=== PATIENT | female | born 1930 | race Caucasian/White ===

== ENCOUNTER 2017-05-20 15:34 | Inpatient (IN) | payer MEDICARE, MEDICAID ==
[~2017-05-20] VITALS: Ht 162.6 cm; Wt 105.4 kg
[~2017-05-20 15:34] MED LIST: ARICEPT 5MG TAB5 MG PO; ASPIRIN EC325 M1 PO; ATROVENT H0.017 MG/A IH; BOT OP; CEFDINIR 300MG300 MG PO; CETIRIZINE HYDRO5 MG PO; CRANBERRY200 MG PO; DEEP SEA NS; DILANTIN 100MG100 MG PO; DILANTIN 50MG.50 MG PO; FUROSEMIDE 20MG20 MG PO; HYDROCODONE1 TABLET PO; INVANZ 1 GM1 GM IV; IPRATROPIUM BROM3 M2 IH; KEPPRA 500 MG500 MG PO; KLOR-CON 1010 MEQ PO; KLOR-CON M2020 ME1 PO; LASIX 20MG. TAB20 MG PO; LEVAQUIN 750 M750 MG PO; LEVAQUIN500 MG PO; LISINOPRIL 5MG T5 MG PO; LORADAMED10 MG PO; LOVENOX40 MG/0.4 SC; MEGACE PO; MEGACE40 MG/ML PO; MUCINEX DM 30 M1 TE1 PO; NATURE'S BLEND500 M3 PO; NYSTATIN SUSPEN60 ML PO; OMEPRAZOLE20 MG PO; OS-CAL 500500 M1 PO; Omeprazole20 MG PO; POTASSIUM CHLO10 ME3 PO; PRILOSEC40 MG PO; REMERON15 MG PO; ROBITUSSIN10 ML/UDC PO; TAMSULOSIN HYD0.4 MG PO; TYLENOL 8 HOUR650 MG PO; TYLENOL325 MG PO; VITAMIN D1000 IU PO; XARELTO20 MG PO; ZITHROMAX Z-PA250 M1 PO; [UNRECOGNIZED DRUG - OTHER] OP; [UNRECOGNIZED DRUG - OTHER] PO
[2017-05-20 15:35] VITALS: BP 153/84
--- NOTE | 2017-05-20 16:27 | Emergency Room Report ---
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 N Clinical Suspician of Infection? N Mental Status: 1 - Regular (Normal Baseline) Sepsis Risk:Low Sepsis Risk Have you (or family members/close friends) recently traveled outside the [place]? N If Yes, where/when: Have you had exposure to infectious disease within the past month? TB? Other? Specify: Comment The patient is brought in by ambulance from a alf. She had onset of abdominal pain and vomiting today. She locates the pain is epigastric. No diarrhea or fever. Daughter also states that she has a chronic cough, but it is worse over the past several days. Daughter is concerned about pneumonia. The patient has dementia and is not a reliable historian according to daughter. According to her daughter, the patient did eat lunch today. The patient's other daughter works at the alf and said she was fine until this started. ALLERGIES Coded Allergies: Penicillins (05/20/17) aspirin (05/20/17) Home Medications Active Scripts Ertapenem Sodium (Invanz) 1 GM IV DAILY #12 INJ Prov: 01/21/17 Reported Medications POTASSIUM CHL (Potassium Chloride) 30 MEQ PO DAILY CHOLECALCIFEROL (VITAMIN D3) (Vitamin D3) 2,000 IUNITS PO DAILY GUAIFENESIN/DEXTROMETHORPHAN (Mucinex Dm ER 600-30 MG Tablet) 1 TAB PO DAILY CALCIUM CARBONATE (Oyster Shell Calcium) 1,000 MG PO BID Omeprazole (Omeprazole 20MG) 20 MG PO BID Cetirizine Hcl (Cetirizine Hydrochloride) 5 MG PO QHS Cranberry Extract (Cranberry) 200 MG PO BID Guaifenesin (Robitussin Plain Syr 200MG/10ML Udc) 10 ML PO Q6HP PRN COUGH Acetaminophen (Tylenol) 650 MG PO Q6HP PRN PAIN IPRATROPIUM/ALBUTEROL SULFATE (Iprat-Albut 0.5-3(2.5) MG/3 Ml) 3 ML IH Q6HP PRN SHORTNESS OF BREATH Ipratropium [place] (Atrovent Hfa) 2 PUFF IH Q4HP PRN SHORTNESS OF BREATH Furosemide (Lasix 20MG) 20 MG PO DAILY Levetiracetam (Keppra 500 Mg Tablet) 500 MG PO BID TAMSULOSIN HCL (Tamsulosin 0.4MG) 0.4 MG PO BID DONEPEZIL HCL (Aricept 5MG) 5 MG PO QHS History Medical History General CAD? No Angina: No NC: No Hypertension? Yes Hyperlipidemia? No CHF? No DVT? No PE? No COPD? Yes Asthma? No Anemia? Yes GERD? No Gastric ulcers? No GI Bleed? No Hernia? Yes Thyroid Problems? No Hypothyroidism? No CVA? No Seizures? Yes Diabetes? No Renal Insuffiency? Yes End Stage Renal Disease? No UTI? Yes Stones? No BPH? No GB Disease: No Nephritic Syndrome? No Asplenia? No Hepatitis? No Sickle Cell Disease? No Arthritis? No Migraines? No Cataracts? Yes Glaucoma? No MRSA? No HIV? No TB? No Anxiety? No Depression? No Cancer? Yes Site: R BREAST More? Yes Additional hx: HYPERNATREMIA, ANEMIA, DEMENTIA ENTEROCOCCUS FAECALIS Immunization Hx Ped.Immunizations UTD Yes DT/Tetanus UNKNOWN Flu [id number] Flu Season Pneumonia Received In Past Surgical Hx Previous Surgery?Y Appendix Tubal Ligation R BREAST BX Family History Family Hx Diabetes Yes CAD No Hypertension Yes Hyperlipidemia No Cancer Yes TB Yes Social History Smoking Hx Smoker: Never Smoker Tobacco: No Type N/A Packs/day N/A Are you/the child exposed to second-hand smoke: No Alcohol Alcohol: No Review of Systems All Other Systems Reviewed and Negative Constitutional denies fever Respiratory shortness of breath Gastrointestinal abdominal pain, denies diarrhea, vomiting Physical Exam Vital Signs Vital Signs Date Time Temp Pulse Resp B/P Pulse O2 O2 Flow FiO2 Ox Delivery Rate 05/20 1841 75 20 142/84 95 05/20 1708 20 05/20 1628 73 18 147/88 94 05/20 1535 98.3 75 18 153/84 94 General Appearance no apparent distress Eye Exam - bilateral eye normal exam, bilateral eye PERRL, bilateral eye EOMI Ear, Nose, Throat hearing grossly normal, normal ENT inspection Neck normal inspection, non-tender, supple, full range of motion Respiratory Status Yes: trachea midline, chest symmetrical, tender on palpation. No: respiratory distress. Lung Sounds bilateral: normal breath sounds, lungs clear. Cardiovascular normal exam, regular rate/rhythm, no peripheral edema, no gallop, no JVD, no murmur, no rub, normal peripheral pulses Peripheral Pulses Pulses normal Yes Gastrointestinal soft, no organomegaly, no guarding, no rebound, tenderness ( epigastric), hyperactive bowel sounds Extremities non-tender, normal range of motion, normal inspection Neurologic alert, no motor/sensory deficits Mental status normal mood/affect Skin intact, normal color, warm/dry Medical Decision Making LABS/Meds/Orders Pt receiving controlled substance in ED? Yes Gary was queried for this patient? No Reason not queried - emergent pt cond=no time Results/Orders Laboratory Tests 05/20/17 1710: Influenza Type A Ag NOT DETECTED, Influenza Type B Ag NOT DETECTED 05/20/17 1655: Lactic Acid 2.2 H 05/20/17 1550: Sodium 136, Potassium 4.1, Chloride 100, Carbon Dioxide 31, BUN 19 H, Creatinine 1.1 H, Estimated Creat Clear 67, Estimated GFR (MDRD) 47 L, Glucose 195 H, Calcium 8.9, Total Bilirubin 0.8, AST 99 H, ALT 90 H, Alkaline Phosphatase 158 H, Creatine Kinase 36, CK-MB (CK-2) Rel Index 0.0, CK and CKMB Interp 0.0, Troponin I < 0.02, Total Protein 8.1, Albumin 3.4, Globulin 4.7 H, Albumin/Globulin Ratio 0.7 L, Amylase 2043 *H, Lipase 21864 H, WBC 11.5 H, RBC 5.20, Hgb 13.9, Hct 43.3, MCV 84.3, RDW 14.6, Plt Count 280, MPV 6.5 L, Gran % 80.9 H, Gran # 9.3 H, Lymphocytes % 12.2, Monocytes % 3.8, Eosinophils % 2.7, Basophils % 0.4, Lymphocytes # 1.4, Monocytes # 0.4, Eosinophils # 0.3, Basophils # 0.1, PUBS MCHC 31.8, MCH 26.8 L Current Medication Orders Sig/Bennie Start time Last Medication Dose Route Stop Time Status Admin Morphine Sulfate 0 .STK-MED ONE 05/20 1704 DC .ROUTE Sodium Chloride 1,000 ML .STK-MED ONE 05/20 1703 DC IV Morphine Sulfate 2 MG ONCE ONE 05/20 1630 DC 05/20 IV 05/20 1631 1708 Sodium Chloride 10 ML PRN PRN 05/20 1630 AC IV 05/21 1623 Sodium Chloride 1,000 ML .Q6H40M 05/20 1630 DC 05/20 IV 05/20 2029 1707 Ondansetron HCl 4 MG ONCE ONE 05/20 1600 DC 05/20 IV 05/20 1601 1602 Ondansetron HCl 0 .STK-MED ONE 05/20 1558 DC .ROUTE Orders Procedure Date/time Status DIET-NOTHING BY MOUTH 05/20 D Complete LACTIC ACID FOLLOW UP 05/[address] ABD/PELVIS REQ 05/20 1627 Complete ELECTROCARDIOGRAM REQUEST 05/20 1624 Active CHEST-AP VIEW ONLY 05/20 1624 Active IV SALINE LOCK 05/20 1624 Active CULTURE, BLOOD 05/20 1624 Active URINALYSIS/COMPLETE 05/20 1624 Complete LIPASE 05/20 1624 Complete LACTIC ACID 05/20 1624 Complete INFLUENZA A&B ANTIGENS 05/20 1624 Complete CBC WITH AUTO DIFF 05/20 1624 Complete CARDIAC ENZYMES 05/20 1624 Complete CHEM 12 PROFILE 05/20 1624 Complete AMYLASE 05/20 1624 Complete 12 LEAD EKG-LARRY (INITIAL) 05/[address] ABD & PELVIS W/O CONTRAST 05/20 UNK Active CM/EKG CM/EKG Comments EKG interpreted by Tello Chavez MD: Rhythm: sinus Rate: 78 [place]: LEFT Ectopy: none Conduction: LEFT anterior fascicular block ST Segment Changes: none T Wave Changes: none Q Waves: none No evidence of acute ischemia or injury Poor R-wave progression Left ventricular hypertrophy XRAY/CT/US XRAY/CT/US XRAY chest Comment Chest X-ray interpreted by Tello Chavez M.D.: poor inspiration. Increased perihilar markings possibly related to poor inspiration. CT abdomen, pelvis Comment CT scan interpreted by [facility] radiologist. Faxed report received and reviewed: Distended gallbladder. No calcified stones seen. Mildly dilated common bile duct , may be normal for age. 1907: Final report of CT scan also states that there are bi-basilar pulmonary opacities probably atelectasis, can't exclude mild pneumonia. Progress - 1840: Case discussed with Dr. Vaca, surgeon correspondence school instructor. He feels that given the clinical scenario, patient should be able to be admitted here. 185: I have discussed the case with Dr. Whatley who agrees to admit the patient to the hospital. We discussed the patient's clinical information, including history, exam, laboratory and radiology results and ED course. Per hospital procedure, I will write temporary bridge inpatient orders on the patient. Specific orders requested by the admitting physician: Nothing by mouth. Gallbladder ultrasound. IV fluids. Pain control. Repeat labs in the morning. Departure Departure Disposition Still a Patient Clinical Impression Primary Impression: Acute pancreatitis Qualifiers: Pancreatitis type: unspecified pancreatitis type Acute pancreatitis complication: no infection or necrosis Qualified Code: K85.90 - Acute pancreatitis without necrosis or infection, unspecified Condition STABLE ED Critical Care Critical Care No at 2035
[2017-05-20 16:39] LABS: LYMPH # 1.4 K/mm3 (0.7-4.5); LYMPH % 12.2 % (10-50.0)
[2017-05-20 16:44] LABS: HEMOGLOBIN 13.9 g/dL (12.2-16.2)
[2017-05-20 17:00] LABS: BUN 19 mg/dL (7-18)
[2017-05-20 17:01] LABS: GFR (ESTIMATED) 47 ML/MIN (59-)
[2017-05-20 19:33] LABS: URINE BILIRUBIN - DIPSTICK NEGATIVE (NEG); URINE BLOOD 2+ (NEG)
[2017-05-20 20:39] VITALS: BP 156/69
[2017-05-21] VITALS (7 sets, daily range): BP systolic 118–156; BP diastolic 68–90
[2017-05-21] MEDS ORDERED: KEPPRA 500 MG500 MG PO (03:31)
--- NOTE | 2017-05-21 06:46 | RADIOLOGY REPORT PS360 ---
CHEST-AP VIEW ONLY HISTORY: cough ORDERING PHYSICIAN: Juan Whatley MD PATIENT AGE: 87 years COMPARISON: 01/19/2017 FINDINGS: There are low lung volumes The cardiomediastinal silhouette and pulmonary vascularity are within normal limits. The lungs are clear without infiltrates, suspicious nodules, or pleural effusions. No acute bony abnormalities. Degenerative changes are present in the shoulders IMPRESSION: No change with no acute finding
[2017-05-21 07:06] LABS: HEMOGLOBIN 12.7 g/dL (12.2-16.2); LYMPH # 0.2 K/mm3 (0.7-4.5); LYMPH % 1.4 % (10-50.0)
--- NOTE | 2017-05-21 07:44 | RADIOLOGY REPORT PS360 ---
CT ABD PELVIS W/O CONTRAST CLINICAL INDICATION: VOMITING ORDERING PHYSICIAN: Juan Whatley MD PATIENT AGE: 87 years COMPARISON: 12/31/2014 TECHNIQUE: Axial images obtained with sagittal and coronal reformats. PROCEDURE: Oral Contrast: None IV Contrast: None . FINDINGS: There is mild bibasilar atelectasis versus patchy infiltrate. Beam hardening artifact is present overlying the posterior aspect of the liver and spleen secondary to patient's arms down by her side. There is distention of the gallbladder. No radio opaque stones. The liver and spleen are grossly unremarkable. Common bile duct is slightly prominent at 10 mm. Unremarkable pancreas. There is mild nodularity left adrenal gland unchanged probably due to adenomatous involvement. Nonobstructing right renal calculi. Left renal cortical cysts. There is fluid-filled duodenum and proximal jejunum with minimal distention without obvious transition point. No evidence of appendicitis. There is extensive diverticulosis of the descending and sigmoid colon but no evidence of diverticulitis. No pelvic mass. Senescent calcifications are present in the uterus No acute bony anomalies. IMPRESSION: 1. Distended gallbladder with mild prominence of the common bile duct. 2. Nonobstructing right renal calculi. 3. Minimal distention of the proximal small bowel is fluid filled without obvious transition point and may be related to enteritis. No air-fluid levels. Cannot completely exclude possibility of partial small bowel obstruction. 4. Extensive colonic diverticulosis without evidence of diverticulitis
--- NOTE | 2017-05-21 07:53 | HISTORY AND PHYSICAL REPORT ---
History and Physical ([facility]) Date of admission: 05/20/17 Chief complaint: Abdominal pain and vomiting History: History of Present Illness: Ms. Gonzalez is an 87-year-old white female who is a resident of [facility] in [place]. She has a history of Alzheimer's dementia, hypertension, seizure disorder, and chronic renal insufficiency. She was sent to the emergency room with the onset of epigastric pain, nausea and vomiting. Her daughter reported that she had dry cough for the past 2-3 days as well. She was worked up in the emergency room with significant findings of elevated amylase and lipase consistent with pancreatitis. Her CT scan however was fairly unremarkable other than borderline enlargement of the gallbladder. No gallstones appreciated. The lower lung bo were visible on abdominal CT and showed some atelectasis versus early pneumonia. Initial cardiac enzymes were negative. Patient was then admitted to the service of Dr. Whatley in the absence of her having a local physician. The patient was admitted to the medical floor and start on IV fluid hydration, antiemetics and p.r.n. pain medication. UA was also consistent with urinary tract infection she has been started on IV Levaquin for urinary tract infection and possible pneumonia. She required a small dose of Ativan through the night because of some agitation. After that she rested fairly comfortably. This morning she was noted to be tachycardic with heart rate around 140. EKG confirmed sinus tachycardia and repeat cardiac enzymes showed a bump in her Troponin to 0.18. She has no complaints of chest pain but is an unreliable historian. She had no vomiting through the night. Past Medical History: Medical History: CAD? No Angina: No CA: No Hypertension? Yes Hyperlipidemia? No CHF? No DVT? No PE? No COPD? Yes Asthma? No Anemia? Yes GERD? No Gastric ulcers? No GI Bleed? No Hernia? Yes Thyroid Problems? No Hypothyroidism? No CVA? No Seizures? Yes Diabetes? No Renal Insuffiency? Yes UTI? Yes Stones? No BPH? No GB Disease: No Nephritic Syndrome? No Asplenia? No Hepatitis? No Sickle Cell Disease? No Arthritis? No Migraines? No Cataracts? Yes Glaucoma? No MRSA? No HIV? No TB? No Anxiety? No Depression? No Cancer? Yes Site: R BREAST More? Yes Additional hx: Alzheimers dementia Surgical history: Previous Surgery?Y Appendix Tubal Ligation R BREAST BX Medications: Reported Medications Omeprazole (Omeprazole 20MG) 20 MG PO DAILY POTASSIUM CHL (Potassium Chloride) 30 MEQ PO DAILY CHOLECALCIFEROL (VITAMIN D3) (Vitamin D3) 2,000 IUNITS PO DAILY GUAIFENESIN/DEXTROMETHORPHAN (Mucinex Dm ER 600-30 MG Tablet) 1 TAB PO DAILY CALCIUM CARBONATE (Oyster Shell Calcium) 1,000 MG PO BID Cetirizine Hcl (Cetirizine Hydrochloride) 5 MG PO QHS Cranberry Extract (Cranberry) 200 MG PO BID Acetaminophen (Tylenol) 650 MG PO Q6HP PRN PAIN Levetiracetam (Keppra 500 Mg Tablet) 500 MG PO BID Furosemide (Lasix 20MG) 20 MG PO DAILY Levetiracetam (Keppra 500 Mg Tablet) 500 MG PO BID TAMSULOSIN HCL (Tamsulosin 0.4MG) 0.4 MG PO BID DONEPEZIL HCL (Aricept 5MG) 5 MG PO QHS Allergies: Coded Allergies: Penicillins (05/20/17) aspirin (05/20/17) Family History: Family history: Postive for: unknown. Social History: Smoking Hx Tobacco: No Smoker: Never Smoker Type: N/A Packs/day: N/A Are you exposed to second hand No Alcohol: Alcohol: No Hx of Drug Use: Drug Use? No Patien't marital status is: Review of Systems: Patient unresponsive? Yes (demented) Physical Exam: Vital signs: 1ST Vital Signs Result Date Time Pulse Ox 94 05/20 1535 B/P 153/84 05/20 1535 Temp 98.3 05/20 1535 Pulse 75 05/20 1535 Resp 18 05/20 1535 O2 Delivery ROOM AIR 05/20 2039 O2 Flow Rate 1 05/20 2300 Exam: General appearance: awake and responsive but incoherent. NAD Eyes: anicteric, conjunctiva clear ENT: dry mucous membranes, nares patent Neck: supple, no masses or thyromegaly Cardiovascular: distant, regular and tachycardic Respiratory: diminished in bases o/w clear ABD: non-distended, soft, BS present but decreased. Tender across upper abdomen to palpation Extremities: no peripheral edema Musculoskeletal: moves all extremities. Gait not tested Skin: dry, normal color, warm Neuro: awake, incoherent. No focal motor deficits Lab data: Labs: Laboratory Tests 05/21/17 1202: POC Glucose 118 H 05/21/17 0615: Creatine Kinase 46, CK-MB (CK-2) Rel Index 1.1, CK and CKMB Interp < 0.5, Troponin I 0.18 H 05/21/17 0615: Sodium 140, Potassium 3.3 L, Chloride 107, Carbon Dioxide 26, BUN 19 H, Creatinine 1.1 H, Estimated Creat Clear 56, Estimated GFR (MDRD) 47 L, Glucose 120 H, Calcium 8.2 L, Total Bilirubin 2.3 H, AST 67 H, ALT 117 H, Alkaline Phosphatase 156 H, Total Protein 6.7, Albumin 2.8 L, Globulin 3.9 H, Albumin/ Globulin Ratio 0.7 L, Amylase 887 *H, Lipase 6038 H, WBC 15.0 H, RBC 4.73, Hgb 12.7, Hct 39.6, MCV 83.6, RDW 14.7, Plt Count 210, MPV 7.3 L, Gran % 94.6 H, Gran # 14.2 H, Total Counted 100, Lymphocytes % 1.4 L, Monocytes % 3.1, Eosinophils % 0.7, Basophils % 0.2, Neutrophils 86 H, Band Neutrophils 6, Lymphocytes (Manual) 6 L, Lymphocytes # 0.2 L, Monocytes (Manual) 1 L, Monocytes # 0.5, Eosinophils # 0.1, Basophils # 0.0, RBC/WBC/PLT Morphology NORMAL, Atypical Lymphocytes 1, Platelet Estimate NORMAL, PUBS MCHC 32.1, MCH 26.9 L 05/21/17 0614: POC Glucose 122 H 05/20/178: POC Glucose 152 H 05/20/172054: Lactic Acid 2.1 H 05/20/17 1925: Urine Color YELLOW, Urine Appearance CLOUDY, Urine pH 6.5, Ur Specific [place] 1.020, Urine Protein 1+ H, Urine Ketones NEGATIVE, Urine Blood 2+ H, Urine Nitrate NEGATIVE, Urine Bilirubin NEGATIVE, Urine Urobilinogen 2.0, Ur Leukocyte Esterase 3+ H, Urine RBC 3-5, Urine WBC TNTC, Ur Squamous Epith Cells NONE, Urine Bacteria 2+, Urine Glucose NEGATIVE 05/20/17 1710: Influenza Type A Ag NOT DETECTED, Influenza Type B Ag NOT DETECTED 05/20/17 1655: Lactic Acid 2.2 H 05/20/17 1550: Sodium 136, Potassium 4.1, Chloride 100, Carbon Dioxide 31, BUN 19 H, Creatinine 1.1 H, Estimated Creat Clear 67, Estimated GFR (MDRD) 47 L, Glucose 195 H, Calcium 8.9, Total Bilirubin 0.8, AST 99 H, ALT 90 H, Alkaline Phosphatase 158 H, Creatine Kinase 36, CK-MB (CK-2) Rel Index 0.0, CK and CKMB Interp 0.0, Troponin I < 0.02, Total Protein 8.1, Albumin 3.4, Globulin 4.7 H, Albumin/Globulin Ratio 0.7 L, Amylase 2043 *H, Lipase 38896 H, WBC 11.5 H, RBC 5.20, Hgb 13.9, Hct 43.3, MCV 84.3, RDW 14.6, Plt Count 280, MPV 6.5 L, Gran % 80.9 H, Gran # 9.3 H, Lymphocytes % 12.2, Monocytes % 3.8, Eosinophils % 2.7, Basophils % 0.4, Lymphocytes # 1.4, Monocytes # 0.4, Eosinophils # 0.3, Basophils # 0.1, PUBS MCHC 31.8, MCH 26.8 L Microbiology 05/20 1925 URINE CC: Urine Culture - RECD 05/20 1925 URINE CATH: Urine Culture - RECD 05/20 1550 BLOOD: Anaerobic Blood Culture - RECD 05/20 1550 BLOOD: Aerobic Blood Culture - RECD 05/20 1550 BLOOD: Anaerobic Blood Culture - RECD 05/20 1550 BLOOD: Aerobic Blood Culture - RECD Diagnosis(es): 1. Acute pancreatitis 2. NSTEMI (non-ST elevated myocardial infarction) 3. UTI (urinary tract infection) 4. Dementia Status: Chronic 5. Seizure disorder Status: Chronic 6. Renal insufficiency Status: Chronic 7. Pulmonary atelectasis Assessment/Plan Possible pneumonia Plan: Her condition is guarded in light of the acute pancreatitis and other comorbidities. Her amylase and lipase have improved however her total bilirubin is increased. Abdominal ultrasound this morning again did not show any gallstones nor obvious common bile duct obstruction. Dr. Tracey has been consulted for surgical opinion however in light of her apparent non-STEMI, she is not a good candidate for surgery or intervention at this time. There is currently no family present at the bedside for further discussion. They have signed a DNR indicating no life prolonging measures except for mechanical ventilation. I plan to discuss this further with them at the earliest convenience. For the present time, we will continue IV fluid hydration, n.p.o. for bowel rest, and IV Levaquin for coverage of urinary tract infection and possible pneumonia pending cultures. Dr. Ramos has been consultedregarding her non-STEMI. at 3842
[2017-05-21 08:51] LABS: NEUTROPHILS 86 % (42-76)
--- NOTE | 2017-05-21 08:54 | RADIOLOGY REPORT PS360 ---
US GALLBLADDER (ABD LTD) HISTORY: pancreatitis ORDERING PHYSICIAN: Juan Whatley MD PATIENT AGE: 87 years COMPARISON: None FINDINGS: The exam is somewhat limited as the patient is unable to follow breathing commands. Pancreas is not well delineated. There is heterogeneous echogenicity of the liver. Right kidney has an unremarkable appearance. Common bile duct is upper normal at 8 mm. No gallstones are evident. No gallbladder wall thickening or pericholecystic fluid. Gallbladder is mildly distended. IMPRESSION: Technically limited exam. Mild distention of the gallbladder. No gallstones apparent. No biliary dilatation
--- NOTE | 2017-05-21 09:27 | PHARMACY CLINIC NOTE ---
Patient Demographics Patient Demographics Admission date: 05/20/17 Date: 05/21/17 Time: 09 Allergies Coded Allergies: Penicillins (05/20/17) aspirin (05/20/17) HEIGHT- FT: 5 IN: 4.00 K.[id number] VTE General Information Labs: Laboratory Tests 05/21 05/20 0615 1550 Hematology Hgb (12.2 - 16.2 g/dL) 12.7 13.9 Hct (37.0 - 47.0 %) 39.6 43.3 Plt Count (142 - 424 K/mm3) 210 280 Disclaimer The following section includes nursing documentation that has been pulled in for pharmacy review. Patient's VTE score: 2 Patient's VTE Risk: VERY LOW RISK Clinical trial participant? No VTE prophylaxis NQF [id number] VTE prophylaxis ordered? Yes Type of prophylaxis/treatment: TITO at 0926
--- NOTE | 2017-05-21 09:56 | CONSULT NOTE ---
Standard Demographics Patient Demo Date of Consultation: 05/21/17 Referring Provider: Miko Whatley MD Reason for Consultation: pancreatitis PRIMARY DIAGNOSIS: pancreatitis Allergies: Coded Allergies: Penicillins (05/20/17) aspirin (05/20/17) History of Present Illness Chief Complaint: Abdominal pain and nausea/vomiting History of Present Illness: This is an 87-year-old female seen in consultation from Dr. Whatley for evaluation regarding pancreatitis. She was brought to the emergency department yesterday by way of ambulance from her care home after developing abdominal pain and nausea/vomiting. She seemingly had significant pain in the epigastric region. She subsequently developed an episode of significant emesis. She does have dementia and is a poor historian. No reported fevers. No reported jaundice. No reported hematemesis. No reported melena. Evaluation in the emergency department revealed biochemical evidence of pancreatitis. Past Medical History Reports: COPD, hypertension, dementia. Surgical History Previous Surgery?Y Appendix Tubal Ligation R BREAST BX Allergies Coded Allergies: Penicillins (05/20/17) aspirin (05/20/17) Medications: Reported Medications POTASSIUM CHL (Potassium Chloride) 30 MEQ PO DAILY CHOLECALCIFEROL (VITAMIN D3) (Vitamin D3) 2,000 IUNITS PO DAILY GUAIFENESIN/DEXTROMETHORPHAN (Mucinex Dm ER 600-30 MG Tablet) 1 TAB PO DAILY CALCIUM CARBONATE (Oyster Shell Calcium) 1,000 MG PO BID Omeprazole (Omeprazole 20MG) 20 MG PO BID Cetirizine Hcl (Cetirizine Hydrochloride) 5 MG PO QHS Cranberry Extract (Cranberry) 200 MG PO BID Acetaminophen (Tylenol) 650 MG PO Q6HP PRN PAIN Levetiracetam (Keppra 500 Mg Tablet) 500 MG PO BID Furosemide (Lasix 20MG) 20 MG PO DAILY Levetiracetam (Keppra 500 Mg Tablet) 500 MG PO BID TAMSULOSIN HCL (Tamsulosin 0.4MG) 0.4 MG PO BID DONEPEZIL HCL (Aricept 5MG) 5 MG PO QHS Family history Postive for: unknown. Smoking Hx Tobacco: No Smoker: Never Smoker Type: N/A Packs/day: N/A Are you/the child exposed to second-hand smoke: No Alcohol Alcohol: No Hx of Drug Use Drug Use? No Review of Systems Constitutional No: recent weight loss. Skin No: bruising. Immune/allergy No: anaphalaxis. Eyes No: swelling. ENT No: nose bleed. Respiratory No: hemoptysis. GI Positive for: nausea, vomitting. No: hematemeis, hematochezia, melena. (female) No: hematuria. Heme No: petechia. Neurological No: change in LOC. Psychiatric No: anxious. Physical Exam VS/I&O Vital Signs Date Time Temp Pulse Resp B/P Pulse O2 O2 Flow FiO2 Ox Delivery Rate 05/21 0906 91 05/21 0851 98.1 140 20 118/68 91 05/21 0800 98.1 140 20 118/68 89 OXYGEN 05/21 0558 1 05/21 0530 98.4 108 05/21 0425 138 05/21 0400 1 05/21 0400 100.4 142 24 140/73 91 OXYGEN 1 05/21 0300 1 05/21 0245 85 05/21 0245 98.2 85 24 156/69 05/21 0245 92 ROOM AIR 05/21 0200 1 05/21 0150 24 05/20 2300 1 05/20 2039 98.2 85 24 156/69 92 ROOM AIR 05/20 1947 72 18 138/75 99 05/20 1841 75 20 142/84 95 05/20 1708 20 05/20 1628 73 18 147/88 94 05/20 1535 98.3 75 18 153/84 94 I&O 05/21 0700 Intake Total 1000 Output Total 1350 Balance -350 Intake, IV 1000 Output, Urine 1350 Patient 102.541 kg Weight Exam General appearance no acute distress Respiratory no distress Cardiovascular regular rate and rhythm Abdomen flat (some TTP in upper abd), soft Findings/Data US - no obvious stones or biliary dilitation (CBD normal for age), somewhat distended GB with no wall thickening White blood cell count 15 (up from 11.5) AST 67 ALT 117 Alkaline phosphatase 156 Bilirubin 2.3 (up from 0.8) Amylase 887 (down from 2,043) Lipase 6,038 (down from 38,710) Troponin I - 0.18 Plan Plan: Impression: Pancreatitis - improving biochemically (possible "passed stone") Hyperbilirubinemia - possible "passed stone" or retained stone that is not obvious on US Leukocytosis Elevated troponin NOTE: Although the patient may have passed a gallstone, she has no definitive sign of additional stones within the gallbladder or definitive stone within the biliary tree Plan: 1) continue nothing by mouth status with IV fluid hydration 2) continue antibiotics with consideration of additional (biliary) coverage 3) repeat labs in a.m. 4) possible ERCP if hyperbilirubinemia does not resolve 5) considering the low likelihood of persistent stones within the gallbladder itself and considering the patient's comorbid conditions...the risks associated with operative intervention (specifically cholecystectomy) likely outweigh the benefits (even if ERCP is completed and stones are extracted) at [id number]
[2017-05-22] VITALS (8 sets, daily range): BP systolic 110–133; BP diastolic 60–80
[2017-05-22 07:45] LABS: HEMOGLOBIN 12.6 g/dL (12.2-16.2); LYMPH # 0.9 K/mm3 (0.7-4.5); LYMPH % 6.3 % (10-50.0)
--- NOTE | 2017-05-22 08:38 | ACUTE CARE PROGRESS NOTE (QUA) ---
Progress Notes Subjective Date 05/22/17 Time 0832 Note Has increased confusion and agitation at night. This AM she is calm and cooperative. Denies c/o pain Objective Findings Laboratory Tests 05/22/17 0619: POC Glucose 79 05/22/17 0605: Sodium 143, Potassium 3.7, Chloride 110 H, Carbon Dioxide 27, BUN 22 H, Creatinine 1.0, Estimated Creat Clear 62, Estimated GFR (MDRD) 52 L, Glucose 76 , Calcium 8.0 L, Total Bilirubin 2.5 H, AST 42 H, ALT 109 H, Alkaline Phosphatase 128 H, Total Protein 6.4, Albumin 2.4 L, Globulin 4.0 H, Albumin/ Globulin Ratio 0.6 L, Amylase 167 H, Lipase 370, WBC 13.7 H, RBC 4.60, Hgb 12.6, Hct 38.9, MCV 84.5, RDW 14.7, Plt Count 185, MPV 7.3 L, Gran % 88.6 H, Gran # 12.1 H, Lymphocytes % 6.3 L, Monocytes % 4.2, Eosinophils % 0.7, Basophils % 0.2, Lymphocytes # 0.9, Monocytes # 0.6, Eosinophils # 0.1, Basophils # 0.0, PUBS MCHC 32.5, MCH 27.5 05/21/17 1645: POC Glucose 94 05/21/17 1202: POC Glucose 118 H Last VS-Temp:98.5 B/P: 110/80 Pulse:100 Resp:20 SaO2:92 ROOM AIR Last weight lbs: 226 oz: 1 K.541 Method: Bed Scales Exam General appearance: alert but confused Eyes: anicteric ENT: dry mucous membranes Cardiovascular: regular rate & rhythm Respiratory: congested cough, coares BS, few rhonchi ABD: soft, BS present. Mild upper abdominal tenderness Extremities: no peripheral edema Assessment/Plan Problem List 1. Acute pancreatitis 2. NSTEMI (non-ST elevated myocardial infarction) 3. UTI (urinary tract infection) 4. Dementia Status: Chronic 5. Seizure disorder Status: Chronic 6. Renal insufficiency Status: Chronic 7. Pulmonary atelectasis Plan: Amylase and lipase much improved. Bili is slightly higher but other LFTs improved. Will offer clear liquids. Check CXR. Awaiting cultures. This inpt stay is expected to cross 2 MNs from start of care Yes at 0838
--- NOTE | 2017-05-22 09:34 | SURGEON PROGRESS NOTE ---
Subjective data Subjective data: No new issues overnight. Objective data Vitals,I&O,and Labs: Vital signs, intake and output,and available lab data for the last 24 hours is as noted below. Vital Signs Date Time Temp Pulse Resp B/P Pulse O2 O2 Flow FiO2 Ox Delivery Rate 05/22 823 98.5 100 20 110/80 92 05/22 0752 98.5 100 20 110/80 92 ROOM AIR 05/22 0417 100.5 100 20 129/60 90 ROOM AIR 05/22 0314 18 05/21 2247 22 05/21 2000 100.0 123 22 139/90 90 05/21 1948 100.0 123 22 139/90 90 ROOM AIR 05/21 1600 98.4 79 20 136/88 91 OXYGEN 05/21 1211 88 05/21 1500 05/21 2300 05/22 0700 Intake Total 0 3944 1670 Output Total 300 500 Balance 0 3644 1170 Intake, IV 3944 1670 Intake, Oral 0 0 Output, Urine 300 500 Laboratory Tests Test Result Date Time Chemistry Sodium (mmoL/L) 143 05/22 605 Potassium (mmoL/L) 3.7 05/22 605 Chloride (mmoL/L) 110 05/22 06 Carbon Dioxide (mmoL/L) 27 05/22 605 BUN (mg/dL) 22 05/22 605 Creatinine (mg/dL) 1.0 05/22 605 Estimated Creat Clear (ML/MIN) 62 05/22 605 Estimated GFR (MDRD) (ML/MIN) 52 05/22 06 Glucose (mg/dL) 76 05/22 605 POC Glucose (mg/dl) 79 05/22 619 Lactic Acid (MMOL/L) 2.1 05/20 2055 Calcium (mg/dL) 8.0 05/22 605 Total Bilirubin (mg/dL) 2.5 05/22 605 AST (U/L) 42 05/22 605 ALT (U/L) 109 05/22 605 Alkaline Phosphatase (U/L) 128 05/22 605 Creatine Kinase (U/L) 46 05/21 615 CK-MB (CK-2) Rel Index (U/L) 1.1 05/21 615 CK and CKMB Interp (ng/mL) < 0.5 05/21 615 Troponin I (ng/mL) 0.18 05/21 615 Total Protein (gm/dL) 6.4 05/22 605 Albumin (gm/dL) 2.4 05/22 605 Globulin (gm/dL) 4.0 05/22 605 Albumin/Globulin Ratio 0.6 05/22 605 Amylase (U/L) 167 05/22 605 Lipase (U/L) 370 05/22 605 Hematology WBC (K/MM3) 13.7 05/22 605 RBC (M/mm3) 4.60 05/22 605 Hgb (g/dL) 12.6 05/22 605 Hct (%) 38.9 05/22 605 MCV (fl) 84.5 05/22 605 RDW (%) 14.7 05/22 605 Plt Count (K/mm3) 185 05/22 605 MPV (fl) 7.3 05/22 605 Gran % (%) 88.6 05/22 605 Gran # (K/mm3) 12.1 05/22 605 Total Counted (#CELLS) 100 05/21 615 Lymphocytes % (%) 6.3 05/22 605 Monocytes % (%) 4.2 05/22 605 Eosinophils % (%) 0.7 05/22 605 Basophils % (%) 0.2 05/22 605 Neutrophils (%) 86 05/21 615 Band Neutrophils (%) 6 05/21 615 Lymphocytes (Manual) (%) 6 05/21 615 Lymphocytes # (K/mm3) 0.9 05/22 605 Monocytes (Manual) (%) 1 05/21 615 Monocytes # (K/mm3) 0.6 05/22 605 Eosinophils # (K/mm3) 0.1 05/22 605 Basophils # (K/MM3) 0.0 05/22 605 RBC/WBC/PLT Morphology NORMAL 05/21 615 Atypical Lymphocytes (%) 1 05/21 615 Platelet Estimate NORMAL 05/21 615 PUBS MCHC (g/dl) 32.5 05/22 605 Immunology MCH (pg) 27.5 05/22 605 Serology Influenza Type A Ag NOT DETECTED 05/20 1710 Influenza Type B Ag NOT DETECTED 05/20 1710 Urines Urine Color YELLOW 05/20 1925 Urine Appearance CLOUDY 05/20 1925 Urine pH 6.5 05/20 1925 Ur Specific [place] 1.020 05/20 1925 Urine Protein (mg/dL) 1+ 05/20 1925 Urine Ketones (mg/dL) NEGATIVE 05/20 1925 Urine Blood 2+ 05/20 1925 Urine Nitrate NEGATIVE 05/20 1925 Urine Bilirubin NEGATIVE 05/20 1925 Urine Urobilinogen (E.U./dL) 2.0 05/20 1925 Ur Leukocyte Esterase 3+ 05/20 1925 Urine RBC (rbc/hpf) 3-5 05/20 1925 Urine WBC (wbc/hpf) TNTC 05/20 1925 Ur Squamous Epith Cells (#/hpf) NONE 05/20 1925 Urine Bacteria 2+ 05/20 1925 Urine Glucose NEGATIVE 05/20 1925 Assessment findings Assessment Exam General appearance: no acute distress Cardiovascular: regular rate & rhythm Respiratory: no respiratory distress ABD: soft (seemingly less TTP) Patient plan Diagnoses: Pancreatitis-biochemically resolving Hyperbilirubinemia-slightly higher this morning Non-STEMI Plan: as per primary service Additional data: Gastroenterology and cardiology consultations are pending. Possible ERCP warranted (particularly if hyperbilirubinemia worsens); however, the risks of any intervention requiring sedation may outweigh the benefit. at 0934
--- NOTE | 2017-05-22 10:57 | RADIOLOGY REPORT PS360 ---
CHEST-PORTABLE HISTORY: Pneumonia follow-up f/u atelectasis vs pneumonia ORDERING PHYSICIAN: Juan Whatley MD PATIENT AGE: 87 years COMPARISON: 05/20/2017 FINDINGS: Mild cardiomegaly without failure. Patchy density has developed in the right midlung which may be due to atelectasis or infiltrate. There is some density also noted in the left lung base in the CP angle suggesting small effusion with underlying atelectasisX. There are low lung volumes. IMPRESSION: Atelectasis or infiltrate in the right midlung and left lower lobe with small left
[2017-05-23] VITALS (9 sets, daily range): BP systolic 119–155; BP diastolic 51–73
--- NOTE | 2017-05-23 06:24 | SURGEON PROGRESS NOTE ---
Subjective data Subjective data: Resting this AM. Objective data Vitals,I&O,and Labs: Vital signs, intake and output,and available lab data for the last 24 hours is as noted below. Vital Signs Date Time Temp Pulse Resp B/P Pulse O2 O2 Flow FiO2 Ox Delivery Rate 05/23 0348 99.0 73 20 149/73 92 OXYGEN 1 05/23 0342 98.8 99 16 128/69 93 ROOM AIR 05/23 0254 20 05/22 2313 20 05/22 2057 99.4 80 24 123/70 94 ROOM AIR 05/22 2050 99.4 80 24 123/70 94 05/22 1558 98.6 86 18 129/64 90 ROOM AIR 05/22 1200 99.2 90 18 133/71 88 ROOM AIR 05/22 0823 98.5 100 20 110/80 92 05/22 0752 98.5 100 20 110/80 92 ROOM AIR 05/22 1500 05/22 2300 05/23 0700 Intake Total 420 2225 Output Total 350 Balance 420 1875 Intake, IV 1865 Intake, Oral 420 360 Output, Urine 350 Patient 102.541 kg Weight Laboratory Tests Test Result Date Time Chemistry Sodium (mmoL/L) 143 05/22 06 Potassium (mmoL/L) 3.7 05/22 605 Chloride (mmoL/L) 110 05/22 06 Carbon Dioxide (mmoL/L) 27 05/22 605 BUN (mg/dL) 22 05/22 605 Creatinine (mg/dL) 1.0 05/22 605 Estimated Creat Clear (ML/MIN) 62 05/22 605 Estimated GFR (MDRD) (ML/MIN) 52 05/22 605 Glucose (mg/dL) 76 05/22 06 POC Glucose (mg/dl) 100 05/22 2055 Lactic Acid (MMOL/L) 2.1 05/20 2055 Calcium (mg/dL) 8.0 05/22 605 Total Bilirubin (mg/dL) 2.5 05/22 605 AST (U/L) 42 05/22 605 ALT (U/L) 109 05/22 06 Alkaline Phosphatase (U/L) 128 05/22 605 Creatine Kinase (U/L) 46 05/21 615 CK-MB (CK-2) Rel Index (U/L) 1.1 09/23 0615 CK and CKMB Interp (ng/mL) < 0.5 05/21 615 Troponin I (ng/mL) 0.18 05/21 615 Total Protein (gm/dL) 6.4 05/22 605 Albumin (gm/dL) 2.4 05/22 605 Globulin (gm/dL) 4.0 05/22 605 Albumin/Globulin Ratio 0.6 05/22 605 Amylase (U/L) 167 05/22 605 Lipase (U/L) 370 05/22 605 Hematology WBC (K/MM3) 13.7 05/22 605 RBC (M/mm3) 4.60 05/22 605 Hgb (g/dL) 12.6 05/22 605 Hct (%) 38.9 05/22 605 MCV (fl) 84.5 05/22 605 RDW (%) 14.7 05/22 605 Plt Count (K/mm3) 185 05/22 605 MPV (fl) 7.3 05/22 605 Gran % (%) 88.6 05/22 605 Gran # (K/mm3) 12.1 05/22 605 Total Counted (#CELLS) 100 05/21 615 Lymphocytes % (%) 6.3 05/22 605 Monocytes % (%) 4.2 05/22 605 Eosinophils % (%) 0.7 05/22 605 Basophils % (%) 0.2 05/22 605 Neutrophils (%) 86 05/21 615 Band Neutrophils (%) 6 05/21 615 Lymphocytes (Manual) (%) 6 05/21 615 Lymphocytes # (K/mm3) 0.9 05/22 605 Monocytes (Manual) (%) 1 05/21 615 Monocytes # (K/mm3) 0.6 05/22 605 Eosinophils # (K/mm3) 0.1 05/22 605 Basophils # (K/MM3) 0.0 05/22 605 RBC/WBC/PLT Morphology NORMAL 05/21 615 Atypical Lymphocytes (%) 1 05/21 615 Platelet Estimate NORMAL 05/21 615 PUBS MCHC (g/dl) 32.5 05/22 605 Immunology MCH (pg) 27.5 05/22 605 Serology Influenza Type A Ag NOT DETECTED 05/20 1710 Influenza Type B Ag NOT DETECTED 05/20 1710 Urines Urine Color YELLOW 05/20 1925 Urine Appearance CLOUDY 05/20 1925 Urine pH 6.5 05/20 1925 Ur Specific [place] 1.020 05/20 1925 Urine Protein (mg/dL) 1+ 05/20 1925 Urine Ketones (mg/dL) NEGATIVE 05/20 1925 Urine Blood 2+ 05/20 1925 Urine Nitrate NEGATIVE 05/20 1925 Urine Bilirubin NEGATIVE 05/20 1925 Urine Urobilinogen (E.U./dL) 2.0 05/20 1925 Ur Leukocyte Esterase 3+ 05/20 1925 Urine RBC (rbc/hpf) 3-5 05/20 1925 Urine WBC (wbc/hpf) TNTC 05/20 1925 Ur Squamous Epith Cells (#/hpf) NONE 05/20 1925 Urine Bacteria 2+ 05/20 1925 Urine Glucose NEGATIVE 05/20 1925 Assessment findings Assessment Exam General appearance: no acute distress Cardiovascular: regular rate & rhythm Respiratory: no respiratory distress ABD: soft Patient plan Diagnoses: pancreatitis hyperbilirubinemia leukocytosis non-STEMI Plan: f/u AM labs, f/u cardiology consult, ? GI consult at 0624
[2017-05-23 06:46] LABS: HEMOGLOBIN 11.9 g/dL (12.2-16.2); LYMPH # 0.8 K/mm3 (0.7-4.5); LYMPH % 5.3 % (10-50.0)
--- NOTE | 2017-05-23 07:35 | CONSULT NOTE ---
See Addendum Standard Demographics Patient Demo Date of Consultation: 05/23/17 Referring Provider: Miko Whatley MD Reason for Consultation: NSTEMI, Pancreatitis PRIMARY DIAGNOSIS: pancreatitis Problem list Problem list: 1. Alzheimer's Disease/Dementia 2. HTN 3. Seizure Disorder 4. COPD History of present illness: History of present illness: 87 yo [place]F resident of [place] with history of Alzheimer's Dementia, HTN, Seizure Disorder and DNR was admitted with abdominal pain, nausea and vomiting. She was found to have labs and imaging consistent with pancreatitis which has been managed medically at this point. Due to elevated heart rate during admission, a second troponin was drawn and found to be elevated (initial troponin on admission was normal). Cardiology consulted for pre-op evaluation. Pt unable to provide significant or reliable history. Past Medical History: General: Hypertension Yes CVA No Seizures Yes TB No COPD Yes Asthma No Diabetes No Angina No [place] No Hyperlipidemia No Urinary Yes Cancer Yes Rheumatic H.D. No Ulcers No MRSA No GB Disease No Other DEMNETIA Additional hx Alzheimers dementia Past Surgical HX: Previous Surgery?Y Appendix Tubal Ligation R BREAST BX Allergies Coded Allergies: Penicillins (05/20/17) aspirin (05/20/17) Home medications: Reported Medications Omeprazole (Omeprazole 20MG) 20 MG PO DAILY POTASSIUM CHL (Potassium Chloride) 30 MEQ PO DAILY CHOLECALCIFEROL (VITAMIN D3) (Vitamin D3) 2,000 IUNITS PO DAILY GUAIFENESIN/DEXTROMETHORPHAN (Mucinex Dm ER 600-30 MG Tablet) 1 TAB PO DAILY CALCIUM CARBONATE (Oyster Shell Calcium) 1,000 MG PO BID Cetirizine Hcl (Cetirizine Hydrochloride) 5 MG PO QHS Cranberry Extract (Cranberry) 200 MG PO BID Acetaminophen (Tylenol) 650 MG PO Q6HP PRN PAIN Levetiracetam (Keppra 500 Mg Tablet) 500 MG PO BID Furosemide (Lasix 20MG) 20 MG PO DAILY Levetiracetam (Keppra 500 Mg Tablet) 500 MG PO BID TAMSULOSIN HCL (Tamsulosin 0.4MG) 0.4 MG PO BID DONEPEZIL HCL (Aricept 5MG) 5 MG PO QHS Current Medications: Current Medications Morphine Sulfate 0 .STK-MED ONE .ROUTE (DC) Morphine Sulfate 0 .STK-MED ONE .ROUTE (DC) Donepezil HCl 5 MG QHS PO Acetaminophen 0 .STK-MED ONE PO (DC) Levetiracetam 500 MG BID PO Metoprolol Tartrate 12.5 MG TID PO Levofloxacin/Dextrose 150 ML Q24H IV Diazepam 5 MG PRN PRN IV Acetaminophen 650 MG Q4HP PRN PO Guaifenesin/Dextromethorphan 10 ML Q4HP PRN PO Diagnostic Test (Pha) 1 EACH W/MEALS&HS FS Insulin Human [rDNA origin] SEE ADMIN CRITERIA FOR LOW INTENSITY SS W/MEALS&HS SC Influenza Virus Vaccine Quadrival 0.5 ML PRN PRN IM Morphine Sulfate 2 MG Q2HP PRN IV Nicotine 21 MG DAILYP PRN TD Ondansetron HCl 4 MG Q6HP PRN IV Sodium Chloride 1,000 ML .Q10H IV Sodium Chloride 10 ML PRN PRN IV Immunization HX Ped.Immunizations UTD Yes DT/Tetanus UNKNOWN Flu 2013-FSN Pneumonia RECEIVED IN PAST TB Test in last year No Family history Family HX Family Hx Insignificant No Diabetes Yes CAD No Hypertension Yes Hyperlipidemia No Cancer Yes TB Yes Social Hx: Smoking HX Tobacco No Type N/A Packs/day N/A Are you/the child exposed to second-hand smoke: No Alcohol Alcohol: No Hx of Drug Use Drug Use? No Comment: [facility] Review of systems: Constitutional see HPI. Respiratory see HPI. Cardiovascular see HPI Gastrointestinal/Abdominal see HPI Genitourinary see HPI. Musculoskeletal see HPI. Neurological Yes: no symptoms reported. Exam: Admission Vital Signs: 1ST Vital Signs Result Date Time Pulse Ox 94 05/20 1535 B/P 153/84 05/20 1535 Temp 98.3 05/20 1535 Pulse 75 05/20 1535 Resp 18 05/20 1535 O2 Delivery ROOM AIR 05/20 2039 O2 Flow Rate 1 05/20 2300 Last Vital Signs: Vital Signs Result Date Time Pulse Ox 92 05/23 0348 B/P 149/73 05/23 0348 O2 Delivery OXYGEN 05/23 034 O2 Flow Rate 1 05/23 348 Temp 99.0 05/23 034 Pulse 73 05/23 0348 Resp 20 05/23 0348 Exam General appearance: Initially sleeping. Congested cough upon waking. Attempts to answer questions but drifts off to sleep. Cardiovascular: regular rate & rhythm Respiratory: Poor effort with upper airway congestion. ABD: Decreased bowel sounds Extremities: Puffy without pitting edema Neuro: Sleepy but awakens briefly. Laboratory data: Laboratory Tests 05/23/17 0605: Sodium 142, Potassium 3.7, Chloride 110 H, Carbon Dioxide 27, BUN 20 H, Creatinine 0.9, Estimated Creat Clear 69, Estimated GFR (MDRD) 59, Glucose 85, Calcium 8.2 L, Total Bilirubin 1.4 H, AST 38 H, ALT 88 H, Alkaline Phosphatase 132 H, Total Protein 6.5, Albumin 2.3 L, Globulin 4.2 H, Albumin/ Globulin Ratio 0.5 L, Amylase 41, Lipase 96, WBC 15.7 H, RBC 4.47, Hgb 11.9 L , Hct 38.3, MCV 85.8, RDW 15.1, Plt Count 220, MPV 7.3 L, Gran % 90.6 H, Gran # 14.2 H, Lymphocytes % 5.3 L, Monocytes % 3.5, Eosinophils % 0.5, Basophils % 0.2, Lymphocytes # 0.8, Monocytes # 0.5, Eosinophils # 0.1, Basophils # 0.0, PUBS MCHC 31.0 L, MCH 26.6 L 05/22/17 2055: POC Glucose 100 05/22/17 1658: POC Glucose 92 05/22/17 1125: POC Glucose 87 05/22/17 0619: POC Glucose 79 05/22/17 0605: Sodium 143, Potassium 3.7, Chloride 110 H, Carbon Dioxide 27, BUN 22 H, Creatinine 1.0, Estimated Creat Clear 62, Estimated GFR (MDRD) 52 L, Glucose 76 , Calcium 8.0 L, Total Bilirubin 2.5 H, AST 42 H, ALT 109 H, Alkaline Phosphatase 128 H, Total Protein 6.4, Albumin 2.4 L, Globulin 4.0 H, Albumin/ Globulin Ratio 0.6 L, Amylase 167 H, Lipase 370, WBC 13.7 H, RBC 4.60, Hgb 12.6, Hct 38.9, MCV 84.5, RDW 14.7, Plt Count 185, MPV 7.3 L, Gran % 88.6 H, Gran # 12.1 H, Lymphocytes % 6.3 L, Monocytes % 4.2, Eosinophils % 0.7, Basophils % 0.2, Lymphocytes # 0.9, Monocytes # 0.6, Eosinophils # 0.1, Basophils # 0.0, PUBS MCHC 32.5, MCH 27.5 05/21/17 1645: POC Glucose 94 05/21/17 1202: POC Glucose 118 H 05/21/17 0615: Creatine Kinase 46, CK-MB (CK-2) Rel Index 1.1, CK and CKMB Interp < 0.5, Troponin I 0.18 H 05/21/17 0615: Sodium 140, Potassium 3.3 L, Chloride 107, Carbon Dioxide 26, BUN 19 H, Creatinine 1.1 H, Estimated Creat Clear 56, Estimated GFR (MDRD) 47 L, Glucose 120 H, Calcium 8.2 L, Total Bilirubin 2.3 H, AST 67 H, ALT 117 H, Alkaline Phosphatase 156 H, Total Protein 6.7, Albumin 2.8 L, Globulin 3.9 H, Albumin/ Globulin Ratio 0.7 L, Amylase 887 *H, Lipase 6038 H, WBC 15.0 H, RBC 4.73, Hgb 12.7, Hct 39.6, MCV 83.6, RDW 14.7, Plt Count 210, MPV 7.3 L, Gran % 94.6 H, Gran # 14.2 H, Total Counted 100, Lymphocytes % 1.4 L, Monocytes % 3.1, Eosinophils % 0.7, Basophils % 0.2, Neutrophils 86 H, Band Neutrophils 6, Lymphocytes (Manual) 6 L, Lymphocytes # 0.2 L, Monocytes (Manual) 1 L, Monocytes # 0.5, Eosinophils # 0.1, Basophils # 0.0, RBC/WBC/PLT Morphology NORMAL, Atypical Lymphocytes 1, Platelet Estimate NORMAL, PUBS MCHC 32.1, MCH 26.9 L 05/21/17 0614: POC Glucose 122 H 05/20/17 2148: POC Glucose 152 H 05/20/17 2055: Lactic Acid 2.1 H 05/20/17 1925: Urine Color YELLOW, Urine Appearance CLOUDY, Urine pH 6.5, Ur Specific [place] 1.020, Urine Protein 1+ H, Urine Ketones NEGATIVE, Urine Blood 2+ H, Urine Nitrate NEGATIVE, Urine Bilirubin NEGATIVE, Urine Urobilinogen 2.0, Ur Leukocyte Esterase 3+ H, Urine RBC 3-5, Urine WBC TNTC, Ur Squamous Epith Cells NONE, Urine Bacteria 2+, Urine Glucose NEGATIVE 05/20/17 1710: Influenza Type A Ag NOT DETECTED, Influenza Type B Ag NOT DETECTED 05/20/17 1655: Lactic Acid 2.2 H 05/20/17 1550: Sodium 136, Potassium 4.1, Chloride 100, Carbon Dioxide 31, BUN 19 H, Creatinine 1.1 H, Estimated Creat Clear 67, Estimated GFR (MDRD) 47 L, Glucose 195 H, Calcium 8.9, Total Bilirubin 0.8, AST 99 H, ALT 90 H, Alkaline Phosphatase 158 H, Creatine Kinase 36, CK-MB (CK-2) Rel Index 0.0, CK and CKMB Interp 0.0, Troponin I < 0.02, Total Protein 8.1, Albumin 3.4, Globulin 4.7 H, Albumin/Globulin Ratio 0.7 L, Amylase 2043 *H, Lipase 68907 H, WBC 11.5 H, RBC 5.20, Hgb 13.9, Hct 43.3, MCV 84.3, RDW 14.6, Plt Count 280, MPV 6.5 L, Gran % 80.9 H, Gran # 9.3 H, Lymphocytes % 12.2, Monocytes % 3.8, Eosinophils % 2.7, Basophils % 0.4, Lymphocytes # 1.4, Monocytes # 0.4, Eosinophils # 0.3, Basophils # 0.1, PUBS MCHC 31.8, MCH 26.8 L Microbiology Date/Time Procedure - Status Source Growth 05/20 1925 Urine Culture - CAN URINE CC Cancelled: @DUPLICATE ORDER. [email or web address] 05/20 1925 Urine Culture - RES URINE CATH 05/20 1550 Anaerobic Blood Culture - RECD BLOOD 05/20 1550 Aerobic Blood Culture - RECD BLOOD 05/20 1550 Anaerobic Blood Culture - RECD BLOOD 05/20 1550 Aerobic Blood Culture - RECD BLOOD Plan: Assessment: 1. Elevated troponin consistent with NSTEMI in setting of pancreatitis and sinus tachycardia (EKG with rate of 139 bpm, LAD and LAFB, no acute ST segment changes compared with previous tracings). Will obtain echo to evaluate LVEF but would not recommend further cardiac testing. Would recommend continuing medical therapy including metoprolol. Recorded Allergy to ASA. Operative risk is elevated given overall status. If surgery needed then recommend sandra-operative nitrates. 2. Pancreatitis, per Surgery and GI 3. HTN, controlled 4. Alzheimer's Dementia 5. History of Seizure Disorder 6. DNR Recommendations: Discussed with Dr. Ramos. See above. at 1402
[2017-05-23 08:21] LABS: NEUTROPHILS 87 % (42-76)
--- NOTE | 2017-05-23 09:15 | ACUTE CARE PROGRESS NOTE (QUA) ---
Progress Notes Subjective Date 05/23/17 Time 0907 Note per nursing-took full liquids without problems this AM; bowels have not moved; patient denies CP; some SOB; has not been OOB; Potter in place with dark urine Amylase/ lipase are normal; LFT have improved; WBC's at increased Objective Findings Laboratory Tests 05/23/17 0605: Sodium 142, Potassium 3.7, Chloride 110 H, Carbon Dioxide 27, BUN 20 H, Creatinine 0.9, Estimated Creat Clear 69, Estimated GFR (MDRD) 59, Glucose 85, Calcium 8.2 L, Total Bilirubin 1.4 H, AST 38 H, ALT 88 H, Alkaline Phosphatase 132 H, Total Protein 6.5, Albumin 2.3 L, Globulin 4.2 H, Albumin/ Globulin Ratio 0.5 L, Amylase 41, Lipase 96, WBC 15.7 H, RBC 4.47, Hgb 11.9 L , Hct 38.3, MCV 85.8, RDW 15.1, Plt Count 220, MPV 7.3 L, Gran % 90.6 H, Gran # 14.2 H, Total Counted 100, Lymphocytes % 5.3 L, Monocytes % 3.5, Eosinophils % 0.5, Basophils % 0.2, Neutrophils 87 H, Band Neutrophils 2, Lymphocytes ( Manual) 6 L, Lymphocytes # 0.8, Monocytes (Manual) 5, Monocytes # 0.5, Eosinophils # 0.1, Basophils # 0.0, Platelet Estimate NORMAL, Hypochromasia 1+, PUBS MCHC 31.0 L, MCH 26.6 L 05/22/175: POC Glucose 100 05/22/17 1658: POC Glucose 92 05/22/17 1125: POC Glucose 87 Vital Signs Date Time Temp Pulse Resp B/P Pulse O2 O2 Flow FiO2 Ox Delivery Rate 05/23 0859 97.2 96 20 155/54 90 05/23 0751 97.2 96 20 155/54 90 OXYGEN 1 05/23 034 99.0 73 20 149/73 92 OXYGEN 1 05/23 034 98.8 99 16 128/69 93 ROOM AIR 05/23 0254 20 05/22 2313 20 05/22 2057 99.4 80 24 123/70 94 ROOM AIR 05/22 2050 99.4 80 24 123/70 94 05/22 1558 98.6 86 18 129/64 90 ROOM AIR 05/22 1200 99.2 90 18 133/71 88 ROOM AIR Current Medications Albuterol/Ipratropium 3 ML Q6H6 INH Ertapenem 1 GM Q24H IV Sodium Chloride 50 ML Furosemide 40 MG ONCE ONE IV (DC) Sodium Chloride 1,000 ML .STK-MED ONE IV (DC) Morphine Sulfate 0 .STK-MED ONE .ROUTE (DC) Morphine Sulfate 0 .STK-MED ONE .ROUTE (DC) Donepezil HCl 5 MG QHS PO Acetaminophen 0 .STK-MED ONE PO (DC) Levetiracetam 500 MG BID PO Metoprolol Tartrate 12.5 MG TID PO Levofloxacin/Dextrose 150 ML Q24H IV (DC) Diazepam 5 MG PRN PRN IV Acetaminophen 650 MG Q4HP PRN PO Guaifenesin/Dextromethorphan 10 ML Q4HP PRN PO Diagnostic Test (Pha) 1 EACH W/MEALS&HS FS Insulin Human [rDNA origin] SEE ADMIN CRITERIA FOR LOW INTENSITY SS W/MEALS&HS SC Influenza Virus Vaccine Quadrival 0.5 ML PRN PRN IM Morphine Sulfate 2 MG Q2HP PRN IV Nicotine 21 MG DAILYP PRN TD Ondansetron HCl 4 MG Q6HP PRN IV Sodium Chloride 1,000 ML .Q20H IV Sodium Chloride 10 ML PRN PRN IV 05/22 1500 05/22 2300 05/23 0700 Intake Total 420 2225 Output Total 350 600 Balance 420 1875 -600 Intake, IV 1865 Intake, Oral 420 360 Output, Urine 350 600 Patient 226 lb Weight Last VS-Temp:97.2 B/P:155/54 Pulse:96 Resp:20 SaO2:90 OXYGEN Last weight lbs:226 oz:1 K.541 Method:Bed Scales Exam General appearance: alert, no acute distress Cardiovascular: regular rate & rhythm Respiratory: bilateral rhonchi and congested cough ABD: soft, obese, patient does not indicate tenderness with palpation Genitourinary: catheter in place Extremities: no peripheral edema Neuro: alert, disoriented Assessment/Plan Problem List 1. Acute pancreatitis 2. NSTEMI (non-ST elevated myocardial infarction) 3. UTI (urinary tract infection) 4. Dementia Status: Chronic 5. Seizure disorder Status: Chronic 6. Renal insufficiency Status: Chronic 7. Pulmonary atelectasis Patient condition Improving Plan: ABX changed; IV lasix; Duonebs, diet advanced; ECHO This inpt stay is expected to cross 2 MNs from start of care Yes (Leticia Willingham APRN) Subjective Date 05/23/17 Assessment/Plan Problem List 1. Acute pancreatitis 2. NSTEMI (non-ST elevated myocardial infarction) 3. UTI (urinary tract infection) 4. Dementia Status: Chronic 5. Seizure disorder Status: Chronic 6. Renal insufficiency Status: Chronic 7. Pulmonary atelectasis Plan: Pt seen and examined this AM. Bilirubin has decreased and amylase/lipase are normal therefore ERCP not indicated. WBC however has increased which could be related to her UTI vs pneuonia vs cholecystitis. After reviewing business process consultant recommendations, she is a high surgical risk, so will change antibiotics to Invanz and monitor for response. Advance diet. Decrease IVF and give Lasix. (Juan Whatley MD) at 0918 at 173
--- NOTE | 2017-05-23 21:23 | RADIOLOGY REPORT PS360 ---
PROCEDURE: 2-D M-mode and color Doppler study INDICATIONS FOR THE TEST: Chest pain COPD Heart Murmur Tobacco Smoking Palpitations Fatigue Syncope Edema HypertensionXDiabetes Mellitus Rheumatic Fever SOB BARTH Obesity Hyperlipidemia Family History HD Additional History NSTEMI PATIENT INFORMATION HEIGHT: 62 WEIGHT:226 GENDER: Female B/P:153/84 2-D/M-MODE INTERPRETATION: 2-D MEASUREMENTS OBSERVED VALUES IN CMS Right Ventricular Dimension (RVDd) 4.0 Interventricular Septum (Thickness)(IVsd) 1.2 Left Ventricular Internal Dimensions(LVIDd) 5.4 Left Ventricular Posterior Wall (Thickness)(LVPWd) 1.2 Aortic Root 2.0 Aortic Cusp Separation Left Atrial Dimensions (LAD) 3.2 2D 1. Technically difficult study because of the patient's factor and poor acoustic windows. 2. The left atrium is mildly enlarged, left ventricle is normal size, there is mild concentric left ventricular hypertrophy, visually estimated ejection fraction 55% with no obvious regional wall motion abnormality, there is abnormal septal motion. 3. The right atrium and right ventricle are moderately enlarged, contractility of the right ventricle is reduced. 4. The aortic valve is minimally thickened and fibrosed, leaflet continue to display mobility. 5. The mitral and tricuspid valve leaflets are minimally thickened. 6. Pulmonic valve is poorly visualized. 7. No significant pericardial effusion noted. DOPPLER INTERROGATION: Doppler interrogation of the aortic, mitral and tricuspid valvular presence of mild mitral and tricuspid regurgitation, tricuspid regurgitant jet velocity is insufficient for calculation of the right ventricular systolic pressure, diastolic parameters are inconclusive, inferior vena cava is dilated without significant inspiratory collapse. CONCLUSION: 1. Biatrial enlargement, normal left ventricular size, mild concentric left ventricular hypertrophy, visually estimated ejection fraction 55% with no obvious regional wall motion abnormality, there is abnormal septal motion. Diastolic parameters are inconclusive. 2. Moderately enlarged right atrium and right ventricle, contractility of the right ventricle is reduced. 3. Mild mitral and tricuspid regurgitation, tricuspid regurgitant jet velocity insufficient for calculation of the right ventricular systolic pressure. 4. No significant pericardial effusion noted.
[2017-05-24 04:39] VITALS: BP 134/71
[2017-05-24 07:59] LABS: HEMOGLOBIN 11.4 g/dL (12.2-16.2)
[2017-05-24 08:00] LABS: LYMPH # 1.2 K/mm3 (0.7-4.5); LYMPH % 8.2 % (10-50.0)
--- NOTE | 2017-05-24 08:19 | ACUTE CARE PROGRESS NOTE (QUA) ---
Progress Notes Subjective Date 05/24/17 Time 0811 Note 87 yo WF in bed with minimal response to verbal/physical stimuli and alternating slow breathing with rapid, deep breathing. Telemetry shows paroxysmal SVT/A.fib with rates up to 160 bpm. Objective Findings Last VS-Temp:100.2 B/P:134/71 Pulse:92 Resp:22 SaO2:87 OXYGEN Last weight lbs:226 oz:1 K.541 Method:Bed Scales Exam General appearance: lethargic Cardiovascular: regular rate & rhythm, extra beats Respiratory: alternating slow and fast breathing Reviewed: medications, vital signs, lab results Assessment/Plan Problem List 1. Acute pancreatitis Qualifiers: Pancreatitis type: unspecified pancreatitis type Acute pancreatitis complication: no infection or necrosis Qualified Code: K85.90 - Acute pancreatitis without necrosis or infection, unspecified 2. NSTEMI (non-ST elevated myocardial infarction) 3. UTI (urinary tract infection) 4. Dementia Status: Chronic 5. Seizure disorder Status: Chronic 6. Renal insufficiency Status: Chronic 7. Pulmonary atelectasis 8. Paroxysmal SVT (supraventricular tachycardia) Patient condition Guarded Plan: Recommend reducing metoprolol to BID and start diltiazem 120 mg BID for control of SVT. Poor prognosis This inpt stay is expected to cross 2 MNs from start of care Yes at 0818
--- NOTE | 2017-05-24 08:19 | SURGEON PROGRESS NOTE ---
See Addendum Subjective data Subjective data: She states that she is doing "OK". No new complaints. Objective data Vitals,I&O,and Labs: Vital signs, intake and output,and available lab data for the last 24 hours is as noted below. Vital Signs Date Time Temp Pulse Resp B/P Pulse O2 O2 Flow FiO2 Ox Delivery Rate 05/24 0653 2 05/24 0546 2 05/24 0546 87 ROOM AIR 05/24 0500 2 05/24 0439 100.2 92 22 134/71 96 OXYGEN 05/24 0300 2 05/24 0045 2 05/23 2350 98.3 77 20 119/65 94 OXYGEN 05/23 2333 88 ROOM AIR 05/23 2300 2 05/23 2045 2 05/23 2012 98.6 58 22 152/62 94 05/23 1918 98.6 58 22 152/62 94 OXYGEN 05/23 1857 2 05/23 1857 92 OXYGEN 2 05/23 1523 98.4 52 24 119/51 90 OXYGEN 2 05/23 1239 2 05/23 1239 51 OXYGEN 2 05/23 1128 98.7 82 22 129/67 94 OXYGEN 1 05/23 0859 97.2 96 20 155/54 90 05/23 1500 05/23 2300 05/24 0700 Intake Total 360 2568 Output Total 1800 500 525 Balance -1440 2068 -525 Intake, IV 2208 Intake, Oral 360 360 Output, Urine 1800 500 525 Laboratory Tests Test Result Date Time Chemistry Sodium (mmoL/L) 144 05/24 630 Potassium (mmoL/L) 3.5 05/24 630 Chloride (mmoL/L) 109 05/24 06 Carbon Dioxide (mmoL/L) 28 05/24 06 BUN (mg/dL) 21 05/24 630 Creatinine (mg/dL) 0.9 05/24 630 Estimated Creat Clear (ML/MIN) 69 05/24 630 Estimated GFR (MDRD) (ML/MIN) 59 05/24 630 Glucose (mg/dL) 111 05/24 06 POC Glucose (mg/dl) 115 05/24 629 Lactic Acid (MMOL/L) 2.1 05/20 2055 Calcium (mg/dL) 8.5 05/24 630 Total Bilirubin (mg/dL) 1.0 05/24 630 AST (U/L) 38 05/24 630 ALT (U/L) 70 05/24 630 Alkaline Phosphatase (U/L) 143 05/24 630 Creatine Kinase (U/L) 46 05/21 615 CK-MB (CK-2) Rel Index (U/L) 1.1 05/21 615 CK and CKMB Interp (ng/mL) < 0.5 05/21 615 Troponin I (ng/mL) 0.18 05/21 615 Total Protein (gm/dL) 6.3 05/24 630 Albumin (gm/dL) 2.1 05/24 630 Globulin (gm/dL) 4.2 05/24 630 Albumin/Globulin Ratio 0.5 05/24 630 Amylase (U/L) 41 05/23 605 Lipase (U/L) 96 05/23 605 Hematology WBC (K/mm3) 14.7 05/24 630 RBC (M/mm3) 4.26 05/24 630 Hgb (g/dL) 11.4 05/24 630 Hct (%) 35.4 05/24 630 MCV (fL) 83.1 05/24 630 RDW (%) 17.1 05/24 630 Plt Count (K/mm3) 205 05/24 630 MPV (fl) 7.3 05/23 605 Gran % (%) 88.9 05/24 630 Gran # (K/mm3) 13.1 05/24 630 Total Counted (#CELLS) 100 05/23 605 Lymphocytes % (%) 8.2 05/24 630 Monocytes % (%) 2.9 05/24 630 Eosinophils % (%) 0.5 05/23 605 Basophils % (%) 0.2 05/23 605 Neutrophils (%) 87 05/23 605 Band Neutrophils (%) 2 05/23 605 Lymphocytes (Manual) (%) 6 05/23 605 Lymphocytes # (K/mm3) 1.2 05/24 630 Monocytes (Manual) (%) 5 05/23 605 Monocytes # (K/mm3) 0.4 05/24 630 Eosinophils # (K/mm3) 0.1 05/23 605 Basophils # (K/MM3) 0.0 05/23 605 RBC/WBC/PLT Morphology NORMAL 05/21 615 Atypical Lymphocytes (%) 1 05/21 615 Platelet Estimate NORMAL 05/23 605 Hypochromasia 1+ 05/23 605 PUBS MCHC (g/dl) 32.2 05/24 630 Immunology MCH (pg) 26.8 05/24 630 Serology Influenza Type A Ag NOT DETECTED 05/20 1710 Influenza Type B Ag NOT DETECTED 05/20 1710 Urines Urine Color YELLOW 05/20 1925 Urine Appearance CLOUDY 05/20 1925 Urine pH 6.5 05/20 1925 Ur Specific [place] 1.020 05/20 1925 Urine Protein (mg/dL) 1+ 05/20 1925 Urine Ketones (mg/dL) NEGATIVE 05/20 1925 Urine Blood 2+ 05/20 1925 Urine Nitrate NEGATIVE 05/20 1925 Urine Bilirubin NEGATIVE 05/20 1925 Urine Urobilinogen (E.U./dL) 2.0 05/20 1925 Ur Leukocyte Esterase 3+ 05/20 1925 Urine RBC (rbc/hpf) 3-5 05/20 1925 Urine WBC (wbc/hpf) TNTC 05/20 1925 Ur Squamous Epith Cells (#/hpf) NONE 05/20 1925 Urine Bacteria 2+ 05/20 1925 Urine Glucose NEGATIVE 05/20 1925 Assessment findings Assessment Exam General appearance: no acute distress Cardiovascular: regular rate & rhythm Respiratory: no respiratory distress ABD: soft Patient plan Diagnoses: Pancreatitis-essentially resolved biochemically Leukocytosis-slightly improved this morning Hyperbilirubinemia-resolved on morning labs Non-STEMI Plan: continue current medical management at 0819
[2017-05-24 08:25] VITALS: BP 144/94
--- NOTE | 2017-05-24 09:05 | ACUTE CARE PROGRESS NOTE (QUA) ---
Progress Notes Subjective Date 05/24/17 Time 0740 Note Patient denies CP and SOB; she has been taking liquids poorly; Potter remains in place; had a low grade fever last PM Objective Findings Laboratory Tests 05/24/17 0630: Sodium 144, Potassium 3.5, Chloride 109 H, Carbon Dioxide 28, BUN 21 H, Creatinine 0.9, Estimated Creat Clear 69, Estimated GFR (MDRD) 59, Glucose 111 H, Calcium 8.5, Total Bilirubin 1.0, AST 38 H, ALT 70, Alkaline Phosphatase 143 H, Total Protein 6.3 L, Albumin 2.1 L, Globulin 4.2 H, Albumin/Globulin Ratio 0.5 L, WBC 14.7 H, RBC 4.26, Hgb 11.4 L, Hct 35.4 L, MCV 83.1, RDW 17.1, Plt Count 205, Gran % 88.9 H, Gran # 13.1 H, Lymphocytes % 8.2 L, Monocytes % 2.9, Lymphocytes # 1.2, Monocytes # 0.4, PUBS MCHC 32.2, MCH 26.8 L 05/24/17 0629: POC Glucose 115 H 05/23/17 2019: POC Glucose 134 H 05/23/17 1728: POC Glucose 101 05/23/17 1137: POC Glucose 77 Vital Signs Date Time Temp Pulse Resp B/P Pulse O2 O2 Flow FiO2 Ox Delivery Rate 05/24 0825 99.4 97 22 144/94 91 OXYGEN 05/24 0653 2 05/24 0546 2 05/24 0546 87 ROOM AIR 05/24 0500 2 05/24 0439 100.2 92 22 134/71 96 OXYGEN 05/24 0300 2 05/24 0045 2 05/23 2350 98.3 77 20 119/65 94 OXYGEN 05/23 2333 88 ROOM AIR 05/23 2300 2 05/23 2045 2 05/23 2012 98.6 58 22 152/62 94 05/23 1918 98.6 58 22 152/62 94 OXYGEN 05/23 1857 2 05/23 1857 92 OXYGEN 2 05/23 1523 98.4 52 24 119/51 90 OXYGEN 2 05/23 1239 2 05/23 1239 51 OXYGEN 2 05/23 1128 98.7 82 22 129/67 94 OXYGEN 1 05/23 0859 97.2 96 20 155/54 90 Current Medications Diltiazem HCl 120 MG BID PO Furosemide 20 MG DAILY PO Metoprolol Tartrate 12.5 MG BID PO Albuterol/Ipratropium 3 ML Q6H6 INH Furosemide 0 .STK-MED ONE .ROUTE (DC) Ertapenem 1 GM Q24H IV Sodium Chloride 50 ML Donepezil HCl 5 MG QHS PO Levetiracetam 500 MG BID PO Metoprolol Tartrate 12.5 MG TID PO (DC) Diazepam 5 MG PRN PRN IV Acetaminophen 650 MG Q4HP PRN PO Guaifenesin/Dextromethorphan 10 ML Q4HP PRN PO Diagnostic Test (Pha) 1 EACH W/MEALS&HS FS Insulin Human [rDNA origin] SEE ADMIN CRITERIA FOR LOW INTENSITY SS W/MEALS&HS SC Influenza Virus Vaccine Quadrival 0.5 ML PRN PRN IM Morphine Sulfate 2 MG Q2HP PRN IV Nicotine 21 MG DAILYP PRN TD Ondansetron HCl 4 MG Q6HP PRN IV Sodium Chloride 1,000 ML .Q20H IV Sodium Chloride 10 ML PRN PRN IV 05/23 1500 05/23 2300 05/24 0700 Intake Total 360 2568 Output Total 1800 500 525 Balance -1440 2068 -525 Intake, IV 2208 Intake, Oral 360 360 Output, Urine 1800 500 525 Last VS-Temp:99.4 B/P:144/94 Pulse:97 Resp:22 SaO2:91 OXYGEN Last weight lbs:226 oz:1 K.541 Method:Bed Scales 05/22/17 CXR IMPRESSION: Atelectasis or infiltrate in the right midlung and left lower lobe with small left 05/23/17 ECHO CONCLUSION: 1. Biatrial enlargement, normal left ventricular size, mild concentric left ventricular hypertrophy, visually estimated ejection fraction 55% with no obvious regional wall motion abnormality, there is abnormal septal motion. Diastolic parameters are inconclusive. 2. Moderately enlarged right atrium and right ventricle, contractility of the right ventricle is reduced. 3. Mild mitral and tricuspid regurgitation, tricuspid regurgitant jet velocity insufficient for calculation of the right ventricular systolic pressure. 4. No significant pericardial effusion noted. > URINE CULTURE Preliminary 05/24/17-641 COLONY COUNT >100,000 CFU/ml Organism 1 PSEUDOMONAS AERUGINOSA 1. PSEUDOMONAS AERUGINOSA RX AB M.I.C ROUTE COST I ------ -- --------- ----- ------ CEFTAZIDIME (FORTAZ) S 4 CEFEPIME S 2 GENTAMICIN S <=1 IMIPENEM S 2 LEVOFLOXACIN S 0.5 PIPERACILLIN/TAZOBACTAM S 8 TOBRAMYCIN S <=1 Exam General appearance: alert, no acute distress, obese Cardiovascular: regular rate & rhythm Respiratory: bilateral posterior rhonchi ABD: soft, no tenderness, bowel sounds present Extremities: no peripheral edema Neuro: alert, answers questions appropriately Assessment/Plan Problem List 1. Acute pancreatitis 2. NSTEMI (non-ST elevated myocardial infarction) 3. UTI (urinary tract infection) Status: Acute Assessment/Plan pseudomonas aeruginosa 4. Dementia Status: Chronic 5. Seizure disorder Status: Chronic 6. Renal insufficiency Status: Chronic 7. Pulmonary atelectasis 8. Paroxysmal SVT (supraventricular tachycardia) 9. HCAP (healthcare-associated pneumonia) Status: Acute Patient condition Improving Plan: will get OOB; continue Invantz; advance diet to bland; LFT have returned to normal; white blood cell ct remains elevated This inpt stay is expected to cross 2 MNs from start of care Yes (Leticia Willingham APRN) Subjective Date 05/24/17 Assessment/Plan Problem List 1. Acute pancreatitis 2. NSTEMI (non-ST elevated myocardial infarction) 3. UTI (urinary tract infection) Status: Acute 4. Dementia Status: Chronic 5. Seizure disorder Status: Chronic 6. Renal insufficiency Status: Chronic 7. Pulmonary atelectasis 8. Paroxysmal SVT (supraventricular tachycardia) 9. HCAP (healthcare-associated pneumonia) Status: Acute Plan: Pt seen and examined this AM. Still has congested cough. No apparent pain. Chest with coarse rhonchi, no wheezes. Abdomen is soft and does not appear as tender. LFTs are normalizing. Will advance diet. Continue antibiotics. (Juan Whatley MD) at 0905 at 1732
[2017-05-24 09:43] LABS: NEUTROPHILS 81 % (42-76)
[2017-05-24 12:00] VITALS: BP 118/96
[2017-05-24 15:52] VITALS: BP 151/67
[2017-05-24 16:48] LABS: ALLEN'S TEST Y; ARTERIAL ABE -0.8 MMOL/L (-2.4-+2.3); ARTERIAL PO2 79.4 MMHG (80-100); ARTERIAL TCO2 27.4 MMOL/L (23-27); OXYGEN 2
--- NOTE | 2017-05-24 17:07 | RADIOLOGY REPORT PS360 ---
CHEST-PORTABLE HISTORY: Severe shortness of breath with cough STAT ORDERING PHYSICIAN: Juan Whatley MD PATIENT AGE: 87 years COMPARISON: 05/22/2017 FINDINGS: There are low lung volumes. Borderline cardiomegaly without failure. Previously noted infiltrate/atelectatic change in the right midlung and left lower lobe has improved. IMPRESSION: No acute finding
[2017-05-24 19:25] VITALS: BP 136/71
[2017-05-25] VITALS (9 sets, daily range): BP systolic 107–149; BP diastolic 44–89
[2017-05-25 07:02] LABS: HEMOGLOBIN 11.5 g/dL (12.2-16.2)
[2017-05-25 07:03] LABS: LYMPH % 6.7 % (10-50.0)
--- NOTE | 2017-05-25 07:54 | SURGEON PROGRESS NOTE ---
Subjective data Subjective data: Somewhat less responsive this morning. Objective data Vitals,I&O,and Labs: Vital signs, intake and output,and available lab data for the last 24 hours is as noted below. Vital Signs Date Time Temp Pulse Resp B/P Pulse O2 O2 Flow FiO2 Ox Delivery Rate 05/25 0639 2 05/25 0551 2 05/25 0551 91 OXYGEN 2 05/25 0521 2 05/25 0447 99.7 79 22 114/75 92 OXYGEN 05/25 0348 2 05/25 0122 2 05/25 0011 98.2 82 22 127/89 93 OXYGEN 05/24 2337 2 05/24 2334 2 05/24 2113 97.9 85 22 136/71 97 2 05/24 2111 2 05/24 1925 97.9 85 22 136/71 97 OXYGEN 05/24 1857 2 05/24 1700 2 05/24 1552 99.4 84 22 151/67 94 OXYGEN 05/24 1500 2 05/24 1305 2 05/24 1200 99.4 86 22 118/96 98 OXYGEN 05/24 1100 2 05/24 0900 2 05/24 0825 99.4 97 22 144/94 91 OXYGEN 05/24 1500 05/24 2300 05/25 0700 Intake Total 1287 1063 494 Output Total 600 700 Balance 1287 463 -206 Intake, IV 687 703 494 Intake, Oral 600 360 Output, Urine 600 700 Patient 105.404 kg Weight Laboratory Tests Test Result Date Time Blood Gas ABG pH (MMOL/L) 7.29 05/24 1646 ABG pCO2 (Temp Corrct (MMHG) 54.2 05/24 1646 ABG pO2 (Temp Correct (MMHG) 79.4 05/24 1646 ABG HCO3 (MMOL/L) 25.7 05/24 1646 ABG Total CO2 (MMOL/L) 27.4 05/24 1646 ABG O2 Sat (Calculated) (%) 95.1 05/24 1646 ABG Base Excess (MMOL/L) -0.8 05/24 1646 Trevor Test Y 05/24 1646 Blood Gas Comments L/R 05/24 1646 Chemistry Sodium (mmoL/L) 144 05/24 630 Potassium (mmoL/L) 3.5 05/24 630 Chloride (mmoL/L) 109 05/24 630 Carbon Dioxide (mmoL/L) 28 05/24 630 BUN (mg/dL) 21 05/24 630 Creatinine (mg/dL) 0.9 05/24 630 Estimated Creat Clear (ML/MIN) 69 05/24 630 Estimated GFR (MDRD) (ML/MIN) 59 05/24 630 Glucose (mg/dL) 111 05/24 630 POC Glucose (mg/dl) 105 05/25 620 Lactic Acid (MMOL/L) 2.1 05/20 2055 Calcium (mg/dL) 8.5 05/24 630 Total Bilirubin (mg/dL) 1.0 05/24 630 AST (U/L) 38 05/24 630 ALT (U/L) 70 05/24 630 Alkaline Phosphatase (U/L) 143 05/24 630 Creatine Kinase (U/L) 46 05/21 615 CK-MB (CK-2) Rel Index (U/L) 1.1 05/21 615 CK and CKMB Interp (ng/mL) < 0.5 05/21 615 Troponin I (ng/mL) 0.18 05/21 615 Total Protein (gm/dL) 6.3 05/24 630 Albumin (gm/dL) 2.1 05/24 630 Globulin (gm/dL) 4.2 05/24 630 Albumin/Globulin Ratio 0.5 05/24 630 Amylase (U/L) 41 05/23 605 Lipase (U/L) 96 05/23 605 Hematology WBC (K/mm3) 15.5 05/25 605 RBC (M/mm3) 4.36 05/25 605 Hgb (g/dL) 11.5 05/25 605 Hct (%) 36.6 05/25 605 MCV (fL) 83.9 05/25 605 RDW (%) 17.4 05/25 605 Plt Count (K/mm3) 218 05/25 605 MPV (fl) 7.3 05/23 605 Gran % (%) 90.6 05/25 605 Gran # (K/mm3) 14.0 05/25 605 Total Counted (#CELLS) 100 05/24 630 Lymphocytes % (%) 6.7 05/25 605 Monocytes % (%) 2.7 05/25 605 Eosinophils % (%) 0.5 05/23 06 Basophils % (%) 0.2 05/23 605 Neutrophils (%) 81 05/24 06 Band Neutrophils (%) 2 05/23 605 Lymphocytes (Manual) (%) 10 05/24 06 Lymphocytes # (K/mm3) 1.0 05/25 605 Monocytes (Manual) (%) 9 05/24 06 Monocytes # (K/mm3) 0.4 05/25 605 Eosinophils # (K/mm3) 0.1 05/23 605 Basophils # (K/MM3) 0.0 05/23 605 RBC/WBC/PLT Morphology NORMAL 05/21 615 Atypical Lymphocytes (%) 1 05/21 615 Platelet Estimate NORMAL 05/24 630 Hypochromasia 1+ 05/23 605 PUBS MCHC (g/dl) 31.4 05/25 605 Immunology MCH (pg) 26.4 05/25 605 Serology Influenza Type A Ag NOT DETECTED 05/20 1710 Influenza Type B Ag NOT DETECTED 05/20 1710 Urines Urine Color YELLOW 05/20 1925 Urine Appearance CLOUDY 05/20 1925 Urine pH 6.5 05/20 1925 Ur Specific [place] 1.020 05/20 1925 Urine Protein (mg/dL) 1+ 05/20 1925 Urine Ketones (mg/dL) NEGATIVE 05/20 1925 Urine Blood 2+ 05/20 1925 Urine Nitrate NEGATIVE 05/20 1925 Urine Bilirubin NEGATIVE 05/20 1925 Urine Urobilinogen (E.U./dL) 2.0 05/20 1925 Ur Leukocyte Esterase 3+ 05/20 1925 Urine RBC (rbc/hpf) 3-5 05/20 1925 Urine WBC (wbc/hpf) TNTC 05/20 1925 Ur Squamous Epith Cells (#/hpf) NONE 05/20 1925 Urine Bacteria 2+ 05/20 1925 Urine Glucose NEGATIVE 05/20 1925 Assessment findings Assessment Exam General appearance: no acute distress ABD: soft Patient plan Diagnoses: Leukocytosis Recent acute pancreatitis-biochemically resolved Non-STEMI Dementia Plan: Antibiotics, care as per PCP Additional data: The patient's overall condition remains tenuous. I agree with continued medical management, but the risk associated with any intervention requiring sedation greatly outweigh the benefit. at 0754
--- NOTE | 2017-05-25 08:13 | ACUTE CARE PROGRESS NOTE (QUA) ---
Progress Notes Subjective Date 05/25/17 Time 0730 Note Patient awakened easily and answered questions; states she is not hurting and is not SOB; continues with hira Objective Findings Laboratory Tests 05/25/17 0620: POC Glucose 105 05/25/17 0605: WBC 15.5 H, RBC 4.36, Hgb 11.5 L, Hct 36.6 L, MCV 83.9, RDW 17.4, Plt Count 218, Gran % 90.6 H, Gran # 14.0 H, Lymphocytes % 6.7 L, Monocytes % 2.7, Lymphocytes # 1.0, Monocytes # 0.4, PUBS MCHC 31.4 L, MCH 26.4 L 05/24/17 2106: POC Glucose 88 05/24/17 1702: POC Glucose 125 H 05/24/17 1646: ABG pH 7.29 L, ABG pCO2 (Temp Corrct 54.2 H, ABG pO2 (Temp Correct 79.4 L, ABG HCO3 25.7, ABG Total CO2 27.4 H, ABG O2 Sat (Calculated) 95.1, ABG Base Excess -0.8, Trevor Test Y, Blood Gas Comments L/R 05/24/17 1135: POC Glucose 99 Vital Signs Date Time Temp Pulse Resp B/P Pulse O2 O2 Flow FiO2 Ox Delivery Rate 05/25 0639 2 05/25 0551 2 05/25 0551 91 OXYGEN 2 05/25 0521 2 05/25 0447 99.7 79 22 114/75 92 OXYGEN 05/25 0348 2 05/25 0122 2 05/25 0011 98.2 82 22 127/89 93 OXYGEN 05/24 2337 2 05/24 2334 2 05/24 2113 97.9 85 22 136/71 97 2 05/24 2111 2 05/24 1925 97.9 85 22 136/71 97 OXYGEN 05/24 1857 2 05/24 1700 2 05/24 1552 99.4 84 22 151/67 94 OXYGEN 05/24 1500 2 05/24 1305 2 05/24 1200 99.4 86 22 118/96 98 OXYGEN 05/24 1100 2 05/24 0900 2 05/24 0825 99.4 97 22 144/94 91 OXYGEN Current Medications Guaifenesin/Dextromethorphan 0 .STK-MED ONE .ROUTE (DC) Levofloxacin/Dextrose 150 ML 1100 IV Diltiazem HCl 120 MG BID PO Furosemide 20 MG DAILY PO Metoprolol Tartrate 12.5 MG BID PO Albuterol/Ipratropium 3 ML Q6H6 INH Ertapenem 1 GM Q24H IV Sodium Chloride 50 ML Donepezil HCl 5 MG QHS PO Levetiracetam 500 MG BID PO Metoprolol Tartrate 12.5 MG TID PO (DC) Diazepam 5 MG PRN PRN IV Acetaminophen 650 MG Q4HP PRN PO Guaifenesin/Dextromethorphan 10 ML Q4HP PRN PO Diagnostic Test (Pha) 1 EACH W/MEALS&HS FS Insulin Human [rDNA origin] SEE ADMIN CRITERIA FOR LOW INTENSITY SS W/MEALS&HS SC Influenza Virus Vaccine Quadrival 0.5 ML PRN PRN IM Morphine Sulfate 2 MG Q2HP PRN IV Nicotine 21 MG DAILYP PRN TD Ondansetron HCl 4 MG Q6HP PRN IV Sodium Chloride 1,000 ML .Q20H IV Sodium Chloride 10 ML PRN PRN IV 05/24 1500 05/24 2300 05/25 0700 Intake Total 1287 1063 494 Output Total 600 700 Balance 1287 463 -206 Intake, IV 687 703 494 Intake, Oral 600 360 Output, Urine 600 700 Patient 232 lb Weight Last VS-Temp:99.7 B/P:114/75 Pulse:79 Resp:22 SaO2:91 OXYGEN Last weight lbs:232 oz:6 K.404 Method:Bed Scales CXR 05/24/17 IMPRESSION: No acute finding Exam General appearance: alert, lethargic, awakened easily and answers questions Cardiovascular: regular rate & rhythm Respiratory: RR 48; poor inspiratory effort; bilateral wheezing; cough sounds more congested ABD: non-distended, soft, no tenderness, no guarding, bowel sounds present Extremities: no peripheral edema Neuro: alert, lethargic Assessment/Plan Problem List 1. Acute pancreatitis 2. NSTEMI (non-ST elevated myocardial infarction) 3. UTI (urinary tract infection) Status: Acute 4. Dementia Status: Chronic 5. Seizure disorder Status: Chronic 6. Renal insufficiency Status: Chronic 7. Pulmonary atelectasis 8. Paroxysmal SVT (supraventricular tachycardia) 9. HCAP (healthcare-associated pneumonia) Status: Acute Patient condition Guarded Plan: continue current care, maintain comfort; gentle pulmonary toilet, Levaquin was added to ABX Tx This inpt stay is expected to cross 2 MNs from start of care Yes (Leticia Willingham APRN) Subjective Date 05/25/17 Time 0859 Assessment/Plan Problem List 1. Acute pancreatitis 2. NSTEMI (non-ST elevated myocardial infarction) 3. UTI (urinary tract infection) Status: Acute 4. Dementia Status: Chronic 5. Seizure disorder Status: Chronic 6. Renal insufficiency Status: Chronic 7. Pulmonary atelectasis 8. Paroxysmal SVT (supraventricular tachycardia) 9. HCAP (healthcare-associated pneumonia) Status: Acute Plan: Pt sleeping when I made rounds and not easily aroused. SHe moans with palpation of upper abdomen. SHe has more wheezing on auscultation but CXR yesterday showed improvement and was essentially normal. WBC has increased slightly. Pseudomonas UTI is adequately covered. Will add steroids for her bronchospasm. Spoke at length with daughter yesterday regarding her multiple medical issues, current condition, prognosis and plan. (Juan Whatley MD) at 0812 at 0907
--- NOTE | 2017-05-25 09:23 | ACUTE CARE PROGRESS NOTE (QUA) ---
Progress Notes Subjective Date 05/25/17 Time 0914 Note 87 yo WF in bed. Pt is sleeping and awakens to verbal but is minimally responsive. Objective Findings Last VS-Temp:99.4 B/P:115/47 Pulse:75 Resp:26 SaO2:93 OXYGEN Last weight lbs:232 oz:6 K.404 Method:Bed Scales Exam General appearance: lethargic Cardiovascular: regular rate & rhythm Respiratory: poor effort Extremities: edema Reviewed: medications, vital signs, lab results Assessment/Plan Problem List 1. Acute pancreatitis Qualifiers: Pancreatitis type: unspecified pancreatitis type Acute pancreatitis complication: no infection or necrosis Qualified Code: K85.90 - Acute pancreatitis without necrosis or infection, unspecified 2. NSTEMI (non-ST elevated myocardial infarction) Assessment/Plan: medical therapy only. 3. UTI (urinary tract infection) Status: Acute 4. Dementia Status: Chronic 5. Seizure disorder Status: Chronic 6. Renal insufficiency Status: Chronic 7. Pulmonary atelectasis 8. Paroxysmal SVT (supraventricular tachycardia) Assessment/Plan: controlled on combo of metoprolol and diltiazem. 9. HCAP (healthcare-associated pneumonia) Status: Acute Patient condition Guarded Plan: Pt appears edematous and with I>>O, would recommend a dose of IV lasix today and reducing IVF rate. This inpt stay is expected to cross 2 MNs from start of care Yes at 0923
[2017-05-26] VITALS (7 sets, daily range): BP systolic 107–139; BP diastolic 51–62
--- NOTE | 2017-05-26 07:16 | SURGEON PROGRESS NOTE ---
Subjective data Subjective data: More arousable this a.m. She states that she is "okay". When asked if she is in pain, she replies "no". Objective data Vitals,I&O,and Labs: Vital signs, intake and output,and available lab data for the last 24 hours is as noted below. Vital Signs Date Time Temp Pulse Resp B/P Pulse O2 O2 Flow FiO2 Ox Delivery Rate 05/26 0637 2.5 05/26 0609 2.5 05/26 0542 2.5 05/26 0542 93 OXYGEN 2.5 05/26 0457 2 05/26 0356 2 05/26 0356 97.8 61 24 139/52 94 OXYGEN 2 05/26 0320 96 OXYGEN 2 05/26 0302 2 05/26 0213 2 05/26 0100 2 05/26 0005 85 ROOM AIR 05/25 2359 2 05/25 235 98.4 73 24 147/59 96 OXYGEN 2 05/25 2300 2 05/25 2203 2 05/25 2104 22 05/25 2100 2 05/25 2035 98.1 67 22 149/73 94 2 05/25 1942 2 05/25 194 98.1 67 22 149/73 94 OXYGEN 2 05/25 1900 2 05/25 1818 2 05/25 1700 2 05/25 1600 2 05/25 1600 96.7 61 24 107/44 97 OXYGEN 2 05/25 1500 2 05/25 1400 2 05/25 1300 2 05/25 1200 2 05/25 1200 98.4 71 16 132/68 94 OXYGEN 2 05/25 1100 2 05/25 1020 2 05/25 0941 99.4 75 26 115/47 93 2 05/25 0900 2 05/25 0800 2 05/25 0800 99.4 75 26 115/47 93 OXYGEN 2 05/25 1500 05/25 2300 05/26 0700 Intake Total 120 480 Output Total 1100 1400 175 Balance -980 -920 -175 Intake, Oral 120 480 Output, Urine 1100 1400 175 Laboratory Tests Test Result Date Time Blood Gas ABG pH (MMOL/L) 7.29 05/24 164 ABG pCO2 (Temp Corrct (MMHG) 54.2 05/24 164 ABG pO2 (Temp Correct (MMHG) 79.4 05/24 164 ABG HCO3 (MMOL/L) 25.7 05/24 1646 ABG Total CO2 (MMOL/L) 27.4 05/24 1646 ABG O2 Sat (Calculated) (%) 95.1 05/24 1646 ABG Base Excess (MMOL/L) -0.8 05/24 1646 Trevor Test Y 05/24 1646 Blood Gas Comments L/R 05/24 1646 Chemistry Sodium (mmoL/L) 145 05/26 600 Potassium (mmoL/L) 3.5 05/26 600 Chloride (mmoL/L) 110 05/26 0600 Carbon Dioxide (mmoL/L) 34 05/26 600 BUN (mg/dL) 27 05/26 600 Creatinine (mg/dL) 1.0 05/26 600 Estimated Creat Clear (ML/MIN) 63 05/26 600 Estimated GFR (MDRD) (ML/MIN) 52 05/26 600 Glucose (mg/dL) 164 05/26 600 POC Glucose (mg/dl) 146 05/26 0559 Lactic Acid (MMOL/L) 2.1 05/20 2055 Calcium (mg/dL) 8.7 05/26 600 Total Bilirubin (mg/dL) 0.5 05/26 600 AST (U/L) 22 05/26 600 ALT (U/L) 46 05/26 600 Alkaline Phosphatase (U/L) 128 05/26 600 Creatine Kinase (U/L) 46 05/21 615 CK-MB (CK-2) Rel Index (U/L) 1.1 05/21 615 CK and CKMB Interp (ng/mL) < 0.5 05/21 615 Troponin I (ng/mL) 0.18 05/21 615 Total Protein (gm/dL) 6.4 05/26 600 Albumin (gm/dL) 2.0 05/26 600 Globulin (gm/dL) 4.4 05/26 600 Albumin/Globulin Ratio 0.5 05/26 600 Amylase (U/L) 41 05/23 605 Lipase (U/L) 96 05/23 605 Hematology WBC (K/mm3) 15.5 05/25 605 RBC (M/mm3) 4.36 05/25 605 Hgb (g/dL) 11.5 05/25 605 Hct (%) 36.6 05/25 605 MCV (fL) 83.9 05/25 605 RDW (%) 17.4 05/25 605 Plt Count (K/mm3) 218 05/25 605 MPV (fl) 7.3 05/23 605 Gran % (%) 90.6 05/25 605 Gran # (K/mm3) 14.0 05/25 605 Total Counted (#CELLS) 100 05/24 630 Lymphocytes % (%) 6.7 05/25 605 Monocytes % (%) 2.7 05/25 605 Eosinophils % (%) 0.5 05/23 605 Basophils % (%) 0.2 05/23 605 Neutrophils (%) 81 05/24 630 Band Neutrophils (%) 2 05/23 605 Lymphocytes (Manual) (%) 10 05/24 630 Lymphocytes # (K/mm3) 1.0 05/25 605 Monocytes (Manual) (%) 9 05/24 630 Monocytes # (K/mm3) 0.4 05/25 605 Eosinophils # (K/mm3) 0.1 05/23 605 Basophils # (K/MM3) 0.0 05/23 605 RBC/WBC/PLT Morphology NORMAL 05/21 615 Atypical Lymphocytes (%) 1 05/21 615 Platelet Estimate NORMAL 05/24 630 Hypochromasia 1+ 05/23 605 PUBS MCHC (g/dl) 31.4 05/25 605 Immunology MCH (pg) 26.4 05/25 605 Serology Influenza Type A Ag NOT DETECTED 05/20 1710 Influenza Type B Ag NOT DETECTED 05/20 1710 Urines Urine Color YELLOW 05/20 1925 Urine Appearance CLOUDY 05/20 1925 Urine pH 6.5 05/20 1925 Ur Specific [place] 1.020 05/20 1925 Urine Protein (mg/dL) 1+ 05/20 1925 Urine Ketones (mg/dL) NEGATIVE 05/20 1925 Urine Blood 2+ 05/20 1925 Urine Nitrate NEGATIVE 05/20 1925 Urine Bilirubin NEGATIVE 05/20 1925 Urine Urobilinogen (E.U./dL) 2.0 05/20 1925 Ur Leukocyte Esterase 3+ 05/20 1925 Urine RBC (rbc/hpf) 3-5 05/20 1925 Urine WBC (wbc/hpf) TNTC 05/20 1925 Ur Squamous Epith Cells (#/hpf) NONE 05/20 1925 Urine Bacteria 2+ 05/20 1925 Urine Glucose NEGATIVE 05/20 1925 Assessment findings Assessment Exam General appearance: no acute distress Respiratory: no respiratory distress ABD: soft Patient plan Diagnoses: Leukocytosis-a.m. labs pending Pancreatitis-essentially resolved biochemically Non-STEMI Overall, the patient's condition remains tenuous and guarded. Plan: as per PCP Additional data: Continued medical management is certainly reasonable; however, I recommend no interventions which would require sedation. at 0715
[2017-05-26 07:33] LABS: HEMOGLOBIN 11.6 g/dL (12.2-16.2)
[2017-05-26 07:34] LABS: LYMPH # 0.8 K/mm3 (0.7-4.5); LYMPH % 7.2 % (10-50.0)
--- NOTE | 2017-05-26 07:52 | ACUTE CARE PROGRESS NOTE (QUA) ---
Progress Notes Subjective Date 05/26/17 Time 0752 Assessment/Plan Problem List 1. Acute pancreatitis 2. NSTEMI (non-ST elevated myocardial infarction) 3. UTI (urinary tract infection) Status: Acute 4. Dementia Status: Chronic 5. Seizure disorder Status: Chronic 6. Renal insufficiency Status: Chronic 7. Pulmonary atelectasis 8. Paroxysmal SVT (supraventricular tachycardia) 9. HCAP (healthcare-associated pneumonia) Status: Acute This inpt stay is expected to cross 2 MNs from start of care Yes Antibiotic Stewardship (2) Current Culture Results Microbiology 05/20 1925 URINE CC: Urine Culture - CAN Cancelled: @DUPLICATE ORDER. LAB.KIKE 05/20 1925 URINE CATH: Urine Culture - RES PSEUDOMONAS AERUGINOSA 05/20 1550 BLOOD: Anaerobic Blood Culture - RES 05/20 1550 BLOOD: Aerobic Blood Culture - RES Infxn that will respond? Yes Right drug,dose,and route? Yes More targeted antbx? No at 0752
--- NOTE | 2017-05-26 08:00 | ACUTE CARE PROGRESS NOTE (QUA) ---
Progress Notes Subjective Date 05/26/17 Time 0756 Note 87 yo WF in bed in NAD. Drinking without difficulty. No abdominal pain. Objective Findings Last VS-Temp:97.8 B/P:139/52 Pulse:61 Resp:24 SaO2:93 OXYGEN Last weight lbs:232 oz:6 K.404 Method:Bed Scales Exam General appearance: alert, awake, no acute distress Cardiovascular: regular rate & rhythm, murmur Respiratory: Poor effort. Rhonchi noted. Extremities: less edema noted. Neuro: alert Reviewed: medications, vital signs, lab results Assessment/Plan Problem List 1. Acute pancreatitis Qualifiers: Pancreatitis type: unspecified pancreatitis type Acute pancreatitis complication: no infection or necrosis Qualified Code: K85.90 - Acute pancreatitis without necrosis or infection, unspecified 2. NSTEMI (non-ST elevated myocardial infarction) Assessment/Plan: clinically stable on medical therapy. 3. UTI (urinary tract infection) Status: Acute 4. Dementia Status: Chronic 5. Seizure disorder Status: Chronic 6. Renal insufficiency Status: Chronic 7. Pulmonary atelectasis 8. Paroxysmal SVT (supraventricular tachycardia) 9. HCAP (healthcare-associated pneumonia) Status: Acute Patient condition Guarded Plan: continue current care This inpt stay is expected to cross 2 MNs from start of care Yes at 2206
--- NOTE | 2017-05-26 08:05 | ACUTE CARE PROGRESS NOTE (QUA) ---
Progress Notes Subjective Date 05/26/17 Time 0730 Note Pt arouses easily to voice, remains lethargic, follows simple commands. She denies pain or SOB. Objective Findings Laboratory Tests 05/26/17 0600: Sodium 145, Potassium 3.5, Chloride 110 H, Carbon Dioxide 34 H, BUN 27 H, Creatinine 1.0, Estimated Creat Clear 63, Estimated GFR (MDRD) 52 L, Glucose 164 H, Calcium 8.7, Total Bilirubin 0.5, AST 22, ALT 46, Alkaline Phosphatase 128 H, Total Protein 6.4, Albumin 2.0 L, Globulin 4.4 H, Albumin/Globulin Ratio 0.5 L, WBC 10.7, RBC 4.38, Hgb 11.6 L, Hct 36.7 L, MCV 83.7, RDW 18.3 H, Plt Count 231, Gran % 91.4 H, Gran # 9.8 H, Lymphocytes % 7.2 L, Monocytes % 1.4 L, Lymphocytes # 0.8, Monocytes # 0.1, PUBS MCHC 31.6 L, MCH 26.5 L 05/26/17 0559: POC Glucose 146 H 05/25/17 2001: POC Glucose 120 H 05/25/17 1650: POC Glucose 120 H 05/25/17 1142: POC Glucose 113 H Vital Signs Date Time Temp Pulse Resp B/P Pulse O2 O2 Flow FiO2 Ox Delivery Rate 05/26 0637 2.5 05/26 0609 2.5 05/26 0542 2.5 05/26 0542 93 OXYGEN 2.5 05/26 0457 2 05/26 0356 2 05/26 0356 97.8 61 24 139/52 94 OXYGEN 2 05/26 0320 96 OXYGEN 2 05/26 0302 2 05/26 0213 2 05/26 0100 2 05/26 0005 85 ROOM AIR 05/25 2359 2 05/25 2359 98.4 73 24 147/59 96 OXYGEN 2 05/25 2300 2 05/25 2203 2 05/25 2104 22 05/25 2100 2 05/25 2035 98.1 67 22 149/73 94 2 05/25 1942 2 05/25 1942 98.1 67 22 149/73 94 OXYGEN 2 05/25 1900 2 05/25 1818 2 05/25 1700 2 05/25 1600 2 05/25 1600 96.7 61 24 107/44 97 OXYGEN 05/25 1500 2 05/25 1400 2 05/25 1300 2 05/25 1200 2 05/25 1200 98.4 71 16 132/68 94 OXYGEN 05/25 1100 2 05/25 1020 2 05/25 0941 99.4 75 26 115/47 93 2 05/25 0900 2 05/25 0800 2 05/25 0800 99.4 75 26 115/47 93 OXYGEN 2 Last VS-Temp:97.8 B/P: 139/52 Pulse:61 Resp:24 SaO2:93 OXYGEN Last weight lbs: 232 oz: 6 K.404 Method: Bed Scales Exam General appearance: alert, no acute distress, lethargic Cardiovascular: regular rate & rhythm Respiratory: poor inspiratory effort; few wheezes throughout ABD: soft, no tenderness, no guarding, no organomegaly, no palpable mass, bowel sounds present, obese Extremities: bilateral upper and lower extremity edema; TITO hose in place Neuro: alert, speech slurred, right side flaccid Reviewed: vital signs, lab results, radiology report, consult note, nursing notes Assessment/Plan Problem List 1. Acute pancreatitis 2. NSTEMI (non-ST elevated myocardial infarction) 3. UTI (urinary tract infection) Status: Acute 4. Dementia Status: Chronic 5. Seizure disorder Status: Chronic 6. Renal insufficiency Status: Chronic 7. Pulmonary atelectasis 8. Paroxysmal SVT (supraventricular tachycardia) 9. HCAP (healthcare-associated pneumonia) Status: Acute Patient condition Guarded Plan: WBC improved. Surgery note seen and appreciated. Will continue current care. Further per Dr. Whatley. This inpt stay is expected to cross 2 MNs from start of care Yes (LESTER GREEN APRN) Subjective Date 05/26/17 Time 0816 Assessment/Plan Problem List 1. Acute pancreatitis 2. NSTEMI (non-ST elevated myocardial infarction) 3. UTI (urinary tract infection) Status: Acute 4. Pseudomonas aeruginosa infection 5. HCAP (healthcare-associated pneumonia) Status: Acute 6. Dementia Status: Chronic 7. Seizure disorder Status: Chronic 8. Renal insufficiency Status: Chronic 9. Paroxysmal SVT (supraventricular tachycardia) Plan: She is much more alert today. Still confused but probably at baseline. Congested cought. Drinking well. Eating some. WBC has decreased. Per surgery note, she is not a surgical candidate so will go ahead and add Plavix for NSTEMI treatment. Probably return to DC tomorrow. (Phylicia ALLEN,Juan Crouch) at 0804 at 0821
[2017-05-26 12:15] LABS: NEUTROPHILS 88 % (42-76)
[2017-05-27 00:01] VITALS: BP 163/54
[2017-05-27 04:22] VITALS: BP 143/67
--- NOTE | 2017-05-27 07:07 | SURGEON PROGRESS NOTE ---
Subjective data Subjective data: Resting. She does respond to questions, but is somewhat less alert than yesterday morning. Objective data Vitals,I&O,and Labs: Vital signs, intake and output,and available lab data for the last 24 hours is as noted below. Vital Signs Date Time Temp Pulse Resp B/P Pulse O2 O2 Flow FiO2 Ox Delivery Rate 05/27 0656 2.5 05/27 0611 2.5 05/27 0555 2.5 05/27 0555 90 OXYGEN 2.5 05/27 0507 2.5 05/27 0422 2.5 05/27 0422 97.7 61 28 143/67 93 OXYGEN 2.5 05/27 0248 2.5 05/27 0210 2.5 05/27 0056 2.5 05/27 0006 22 05/27 0001 2.5 05/27 0001 98.6 61 22 163/54 93 OXYGEN 2.5 05/26 2311 2.5 05/26 2213 2.5 05/26 2100 2.5 05/26 2049 24 05/26 2020 98.3 70 24 131/52 92 2.5 05/26 2005 2.5 05/26 2005 98.3 70 24 131/52 92 OXYGEN 2.5 05/26 1852 2.5 05/26 1852 87 ROOM AIR 05/26 1846 2.5 05/26 1657 2.5 05/26 1630 98.2 64 22 121/55 95 OXYGEN 05/26 1451 2.5 05/26 1309 2.5 05/26 1130 97.6 64 22 107/51 93 OXYGEN 05/26 1101 93 OXYGEN 2.5 05/26 1056 2.5 05/26 0900 2.5 05/26 0830 97.7 62 24 119/62 93 OXYGEN 05/26 0751 97.8 61 24 139/52 93 2.5 05/26 1500 05/26 2300 05/27 0700 Intake Total 730 780 Output Total 700 675 Balance 730 80 -675 Intake, IV 10 300 Intake, Oral 720 480 Output, Urine 700 675 Laboratory Tests Test Result Date Time Blood Gas ABG pH (MMOL/L) 7.29 05/24 164 ABG pCO2 (Temp Corrct (MMHG) 54.2 05/24 164 ABG pO2 (Temp Correct (MMHG) 79.4 05/24 1646 ABG HCO3 (MMOL/L) 25.7 05/24 1646 ABG Total CO2 (MMOL/L) 27.4 05/24 1646 ABG O2 Sat (Calculated) (%) 95.1 05/24 1646 ABG Base Excess (MMOL/L) -0.8 05/24 1646 Trevor Test Y 05/24 1646 Blood Gas Comments L/R 05/24 1646 Chemistry Sodium (mmoL/L) 145 05/26 600 Potassium (mmoL/L) 3.5 05/26 600 Chloride (mmoL/L) 110 05/26 600 Carbon Dioxide (mmoL/L) 34 05/26 600 BUN (mg/dL) 27 05/26 600 Creatinine (mg/dL) 1.0 05/26 600 Estimated Creat Clear (ML/MIN) 63 05/26 600 Estimated GFR (MDRD) (ML/MIN) 52 05/26 06 Glucose (mg/dL) 164 05/26 600 POC Glucose (mg/dl) 128 05/27 623 Lactic Acid (MMOL/L) 2.1 05/20 2055 Calcium (mg/dL) 8.7 05/26 600 Total Bilirubin (mg/dL) 0.5 05/26 600 AST (U/L) 22 05/26 600 ALT (U/L) 46 05/26 600 Alkaline Phosphatase (U/L) 128 05/26 600 Creatine Kinase (U/L) 46 05/21 615 CK-MB (CK-2) Rel Index (U/L) 1.1 05/21 615 CK and CKMB Interp (ng/mL) < 0.5 05/21 615 Troponin I (ng/mL) 0.18 05/21 615 Total Protein (gm/dL) 6.4 05/26 600 Albumin (gm/dL) 2.0 05/26 600 Globulin (gm/dL) 4.4 05/26 600 Albumin/Globulin Ratio 0.5 05/26 600 Amylase (U/L) 41 05/23 605 Lipase (U/L) 96 05/23 605 Hematology WBC (K/mm3) 10.7 05/26 600 RBC (M/mm3) 4.38 05/26 600 Hgb (g/dL) 11.6 05/26 600 Hct (%) 36.7 05/26 600 MCV (fL) 83.7 05/26 600 RDW (%) 18.3 05/26 600 Plt Count (K/mm3) 231 05/26 600 MPV (fl) 7.3 05/23 605 Gran % (%) 91.4 05/26 600 Gran # (K/mm3) 9.8 05/26 600 Total Counted (#CELLS) 100 05/26 600 Lymphocytes % (%) 7.2 05/26 600 Monocytes % (%) 1.4 05/26 600 Eosinophils % (%) 0.5 05/23 605 Basophils % (%) 0.2 05/23 605 Neutrophils (%) 88 05/26 600 Band Neutrophils (%) 2 05/23 605 Lymphocytes (Manual) (%) 4 05/26 600 Lymphocytes # (K/mm3) 0.8 05/26 600 Monocytes (Manual) (%) 8 05/26 600 Monocytes # (K/mm3) 0.1 05/26 600 Eosinophils # (K/mm3) 0.1 05/23 605 Basophils # (K/MM3) 0.0 05/23 605 RBC/WBC/PLT Morphology NORMAL 05/21 615 Atypical Lymphocytes (%) 1 05/21 615 Platelet Estimate NORMAL 05/26 600 Hypochromasia 1+ 05/23 605 PUBS MCHC (g/dl) 31.6 05/26 600 Immunology MCH (pg) 26.5 05/26 600 Serology Influenza Type A Ag NOT DETECTED 05/20 1710 Influenza Type B Ag NOT DETECTED 05/20 1710 Urines Urine Color YELLOW 05/20 1925 Urine Appearance CLOUDY 05/20 1925 Urine pH 6.5 05/20 1925 Ur Specific [place] 1.020 05/20 1925 Urine Protein (mg/dL) 1+ 05/20 1925 Urine Ketones (mg/dL) NEGATIVE 05/20 1925 Urine Blood 2+ 05/20 1925 Urine Nitrate NEGATIVE 05/20 1925 Urine Bilirubin NEGATIVE 05/20 1925 Urine Urobilinogen (E.U./dL) 2.0 05/20 1925 Ur Leukocyte Esterase 3+ 05/20 1925 Urine RBC (rbc/hpf) 3-5 05/20 1925 Urine WBC (wbc/hpf) TNTC 05/20 1925 Ur Squamous Epith Cells (#/hpf) NONE 05/20 1925 Urine Bacteria 2+ 05/20 1925 Urine Glucose NEGATIVE 05/20 1925 Assessment findings Assessment Exam General appearance: no acute distress ABD: soft Patient plan Diagnoses: Pancreatitis-essentially resolved Leukocytosis-improved as of yesterday Non-STEMI Plan: as per PCP at 0706
[2017-05-27 08:00] VITALS: BP 142/71
--- NOTE | 2017-05-27 08:08 | ACUTE CARE PROGRESS NOTE (QUA) ---
Progress Notes Subjective Date 05/27/17 Time 0740 Note Pt eating breakfast with assistance, remains lethargic, follows simple commands. She denies pain or SOB. Objective Findings Laboratory Tests 05/27/17 0623: POC Glucose 128 H 05/26/17 1952: POC Glucose 155 H 05/26/17 1649: POC Glucose 122 H 05/26/17 1137: POC Glucose 147 H Vital Signs Date Time Temp Pulse Resp B/P Pulse O2 O2 Flow FiO2 Ox Delivery Rate 05/27 0656 2.5 05/27 0611 2.5 05/27 0555 2.5 05/27 0555 90 OXYGEN 2.5 05/27 0507 2.5 05/27 0422 2.5 05/27 0422 97.7 61 28 143/67 93 OXYGEN 2.5 05/27 0248 2.5 05/27 0210 2.5 05/27 0056 2.5 05/27 0006 22 05/27 0001 2.5 05/27 0001 98.6 61 22 163/54 93 OXYGEN 2.5 05/26 2311 2.5 05/26 2213 2.5 05/26 2100 2.5 05/26 2049 24 05/26 2020 98.3 70 24 131/52 92 2.5 05/26 2005 2.5 05/26 2005 98.3 70 24 131/52 92 OXYGEN 2.5 05/26 1852 2.5 05/26 1852 87 ROOM AIR 05/26 1846 2.5 05/26 1657 2.5 05/26 1630 98.2 64 22 121/55 95 OXYGEN 05/26 1451 2.5 05/26 1309 2.5 05/26 1130 97.6 64 22 107/51 93 OXYGEN 05/26 1101 93 OXYGEN 2.5 05/26 1056 2.5 05/26 0900 2.5 05/26 0830 97.7 62 24 119/62 93 OXYGEN Last VS-Temp:97.7 B/P: 143/67 Pulse:61 Resp:28 SaO2:90 OXYGEN Last weight lbs: 232 oz: 6 K.404 Method: Bed Scales Exam General appearance: awake, no acute distress Cardiovascular: regular rate & rhythm, normal peripheral pulses Respiratory: poor inspiratory effort; few wheezes throughout ABD: no rebound, soft, no tenderness, no guarding, no organomegaly, no palpable mass, bowel sounds present, obese Extremities: warm, BUE and BLE edema present Neuro: alert, speech slurred Reviewed: medications, vital signs, lab results, consult note, nursing notes Assessment/Plan Problem List 1. Acute pancreatitis 2. NSTEMI (non-ST elevated myocardial infarction) 3. UTI (urinary tract infection) Status: Acute 4. Pseudomonas aeruginosa infection 5. HCAP (healthcare-associated pneumonia) Status: Acute 6. Dementia Status: Chronic 7. Seizure disorder Status: Chronic 8. Renal insufficiency Status: Chronic 9. Paroxysmal SVT (supraventricular tachycardia) Patient condition Stable Plan: Continue current care, may consider d/c back to [place] today, further per Dr. Whatley. This inpt stay is expected to cross 2 MNs from start of care Yes (LESTER GREEN APRN) Assessment/Plan Problem List 1. Acute pancreatitis 2. NSTEMI (non-ST elevated myocardial infarction) 3. UTI (urinary tract infection) Status: Acute Assessment/Plan Pseudamonas and VRE 4. VRE infection (vancomycin resistant Enterococcus) 5. Pseudomonas aeruginosa infection 6. HCAP (healthcare-associated pneumonia) Status: Acute 7. Dementia Status: Chronic 8. Seizure disorder Status: Chronic 9. Renal insufficiency Status: Chronic 10. Paroxysmal SVT (supraventricular tachycardia) Patient condition Improving Plan: Urine culture returned with Pseudomonas and VRE. Clinically she is improved. SHe is afebrile. Last WBC is normal. She is eating better aond overall more alert and likely at baseline. She is stable to discharge back to [place] and will continue on Levaquin and Zyvox will be added to her regimen. SHe will be followed up by her attending at the [place]. Would recommend repeat urine culture after completion of antibiotics. Fortunately her pancreatitis resolved with conservative treatment as she was considered a high surgical risk per Dr. Tracey. SHe has resumed her diet and is tolerating this well with no vomiting or apparent abdominal pain. In terms of her NSTEMI, she is being treated medically per recommendations of caradiology with Metoprolol and Plavix (in light of her hx of ASA allergy). (Juan Whatley MD) at [phone] at [phone]
[2017-05-27] MEDS ORDERED: LOPRESSOR 25MG.25 MG PO (08:59)
[2017-05-27] MEDS ORDERED: CLOPIDOGREL75 M1 PO (09:00)
[2017-05-27] MEDS ORDERED: LEVAQUIN 750 M750 MG PO (09:00)
[2017-05-27] MEDS ORDERED: ZYVOX600 MG PO (09:03)
[2017-05-27 09:10] VITALS: BP 142/71
--- NOTE | 2017-05-27 09:59 | DISCHARGE SUMMARY STANDARD ---
Discharge Summary (FCA2) Date of admission: 05/20/17 Date of discharge: 05/27/17 Problem List: 1. Acute pancreatitis 2. NSTEMI (non-ST elevated myocardial infarction) 3. UTI (urinary tract infection) 4. VRE infection (vancomycin resistant Enterococcus) 5. Pseudomonas aeruginosa infection 6. HCAP (healthcare-associated pneumonia) 7. Dementia 8. Seizure disorder 9. Renal insufficiency 10. Paroxysmal SVT (supraventricular tachycardia) History of present illness: Ms. Gonzalez was an 87-year-old white female who was a resident of [facility] in [place]. She had a history of Alzheimer's dementia, hypertension, seizure disorder, and chronic renal insufficiency. She was sent to the emergency room with the onset of epigastric pain, nausea and vomiting. Her daughter reported that she had had dry cough for 2-3 days prior as well. She was worked up in the emergency room with significant findings of elevated amylase and lipase consistent with pancreatitis. Her CT scan, however, was fairly unremarkable other than borderline enlargement of the gallbladder. No gallstones were appreciated. The lower lung bo were visible on abdominal CT and showed some atelectasis versus early pneumonia. Initial cardiac enzymes were negative. Patient was then admitted to the service of Dr. Whatley in the absence of her having a local physician. Exam on admission: General appearance: awake and responsive but incoherent. NAD Eyes: anicteric, conjunctiva clear ENT: dry mucous membranes, nares patent Neck: supple, no masses or thyromegaly Cardiovascular: distant, regular and tachycardic Respiratory: diminished in bases o/w clear ABD: non-distended, soft, BS present but decreased. Tender across upper abdomen to palpation Extremities: no peripheral edema Musculoskeletal: moves all extremities. Gait not tested Skin: dry, normal color, warm Neuro: awake, incoherent. No focal motor deficits Hospital Course: The patient was admitted to the medical floor and start on IV fluid hydration, antiemetics, and p.r.n. pain medication. UA was also consistent with urinary tract infection and she was started on IV Levaquin for urinary tract infection and possible pneumonia. She required a small dose of Ativan through the night because of some agitation and rested fairly comfortably after. The following morning, she was noted to be tachycardic with heart rate around 140. EKG confirmed sinus tachycardia and repeat cardiac enzymes showed a bump in her Troponin to 0.18. She had no complaints of chest pain but was an unreliable historian. She had no vomiting through the night. Cardiology was consulted. She was seen by GI and it was recommended to continue NPO status and IV hydration along with antibiotics and monitor labs as the risks associated with an intervention requiring sedation would likely outweigh the benefits due to her comorbid conditions. An ultrasound showed mild distention of the gallbladder with no evidence of gallstones. By the morning of 05/22/17, she was more alert. Her amylase and lipase had improved, however, her bilirubin was slightly higher. Her diet was advanced to clear liquids. CXR showed atelectasis or infiltrate in the right midlung and left lower lobe with small left effusion. On 05/23/17 she was evaluated by cardiology. Echo was performed to evaluate LVEF, however, no further cardiac testing was recommended and her operative risk was felt to be elevated due to overall status. She was tolerating full liquid diet without difficulty and her labs had improved, other than WBC remaining elevated. Her antibiotics were changed and her diet was advanced. On 05/24/17 CXR was improved, although the following day, she had more wheezing on auscultation and WBC was slightly increased. Levaquin and steroids were added to medication regimen. Dr. Whatley spoke at length with daughter regarding her multiple medical issues, current condition, prognosis, and plan. By 05/26/17, she was much more alert and her WBC had decreased. On 05/27/17, she had improved clinically and was felt to likely be at baseline. Her pancreatitis had resolved with conservative treatment. Her NSTEMI was being treated with Metoprolol and Plavix per cardiology recommendations. Urine culture returned with Pseudomonas and VRE. She was felt to be stable for discharge back to [place] on Levaquin with the addition of Zyvox and followed up by her attending physician. Laboratory data this visit: Laboratory Tests 05/20/171709: Influenza Type A Ag NOT DETECTED, Influenza Type B Ag NOT DETECTED 05/20/171924: Urine Color YELLOW, Urine Appearance CLOUDY, Urine pH 6.5, Ur Specific [place] 1.020, Urine Protein 1+, Urine Ketones NEGATIVE, Urine Blood 2+, Urine Nitrate NEGATIVE, Urine Bilirubin NEGATIVE, Urine Urobilinogen 2.0, Ur Leukocyte Esterase 3+, Urine RBC 3-5, Urine WBC TNTC, Ur Squamous Epith Cells NONE, Urine Bacteria 2+, Urine Glucose NEGATIVE 05/20/172054: Lactic Acid 2.1 05/21/17 0615: RBC/WBC/PLT Morphology NORMAL, Atypical Lymphocytes 1 05/21/17 0615: Creatine Kinase 46, CK-MB (CK-2) Rel Index 1.1, CK and CKMB Interp < 0.5, Troponin I 0.18 05/23/17 0605: Amylase 41, Lipase 96, MPV 7.3, Eosinophils % 0.5, Basophils % 0.2, Band Neutrophils 2, Eosinophils # 0.1, Basophils # 0.0, Hypochromasia 1+ 05/24/17 1646: ABG pH 7.29, ABG pCO2 (Temp Corrct 54.2, ABG pO2 (Temp Correct 79.4, ABG HCO3 25.7, ABG Total CO2 27.4, ABG O2 Sat (Calculated) 95.1, ABG Base Excess -0.8, Trevor Test Y, Blood Gas Comments L/R 05/26/17 0600: Sodium 145, Potassium 3.5, Chloride 110, Carbon Dioxide 34, BUN 27, Creatinine 1.0, Estimated Creat Clear 63, Estimated GFR (MDRD) 52, Glucose 164, Calcium 8.7 , Total Bilirubin 0.5, AST 22, ALT 46, Alkaline Phosphatase 128, Total Protein 6.4, Albumin 2.0, Globulin 4.4, Albumin/Globulin Ratio 0.5, WBC 10.7, RBC 4.38, Hgb 11.6, Hct 36.7, MCV 83.7, RDW 18.3, Plt Count 231, Gran % 91.4, Gran # 9.8, Total Counted 100, Lymphocytes % 7.2, Monocytes % 1.4, Neutrophils 88, Lymphocytes (Manual) 4, Lymphocytes # 0.8, Monocytes (Manual) 8, Monocytes # 0.1 , Platelet Estimate NORMAL, PUBS MCHC 31.6, MCH 26.5 05/27/17 0623: POC Glucose 128 Discharge medications: Continue taking these medications: CHOLECALCIFEROL (VITAMIN D3) (Vitamin D3) 1,000 UNIT TABLET 2,000 INT. UNITS ORAL DAILY Furosemide (Lasix 20MG) 20 MG TABLET 20 MILLIGRAM ORAL DAILY GUAIFENESIN/DEXTROMETHORPHAN (Mucinex Dm ER 600-30 MG Tablet) 1 EACH TAB.ER.12H 1 TABLET ORAL DAILY POTASSIUM CHL (Potassium Chloride) 10 MEQ TABLET.ER 30 Milliequivalent ORAL DAILY CALCIUM CARBONATE (Oyster Shell Calcium) 500 MG TABLET 1,000 MILLIGRAM ORAL TWICE A DAY Levetiracetam (Keppra 500 Mg Tablet) 500 MG TABLET 500 MILLIGRAM ORAL TWICE A DAY TAMSULOSIN HCL (Tamsulosin 0.4MG) 0.4 MG CAP.ER.24H 0.4 MILLIGRAM ORAL TWICE A DAY Omeprazole (Omeprazole 20MG) 20 MG CAPSULE.DR 20 MILLIGRAM ORAL DAILY Cetirizine Hcl (Cetirizine Hydrochloride) 5 MG TABLET 5 MILLIGRAM ORAL AT BEDTIME NIGHTLY DONEPEZIL HCL (Aricept 5MG) 5 MG TABLET 5 MILLIGRAM ORAL AT BEDTIME NIGHTLY Cranberry Extract (Cranberry) 200 MG CAPSULE 200 MILLIGRAM ORAL TWICE A DAY Acetaminophen (Tylenol) 325 MG TABLET 650 MILLIGRAM ORAL EVERY 6 HOURS NEEDED as needed for PAIN Levetiracetam (Keppra 500 Mg Tablet) 500 MG TABLET 500 MILLIGRAM ORAL TWICE A DAY Start taking the following new medications: Levofloxacin (Levaquin 750mg) 750 MG TABLET 750 MILLIGRAM ORAL 1100 Qty = 5 No Refills CLOPIDOGREL BISULFATE (Clopidogrel) 75 MG TABLET 75 MILLIGRAM ORAL DAILY Qty = 30 No Refills Metoprolol Tartrate (Lopressor) 25 MG TABLET 12.5 MILLIGRAM ORAL TWICE A DAY Qty = 60 No Refills Linezolid (Zyvox TABLET) 600 MG TABLET 600 MILLIGRAM ORAL TWICE A DAY Qty = 28 No Refills Disposition: Follow up: 5-7 days Activity: Cont Current activity Diet: Continue same diet Discharge to: INTERMEDIATE Specify Nsg Home: JOANNE at 1002
== END 2017-05-27 11:17 | DRG 438 ==
LOC: ER 15:34 → 2ND 18:51 → ER 18:51 → 2ND 18:51
PROVIDERS: Emergency Medicine; Family Medicine; Surgery
DX: K85.90 Acute pancreatitis without necrosis or infection, unspecified (principal); I21.4 Non-ST elevation (NSTEMI) myocardial infarction; J18.9 Pneumonia, unspecified organism; N39.0 Urinary tract infection, site not specified; F02.81 Dementia in other diseases classified elsewhere, unspecified severity, with behavioral disturbance; F05 Delirium due to known physiological condition; Y95 Nosocomial condition; I10 Essential (primary) hypertension; B96.5 Pseudomonas (aeruginosa) (mallei) (pseudomallei) as the cause of diseases classified elsewhere; Z16.21 Resistance to vancomycin; G40.909 Epilepsy, unspecified, not intractable, without status epilepticus; G30.9 Alzheimer's disease, unspecified
CPT/HCPCS: J1335; J2405

== ENCOUNTER → 2017-05-28 | Outpatient (CLI) | payer MEDICARE, MEDICAID ==
[~2017-05-28] MED LIST changes: +CLOPIDOGREL75 M1 PO; +LOPRESSOR 25MG.25 MG PO; +ZYVOX600 MG PO
[2017-05-28 09:40] LABS: BUN 31 mg/dL (7-18)
[2017-05-28 09:41] LABS: GFR (ESTIMATED) 59 ML/MIN (59-)
== END ==
LOC: LAB 07:07 → EDSTATUS 09:03
PROVIDERS: Family Medicine
DX: R60.9 Edema, unspecified (principal)

== ENCOUNTER 2017-06-07 12:56 | Emergency (ER) | payer MEDICARE, MEDICAID ==
[~2017-06-07] VITALS: Ht 162.6 cm; Wt 117.9 kg
[2017-06-07 13:34] LABS: LYMPH # 1.8 K/mm3 (0.7-4.5); LYMPH % 20.3 % (10-50.0)
[2017-06-07 13:56] LABS: BUN 18 mg/dL (7-18)
[2017-06-07 13:57] LABS: GFR (ESTIMATED) 52 ML/MIN (59-)
--- NOTE | 2017-06-07 14:10 | Emergency Room Report ---
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 N Clinical Suspician of Infection? N Mental Status: 2 - Mildly Altered Sepsis Risk:Low Sepsis Risk Have you (or family members/close friends) recently traveled outside the [place]? N If Yes, where/when: Have you had exposure to infectious disease within the past month? TB? Other? Specify: Cough, not eating for the last few days. Sent by [place] for further evaluation. Recently d/c from [facility] for pneumonia, sent back on Levaquin and Zyvox, but still coughing, and has diminished appetite. No chest pain but had KS during hospitalization. Has hx of pancreatitis as well, with no epigastric pain today. No urinary sx. No fever or vomiting. Daughter states she and patient's other daughter have POA and would not want patient on ventilator. Source RN notes reviewed, family, fdc records, old records Exam Limitations no limitations (dementia) ALLERGIES Coded Allergies: Penicillins (05/20/17) aspirin (05/20/17) Home Medications Active Scripts Metoprolol Tartrate (Lopressor) 12.5 MG PO BID #60 TAB Prov: 05/27/17 Levofloxacin (Levaquin 750mg) 750 MG PO 1100 #5 TAB Prov: 05/27/17 CLOPIDOGREL BISULFATE (Clopidogrel) 75 MG PO DAILY #30 TAB Prov: 05/27/17 Linezolid (Zyvox TABLET) 600 MG PO BID #28 TAB Prov: 05/27/17 Reported Medications Omeprazole (Omeprazole 20MG) 20 MG PO DAILY POTASSIUM CHL (Potassium Chloride) 30 MEQ PO DAILY CHOLECALCIFEROL (VITAMIN D3) (Vitamin D3) 2,000 IUNITS PO DAILY GUAIFENESIN/DEXTROMETHORPHAN (Mucinex Dm ER 600-30 MG Tablet) 1 TAB PO DAILY CALCIUM CARBONATE (Oyster Shell Calcium) 1,000 MG PO BID Cetirizine Hcl (Cetirizine Hydrochloride) 5 MG PO QHS Cranberry Extract (Cranberry) 200 MG PO BID Acetaminophen (Tylenol) 650 MG PO Q6HP PRN PAIN Levetiracetam (Keppra 500 Mg Tablet) 500 MG PO BID Furosemide (Lasix 20MG) 20 MG PO DAILY Levetiracetam (Keppra 500 Mg Tablet) 500 MG PO BID TAMSULOSIN HCL (Tamsulosin 0.4MG) 0.4 MG PO BID DONEPEZIL HCL (Aricept 5MG) 5 MG PO QHS History Medical History General CAD? No Angina: No KS: No Hypertension? Yes Hyperlipidemia? No CHF? No DVT? No PE? No COPD? Yes Asthma? No Anemia? Yes GERD? No Gastric ulcers? No GI Bleed? No Hernia? Yes Thyroid Problems? No Hypothyroidism? No CVA? No Seizures? Yes Diabetes? No Renal Insuffiency? Yes End Stage Renal Disease? No UTI? Yes Stones? No BPH? No GB Disease: No Nephritic Syndrome? No Asplenia? No Hepatitis? No Sickle Cell Disease? No Arthritis? No Migraines? No Cataracts? Yes Glaucoma? No MRSA? No HIV? No TB? No Anxiety? No Depression? No Cancer? Yes Site: R BREAST More? Yes Additional hx: Alzheimers dementia Immunization Hx DT/Tetanus UNKNOWN Flu [id number] Flu Season Pneumonia Received In Past Surgical Hx Previous Surgery?Y Appendix Tubal Ligation R BREAST BX Family History Family Hx Diabetes Yes CAD No Hypertension Yes Hyperlipidemia No Cancer Yes TB Yes Social History Smoking Hx Smoker: Former Smoker Tobacco: No Packs/day N/A Alcohol Alcohol: No Review of Systems All Other Systems Reviewed and Negative Respiratory see HPI Cardiovascular see HPI Gastrointestinal see HPI Psychiatric/Neurological see HPI Physical Exam Vital Signs Vital Signs Date Time Temp Pulse Resp B/P Pulse O2 O2 Flow FiO2 Ox Delivery Rate 06/07 1707 78 20 136/78 98 2 06/07 1533 74 20 197/77 98 06/07 1453 72 20 172/78 98 06/07 1404 66 20 145/65 98 06/07 1327 79 20 165/75 97 06/07 1257 98.9 82 20 135/54 96 2 General Appearance normal appearance, WD/WN, no apparent distress (verbal) Eye Exam - bilateral eye normal exam, bilateral eye PERRL, bilateral eye EOMI Ear, Nose, Throat hearing grossly normal (op dry) Neck normal inspection, non-tender, supple, full range of motion Respiratory Status Yes: trachea midline, chest symmetrical, non tender chest, productive cough. No : respiratory distress, tender on palpation, use of accessory muscles, pain on inspiration, pain on expiration, non productive cough. Lung Sounds bilateral: normal breath sounds, lungs clear. left: decreased breath sounds, rhonchi. Cardiovascular normal exam, regular rate/rhythm, no peripheral edema, no gallop, no JVD, no murmur, no rub, normal peripheral pulses Gastrointestinal normal bowel sounds, normal exam, non tender, soft, no organomegaly, no pulsatile mass, no guarding, no rebound Extremities non-tender, normal range of motion, normal inspection, no calf tenderness, no pedal edema Strength 4 Upper Ext (L), 4 Upper Ext (R), 4 Lower Ext (L), 4 Lower Ext (R) Neurologic normal exam, no motor/sensory deficits, oriented x 3, answers questions appropriately despite hx dementia; overall nonfocal exam; speech clear ; appears fatigued and globally a little weak; no tremor, no drooling. Glascow Coma Scale Glascow Coma Scale Response Value EYE response: 4 Spontaneously 4 MOTOR response: 6 OBEYS 6 VERBAL response: 5 Oriented & Converses 5 Total 15 Skin intact, pallor Lymphatic no adenopathy Medical Decision Making LABS/Meds/Orders Pt receiving controlled substance in ED? No Results/Orders Laboratory Tests 06/07/17 1330: Lactic Acid 1.0 06/07/17 1310: Lipase 221 06/07/17 1310: Sodium 140, Potassium 3.9, Chloride 101, Carbon Dioxide 35 H, BUN 18, Creatinine 1.0, Estimated Creat Clear 71, Estimated GFR (MDRD) 52 L, Glucose 97 , Calcium 9.0, Total Bilirubin 0.6, AST 25, ALT 16, Alkaline Phosphatase 102, Creatine Kinase 6 L, CK-MB (CK-2) Rel Index 8.3 *H, CK and CKMB Interp < 0.5, Troponin I < 0.02, B-Natriuretic Peptide 96, Total Protein 7.2, Albumin 2.5 L, Globulin 4.7 H, Albumin/Globulin Ratio 0.5 L, WBC 9.0, RBC 5.21, Hgb 14.0, Hct 43.5, MCV 83.6, RDW 14.7, Plt Count 275, MPV 6.6 L, Gran % 71.1, Gran # 6.4, Lymphocytes % 20.3, Monocytes % 6.0, Eosinophils % 1.9, Basophils % 0.7, Lymphocytes # 1.8, Monocytes # 0.5, Eosinophils # 0.2, Basophils # 0.1, PUBS MCHC 32.1, MCH 26.8 L, Urine Color YELLOW, Urine Appearance CLEAR, Urine pH 6.0 , Ur Specific [place] 1.025, Urine Protein TRACE H, Urine Ketones NEGATIVE, Urine Blood NEGATIVE, Urine Nitrate NEGATIVE, Urine Bilirubin NEGATIVE, Urine Urobilinogen 0.2, Ur Leukocyte Esterase NEGATIVE, Urine RBC NONE, Urine WBC NONE , Ur Squamous Epith Cells OCC, Urine Bacteria NONE, Urine Glucose NEGATIVE Current Medication Orders Sig/Bennie Start time Last Medication Dose Route Stop Time Status Admin Azithromycin 500 MG ONCE ONE 06/07 1515 CAN Sodium Chloride 250 ML IV 06/07 1614 Sodium Chloride 10 ML PRN PRN 06/07 1330 DCD IV 06/08 1317 Orders Procedure Date/time Status LIPASE 06/07 1448 Complete URINALYSIS/COMPLETE 06/07 1417 Complete LACTIC ACID 06/07 1341 Complete ELECTROCARDIOGRAM REQUEST 06/07 1318 Active IV SALINE LOCK 06/07 1318 Active CULTURE, BLOOD 06/07 1318 Active CBC WITH AUTO DIFF 06/07 1318 Complete CARDIAC ENZYMES 06/07 1318 Complete CHEM 12 PROFILE 06/07 1318 Complete BRAIN NATRIURETIC PEPTIDE 06/07 1318 Complete 12 LEAD EKG-LARRY (INITIAL) 06/07 UNK Active CM/EKG CM/EKG EKG NSR, rhythm, no ectopy, normal QRS, normal MA, normal EKG (NSR 82 LVH ) XRAY/CT/US XRAY/CT/US XRAY chest XR interpretation by reviewed by me (report reviewed) Xray Results abnormal, LLL infiltrate vs atelectasis per rad Consult MD Physician Consult Time Called 1503 Reason Other (pharmacy consult for ABX) Comments pharmacist recommends Levaquin and Zithromax Progress ED Progress Notes 1 Date 06/07/17 Time 1454 Comment Daughter requesting transfer back to [place] but wants to talk to patient's other daughter first. ED Progress Notes 2 Date 06/07/17 Time 1508 Comment Family requests first dose ABX to be done at [place] where patient will be more comfortable. Departure Departure Time of Disposition 1508 Disposition DC Home or Self Care(routine) Clinical Impression Primary Impression: Left lower lobe pneumonia Qualifiers: Pneumonia type: due to unspecified organism Qualified Code: J18.1 - Lobar pneumonia, unspecified organism Condition STABLE Referrals Juan Whatley MD (Family) Patient Instructions Pneumonia-Adult Additional Instructions spoke with our pharmacist: recommendation for Levaquin 500 mg IV daily for seven days; Azithromycin 500 mg IV for five days. Recommend follow up with PCP in one to two days for further evaluation and management; family requesting first dose of antibiotics to be given at [place] and not in ED and that she be made comfortable. outpatient order for ABX has been completed for [place] but recommend that PCP review orders. Discharge Counseling Counseled pt/family regarding diagnosis, test results, medications/RX, home care, follow up needs ED Critical Care Critical Care No at 1847
--- NOTE | 2017-06-07 14:10 | Emergency Room Report ---
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 N Clinical Suspician of Infection? N Mental Status: 2 - Mildly Altered Sepsis Risk:Low Sepsis Risk Have you (or family members/close friends) recently traveled outside the [place]? N If Yes, where/when: Have you had exposure to infectious disease within the past month? TB? Other? Specify: Cough, not eating for the last few days. Sent by [facility] for further evaluation. Recently d/c from [facility] for pneumonia, sent back on Levaquin and Zyvox, but still coughing, and has diminished appetite. No chest pain but had GA during hospitalization. Has hx of pancreatitis as well, with no epigastric pain today. No urinary sx. No fever or vomiting. Daughter states she and patient's other daughter have POA and would not want patient on ventilator. Source RN notes reviewed, family, [facility], old records Exam Limitations no limitations (dementia) ALLERGIES Coded Allergies: Penicillins (05/20/17) aspirin (05/20/17) Home Medications Active Scripts Metoprolol Tartrate (Lopressor) 12.5 MG PO BID #60 TAB Prov: 05/27/17 Levofloxacin (Levaquin 750mg) 750 MG PO 1100 #5 TAB Prov: 05/27/17 CLOPIDOGREL BISULFATE (Clopidogrel) 75 MG PO DAILY #30 TAB Prov: 05/27/17 Linezolid (Zyvox TABLET) 600 MG PO BID #28 TAB Prov: 05/27/17 Reported Medications Omeprazole (Omeprazole 20MG) 20 MG PO DAILY POTASSIUM CHL (Potassium Chloride) 30 MEQ PO DAILY CHOLECALCIFEROL (VITAMIN D3) (Vitamin D3) 2,000 IUNITS PO DAILY GUAIFENESIN/DEXTROMETHORPHAN (Mucinex Dm ER 600-30 MG Tablet) 1 TAB PO DAILY CALCIUM CARBONATE (Oyster Shell Calcium) 1,000 MG PO BID Cetirizine Hcl (Cetirizine Hydrochloride) 5 MG PO QHS Cranberry Extract (Cranberry) 200 MG PO BID Acetaminophen (Tylenol) 650 MG PO Q6HP PRN PAIN Levetiracetam (Keppra 500 Mg Tablet) 500 MG PO BID Furosemide (Lasix 20MG) 20 MG PO DAILY Levetiracetam (Keppra 500 Mg Tablet) 500 MG PO BID TAMSULOSIN HCL (Tamsulosin 0.4MG) 0.4 MG PO BID DONEPEZIL HCL (Aricept 5MG) 5 MG PO QHS History Medical History General CAD? No Angina: No GA: No Hypertension? Yes Hyperlipidemia? No CHF? No DVT? No PE? No COPD? Yes Asthma? No Anemia? Yes GERD? No Gastric ulcers? No GI Bleed? No Hernia? Yes Thyroid Problems? No Hypothyroidism? No CVA? No Seizures? Yes Diabetes? No Renal Insuffiency? Yes End Stage Renal Disease? No UTI? Yes Stones? No BPH? No GB Disease: No Nephritic Syndrome? No Asplenia? No Hepatitis? No Sickle Cell Disease? No Arthritis? No Migraines? No Cataracts? Yes Glaucoma? No MRSA? No HIV? No TB? No Anxiety? No Depression? No Cancer? Yes Site: R BREAST More? Yes Additional hx: Alzheimers dementia Immunization Hx DT/Tetanus UNKNOWN Flu 3570-1080 Flu Season Pneumonia Received In Past Surgical Hx Previous Surgery?Y Appendix Tubal Ligation R BREAST BX Family History Family Hx Diabetes Yes CAD No Hypertension Yes Hyperlipidemia No Cancer Yes TB Yes Social History Smoking Hx Smoker: Former Smoker Tobacco: No Packs/day N/A Alcohol Alcohol: No Review of Systems All Other Systems Reviewed and Negative Respiratory see HPI Cardiovascular see HPI Gastrointestinal see HPI Psychiatric/Neurological see HPI Physical Exam Vital Signs Vital Signs Date Time Temp Pulse Resp B/P Pulse O2 O2 Flow FiO2 Ox Delivery Rate 06/07 1707 78 20 136/78 98 2 06/07 1533 74 20 197/77 98 06/07 1453 72 20 172/78 98 06/07 1404 66 20 145/65 98 06/07 1327 79 20 165/75 97 06/07 1257 98.9 82 20 135/54 96 2 General Appearance normal appearance, WD/WN, no apparent distress (verbal) Eye Exam - bilateral eye normal exam, bilateral eye PERRL, bilateral eye EOMI Ear, Nose, Throat hearing grossly normal (op dry) Neck normal inspection, non-tender, supple, full range of motion Respiratory Status Yes: trachea midline, chest symmetrical, non tender chest, productive cough. No : respiratory distress, tender on palpation, use of accessory muscles, pain on inspiration, pain on expiration, non productive cough. Lung Sounds bilateral: normal breath sounds, lungs clear. left: decreased breath sounds, rhonchi. Cardiovascular normal exam, regular rate/rhythm, no peripheral edema, no gallop, no JVD, no murmur, no rub, normal peripheral pulses Gastrointestinal normal bowel sounds, normal exam, non tender, soft, no organomegaly, no pulsatile mass, no guarding, no rebound Extremities non-tender, normal range of motion, normal inspection, no calf tenderness, no pedal edema Strength 4 Upper Ext (L), 4 Upper Ext (R), 4 Lower Ext (L), 4 Lower Ext (R) Neurologic normal exam, no motor/sensory deficits, oriented x 3, answers questions appropriately despite hx dementia; overall nonfocal exam; speech clear ; appears fatigued and globally a little weak; no tremor, no drooling. Glascow Coma Scale Glascow Coma Scale Response Value EYE response: 4 Spontaneously 4 MOTOR response: 6 OBEYS 6 VERBAL response: 5 Oriented & Converses 5 Total 15 Skin intact, pallor Lymphatic no adenopathy Medical Decision Making LABS/Meds/Orders Pt receiving controlled substance in ED? No Results/Orders Laboratory Tests 06/07/17 1330: Lactic Acid 1.0 06/07/17 1310: Lipase 221 06/07/17 1310: Sodium 140, Potassium 3.9, Chloride 101, Carbon Dioxide 35 H, BUN 18, Creatinine 1.0, Estimated Creat Clear 71, Estimated GFR (MDRD) 52 L, Glucose 97 , Calcium 9.0, Total Bilirubin 0.6, AST 25, ALT 16, Alkaline Phosphatase 102, Creatine Kinase 6 L, CK-MB (CK-2) Rel Index 8.3 *H, CK and CKMB Interp < 0.5, Troponin I < 0.02, B-Natriuretic Peptide 96, Total Protein 7.2, Albumin 2.5 L, Globulin 4.7 H, Albumin/Globulin Ratio 0.5 L, WBC 9.0, RBC 5.21, Hgb 14.0, Hct 43.5, MCV 83.6, RDW 14.7, Plt Count 275, MPV 6.6 L, Gran % 71.1, Gran # 6.4, Lymphocytes % 20.3, Monocytes % 6.0, Eosinophils % 1.9, Basophils % 0.7, Lymphocytes # 1.8, Monocytes # 0.5, Eosinophils # 0.2, Basophils # 0.1, PUBS MCHC 32.1, MCH 26.8 L, Urine Color YELLOW, Urine Appearance CLEAR, Urine pH 6.0 , Ur Specific [place] 1.025, Urine Protein TRACE H, Urine Ketones NEGATIVE, Urine Blood NEGATIVE, Urine Nitrate NEGATIVE, Urine Bilirubin NEGATIVE, Urine Urobilinogen 0.2, Ur Leukocyte Esterase NEGATIVE, Urine RBC NONE, Urine WBC NONE , Ur Squamous Epith Cells OCC, Urine Bacteria NONE, Urine Glucose NEGATIVE Current Medication Orders Sig/Bennie Start time Last Medication Dose Route Stop Time Status Admin Azithromycin 500 MG ONCE ONE 06/07 1515 CAN Sodium Chloride 250 ML IV 06/07 1614 Sodium Chloride 10 ML PRN PRN 06/07 1330 DCD IV 06/08 1317 Orders Procedure Date/time Status LIPASE 06/07 1448 Complete URINALYSIS/COMPLETE 06/07 1417 Complete LACTIC ACID 06/07 1341 Complete ELECTROCARDIOGRAM REQUEST 06/07 1318 Active IV SALINE LOCK 06/07 1318 Active CULTURE, BLOOD 06/07 1318 Active CBC WITH AUTO DIFF 06/07 1318 Complete CARDIAC ENZYMES 06/07 1318 Complete CHEM 12 PROFILE 06/07 1318 Complete BRAIN NATRIURETIC PEPTIDE 06/07 1318 Complete 12 LEAD EKG-LARRY (INITIAL) 06/07 UNK Active CM/EKG CM/EKG EKG NSR, rhythm, no ectopy, normal QRS, normal PA, normal EKG (NSR 82 LVH ) XRAY/CT/US XRAY/CT/US XRAY chest XR interpretation by reviewed by me (report reviewed) Xray Results abnormal, LLL infiltrate vs atelectasis per rad Consult MD Physician Consult Time Called 1503 Reason Other (pharmacy consult for ABX) Comments pharmacist recommends Levaquin and Zithromax Progress ED Progress Notes 1 Date 06/07/17 Time 1454 Comment Daughter requesting transfer back to [facility] but wants to talk to patient's other daughter first. ED Progress Notes 2 Date 06/07/17 Time 1508 Comment Family requests first dose ABX to be done at [facility] where patient will be more comfortable. Departure Departure Time of Disposition 1508 Disposition DC Home or Self Care(routine) Clinical Impression Primary Impression: Left lower lobe pneumonia Qualifiers: Pneumonia type: due to unspecified organism Qualified Code: J18.1 - Lobar pneumonia, unspecified organism Condition STABLE Referrals Juan Whatley MD (Family) Patient Instructions Pneumonia-Adult Additional Instructions spoke with our pharmacist: recommendation for Levaquin 500 mg IV daily for seven days; Azithromycin 500 mg IV for five days. Recommend follow up with PCP in one to two days for further evaluation and management; family requesting first dose of antibiotics to be given at [facility] and not in ED and that she be made comfortable. outpatient order for ABX has been completed for [facility] but recommend that PCP review orders. Discharge Counseling Counseled pt/family regarding diagnosis, test results, medications/RX, home care, follow up needs ED Critical Care Critical Care No at [id number]
[2017-06-07 14:26] LABS: URINE BILIRUBIN - DIPSTICK NEGATIVE (NEG); URINE BLOOD NEGATIVE (NEG)
--- NOTE | 2017-06-07 14:28 | RADIOLOGY REPORT PS360 ---
CHEST-PORTABLE HISTORY: cough ORDERING PHYSICIAN: Sari Mcadams MD PATIENT AGE: 87 years COMPARISON: [phone] due to FINDINGS: The cardiomediastinal silhouette and pulmonary vascularity are within normal limits. Patchy density is present in the left lung base consistent with an area of atelectasis or infiltrate. There is mild atelectatic change in the right lung base with low lung volumes. Upper lobes are clear. Degenerative changes are present in the shoulders. IMPRESSION: Low lung volumes with left lower lobe atelectasis or infiltrate
[2017-06-07 14:44] LABS: URINE SQUAMOUS CELLS OCC #/hpf (0-5)
[2017-06-07 17:07] VITALS: BP 136/78
--- OUTSIDE RECORDS SUMMARY | 2017-06-11 05:22 | External Medical Summary Rpt | Continuity of Care Document ---
Author Author Organization Address Unknown Phone Unavailable Care Team Providers Care Finishing Area Operator Name Role Phone , Unavailable Unavailable EMS Current Medications Section EMS Allergies and Adverse Reactions EMS Past Medical History Medications Administered Section EMS Procedures Performed EMS Vital Signs EMS Patient Care Report Narrative Dispatched to [facility] in ref. to an 87 y/o F with abd. pain for transport to [facility]. Upon arrival, patient is seated in w/c. Patient has c/o RUQ abd. pain that she states "feels like she's being cut in half". Staff advises "she had two loose bowel movements this AM. She ate her lunch and began vomiting and c/o abd. pain". Patient is transferred to cot x2 angle roll operator and 2 staff with aden lift. Patient is placed in pos. of comfort and secured with straps x3. Patients vitals x2 are within normal limits. Patient has vomiting x1 en route. Care is transferred to nurse at [facility]. KRIS
--- OUTSIDE RECORDS SUMMARY | 2017-06-11 05:22 | External Medical Summary Rpt | Continuity of Care Document ---
Author Author Organization Address Unknown Phone Unavailable Care Team Providers Care Telecommunication Systems Designer Name Role Phone , Unavailable Unavailable EMS Current Medications Section EMS Allergies and Adverse Reactions EMS Past Medical History Medications Administered Section EMS Procedures Performed EMS Vital Signs EMS Patient Care Report Narrative Dispatched to [facility] in ref. to an 87 y/o F with abd. pain for transport to [facility]. Upon arrival, patient is seated in w/c. Patient has c/o RUQ abd. pain that she states "feels like she's being cut in half". Staff advises "she had two loose bowel movements this AM. She ate her lunch and began vomiting and c/o abd. pain". Patient is transferred to cot x2 marking clerk and 2 staff with aden lift. Patient is placed in pos. of comfort and secured with straps x3. Patients vitals x2 are within normal limits. Patient has vomiting x1 en route. Care is transferred to nurse at [facility]. KRIS
--- OUTSIDE RECORDS SUMMARY | 2017-06-11 05:22 | External Medical Summary Rpt | Continuity of Care Document ---
Author Author Organization Address Unknown Phone Unavailable Care Team Providers Care Machinist Mechanic Name Role Phone , Unavailable Unavailable EMS Current Medications Section EMS Allergies and Adverse Reactions EMS Past Medical History Medications Administered Section EMS Procedures Performed EMS Vital Signs EMS Patient Care Report Narrative Dispatched to [facility] in ref. to an 87 y/o F with abd. pain for transport to [facility]. Upon arrival, patient is seated in w/c. Patient has c/o RUQ abd. pain that she states "feels like she's being cut in half". Staff advises "she had two loose bowel movements this AM. She ate her lunch and began vomiting and c/o abd. pain". Patient is transferred to cot x2 alpine guide and 2 staff with aden lift. Patient is placed in pos. of comfort and secured with straps x3. Patients vitals x2 are within normal limits. Patient has vomiting x1 en route. Care is transferred to nurse at [facility]. KRIS
--- OUTSIDE RECORDS SUMMARY | 2017-06-11 05:22 | External Medical Summary Rpt | Continuity of Care Document ---
Author Author Organization Address Unknown Phone Unavailable Care Team Providers Care Phosphoric Acid Supervisor Name Role Phone , Unavailable Unavailable EMS Current Medications Section EMS Allergies and Adverse Reactions EMS Past Medical History Medications Administered Section EMS Procedures Performed EMS Vital Signs EMS Patient Care Report Narrative Dispatched to [facility] in ref. to an 87 y/o F with abd. pain for transport to [facility]. Upon arrival, patient is seated in w/c. Patient has c/o RUQ abd. pain that she states "feels like she's being cut in half". Staff advises "she had two loose bowel movements this AM. She ate her lunch and began vomiting and c/o abd. pain". Patient is transferred to cot x2 desk attendant and 2 staff with aden lift. Patient is placed in pos. of comfort and secured with straps x3. Patients vitals x2 are within normal limits. Patient has vomiting x1 en route. Care is transferred to nurse at [facility]. KRIS
--- OUTSIDE RECORDS SUMMARY | 2017-06-11 05:34 | External Medical Summary Rpt | CCD ---
Author Author , SHERLEY Organization SHERLEY Address Unknown Phone Care Team Providers Care Television Announcer Name Role Phone [facility], [facility] Unavailable Unavailable [facility], [facility] Unavailable Unavailable EPPERSON STACY, EPPERSON Unavailable Unavailable STACY [facility], Unavailable Unavailable INC., [facility] LEZAMA DARÍO, LEZAMA DARÍO Unavailable Unavailable ATTILI ANI, ATTILI Unavailable Unavailable ANI BEINEKE ANGEL, BEINEKE Unavailable Unavailable ANGEL BENSADOUN SABINE, Unavailable Unavailable BENSADOUN SABINE BENSALEM TIM, Unavailable Unavailable BENSALEM TIM BESSON SATISH, BESSON Unavailable Unavailable SATISH [facility] Unavailable Unavailable ON KAREN, [facility] ON KAREN [facility] Unavailable Unavailable ON KAREN, [facility] ON KAREN [facility] Unavailable Unavailable CARE SERV, [facility] LR, LR Unavailable Unavailable LR ALL, LR ALL Unavailable Unavailable BOONSTRA TOD, Unavailable Unavailable BOONSTRA TOD [facility] Unavailable Unavailable [facility]available Unavailable SERVICE, [facility]available Unavailable SERVICE, [facility] GABRIELA ARITA, OCHOA Unavailable Unavailable JUAN J [facility] Unavailable Unavailable [facility], [facility]available Unavailable [facility], [facility] Unavailable Unavailable LAB, [facility] Unavailable Unavailable LAB, [facility] LACEY NATALIIA, LACEY NATALIIA Unavailable Unavailable [facility] Unavailable Unavailable PSC, [facility] ABEL JR BRAD, ABEL Unavailable Unavailable JR BRAD AFUA, AFUA Unavailable Unavailable AFUA ANN MARIE, Unavailable Unavailable AFUA ANN MARIE AFUA, MONICA, Unavailable Unavailable AFUA, MONICA [facility] Unavailable Unavailable [facility], [facility] Unavailable Unavailable [facility], [facility] CELIS, ABHIJEET, CELIS, Unavailable Unavailable ABHIJEET [facility] Unavailable Unavailable SERVBLUEGRAS, [facility]ATED Unavailable Unavailable TRANSPORTATION SER, [facility] PAMELA, PAMELA Unavailable Unavailable TEJADA SATISH, Unavailable Unavailable TEJADA SATISH HAGCHAICHA KRISTAN, Unavailable Unavailable HAGCHAICHA KRISTAN JOHNNA, JOHNNA Unavailable Unavailable JOHNNA ANUM, Unavailable Unavailable JOHNNA ANUM [facility] Unavailable Unavailable INC, [facility] Unavailable Unavailable HOSPITAL P, [facility] AMEE FRA, AMEE FRA Unavailable Unavailable STARKEY MARVA, STARKEY Unavailable Unavailable MARVA STARKEY, NAYELY S, Unavailable Unavailable STARKEY, NAYELY S [facility], Unavailable Unavailable [facility] Unavailable Unavailable INC, [facility] GONZALEZ TYL, GONZALEZ Unavailable Unavailable TYL ELENA YAMILETH, Unavailable Unavailable ELENA YAMILETH RAGINI GARCIA Unavailable Unavailable JAIL, RAGINI [facility] Unavailable Unavailable IMAGING [facility], [facility] FAUSTO MONTANO KING, Unavailable Unavailable FAUSTO [facility] Un[facility] Unavailable [facility], [facility] Unavailable Unavailable [facility], [facility] Unavailable Unavailable [facility], [facility] Unavailable Unavailable [facility], [facility] Unavailable Unavailable [facility], [facility] Unavailable Unavailable [facility], [facility] FED, [facility] Unavailable Unavailable LARRY JR DWI, LARRY Unavailable Unavailable JR DWI [facility] Unavailable Unavailable [facility], [facility] SAL ART, SAL Unavailable Unavailable ART ARMINESTRADA CHAPMAN ARMIN Unavailable Unavailable ARI CHAPMAN ARMIN Unavailable Unavailable GAMAL GILMORE, Unavailable Unavailable AGMAL FUNEZ SHILO MARVA, SHILO Unavailable Unavailable MARVA ARMAAN LORI, ARMAAN Unavailable Unavailable LORI [facility] Unavailable Unavailable SERVICES, [facility] MARYCRUZ JOEL Unavailable Unavailable [facility] Unavailable Unavailable ASSOCIAT, [facility] MCRAISSA QUINN BRAD, Unavailable Unavailable CONNIE QUINN BRAD DUNCAN, DUNCAN Unavailable Unavailable DUNCAN BRAD, DUNCAN Unavailable Unavailable BRAD [facility] Unavailable Unavailable [facility]TRANSITION/$2000 LE, [facility] PRE-TRANSITION/$2000 LE [facility]FP Unavailable Unavailable PRE-TRANSITION/$2000 VIS, [facility]FP PRE-TRANSITION/$2000 VIS [facility] Un[facility] Unavailable [facility], [facility] W[facility] CAMILA BRILL YOL, Unavailable Unavailable CAMILA BRILL YOL MUSIC, MUSIC Unavailable Unavailable [facility], ALAN Unavailable Unavailable MED [facility], Unavailable Unavailable [facility] RAJ LINDSAY, RAJ Unavailable Unavailable [facility] Unavailable Unavailable [facility] Unavailable Unavailable [facility], Unavailable Unavailable [facility] Unavailable Unavailable AMBULANCE , [facility]UL[facility] SE [facility] Unavailable Unavailable AMBULANCE SE, [facility] Unavailable Unavailable HOSPITAL, [facility] NICKELS STACY, NICKELS Unavailable Unavailable STACY [facility], Unavailable [facility]available [facility] JUAREZ LOY, JUAREZ Unavailable Unavailable LOY FISHER ARI, FISHER ARI Unavailable Unavailable NATALIIA LACEY MD Unavailable Unavailable CONSULTING SRV, NATALIIA LACEY MD CONSULTING SRV [facility] Unavailable Unavailable EMS, [facility] Unavailable Unavailable EMS, [facility], Unavailable Unavailable PLLC, [facility]available Unavailable LAB, [facility] Unavailable Unavailable LAB, [facility] DOMINGUEZ MUH, DOMINGUEZ Unavailable Unavailable MUH NAYELY, NAYELY Unavailable Unavailable NAYELY JUAN J, NAYELY Unavailable Unavailable LINCOLN SHAVER, Unavailable Unavailable SARAY LINCOLN LUCY THO, Unavailable Unavailable [facility] SOKAN BAB, SOKAN BAB Unavailable Unavailable [facility] Unavailable Unavailable EQUIPME, [facility] Unavailable Unavailable EQUIPME, [facility] ALEXIS, ALEXIS Unavailable Unavailable [facility], Unavailable Unavailable [facility], Unavailable Unavailable [facility] INGRID ROBERT, INGRID Unavailable Unavailable ROBERT JADEN ZARCOER Unavailable Unavailable HAROLDO PIERRE Unavailable Unavailable [facility], Unavailable Unavailable [facility] ARUN KRISTAN, ARUN Unavailable Unavailable KRISTAN SONG Unavailable Unavailable [facility]SC[facility] IRMA ALBAN, IRMA Unavailable Unavailable ALBAN CASS[facility] COATES, Unavailable Unavailable CASSIDY COATES [facility], Unavailable [facility]available [facility] Purpose Continuity of Care Document - 10-17-2007 through 2016 Problems Code Diagnosis DOS Provider Status B952 ENTEROCOCCU 09-29-2017 RAGINI S CAUSE OF JOSE DZ NURSING CLASSIFIED HOME ELSEWHERE B965 PSEUDOMONAS 05-27-2017 RAGINI CAUSE OF JOSE DZ NURSING CLASSIFIED HOME ELSEWHERE I10 ESSENTIAL 05-27-2017 RAGINI PRIMARY JOSE HYPERTENSIO NURSING N HOME I222 SUBSEQUENT 05-27-2017 RAGINI NON-ST JOSE ELEVATION NURSING MYOCARDIAL HOME INFARCT I471 SUPRAVENTRI 05-27-2017 RAGINI CULAR JOSE TACHYCARDIA JAIL J189 PNEUMONIA 05-27-2017 RAGINI UNSPECIFIED JOSE ORGANISM JAIL K8590 ACUTE 05-27-2017 RAIGNI PANCREATITI JOSE S WO NURSING NECROSIS/IN HOME FECTION UNSPEC N390 URINARY 05-27-2017 RAGINI TRACT JOSE INFECTION NURSING SITE NOT HOME SPECIFIED B9620 UNS E COLI 05-20-2017 RAGINI E. COLI JOSE CAUSE DZ NURSING CLASS HOME ELSEWHERE D649 ANEMIA 05-20-2017 RAGINI UNSPECIFIED JOSE JAIL N289 DISORDER OF 05-20-2017 RAGINI KIDNEY AND JOSE URETER NURSING UNSPECIFIED HOME R1312 DYSPHAGIA 05-20-2017 RAGINI OROPHARYNGE JOSE AL PHASE JAIL R7881 BACTEREMIA 05-20-2017 RAGINI GARCIA JAIL Z1612 EXTENDED 05-20-2017 RAGIIN SPECTRUM JOSE BETA NURSING LACTAMASE HOME ESBL RESISTANCE R7301 IMPAIRED 05-11-2017 [facility] GLUCOSE LAB E870 HYPEROSMOLA 05-06-2017 LAB [facility] LITY AND [place] HYPERNATREM HOLDINGS [place] E875 HYPERKALEMI 05-06-2017 LAB [facility] A [place] HOLDINGS S66026 EPILEPSY 05-06-2017 LAB [facility] UNS NOT [place] INTRACT W/O HOLDINGS STATUS EPILEPTICUS H6060 UNSPECIFIED 04-21-2017 [facility] CHRONIC E OTITIS EXTERNA UNS EAR B351 TINEA 02-22-2017 [facility] UNGUIUM E I739 PERIPHERAL 02-22-2017 [facility] VASCULAR E DISEASE UNSPECIFIED M2040 OTHER 02-22-2017 [facility] HAMMER TOES E ACQUIRED UNSPECIFIED FOOT R410 DISORIENTAT 01-21-2017 [facility] UNSPECIFIED SERVICE Z452 ENCOUNTER 01-19-2017 [facility] VASCULAR ACCESS DEVICE R05 COUGH 01-18-2017 [facility] R062 WHEEZING 01-18-2017 [facility] R0602 SHORTNESS 01-17-2017 [facility] M34869 PERSONAL 01-17-2017 [facility] HISTORY OF PHYSICIANS, NICOTINE PLLC DEPENDENCE I29842 UNSPECIFIED 01-13-2017 SUSAN SONG PSC BLEPHAROCON JUNCTIVITIS BILATERAL H2511 AGE-RELATED 01-13-2017 SUSAN Chance NUCLEAR [facility] P[facility] CATARACT RIGHT EYE L905 SCAR 12-30-2016 DERMATOLOGY CONDITIONS AND CONSULTANTS FIBROSIS OF PSC SKIN R69 ILLNESS 12-30-2016 FEDERATED UNSPECIFIED TRANSPORTAT ION SER Z08 ENCOUNTER 12-30-2016 DERMATOLOGY F/U EXAM AFTER CMPL CONSULTANTS TX KALEB PSC NEOPLASM K38503 PERSONAL 12-30-2016 DERMATOLOGY HISTORY OTHER CONSULTANTS MALIGNANT PSC NEOPLASM SKIN D0461 CARCINOMA 10-28-2016 DERMATOLOGY IN SITU SKIN RT CONSULTANTS UPPER LIMB PSC INCL SHLDR C4911 MALIG 08-25-2016 [facility] NEOPLASM EXTENDED CONN SOFT CARE SERV TISS RT UP LIMB W/SHLDR J57680 PAIN IN 08-17-2016 [facility] RIGHT TOES E P19628 PAIN IN 08-17-2016 [facility] LEFT TOES E D485 NEOPLASM OF 08-16-2016 DERMATOLOGY UNCERTAIN BEHAVIOR OF CONSULTANTS SKIN PSC G4089 OTHER 08-07-2016 [facility] SEIZURES EXTENDED CARE SERV K219 GASTRO-ESOP 08-07-2016 [facility] H REFLUX EXTENDED DISEASE CARE SERV WITHOUT ESOPHAGITIS R601 GENERALIZED 08-07-2016 [facility] EDEMA EXTENDED CARE SERV D229 MELANOCYTIC 08-06-2016 [facility] NEVI EXTENDED UNSPECIFIED CARE SERV L05858 CELLULITIS 08-06-2016 [facility] OF RIGHT EXTENDED UPPER LIMB CARE SERV R109 UNSPECIFIED 06-21-2016 [facility] ABDOMINAL PHYSICIANS PAIN LA R509 FEVER 05-10-2016 [facility] UNSPECIFIED MEM HOS[facility] INC R5383 OTHER 05-10-2016 [facility]UE [facility] INC M34839 UNSPECIFIED 04-16-2016 SUSAN CamAra PTOSIS OF [facility] PSC RIGHT EYELID L05035 ACUTE 03-25-2016 [facility] LYMPHANGITI E S OF LEFT TOE L600 INGROWING 03-25-2016 [facility] NAIL E L31787 PAIN IN 03-25-2016 [facility] UNSPECIFIED E FOOT L31242V CONTUSION 03-25-2016 [facility] RT GREAT E TOE W/DAMAGE NAIL INITIAL ENC K90657M ABRASION 03-25-2016 [facility] RIGHT GREAT E TOE INITIAL ENCOUNTER E039 HYPOTHYROID 03-19-2016 [facility] ISM PHYSICIANS UNSPECIFIED LA E119 TYPE 2 03-19-2016 [facility] DIABETES PHYSICIANS MELLITUS LA WITHOUT COMPLICATIO NS R8299 OTHER 01-02-2016 [facility] ABNORMAL [facility] FINDINGS IN INC URINE G309 ALZHEIMERS 12-07-2015 [facility] DISEASE EXTENDED UNSPECIFIED CARE SERV N24175 EPILEPSY 12-07-2015 [facility] UNS NOT EXTENDED INTRACT CARE SERV W/STATUS EPILEPTICUS E559 VITAMIN D 11-18-2015 LAB [facility] DEFICIENCY [place] UNSPECIFIED HOLDINGS N179 ACUTE 11-07-2015 LAB [facility] KIDNEY [place] FAILURE HOLDINGS UNSPECIFIED J449 CHRONIC 10-31-2015 [facility] OBSTRUCTIVE EXTENDED PULMONARY CARE SERV DISEASE UNS Q68355 ACUTE EMBO 10-04-2015 [facility] THROMB UNS EXTENDED DEEP VEINS CARE SERV LT LOWER EXTREM J8410 PULMONARY 07-30-2015 [facility] FIBROSIS [facility] UNSPECIFIED 87866 OTHER 05-27-2015 [facility] DISEASES OF [facility] LUNG NOT ELSEWHERE CLASSIFIED 4019 UNSPECIFIED 05-07-2015 [facility] ESSENTIAL PHYSICIANS HYPERTENSIO LA N 7862 COUGH 05-05-2015 SY[facility] MOBILEX 2760 HYPEROSMOLA 04-29-2015 RAGINI LITY AND/[place] [address] HYPERPOTASS 04-29-2015 RAGINI EMIA [facility] JAIL 2859 UNSPECIFIED 04-29-2015 RAGINI ANEMIA [facility] JAIL 60941 OTHER LATE 04-29-2015 RAGINI EFFECTS OF JOSE CEREBROVASC NURSING ULAR HOME DISEASE 5849 ACUTE 04-29-2015 RAGINI KIDNEY JOSE FAILURE NURSING UNSPECIFIED HOME 34955 URINARY 04-29-2015 RAGINI OBSTRUCTION JOSE NOT NURSING ELSEWHERE HOME CLASSIFIED 91219 ABNORMAL 04-29-2015 RAGINI POSTURE [facility] JAIL 13051 DYSPHAGIA 04-29-2015 RAGINI OROPHARYNGE JOSE AL PHASE JAIL 1101 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 4439 UNSPECIFIED 04-07-2015 [facility] PERIPHERAL E VASCULAR DISEASE 7030 INGROWING 04-07-2015 [facility] NAIL E 7295 PAIN IN 04-07-2015 [facility] SOFT E TISSUES OF LIMB 9243 CONTUSION 04-07-2015 [facility] OF TOE E 486 PNEUMONIA, 02-04-2015 [facility] ORGANISM PHYSICIANS UNSPECIFIED LA 4589 UNSPECIFIED 01-22-2015 [facility] AM[facility]ULANCE SE 496 CHRONIC 01-22-2015 [facility] AIRWAY [facility] OBSTRUCTION INC NEC 26760 ESOPHAGEAL 01-22-2015 [facility] REFLUX [facility]OS[facility] INC 5856 END STAGE 01-22-2015 ON LICENSE OF [facility] RENAL ON LICENSE OF [facility] DISEASE AMBULANCE SE 7964 OTHER 01-22-2015 ON LICENSE OF [facility] ABNORMAL ON LICENSE OF [facility] CLINICAL AMBULANCE FINDING SE 591 HYDRONEPHRO 01-02-2015 [facility] P 5990 URINARY 01-02-2015 [facility] P SITE NOT SPECIFIED 18634 NEUROGENIC 01-01-2015 [facility] BLADDER, MEM [facility] NOS INC V1089 PERSONAL 01-01-2015 [facility] HISTORY [facility] MALIGNANT INC NEOPLASM OTHER SITE V1251 PERSONAL 01-01-2015 [facility] HISTORY, MEM HOS[facility] VENOUS INC THROMBOSIS AND EMBOLISM 5935 HYDROURETER 12-31-2014 [facility] 30880 OTHER 12-31-2014 [place] SPECIFIED MEDICAL DISORDERS IMAGING ASS OF BLADDER 08477 OTHER 12-31-2014 [facility] [place] [address] FACIAL 12-31-2014 [place] [address] CHEST PAIN 12-31-2014 [facility] UNSPECIFIED MEDICAL IMAGING ASS 43528 ABDOMINAL 12-31-2014 [place] PAIN, MEDICAL UNSPECIFIED IMAGING ASS SITE 24584 MUSCLE 11-27-2014 RAGINI WEAKNESS JOSE (GENERALIZE NURSING D) HOME 53540 DYSPHAGIA 11-27-2014 RAGINI ORAL PHASE [facility] JAIL 30656 UNSPECIFIED 11-27-2014 RAGINI RETENTION JOSE OF URINE JAIL 05332 UNSPEC 11-04-2014 [facility] WITHOUT INTERNAL MENTION MED INTRACT EPILEPSY 76060 SWELLING OF 11-02-2014 [facility] 5180 PULMONARY 11-01-2014 [facility] COLL[facility]SE [facility] 10999 OTHER 11-01-2014 [place] ALTERATION [place] [address] TRANSIENT 10-30-2014 [facility] AMBULANCE AWARENESS SE V103 PERSONAL 10-30-2014 [facility] MALIGNANT INC NEOPLASM OF BREAST 7830 ANOREXIA 10-24-2014 [facility] EXTENDED CARE SERV 82760 DRUSEN OF 10-07-2014 SUSAN Chance RETINA [facility] 97981 NUCLEAR 10-07-2014 SUSAN Chance SCLEROSIS [facility] 15123 UNSPECIFIED 10-07-2014 SUSAN SONG PSC AFTER-CATAR ACT 7822 LOCALIZED 09-27-2014 [facility] SUPERFICIAL EXTENDED SWELLING CARE SERV [place] 24051 HELICOBACTE 09-06-2014 [facility] R PYLORI EXTENDED INFECTION CARE SERV V5869 LONG-TERM 09-02-2014 [facility]ED (CURRENT) PHYSICIANS USE OF LA OTHER MEDICATIONS 2761 HYPOSMOLALI 08-30-2014 [facility] TY AND/OR PHYSICIANS HYPONATREMI LA A 5589 OTH&UNSPEC 08-15-2014 [facility] NONINFECTIO PHYSICIANS US LA GASTROENTER ITIS&COLITI S 42739 WHEEZING 08-15-2014 [facility] 57521 DIARRHEA 08-15-2014 [facility] 75478 LOSS OF 08-14-2014 [facility] WEIGHT EXTENDED CARE SERV 4779 ALLERGIC 07-31-2014 [facility] RHINITIS EXTENDED CAUSE CARE SERV UNSPECIFIED 27609 UNSPECIFIED 07-08-2014 [facility] PURULENT PHYSICIANS ENDOPHTHALM LA ITIS 19123 UNSPECIFIED 07-06-2014 ARMIN CHAPMAN CONJUNCTIVI TIS 83165 OBSTRUCTIVE 07-06-2014 ARMIN CHAPMAN CHRONIC BRONCHITIS WITHOUT EXACERBAT 4011 ESSENTIAL 06-28-2014 ARMIN CHAPMAN HYPERTENSIO N, BENIGN 14617 OBST 06-28-2014 ARMIN CHAPMAN CHRONIC BRONCHITIS W/ACUTE BRONCHITIS 45339 OTHER 06-21-2014 [facility] PERIPHERAL E VASCULAR DISEASE 78419 FEVER 06-10-2014 SY[facility]Y UNSPECIFIED MOBILEX 5368 DYSPEPSIA&O 05-28-2014 ARMIN CHAPMAN THER SPEC DISORDERS FUNCTION STOMACH 53417 OSTEOARTHRO 05-28-2014 ARMIN CHAPMAN S INVLV MX SITES BUT NOT SPEC GEN 7354 OTHER 03-28-2014 [facility] HAMMER TOE E 76485 CONTUSION 02-23-2014 SYMPHONY OF FOREARM MOBILEX 74790 CONTUSION 02-23-2014 SYMPHONY OF KNEE MOBILEX 19620 OTHER 12-31-2013 ARMINESTRADA CHAPMAN CONVULSIONS 7881 DYSURIA 12-29-2013 [facility] [address] URINARY 12-29-2013 [facility], FREQUENCY SUPERVISOR WORD PROCESSING [place] [facility] 3899 UNSPECIFIED 12-10-2013 [facility] HEARING E LOSS 3670 HYPERMETROP 12-03-2013 SUSAN SONG PSC 700 CORNS AND 06-07-2013 [facility] CALLOSITIES E 7050 ANHIDROSIS 06-07-2013 [facility] E 7823 EDEMA 04-11-2013 [facility] SUPERVISOR WORD PROCESSING [place] [facility] V5883 ENCOUNTER 04-11-2013 [facility], FOR SUPERVISOR WORD PROCESSING THERAPEUTIC [place] [facility] MONITORING 7813 LACK OF 03-18-2013 [facility] COORDINATIO N 66197 OTHER 03-18-2013 [facility] SYMBOLIC DYSFUNCTION 42625 CLOSED 03-18-2013 [facility] FRACTURE OF UNSPECIFIED PART OF TIBIA 84687 NAUSEA WITH 11-21-2012 NATALIIA LACEY VOMITING CONSULTING SRV 4293 CARDIOMEGAL 11-15-2012 [facility] 6989 UNSPECIFIED 11-14-2012 [facility], PRURITIC SUPERVISOR WORD PROCESSING DISORDER [place] [facility] 7821 RASH AND 11-14-2012 [facility] OTHER HOSPITAL NONSPECIFIC SKIN ERUPTION 73538 NAUSEA 11-14-2012 [facility] V4364 HIP JOINT 11-14-2012 [facility], REPLACEMENT SUPERVISOR WORD PROCESSING BY OTHER [place] MEANS [facility]OS V4571 ACQUIRED 11-14-2012 [facility], ABSENCE OF SUPERVISOR WORD PROCESSING BREAST AND [place] NIPPLE [facility]OS V8801 ACQUIRED 11-14-2012 [facility], ABSENCE OF SUPERVISOR WORD PROCESSING BOTH CERVIX [place] AND UTERUS [facility]OS 331 OTHER 11-09-2012 [facility] [place] [address] DEHYDRATION 11-07-2012 NATALIIA LACEY MD CONSULTING SRV 7906 OTHER 11-01-2012 [facility], ABNORMAL SUPERVISOR WORD PROCESSING BLOOD [place] CHEMISTRY [facility] 4660 ACUTE 10-24-2012 ARMIN ARI BRONCHITIS 66201 OBSTRUCTIVE 10-24-2012 ARMIN ARI CHRONIC BRONCHITIS WITH EXACERBATIO N 66426 SHORTNESS 10-24-2012 [facility], OF BREATH SUPERVISOR WORD PROCESSING [place] [facility] 490 BRONCHITIS 09-27-2012 [facility] SPECIFIED HOSPITAL ACUTE OR CHRONIC V4589 OTHER 09-27-2012 [facility] OTHER 4389 UNSPEC LATE 09-07-2012 [place] [facility] EFF MEDICAL CEREBRVASC DZ DUE CEREBRVASC DZ 82284 PRESSURE 09-07-2012 [place] ULCER MEDICAL BUTTOCK 33873 PRESSURE 09-07-2012 [place] [address] UNSPECIFIED 09-07-2012 [place] URINARY MEDICAL INCONTINENC E 2409 GOITER, 08-18-2012 [facility] UNSPECIFIED RADIOLOGY ASSOCIAT 85060 DISORDER OF 08-18-[facility] CARTILAGE ASSOCIAT UNSPECIFIED 7804 DIZZINESS 08-18-2012[facility] GIDDINESS ASSOCIAT 7840 HEADACHE 08-18-2012[facility] RAD[facility]OC[facility]AT V4981 ASYMPTOMATI 08-18-2012 [facility] C RADIOLOGY POSTMENOPAU ASSOCIAT SEGUNDO STATUS 99449 INSOMNIA 08-17-2012 ARMIN CHAPMAN UNSPECIFIED 00341 UNSPECIFIED 07-25-2012 ARMIN CHAPMAN CONSTIPATIO N 999 COMPLICATIO 07-19-2012 [facility] NS OF PRE-TRANSIT MEDICAL ION/$2000 CARE NEC VIS 6238 OTHER 05-12-2012 [facility], SPECIFIED SUPERVISOR WORD PROCESSING NONINFLAMMA [place] [facility] TORY [facility] DISORDER VAGINA V5862 LONG-TERM 02-21-2012 [facility], (CURRENT) SUPERVISOR WORD PROCESSING USE OF [place] ANTIBIOTICS [facility] 35195 OTHER 02-08-2012 [facility], ABNORMALITY SUPERVISOR WORD PROCESSING OF [place] URINATION [facility]OS 7919 OTHER 02-08-2012 [facility], NONSPECIFIC SUPERVISOR WORD PROCESSING FINDING [place] EXAMINATION HOS OF URINE 4280 CONGESTIVE 09-21-2011 [facility] FAILURE INTERNAL UNSPECIFIED MED 8208 CLOSED 09-21-2011 [facility] FRACTURE [facility] UNSPECIFIED INTERNAL PART NECK MED FEMUR 10594 CLOS 05-17-2011 [facility] UNSPEC SERVICE INTRACAPSLR SECTION NCK FEM 00149 OTHER 05-12-2011 [facility] INJURY OF RADIOLOGY OTHER SITES ASSOCIAT OF TRUNK 9596 INJURY 05-12-2011 [facility] OTHER AND RADIOLOGY UNSPECIFIED ASSOCIAT HIP AND THIGH E8889 UNSPECIFIED 05-12-2011 [facility] FALL RADIOLOGY ASSOCIAT 5183 PULMONARY 05-05-2011 [facility] EOSINOPHILI RADIOLOGY A ASSOCIAT 37185 UNSPECIFIED 05-05-2011 [facility] AND ABSCESS OF TOE 82038 UNSPECIFIED 04-30-2011 [facility] CEREBRAL HOME ARTERY MEDICAL OCCLUSION EQUIPME W/INFARCT 50515 VOMITING 04-27-2011 [facility] 4379 UNSPECIFIED 04-25-2011 [facility] CEREBROVASC FOUNDAT[facility] ULAR DISEASE 29463 ACUTE 04-25-2011 [facility] RESPIRATORY SERV FAILURE [facility] 2410 NONTOXIC 04-23-2011 [facility] UNINODULAR SERV GOITER FOUNDAT[facility] 4400 ATHEROSCLER 04-23-2011 [facility] OSIS OF SERV AORTA [facility] V550 ATTENTION 04-23-2011 [facility] TO [facility] TRACHEOSTOM [facility] Y 50468 OCCLUSION&S 04-22-2011 [facility] TEN[facility] CAROTID ART [facility] W/O MENTION INFARCT 4359 UNSPECIFIED 04-22-2011 [facility] TRANSIENT [facility] CEREBRAL [facility] ISCHEMIA 4370 CEREBRAL 04-22-2011 [facility] ATHEROSCL[place] SERV OSIS [facility] 50936 OTHER 04-22-2011 [facility] DISEASES OF SERV NASAL [facility] CAVITY AND SINUSES 7931 NONSPEC 04-22-2011 [facility] F[facility] OTH EXAM [facility] BODY STRUCT LUNG FIELD V554 ATTN OTHER 04-22-2011 [facility] ARTIFICIAL [facility] OPENING [facility] DIGESTIVE TRACT 1369 UNSPECIFIED 04-21-2011 [facility] INFECTI[facility] AND [facility] PARASITIC DISEASES 3319 UNSPECIFIED 04-21-2011 [facility] CEREBRAL SERV DEGENERATIO FOUNDATIO N 36981 GEN CONVUL 04-21-2011 [facility] EPILEPS[facility] W/O MENTION [facility] INTRACT EPILEPSY 48425 OTHER 04-21-2011 [facility] SPECIF[facility] DISORDER OF [facility] NERVOUS SYSTEM 3499 UNSPECIFIED 04-21-2011 [facility] DISORDERS [facility] OF NERVOUS [facility] SYSTEM 436 ACUTE BUT 04-21-2011 [facility] EMS CEREBROVASC ULAR DISEASE 4371 OTH 04-21-2011 [facility] GENERALIZED [facility] ISCHEMIC [facility] CEREBROVASC ULAR DISEASE 37646 OTH 04-21-2011 [facility] ETAL SX REFERABLE [place] 84917 PRECORDIAL 04-02-2011 NATALIIA HANSEN MD CONSULTING SRV 462 ACUTE 04-22-2010 [facility] PHARYNGITIS 62037 DYSPHONIA 04-22-2010 [facility] 88885 UNSPECIFIED 04-16-2010 [place] [facility] [place] [place] 5989 UNSPECIFIED 04-16-2010 [facility]RETHRAL [facility] 79814 UNS PROLAPS 04-16-2010 [facility] W/O MENTION PSC UTERN PROLAPS 07184 CYSTOCELE 04-16-2010 [facility] UTERINE PROLAPSE MIDLN 6256 FEMALE 04-16-2010 [facility] [facility] E [id number] URGE 04-09-2010 [facility] E PSC [id number] ROUTINE 04-09-2010 [facility] [place] [facility] EXAMINATION 7020 ACTINIC 03-31-2010 AR[facility] ARI KERATOSIS [id number] OTHER 03-31-2010 PATHOLOGY & SEBORRHEIC CYTOLOGY KERATOSIS LAB 59512 CLOSED 01-07-2010 [facility] UNSPECIFIED PART OF [place] 10820 CLOSED 12-29-2009 [place] [facility] UPPER END FOUNDATIO OF [place] 9597 INJURY 12-29-2009 [place] [facility] OTHER[facility]UNSPE SERV CIFIED KNEE F[facility]ATIO LEG ANKLE&FOOT E9293 LATE 12-29-2009 [place] [facility] ACCIDENTAL [facility]OUND[facility] FALL 78862 OTHER 12-28-2009 [facility] RESPIR[facility] PSC ABNORMALITI ES 9599 INJURY 12-28-2009 [facility] UNSPECIFIED [facility]OCIATES PSC UNSPECIFIED SITE [id number] PLACE OF 12-28-2009 ARMIN JOS OCCURRENCE, HOME E8859 FALL FROM 12-28-2009 ARMINESTRADA CHAPMAN OTHER SLIPPING TRIPPING OR STUMBLING [id number] NEED 05-30-2009 [facility]MIN PROPHYLACTI GAMAL Velazquez C VACCINATION &INOCULATIO N FLU 460 ACUTE 01-08-2009 [facility] NASOPHARYNG GAMAL Velazquez ITIS 4658 ACUTE URIS 01-08-2009 ARMIN OF KERVIN Velazquez MULTIPLE SITES 33704 OBESITY, 10-21-2008 NAKUL FUNEZ V7611 SCREENING 08-30-2008 [facility] HIGH-RISK PATIENT [id number] OTHER 08-30-2008 [facility] 06357 ASTHMA, 08-16-2008 AMINAH FUNEZIFIED GAMAL Velazquez , UNSPECIFIED STATUS 7099 UNSPECIFIED 08-16-2008 AR[facility] DISORDER GAMAL Velazquez OF SKIN&SUBCUT ANEOUS TISSUE 4611 ACUTE 07-03-2008 AR[facility] FRONTAL GAMAL Velazquez SINUSITIS 5950 ACUTE 07-03-2008 AR[facility] CYSTITIS GAMAL Velazquez 7231 CERVICALGIA 05-06-2008 GAMAL FUNEZ 8470 NECK SPRAIN 05-06-2008 ARMIN, AND STRAIN GAMAL Velazquez 07779 OSTEOARTHRO 04-04-2008 SCHULSTAD, SIS UNSPEC LINCOLN WHETHER GEN/LOC LOWER LEG 15154 OTHER 04-03-2008 [facility] GLU[facility]SE 1103 DERMATOPHYT 10-17-2007 ARMIN OSIS OF GAMAL Velazquez GROIN AND PERIANAL AREA D72.829 ELEVATED WHITE BLOOD CELL COUNT, UNSPECIFIED E87.0 HYPEROSMOLA LITY AND HYPERNATREM IA E87.5 HYPERKALEMI A J18.9 PNEUMONIA, UNSPECIFIED ORGANISM K85.90 ACUTE PANCREATITI S WITHOUT NECROSIS OR INFECTION, UNSP N17.9 ACUTE KIDNEY FAILURE, UNSPECIFIED N28.9 DISORDER OF KIDNEY AND URETER, UNSPECIFIED V58.69 V76.12 Allergies, Adverse Reactions, Alerts Clinical Alert Notifications Alert Diabetes: no influenza vaccine in the last 365 days Diabetes: no lipid panel in the last 365 days Diabetes: no urine protein screening in the last 365 days Medications Na ND Rx Da Fi Fi Am Da Di Ph RX Ph St me C No te ll ll ou ys ag ar # ys at rm s nt no ma ic us Or Da si cy ia de te s n re d 00 07 09 0 30 30 NE 17 PA Ac TA 53 -2 -2 0. [place] 44 PP ti AZ 63 4- 8- 00 89 ve N 79 20 20 0 ME 3 D3 00 17 17 DI AUGUST 1 CA HN 2, L E 00 GR 0 OU UN P IT SO FT GE L MU 63 06 09 0 30 30 NE 17 PA Ac CI 82 -2 -1 0. IL 40 PP ti NE 40 6- 9- 00 55 ve X 05 20 20 0 ME 1 DM 63 17 17 DI AUGUST 4 CA HN ER L E GR 60 OU 0- P 30 MG TA BL ET OY 00 06 08 0 12 30 NE [address] 90 -2 -2 00 [place] 27 PP ti ER 41 4- 5- .0 86 ve 88 20 20 00 ME 1 SH 36 17 17 DI AUGUST EL 1 CA HN L L E CA GR LC OU IU P M 50 0 MG TB 00 07 08 0 30 30 NE 17 PA Ac TA 53 -2 -2 0. IL 26 PP ti AZ 63 4- 3- 00 73 ve N 79 20 20 0 ME 2 D3 00 17 17 DI AUGUST 1 CA HN 2, L E 00 GR 0 OU UN P IT SO FT GE L MU 63 06 08 0 30 30 NE 17 PA Ac CI 82 -2 -2 0. IL 25 PP ti NE 40 6- 1- 00 36 ve X 05 20 20 0 ME 3 DM 63 17 17 DI AUGUST 4 CA HN ER L E GR 60 OU 0- P 30 MG TA BL ET OY 00 06 07 0 12 30 NE [address] 90 -2 -2 00 IL 12 PP ti ER 41 4- 6- .0 97 ve 88 20 20 00 ME 4 SH 36 17 17 DI AUGUST EL 1 CA HN L L E CA GR LC OU IU P M 50 0 MG TB 00 07 07 0 30 30 NE 16 PA Ac TA 53 -2 -2 0. IL 82 PP ti AZ 63 4- 4- 00 08 ve N 79 20 20 0 ME 0 D3 00 17 17 DI AUGUST 1 CA HN 2, L E 00 GR 0 OU UN P IT SO FT GE L MU 63 03 04 0 30 30 NE 16 RI Ac CI 82 -2 -2 0. IL 64 CH ti NE 40 3- 2- 00 23 AR ve X 05 20 20 0 ME 3 D DM 63 17 17 DI AUGUST 4 CA HN ER L W GR 60 OU 0- P 30 MG TA BL ET 00 09 04 0 60 30 NE 16 RI Ac TA 90 -1 -1 0. IL 61 CH ti AZ 45 6- 7- 00 40 AR ve N 82 20 20 0 ME 4 D D3 46 16 17 DI AUGUST 1 CA HN 1, L W 00 GR 0 OU UN P IT TA BL ET OY 00 12 04 0 12 30 NE [address] 90 -0 -1 00 IL 59 CH ti ER 41 5- 3- .0 50 AR ve 88 20 20 00 ME 3 D SH 36 16 17 DI AUGUST EL 1 CA HN L L W CA GR LC OU IU P M 50 0 MG TB AZ 11 04 04 0 85 3 NE 16 RI Ac CR 70 -0 -0 0. IL 55 CH ti O- 10 5- 5- 00 40 AR ve 03 20 20 0 ME 6 D AR 81 17 17 DI AUGUST D 6 CA HN 2% L W GR PO OU WD P ER MU 63 03 03 0 30 30 NE 16 RI Ac CI 82 -2 -2 0. IL 48 CH ti NE 40 3- 3- 00 85 AR ve X 05 20 20 0 ME 2 D DM 63 17 17 DI AUGUST 4 CA HN ER L W GR 60 OU 0- P 30 MG TA BL ET 00 09 03 0 60 30 NE 16 RI Ac TA 90 -1 -1 0. IL 44 CH ti AZ 45 6- 5- 00 31 AR ve N 82 20 20 0 ME 0 D D3 46 16 17 DI AUGUST 1 CA HN 1, L W 00 GR 0 OU UN P IT TA BL ET OY 00 12 03 0 12 30 NE [address] 90 -0 -1 00 IL 42 CH ti ER 41 5- 1- .0 12 AR ve 88 20 20 00 ME 6 D SH 36 16 17 DI AUGUST EL 1 CA HN L L W CA GR LC OU IU P M 50 0 MG TB MU 63 08 02 0 30 30 NE 16 RI Ac CI 82 -1 -2 0. IL 35 CH ti NE 40 6- 7- 00 71 AR ve X 05 20 20 0 ME 0 D DM 63 16 17 DI AUGUST 4 CA HN ER L W GR 60 OU 0- P 30 MG TA BL ET 00 09 02 0 60 30 NE 16 RI Ac TA 90 -1 -1 0. IL 26 CH ti AZ 45 6- 1- 00 93 AR ve N 82 20 20 0 ME 8 D D3 46 16 17 DI AUGUST 1 CA HN 1, L W 00 GR 0 OU UN P IT TA BL ET OY 00 12 02 0 12 30 NE [address] 90 -0 -0 00 IL 24 CH ti ER 41 5- 7- .0 86 AR ve 88 20 20 00 ME 8 D SH 36 16 17 DI AUGUST EL 1 CA HN L L W CA GR LC OU IU P M 50 0 MG TB MU 63 08 02 0 30 30 NE 16 RI Ac CI 82 -1 -0 0. IL 22 CH ti NE 40 6- 2- 00 21 AR ve X 05 20 20 0 ME 2 D DM 63 16 17 DI AUGUST 4 CA HN ER L W GR 60 OU 0- P 30 MG TA BL ET MU 63 08 01 0 30 30 NE 16 RI Ac CI 82 -1 -0 0. IL 09 CH ti NE 40 6- 9- 00 07 AR ve X 05 20 20 0 ME 6 D DM 63 16 17 DI AUGUST 4 CA HN ER L W GR 60 OU 0- P 30 MG TA BL ET 00 09 01 0 60 30 NE 16 RI Ac TA 90 -1 -0 0. IL 09 CH ti AZ 45 6- 9- 00 07 AR ve N 82 20 20 0 ME 9 D D3 46 16 17 DI AUGUST 1 CA HN 1, L W 00 GR 0 OU UN P IT TA BL ET OY 00 12 01 0 12 30 NE [address] 90 -0 -0 00 IL 07 CH ti ER 41 5- 6- .0 95 AR ve 88 20 20 00 ME 3 D SH 36 16 17 DI AUGUST EL 1 CA HN L L W CA GR LC OU IU P M 50 0 MG TB MU 63 08 12 0 30 30 NE 15 RI Ac CI 82 -1 -0 0. IL 90 CH ti NE 40 6- 5- 00 82 AR ve X 05 20 20 0 ME 8 D DM 63 16 16 DI AUGUST 4 CA HN ER L W GR 60 OU 0- P 30 MG TA BL ET 00 09 12 0 60 30 NE 15 RI Ac TA 90 -1 -0 0. IL 90 CH ti AZ 45 6- 5- 00 83 AR ve N 82 20 20 0 ME 1 D D3 46 16 16 DI AUGUST 1 CA HN 1, L W 00 GR 0 OU UN P IT TA BL ET OY 00 12 12 0 12 30 NE [address] 90 -0 -0 00 IL 91 CH ti ER 41 5- 5- .0 18 AR ve 88 20 20 00 ME 6 D SH 36 16 16 DI AUGUST EL 1 CA HN L L W CA GR LC OU IU P M 50 0 MG TB MU 63 08 10 0 30 30 NE 15 RI Ac CI 82 -1 -3 0. IL 72 CH ti NE 40 6- 1- 00 96 AR ve X 05 20 20 0 ME 8 D DM 63 16 16 DI AUGUST 4 CA HN ER L W GR 60 OU 0- P 30 MG TA BL ET OY 00 04 10 0 12 30 NE [address] 90 -0 -2 00 IL 68 CH ti ER 41 6- 2- .0 26 AR ve 88 20 20 00 ME 3 D SH 36 16 16 DI AUGUST EL 1 CA HN L L W CA GR LC OU IU P M 50 0 MG TB 00 09 10 0 60 30 NE 15 RI Ac TA 90 -1 -2 0. IL 68 CH ti AZ 45 6- 2- 00 26 AR ve N 82 20 20 0 ME 5 D D3 46 16 16 DI AUGUST 1 CA HN 1, L W 00 GR 0 OU UN P IT TA BL ET SI 54 04 10 0 47 11 NE 15 RI Ac LT 83 -2 -1 30 IL 63 CH ti US 80 3- 2- .0 03 AR ve SI 11 20 20 00 ME 0 D N 78 16 16 DI AUGUST SA 0 CA HN L W 10 GR 0 OU MG P /5 ML SY R MU 63 08 10 0 30 30 NE 15 RI Ac CI 82 -1 -0 0. IL 57 CH ti NE 40 6- 3- 00 82 AR ve X 05 20 20 0 ME 8 D DM 63 16 16 DI AUGUST 4 CA HN ER L W GR 60 OU 0- P 30 MG TA BL ET MU 63 09 09 0 70 7 NE 15 RI Ac CI 82 -2 -2 .0 IL 55 CH ti NE 40 7- 7- 00 37 AR ve X 05 20 20 ME 9 D DM 63 16 16 DI AUGUST 4 CA HN ER L W GR 60 OU 0- P 30 MG TA BL ET 00 09 09 0 60 30 NE 15 RI Ac TA 90 -1 -1 0. IL 49 CH ti AZ 45 6- 6- 00 74 AR ve N 82 20 20 0 ME 6 D D3 46 16 16 DI AUGUST 1 CA HN 1, L W 00 GR 0 OU UN P IT TA BL ET OY 00 04 09 0 12 30 NE [address] 90 -0 -1 00 IL 47 CH ti ER 41 6- 2- .0 10 AR ve 88 20 20 00 ME 8 D SH 36 16 16 DI AUGUST EL 1 CA HN L L W CA GR LC OU IU P M 50 0 MG TB MU 63 08 08 0 30 30 NE 15 RI Ac CI 82 -1 -1 0. IL 33 CH ti NE 40 6- 6- 00 18 AR ve X 05 20 20 0 ME 3 D DM 63 16 16 DI AUGUST 4 CA HN ER L W GR 60 OU 0- P 30 MG TA BL ET 00 07 08 0 60 30 NE 15 RI Ac TA 90 -0 -1 0. IL 32 CH ti AZ 45 8- 5- 00 44 AR ve N 82 20 20 0 ME 0 D D3 46 16 16 DI AUGUST 1 CA HN 1, L W 00 GR 0 OU UN P IT TA BL ET OY 00 04 08 0 12 30 NE [address] 90 -0 -0 00 IL 29 CH ti ER 41 6- 9- .0 71 AR ve 88 20 20 00 ME 0 D SH 36 16 16 DI AUGUST EL 1 CA HN L L W CA GR LC OU IU P M 50 0 MG TB MU 63 07 07 0 30 30 NE 15 RI Ac CI 82 -1 -1 0. IL 17 CH ti NE 40 8- 8- 00 93 AR ve X 05 20 20 0 ME 3 D DM 63 16 16 DI AUGUST 4 CA HN ER L W GR 60 OU 0- P 30 MG TA BL ET 00 07 07 0 60 30 NE 15 RI Ac TA 90 -0 -0 0. IL 13 CH ti AZ 45 8- 8- 00 23 AR ve N 82 20 20 0 ME 9 D D3 46 16 16 DI AUGUST 1 CA HN 1, L W 00 GR 0 OU UN P IT TA BL ET OY 00 04 07 0 12 30 NE [address] 90 -0 -0 00 IL 11 CH ti ER 41 6- 4- .0 04 AR ve 88 20 20 00 ME 1 D SH 36 16 16 DI AUGUST EL 1 CA HN L L W CA GR LC OU IU P M 50 0 MG TB MU 63 06 06 0 30 30 NE 15 RI Ac CI 82 -2 -2 0. IL 04 CH ti NE 40 0- 0- 00 54 AR ve X 05 20 20 0 ME 3 D DM 63 16 16 DI AUGUST 4 CA HN ER L W GR 60 OU 0- P 30 MG TA BL ET 00 03 05 0 60 30 NE 14 RI Ac TA 90 -2 -2 0. IL 92 CH ti AZ 45 4- 8- 00 45 AR ve N 82 20 20 0 ME 3 D D3 46 16 16 DI AUGUST 1 CA HN 1, L W 00 GR 0 OU UN P IT TA BL ET OY 00 04 05 0 12 30 NE [address] 90 -0 -2 00 IL 91 CH ti ER 41 6- 7- .0 98 AR ve 88 20 20 00 ME 1 D SH 36 16 16 DI AUGUST EL 1 CA HN L L W CA GR LC OU IU P M 50 0 MG TB BE 68 03 05 0 30 10 NE 14 RI Ac NZ 38 -1 -2 0. IL 91 CH ti ON 20 7- 6- 00 25 AR ve AT 24 20 20 0 ME 0 D AT 70 16 16 DI UAGUST E 1 CA HN 10 L W 0 GR MG OU P CA PS UL E BE 68 03 05 0 30 10 NE 14 RI Ac NZ 38 -1 -0 0. IL 80 CH ti ON 20 7- 4- 00 42 AR ve AT 24 20 20 0 ME 0 D AT 70 16 16 DI AUGUST E 1 CA HN 10 L W 0 GR MG OU P CA PS UL E 00 03 04 0 60 30 NE 14 RI Ac TA 90 -2 -2 0. IL 76 CH ti AZ 45 4- 7- 00 69 AR ve N 82 20 20 0 ME 6 D D3 46 16 16 DI AUGUST 1 CA HN 1, L W 00 GR 0 OU UN P IT TA BL ET SI 54 04 04 0 47 11 NE 14 OS Ac LT 83 -2 -2 30 IL 74 ROMAINE ti US 80 3- 3- .0 78 RN ve SI 11 20 20 00 ME 5 E N 78 16 16 DI AUGUST SA 0 CA AN L 10 GR 0 OU MG P /5 ML SY R OY 00 04 04 0 12 30 NE [address] 90 -0 -0 00 IL 66 CH ti ER 41 6- 6- .0 17 AR ve 88 20 20 00 ME 4 D SH 36 16 16 DI AUGUST EL 1 CA HN L L W CA GR LC OU IU P M 50 0 MG TB BE 68 03 03 0 30 10 NE 14 RI Ac NZ 38 -1 -3 0. IL 63 CH ti ON 16 AR ve AT 24 20 20 0 ME 5 D AT 70 16 16 DI AUGUST E 1 CA HN 10 L W 0 GR MG OU P CA PS UL E 00 03 03 0 60 30 NE 14 RI Ac TA 90 -2 -2 0. IL 59 CH ti AZ 45 4- 4- 00 98 AR ve N 82 20 20 0 ME 0 D D3 46 16 16 DI AUGUST 1 CA HN 1, L W 00 GR 0 OU UN P IT TA BL ET BE 68 03 03 0 30 10 NE 14 RI Ac NZ 38 -1 -1 0. IL 56 CH ti ON 42 AR ve AT 24 20 20 0 ME 9 D AT 70 16 16 DI AUGUST E 1 CA HN 10 L W 0 GR MG OU P CA PS UL E OY 00 01 03 0 12 30 NE [address] 90 -0 -0 00 IL 50 CH ti ER 41 9- 7- .0 41 AR ve 88 20 20 00 ME 4 D SH 36 16 16 DI AUGUST EL 1 CA HN L L W CA GR LC OU IU P M 50 0 MG TB MU 46 02 02 0 14 7 NE 14 RI Ac CU 12 -2 -2 0. IL 43 CH ti S 20 2- 2- 00 60 AR ve ER 02 20 20 0 ME 8 D 87 16 16 DI AUGUST 60 8 CA HN 0 L W MG GR OU TA P BL ET OY 00 01 02 0 12 30 NE [address] 90 -0 -1 00 IL 38 CH ti ER 41 9- 1- .0 19 AR ve 88 20 20 00 ME 6 D SH 36 16 16 DI AUGUST EL 1 CA HN L L W CA GR LC OU IU P M 50 0 MG TB SI 54 12 02 0 47 11 NE 14 OS Ac LT 83 -0 -1 30 IL 37 ROMAINE ti US 80 3- 0- .0 77 RN ve SI 11 20 20 00 ME 2 E N 78 15 16 DI AUGUST SA 0 CA AN L 10 GR 0 OU MG P /5 ML SY R 00 02 02 0 60 30 NE 14 RI Ac TA 90 -0 -0 0. IL 35 CH ti AZ 45 8- 8- 00 96 AR ve N 82 20 20 0 ME 1 D D3 46 16 16 DI AUGUST 1 CA HN 1, L W 00 GR 0 OU UN P IT TA BL ET LO 68 02 02 0 30 30 NE 14 RI Ac RA 08 -0 -0 0. IL 33 CH ti TA 40 3- 3- 00 97 AR ve DI 24 20 20 0 ME 4 D NE 80 16 16 DI AUGUST 1 CA HN 10 L W GR MG OU P TA BL ET OY 00 01 01 0 12 30 NE [address] 90 -0 -0 00 IL 21 CH ti ER 41 9- 9- .0 03 AR ve 88 20 20 00 ME 5 D SH 36 16 16 DI AUGUST EL 1 CA HN L L W CA GR LC OU IU P M 50 0 MG TB LO 68 10 01 0 30 30 NE 14 RI Ac RA 08 -3 -0 0. IL 17 CH ti TA 40 0- 2- 00 48 AR ve DI 24 20 20 0 ME 1 D NE 80 15 16 DI AUGUST 1 CA HN 10 L W GR MG OU P TA BL ET SI 54 12 12 0 47 11 NE 14 OS Ac LT 83 -0 -0 30 IL 02 ROMAINE ti US 80 3- 3- .0 72 RN ve SI 11 20 20 00 ME 3 E N 78 15 15 DI AUGUST SA 0 CA AN L 10 GR 0 OU MG P /5 ML SY R LO 68 10 12 0 30 30 NE 14 RI Ac RA 08 -3 -0 0. IL 00 CH ti TA 40 0- 1- 00 97 AR ve DI 24 20 20 0 ME 1 D NE 80 15 15 DI AUGUST 1 CA HN 10 L W GR MG OU P TA BL ET DE 00 05 11 0 44 14 NE 14 RI Ac EP 90 -1 -3 0. IL 00 CH ti 43 3- 0- 00 24 AR ve SE 86 20 20 0 ME 0 D A 57 15 15 DI AUGUST 0. 5 CA HN 65 L W % GR NO OU SE P SP RA Y OY 00 05 11 0 12 30 NE [address] 90 -1 -3 00 IL 00 CH ti ER 41 3- 0- .0 28 AR ve 88 20 20 00 ME 8 D SH 36 15 15 DI AUGUST EL 1 CA HN L L W CA GR LC OU IU P M 50 0 MG TB 45 11 11 0 14 7 NE 13 RI Ac AI 80 -2 -2 0. IL 96 CH ti FE 20 3- 3- 00 67 AR ve NE 49 20 20 0 ME 3 D SI 87 15 15 DI AUGUST N 8 CA HN ER L W GR 60 OU 0 P MG TA BL ET LO 68 10 10 0 30 30 NE 13 RI Ac RA 08 -3 -3 0. IL 85 CH ti TA 40 0- 0- 00 40 AR ve DI 24 20 20 0 ME 7 D NE 80 15 15 DI AUGUST 1 CA HN 10 L W GR MG OU P TA BL ET OY 00 05 10 0 12 30 NE [address] 90 -1 -2 00 IL 83 CH ti ER 41 3- 6- .0 14 AR ve 88 20 20 00 ME 9 D SH 36 15 15 DI AUGUST EL 1 CA HN L L W CA GR LC OU IU P M 50 0 MG TB DE 00 05 10 0 44 14 NE 13 RI Ac EP 90 -1 -2 0. IL 81 CH ti 43 3- 1- 00 24 AR ve SE 86 20 20 0 ME 3 D A 57 15 15 DI AUGUST 0. 5 CA HN 65 L W % GR NO OU SE P SP RA Y 45 09 09 0 80 4 NE 13 RI Ac AI 80 -3 -3 .0 IL 69 CH ti FE 20 0- 0- 00 93 AR ve NE 49 20 20 ME 0 D SI 87 15 15 DI AUGUST N 8 CA HN ER L W GR 60 OU 0 P MG TA BL ET LO 68 09 09 0 30 30 NE 13 RI Ac RA 08 -2 -2 0. IL 68 CH ti TA 40 8- 8- 00 27 AR ve DI 24 20 20 0 ME 7 D NE 80 15 15 DI AUGUST 1 CA HN 10 L W GR MG OU P TA BL ET OY 00 05 09 0 12 30 NE [address] 90 -1 -1 00 IL 61 CH ti ER 41 3- 4- .0 58 AR ve 88 20 20 00 ME 8 D SH 36 15 15 DI AUGUST EL 1 CA HN L L W CA GR LC OU IU P M 50 0 MG TB LO 68 05 09 0 30 30 NE 13 RI Ac RA 08 -1 -0 0. IL 56 CH ti TA 40 3- 4- 00 40 AR ve DI 24 20 20 0 ME 5 D NE 80 15 15 DI AUGUST 1 CA HN 10 L W GR MG OU P TA BL ET LO 68 05 08 0 30 30 NE 13 RI Ac RA 08 -1 -0 0. IL 40 CH ti TA 40 3- 3- 00 09 AR ve DI 24 20 20 0 ME 4 D NE 80 15 15 DI AUGUST 1 CA HN 10 L W GR MG OU P TA BL ET OY 00 05 07 0 12 30 NE [address] 90 -1 -1 00 IL 30 CH ti ER 41 3- 5- .0 23 AR ve 88 20 20 00 ME 6 D SH 36 15 15 DI AUGUST EL 1 CA HN L L W CA GR LC OU IU P M 50 0 MG TB LO 68 05 07 0 30 30 NE 13 RI Ac RA 08 -1 -0 0. IL 25 CH ti TA 40 3- 4- 00 17 AR ve DI 24 20 20 0 ME 3 D NE 80 15 15 DI AUGUST 1 CA HN 10 L W GR MG OU P TA BL ET LO 68 02 02 0 30 30 NE 12 RI Ac RA 08 -0 -2 0. IL 59 CH ti TA 40 3- 7- 00 91 AR ve DI 24 20 20 0 ME 2 D NE 80 15 15 DI AUGUST 1 CA HN 10 L W GR MG OU P TA BL ET OM 68 01 02 0 30 30 NE 12 RI Ac EP 08 -1 -0 0. IL 49 CH ti RA 40 3- 6- 00 14 AR ve ZO 46 20 20 0 ME 1 D LE 60 15 15 DI AUGUST [address] L W GR 40 OU P MG CA PS UL E OY 00 02 02 0 12 30 NE [address] 90 -0 -0 00 IL 39 CH ti ER 41 4- 4- .0 18 AR ve 88 20 20 00 ME 5 D SH 36 15 15 DI AUGUST EL 1 CA HN L L W CA GR LC OU IU P M 50 0 MG TB LO 68 02 02 0 30 30 NE 12 RI Ac RA 08 -0 -0 0. IL 48 CH ti TA 40 3- 3- 00 45 AR ve DI 24 20 20 0 ME 4 D NE 80 15 15 DI AUGUST 1 CA HN 10 L W GR MG OU P TA BL ET DE 00 02 02 0 44 28 NE 12 RI Ac EP 90 -0 -0 0. IL 48 CH ti 43 3- 3- 00 45 AR ve SE 86 20 20 0 ME 5 D A 57 15 15 DI AUGUST 0. 5 CA HN 65 L W % GR NO OU SE P SP RA Y OM 68 01 01 0 30 30 NE 12 RI Ac EP 08 -1 -1 0. IL 37 CH ti RA 40 3- 3- 00 30 AR ve ZO 46 20 20 0 ME 9 D LE 60 15 15 DI AUGUST [address] L W GR 40 OU P MG CA PS UL E OY 00 12 12 0 12 30 NE [address] 90 -1 -1 00 IL 23 CH ti ER 41 7- 7- .0 40 AR ve 88 20 20 00 ME 7 D SH 35 14 14 DI AUGUST EL 2 CA HN L L W CA GR LC OU IU P M 50 0 MG TB LO 00 10 11 0 30 30 NE 12 LO Ac RA 78 -0 -2 0. IL 08 RE ti TA 15 3- 0- 00 15 NZ ve DI 07 20 20 0 ME 8 O NE 70 14 14 DI AUGUST 1 CA SE 10 L T GR MG OU P TA BL ET OY 00 08 11 0 30 30 NE [address] 90 -2 -1 0. [place] 07 RE ti ER 45 0- 8- 00 02 NZ ve 46 20 20 0 ME 6 O SH 06 14 14 DI AUGUST EL 1 CA SE L L T 50 GR 0- OU P T D3 20 0 TB LO 00 10 10 0 30 30 NE 11 LO Ac RA 78 -0 -2 0. IL 95 RE ti TA 15 3- 7- 00 51 NZ ve DI 07 20 20 0 ME 9 O NE 70 14 14 DI AUGUST 1 CA SE 10 L T GR MG OU P TA BL ET OY 00 08 10 0 30 30 NE [address] 90 -2 -1 0. IL 90 RE ti ER 45 0- 6- 00 35 NZ ve 46 20 20 0 ME 4 O SH 06 14 14 DI AUGUST EL 1 CA SE L L T 50 GR 0- OU P T D3 20 0 TB SI 54 10 10 0 20 5 NE 11 LO Ac LT 83 -1 -1 00 IL 88 RE ti US 80 3- 3- .0 25 NZ ve SI 11 20 20 00 ME 2 O N 78 14 14 DI AUGUST SA 0 CA SE L T 10 GR 0 OU MG P /5 ML SY R LO 00 10 10 0 30 30 NE 11 LO Ac RA 78 -0 -0 0. IL 83 RE ti TA 15 3- 3- 00 44 NZ ve DI 07 20 20 0 ME 3 O NE 70 14 14 DI AUGUST 1 CA SE 10 L T GR MG OU P TA BL ET OY 00 08 09 0 30 30 NE [address] 90 -2 -2 0. IL 77 RE ti ER 45 0- 2- 00 16 NZ ve 46 20 20 0 ME 3 O SH 06 14 14 DI AUGUST EL 1 CA SE L L T 50 GR 0- OU P T D3 20 0 TB LO 00 08 09 0 30 30 NE 11 LO Ac RA 78 -0 -0 0. IL 67 RE ti TA 15 6- 2- 00 20 NZ ve DI 07 20 20 0 ME 5 O NE 70 14 14 DI AUGUST 1 CA SE 10 L T GR MG OU P TA BL ET OY 00 08 08 0 30 30 NE [address] 90 -2 -2 0. IL 60 RE ti ER 45 0- 0- 00 75 NZ ve 46 20 20 0 ME 0 O SH 06 14 14 DI AUGUST EL 1 CA SE L L T 50 GR 0- OU P T D3 20 0 TB LO 00 08 08 0 30 30 NE 11 LO Ac RA 78 -0 -0 0. IL 53 RE ti TA 15 6- 6- 00 56 NZ ve DI 07 20 20 0 ME 5 O NE 70 14 14 DI AUGUST 1 CA SE 10 L T GR MG OU P TA BL ET BA 00 03 03 0 28 3 NE 10 LO Ac CI 71 -2 -2 4. IL 85 RE ti TR 30 7- 7- 00 33 NZ ve AC 28 20 20 0 ME 0 O IN 03 14 14 DI AUGUST 1 CA SE 50 L T 0 GR UN OU IT P /G M OI NT MN T PO 51 06 06 0 30 30 NE 93 LO Ac LY 07 -0 -0 0. IL 46 RE ti ET 90 3- 3- 00 72 NZ ve HY 30 20 20 0 ME 2 O LE 63 13 13 D AUGUST NE 0 GR SE P T GL YC OL 33 50 PO WD PO 51 03 03 0 30 30 NE 91 LO Ac LY 07 -2 -2 0. IL 30 RE ti ET 90 6- 6- 00 53 NZ ve HY 30 20 20 0 ME 0 O LE 63 13 13 D AUGUST NE 0 GR SE P T GL YC OL 33 50 PO WD BA 00 11 11 0 30 10 NE 87 BE Ac NO 90 -1 -1 0. IL 32 SS ti PH 45 1- 1- 00 88 ON ve EN 55 20 20 0 ME 3 [address] 25 9 GR EP P HE MG N A TA BL ET 63 08 10 0 30 30 NE 86 BE Ac 73 -2 -2 0. IL 84 SS ti 90 4- 3- 00 03 ON ve 02 20 20 0 ME 7 [address] 1 GR EP P HE N A LO 68 08 10 0 30 30 NE 86 BE Ac RA 08 -2 -2 0. IL 84 SS ti TA 40 4- 3- 00 03 ON ve DI 24 20 20 0 ME 8 NE [address] 1 GR EP 10 P HE N MG A TA BL ET LO 68 08 09 0 30 30 NE 86 BE Ac RA 08 -2 -2 0. IL 04 SS ti TA 40 4- 3- 00 23 ON ve DI 24 20 20 0 ME 9 NE [address] 1 GR EP 10 P HE N MG A TA BL ET 63 08 09 0 30 30 NE 85 BE Ac 73 -2 -1 0. IL 87 SS ti 90 4 7- 13 ON ve 02 20 20 0 ME 5 [address] 1 GR EP P HE N A 63 08 08 0 30 30 NE 85 BE Ac 73 -2 -2 0. IL 22 SS ti 90 4- 4- 00 65 ON ve 02 20 20 0 ME 8 [address] 1 GR EP P HE N A LO 68 08 08 0 30 30 NE 85 BE Ac RA 08 -2 -2 0. IL 22 SS ti TA 40 4- 4- 00 65 ON ve DI 24 20 20 0 ME 7 NE [address] 1 GR EP 10 P HE N MG A TA BL ET 51 07 07 0 30 30 NE 84 BE Ac 07 -2 -2 0. IL 27 SS ti 90 2- 2- 00 43 ON ve 53 20 20 0 ME 3 [address] 0 GR EP P HE N A 63 07 07 0 30 30 NE 84 BE Ac 73 -1 -1 0. IL 18 SS ti 90 9 9 93 ON ve 02 20 20 0 ME 6 [address] 1 GR EP P HE N A LO 68 03 06 0 30 30 NE 83 BE Ac RA 08 -2 -2 0. IL 43 SS ti TA 40 9- 1- 00 65 ON ve DI 24 20 20 0 ME 9 NE [address] 1 GR EP 10 P HE N MG A TA BL ET 63 01 06 0 30 30 NE 83 BE Ac 73 -1 -1 0. IL 29 SS ti 90 9- 6- 00 66 ON ve 02 20 20 0 ME 6 [address] 1 GR EP P HE N A LO 68 03 05 0 30 30 NE 82 BE Ac RA 08 -2 -2 0. IL 57 SS ti TA 40 9- 2- 00 73 ON ve DI 24 20 20 0 ME 0 NE [address] 1 GR EP 10 P HE N MG A TA BL ET 63 01 05 0 30 30 NE 82 BE Ac 73 -1 -2 0. IL 53 SS ti 90 9- - 00 99 ON ve 02 20 20 0 ME 7 [address] 1 GR EP P HE N A 63 01 04 0 30 30 NE 81 BE Ac 73 -1 -2 0. IL 74 SS ti 90 9- 3- 00 13 ON ve 02 20 20 0 ME 6 [address] 1 GR EP P HE N A LO 68 03 04 0 30 30 NE 81 BE Ac RA 08 -2 -2 0. IL 74 SS ti TA 40 9- 3- 00 13 ON ve DI 24 20 20 0 ME 7 NE [address] 1 GR EP 10 P HE N MG A TA BL ET LO 68 03 03 0 30 30 NE 81 BE Ac RA 08 -2 -2 0. IL 04 SS ti TA 40 9 9- 00 52 ON ve DI 24 20 20 0 ME 1 NE [address] 1 GR EP 10 P HE N MG A TA BL ET 63 01 03 0 30 30 NE 80 BE Ac 73 -1 -2 0. IL 81 SS ti 90 9- 2- 00 82 ON ve 02 20 20 0 ME 4 [address] 1 GR EP P HE N A 63 01 02 0 10 1 NE 79 BE Ac 73 -1 -1 .0 IL 91 SS ti 90 9 9 48 ON ve 02 20 20 ME 6 [address] 1 GR EP P HE N A LO 68 02 02 0 30 30 NE 79 BE Ac RA 08 -1 -1 0. [place] 84 SS ti TA 40 6- 6- 00 48 ON ve DI 24 20 20 0 ME 7 NE [address] 1 GR EP 10 P HE N MG A TA BL ET 63 01 01 0 30 0 NE 79 BE Ac 73 -1 -1 0. [place] 06 SS ti 90 9- 9- 00 31 ON ve 02 20 20 0 ME 0 [address] 1 GR EP P HE N A LO 68 11 01 0 30 0 NE 78 BE Ac RA 08 -1 -1 0. [place] 89 SS ti TA 40 8- 3- 00 00 ON ve DI 24 20 20 0 ME 4 NE [address] 1 GR EP 10 P HE N MG A TA BL ET Q- 00 12 12 0 47 11 NE 78 BE Ac TU 60 -2 -2 3. IL 41 SS ti SS 30 7- 7- 00 18 ON ve IN 85 20 20 0 ME 2 [address] 10 8 GR EP 0 P HE MG N /5 A ML SO BRYAN TI ON 63 11 12 0 30 30 NE 78 BE Ac 73 -1 -1 .0 IL 18 SS ti 90 4- 8- 00 41 ON ve 02 20 20 ME 5 [address] 1 GR EP P HE N A LO 68 11 12 0 30 30 NE 78 BE Ac RA 08 -1 -1 .0 IL 16 SS ti TA 40 8- 7- 00 53 ON ve DI 24 20 20 ME 2 NE [address] 1 GR EP 10 P HE N MG A TA BL ET 63 11 12 0 1. 1 NE 77 BE Ac 73 -1 -1 00 IL 26 SS ti 90 4- 3- 0 33 ON ve 02 20 20 ME 8 [address] 1 GR EP P HE N A MU 63 12 12 0 14 7 NE 78 BE Ac CI 82 -1 -1 .0 IL 03 SS ti NE 40 3- 3- 00 82 ON ve X 00 20 20 ME 0 ER [address] 0 GR EP 60 P HE 0 N MG A TA BL ET LO 51 04 05 2 30 30 HO 10 LO Ac RA 66 -2 -2 .0 PK 06 RE ti TA 00 0- 4- 00 IN 60 NZ ve DI 52 20 20 S 5 O NE [address] AUGUST 5 UG SE 10 T CO MG MP AN TA Y BL IN ET C LO 51 04 04 2 30 30 HO 10 LO Ac RA 66 -2 -2 .0 PK 06 RE ti TA 00 0- 0- 00 IN 60 NZ ve DI 52 20 20 S 5 O NE [address] AUGUST 5 UG SE 10 T CO MG MP AN TA Y BL IN ET C LO 51 01 03 2 30 30 HO 10 LO Ac RA 66 -1 -2 .0 PK 03 RE ti TA 00 9- 0- 00 IN 72 NZ ve DI 52 20 20 S 2 O NE [address] KOCH 5 UG SE 10 T CO MG MP AN TA Y BL IN ET C LO 51 01 02 01 30 30 HO 10 AUGUST Ac RA 66 -1 -2 .0 PK 03 SE ti TA 00 9- 6- 00 IN 72 ve DI 52 20 20 S 2 T. NE [address] 5 UG LO 10 RE CO NZ MG O IN [facility] BL AUGUST ET SE PO 00 01 01 00 30 30 HO 10 AUGUST Ac TA 78 -1 -2 .0 PK 03 SE ti SS 11 9- 8- 00 IN 71 ve IU 52 20 20 S 7 T. M [address] CL 1 UG LO RE ER CO NZ O 10 IN ME AUGUST Q SE TA BL ET LO 51 01 01 00 30 30 HO 10 AUGUST Ac RA 66 -1 -2 .0 PK 03 SE ti TA 00 9- 8- 00 IN 72 ve DI 52 20 20 S 2 T. NE [address] 5 UG LO 10 RE CO NZ MG O IN [facility] BL AUGUST ET SE 00 12 12 00 30 30 HO 10 AUGUST Ac 06 -2 -3 .0 PK 02 SE ti 76 2- 1- 00 IN 89 ve 07 20 20 S 2 T. [address] 0 UG LO RE CO NZ O IN MD Gupta AUGUST SE PO 00 12 12 00 30 30 HO 10 AUGUST Ac TA 78 -2 -3 .0 PK 02 SE ti SS 11 2- 1- 00 IN 89 ve IU 52 20 20 S 7 T. M [address] 1 UG LO RE ER CO NZ O 10 IN MD Gupta ME AUGUST Q SE TA BL ET 00 09 12 02 30 30 HO 99 AUGUST Ac 06 -2 -0 .0 PK 95 SE ti 76 1- 3- 00 IN 07 ve 07 20 20 S T. [address] 0 UG LO RE CO NZ O IN MD Gupta AUGUST SE PO 00 09 12 00 30 30 HO 99 AUGUST Ac TA 78 -2 -0 .0 PK 95 SE ti SS 11 1- 3- 00 IN 10 ve IU 52 20 20 S T. M [address] 1 UG LO RE ER CO NZ O 10 IN MD Gupta ME AUGUST Q SE TA BL ET 00 09 11 01 30 30 HO 99 AUGUST Ac 06 -2 -0 .0 PK 95 SE ti 76 1- 5- 00 IN 07 ve 07 20 20 S T. [address] 0 UG LO RE CO NZ O IN MD Gupta AUGUST SE 00 09 10 00 30 30 HO 99 AUGUST Ac 06 -2 -0 .0 PK 95 SE ti 76 1- 8- 00 IN 07 ve 07 20 20 S T. [address] 0 UG LO RE CO NZ O IN MD Candy KOCH SE 00 06 08 02 30 30 HO 99 AUGUST Ac 06 -1 -2 .0 PK 65 SE ti 76 7- 7- 00 IN 78 ve 07 20 20 S T. [address] 0 UG LO RE CO NZ O IN MD Candy KOCH SE 00 06 07 01 30 30 HO 99 AUGUST Ac 06 -1 -3 .0 PK 65 SE ti 76 7- 0- 00 IN 78 ve 07 20 20 S T. [address] 0 UG LO RE CO NZ O IN MD Candy KOCH SE 00 06 07 00 30 30 HO 99 AUGUST Ac 06 -1 -0 .0 PK 65 SE ti 76 7- 2- 00 IN 78 ve 07 20 20 S T. [address] 0 UG LO RE CO NZ O IN MD Candy KOCH SE 00 02 05 01 30 30 HO 99 AUGUST Ac 06 -2 -2 .0 PK 30 SE ti 76 3- 1- 00 IN 30 ve 07 20 20 S T. [address] 0 UG LO RE CO [place] O IN MD Candy KOCH SE 00 02 03 00 30 30 HO 99 AUGUST Ac 06 -2 -1 .0 PK 30 SE ti 76 3- 2- 00 IN 30 ve 07 20 20 S T. [address] 0 UG LO RE CO NZ O IN MD Candy KOCH SE 66 02 03 00 12 6 HO 99 AUGUST Ac 99 -2 -1 0. PK 30 SE ti 20 3- 2- 00 IN 29 ve 22 20 20 0 S T. [address] 4 UG LO RE CO NZ O IN MD Candy KOCH SE VT 37 02 02 00 28 28 HO 99 AUGUST Ac [place] 00 -1 -2 .0 PK 29 SE ti OS 00 9- 6- 00 IN 22 ve EC 45 20 20 S T. [address] OT 3 UG LO C RE 20 CO NZ .6 O IN MD MG Candy KOCH TA SE BL ET VT 37 11 01 02 28 28 HO 98 AUGUST Ac IL 00 -0 -3 .0 PK 95 SE ti OS 00 5- 0- 00 IN 99 ve EC 45 20 20 S T. [address] OT 3 UG LO C RE 20 CO NZ .6 O IN MD MG Candy KOCH TA SE BL ET VT 37 11 01 01 28 28 HO 98 AUGUST Ac [place] 00 -0 -0 .0 PK 95 SE ti OS 00 5- 1- 00 IN 99 ve EC 45 20 20 S T. [address] OT 3 UG LO C RE 20 CO NZ .6 O IN MG C AUGUST TA SE BL ET 00 02 01 02 30 30 HO 98 AUGUST Ac 06 -0 -0 .0 PK 67 SE ti 76 5- 1- 00 IN 59 ve 07 20 20 S T. [address] 0 UG LO RE CO NZ O IN MD Candy KOCH SE VT 37 11 11 00 28 28 HO 98 AUGUST Ac IL 00 -0 -2 .0 PK 95 SE ti OS 00 5- 0- 00 IN 99 ve EC 45 20 20 S T. [address] OT 3 UG LO C RE 20 CO NZ .6 O IN MG C AGUUST TA SE BL ET 00 02 11 01 30 30 HO 98 AUGUST Ac 06 -0 -2 .0 PK 67 SE ti 76 5- 0- 00 IN 59 ve 07 20 20 S T. [address] 0 UG LO RE CO NZ O IN MD Candy KOCH SE VT 37 10 10 00 28 28 HO 98 No Ac IL 00 -0 -0 .0 PK 86 t ti OS 00 3- 9- 00 IN 02 Av ve EC 45 20 20 S ai [address] brett OT 3 UG bl C e 20 CO .6 IN MG C TA BL ET VT 37 09 09 00 28 28 HO 98 No Ac IL 00 -0 -1 .0 PK 76 t ti OS 00 3- 1- 00 IN 03 Av ve EC 45 20 20 S ai [address] brett OT 3 UG bl C e 20 CO .6 IN MG C TA BL ET VT 37 05 08 02 28 28 HO 98 No Ac IL 00 -0 -1 .0 PK 50 t ti OS 00 1- 4- 00 IN 68 Av ve EC 45 20 20 S ai [address] brett OT 3 UG bl C e 20 CO .6 IN MG C TA BL ET 00 02 08 00 30 30 HO 98 No Ac 06 -0 -1 .0 PK 67 t ti 76 5- 4- 00 IN 59 Av ve 07 20 20 S ai [address] la 0 UG bl e CO IN C VT 37 05 07 01 28 28 HO 98 No Ac IL 00 -0 -1 .0 PK 50 t ti OS 00 1- 7- 00 IN 68 Av ve EC 45 20 20 S ai [address] la OT 3 UG bl C e 20 CO .6 IN MG C TA BL ET VT 37 02 05 02 28 28 HO 98 No Ac IL 00 -0 -2 .0 PK 22 t ti OS 00 5- 2- 00 IN 31 Av ve EC 45 20 20 S ai [address] brett OT 3 UG bl C e 20 CO .6 IN MG C TA BL ET 00 08 05 02 30 30 HO 97 No Ac 06 -1 -2 .0 PK 57 t ti 76 0- 2- 00 IN 31 Av ve 07 20 20 S ai [address] la 0 UG bl e CO IN C VT 37 02 04 01 28 28 HO 98 No Ac IL 00 -0 -2 .0 PK 22 t ti OS 00 5- 4- 00 IN 31 Av ve EC 45 20 20 S ai [address] west OT 3 UG bl C e 20 CO .6 IN MG C TA BL ET VT 37 02 04 00 28 28 HO 98 No Ac IL 00 -0 -1 .0 PK 22 t ti OS 00 5- 7- 00 IN 31 Av ve EC 45 20 20 S ai [address] west OT 3 UG bl C e 20 CO .6 IN MG C TA BL ET VT 37 12 03 02 28 28 HO 97 No Ac IL 00 -1 -2 .0 PK 92 t ti OS 00 0- 6- 00 IN 90 Av ve EC 45 20 20 S ai [address] west OT 3 UG bl C e 20 CO .6 IN MG C TA BL ET VT 37 12 03 01 28 28 HO 97 No Ac IL 00 -1 -2 .0 PK 92 t ti OS 00 0- 5- 00 IN 90 Av ve EC 45 20 20 S ai [address] west OT 3 UG bl C e 20 CO .6 IN MG C TA BL ET Immunization Name Date Rout CVX Reac Dose Comm Prov Is Faci e tion ent ider Refu lity Give sed n IIV3 10-0 141 SCOT No SCOT 2-20 NZO, NZO, VACC 09 SUAD YEUNG SPLI T T T VIRU S 0.5 ML DOSA GE IM USE Results Labs Lab Lab Date Result Refere Interp Status Commen Order Detail nces retati t Range on Differential panel, method unspecified - (05-26-2017 06:00) LYMPH 4 % 10% - Low complet 017 50% ed 06:00 Platele NORMAL complet ts 017 ed [Presen 06:00 ce] in Blood by Light microsc opy Gas panel in Arterial blood (05-24-2017 16:46) Arteria Y complet l 017 ed patency 16:46 Wrist artery --pre arteria l punctur e SOURCE L/R complet 017 ed 16:46 Differential panel, method unspecified - (05-24-2017 06:30) LYMPH 10 % 10% - Normal complet 017 50% ed 06:30 Platele NORMAL complet ts 017 ed [Presen 06:30 ce] in Blood by Light microsc opy Differential panel, method unspecified - (05-23-2017 06:05) Hypochr 1+ complet omia 017 ed [Presen 06:05 ce] in Blood LYMPH 6 % 10% - Low complet 017 50% ed 06:05 Platele NORMAL complet ts 017 ed [Presen 06:05 ce] in Blood by Light microsc opy Differential panel, method unspecified - (05-21-2017 06:15) LYMPH 6 % 10% - Low complet 017 50% ed 06:15 Platele NORMAL complet ts 017 ed [Presen 06:15 ce] in Blood by Light microsc opy Erythro NORMAL complet cyte 017 ed morphol 06:15 ogy finding [Identi fier] in Blood Urinalysis dipstick W Reflex Microscopic panel in Urine (05-20-2017 19:25) Bacteri 2+ O complet a 017 ed [Presen 19:25 ce] in Urine sedimen t by Light microsc opy Erythro 3-5 0 complet cytes 017 ed [Presen 19:25 ce] in Urine sedimen t by Light microsc opy Epithel NONE 0#/hp complet ial 017 f - ed cells.s 19:25 5#/hp quamous f [Presen ce] in Urine sedimen t by Microsc opy high power field Urinalysis dipstick W Reflex Microscopic panel in Urine (05-20-2017 19:25) Appeara CLOUDY CLEAR complet nce of 017 ed Urine 19:25 Bilirub NEGATIV NEG complet in 017 E ed [Presen 19:25 ce] in Urine by Test strip Erythro 2+ NEG Abnorma complet cytes 017 l ed [Presen 19:25 ce] in Urine Color YELLOW YELLOW complet of 017 ed Urine 19:25 Ketones NEGATIV NEG complet 017 E ed [Presen 19:25 ce] in Urine by Automat ed test strip Mucus 3+ NEG Abnorma complet [Presen 017 l ed ce] in 19:25 Urine sedimen t by Light microsc opy Nitrite NEGATIV NEG complet 017 E ed [Presen 19:25 ce] in Urine by Test strip Urobili 2.0 NEG complet nogen 017 ed [Presen 19:25 ce] in Urine by Test strip Influenza virus A+B Ag [Presence] in Unspecified specimen (05-20-2017 17:10) Influen NOT NOT complet za 017 DETECTE DETECTD ed virus A 17:10 D Ag [Presen ce] in Unspeci fied specime n Influen NOT NOT complet za 017 DETECTE DETECTD ed virus B 17:10 D Ag [Presen ce] in Unspeci fied specime n Hemoglobin A1c in Blood (01-18-2017 08:30) Hemoglo 6.1 % 0.0% Normal complet bin A1c 017 - ed in 08:30 7.0% Blood Urinalysis dipstick W Reflex Microscopic panel in Urine (01-17-2017 00:10) Bacteri 4+ O complet a 017 ed [Presen 00:10 ce] in Urine sedimen t by Light microsc opy Erythro 3-5 0 complet cytes 017 ed [Presen 00:10 ce] in Urine sedimen t by Light microsc opy Leukocy 50-100 O complet joellen 017 wbc/hpf ed [#/volu 00:10 me] in Urine Urinalysis dipstick W Reflex Microscopic panel in Urine (01-17-2017 00:10) Appeara CLOUDY CLEAR complet nce of 017 ed Urine 00:10 Bilirub 1+ NEG Abnorma complet in 017 l ed [Presen 00:10 ce] in Urine by Test strip Erythro TRACE-I NEG complet cytes 017 NTACT ed [Presen 00:10 ce] in Urine Color DK YELLOW complet of 017 YELLOW ed Urine 00:10 Ketones NEGATIV NEG complet 017 E ed [Presen 00:10 ce] in Urine by Automat ed test strip Mucus 3+ NEG Abnorma complet [Presen 017 l ed ce] in 00:10 Urine sedimen t by Light microsc opy Nitrite POSITIV NEG Abnorma complet 017 E l ed [Presen 00:10 ce] in Urine by Test strip Urobili 2.0 NEG complet nogen 017 ed [Presen 00:10 ce] in Urine by Test strip Differential panel, method unspecified - (01-17-2017 00:10) LYMPH 5 % 10% - Low complet 017 50% ed 00:10 Platele NORMAL complet ts 017 ed [Presen 00:10 ce] in Blood by Light microsc opy Rouleau SL. complet x 017 ed [Presen 00:10 ce] in Blood by Light microsc opy Procedures Procedure DOS Code Location Performer Comment COLLECTIO 05094 COMBINED COMBINED N VENOUS 7 PHYSICIAN PHYSICIAN BLOOD S LAB S LAB VENIPUNCT URE HEMOGLOBI 97208 COMBINED COMBINED N 7 PHYSICIAN PHYSICIAN GLYCOSYLA S LAB S LAB TITO A1C TRAVEL [address] MED 7 PHYSICIAN PHYSICIAN NEC LAB S LAB S LAB SPEC; PRORAT ACTL MILE TRAVEL [address] MED 7 PHYSICIAN PHYSICIAN NEC LAB S LAB S LAB SPEC; PRORAT ACTL MILE COMPREHEN 05553 COMBINED COMBINED SIVE 7 PHYSICIAN PHYSICIAN METABOLIC S LAB S LAB PANEL BLOOD 88652 COMBINED COMBINED COUNT 7 PHYSICIAN PHYSICIAN COMPLETE S LAB S LAB AUTO&AUTO DIFRNTL WBC DRUG 65135 LAB ARIEL LAB ARIEL SCREEN 7 [facility] [employer] BLAIR LEVETIRAC ETAM COLLECTIO 06019 COMBINED COMBINED N VENOUS 7 PHYSICIAN PHYSICIAN BLOOD S LAB S LAB VENIPUNCT URE SBSQ 97795 [facility] 7 ARE FACILITY CARE/DAY E/M STABLE 10 MIN DRUG 30832 LAB ARIEL LAB ARIEL SCREEN 7 [facility] [employer] BLAIR LEVETIRAC ETAM DEBRIDEME 41107 [facility] NT NAIL 7 ARE ANY METHOD 6/> AMBULANCE A0428 [facility] SERVICE 7 AMBULANCE AMBULANCE BLS SERVICE SERVICE NONEMERGE [facility] TRANSPORT GROUND A0425 [facility] MILEAGE 7 AMBULANCE AMBULANCE PER SERVICE SERVICE STATUTE MILE RADIOLOGI 88062 [place] [facility] 7 MEDICAL EXAMINATI IMAGING ON CHEST ASS SINGLE VIEW FRONTAL RADIOLOGI 20269 [place] [facility] 7 MEDICAL EXAMINATI IMAGING ON CHEST ASS SINGLE VIEW FRONTAL RADIOLOGI 36744 [place] AFUA C 7 MEDICAL EXAMINATI IMAGING ON CHEST ASS SINGLE VIEW FRONTAL ECG 18154 [facility] ROUTINE 7 PHYSICIAN ECG S, PLLC W/LEAST 12 LDS I&R ONLY OPHTH 14789 [facility] 7 F. XM&EVAL [facility] COMPRHNSV PSC ESTAB PT 1/> NONEMERGE A0130 [facility] 7 TRANS TRANSPORT TRANSPORT SERVBLUEG ATION: ATION SER YOVANY MELODIE Nina VAN DEBRIDEME 86003 [facility] NT NAIL 7 ARE ANY METHOD 6/> COLLECTIO 85200 COMBINED COMBINED N VENOUS 7 PHYSICIAN PHYSICIAN BLOOD S LA S LA VENIPUNCT URE DRUG 57394 LAB ARIEL LAB ARIEL SCREEN 7 [facility] [facility] [employer] BLAIR LEVETIRAC ETAM BLOOD 63181 COMBINED COMBINED COUNT 7 PHYSICIAN PHYSICIAN COMPLETE S LA S LA AUTO&AUTO DIFRNTL WBC COMPREHEN 57278 COMBINED COMBINED SIVE 7 PHYSICIAN PHYSICIAN METABOLIC S LA S LA PANEL TRAVEL [address] MED 7 PHYSICIAN PHYSICIAN NEC LAB S LA S LA SPEC; PRORAT ACTL MILE NONEMERGE A0130 [facility] 7 TRANS TRANSPORT TRANSPORT SERVBLUEG ATION: ATION SER YOVANY MELODIE CONDE DEBRIDEME 82110 [facility] NT NAIL 7 ARE ANY METHOD 6/> SBSQ 78665 [facility] NURSING 6 EXTENDED FACIL CARE CARE/DAY SERV MINOR COMPLJ 15 [place] [address] [facility] SURG 6 PATHOLOGY [facility] GROSS&ALBAN ROSCOPIC EXAM TRIMMING G0127 [facility] OF 6 ARE DYSTROPHI C NAILS ANY NUMBER BX SKIN 94638 DERMATOLO ALEXIS SUBCUTANE 6 GY OUS&/MUCO CONSULTAN US TS PSC MEMBRANE 1 LESION NONEMERGE A0130 FEDERATED FEDERATED NCY 6 TRANS TRANSPORT TRANSPORT SERVBLUEG ATION: ATION SER YOVANY CONDE SBSQ 28627 [facility] 6 EXTENDED FACIL CARE CARE/DAY SERV MINOR COMPLJ 15 MIN SBSQ 36647 [facility] NURSING 6 EXTENDED AJ FACIL CARE CARE/DAY SERV NEW PROBLEM 25 MIN ANTIBODY 02787 COMBINED COMBINED HELICOBAC [address] S LA S LA PYLORI COLLECTIO 95358 COMBINED COMBINED N VENOUS 6 PHYSICIAN PHYSICIAN BLOOD S LA S LA VENIPUNCT URE SUSCEPTIB 33700 BRITTNI ELKINS LTY STDY 6 [facility] ANTIMICRB INC INC IAL MICRO/AGA R DILUTJ URNLS DIP 35017 BRITTNI ELKINS 6 [facility] STICK/TAB INC INC LET REAGENT AUTO MICROSCOP Y BLOOD 05161 COMBINED COMBINED COUNT 6 PHYSICIAN PHYSICIAN COMPLETE S LA S LA AUTO&AUTO DIFRNTL WBC RADIOLOGI 36550 SYMPHONY SYMPHONY C 6 MOBILEX MOBILEX EXAMINATI ON CHEST SINGLE VIEW FRONTAL COMPREHEN 74022 COMBINED COMBINED SIVE 6 PHYSICIAN PHYSICIAN METABOLIC S LA S LA PANEL DRUG 97268 LAB ARIEL LAB ARIEL SCREEN 6 [place] [facility] BLAIR LEVETIRAC ETAM CULTURE 76246 BRITTNI BRITTNI BACTERIAL 6 [facility] INC INC QUANTTATI VE COLONY COUNT URINE CULTURE 98077 BRITTNI ELKINS BCT 6 [facility] ISOL&PRSM INC INC PTV ID ISOLATE EA URINE SET-UP Q0092 SYMPHONY SYMPHONY PORTABLE 6 MOBILEX MOBILEX X-RAY EQUIPMENT TRANS R0070 SYMPHONY SYMPHONY PRTBL 6 MOBILEX MOBILEX X-RAY EQP&PERS MILLICENT/NRS MILLICENT-TRIP 1 PT TRAVEL [address] MED 6 PHYSICIAN PHYSICIAN NEC LAB S LA S LA SPEC; PRORAT ACTL MILE SBSQ 85815 [facility] 6 ARE ANUM FACILITY CARE/DAY E/M STABLE 10 MIN OPHTH 77499 [facility] 6 F[facility] BRAD XM&CAESAR [facility] COMPRHNSV PSC ESTAB PT 1/> DEBRIDEME 72348 [facility] NT NAIL 6 ARE KRISTAN ANY METHOD 6/> AVULSION 83502 [facility] NAIL 6 ARE KRISTAN PLATE PARTIAL/C OMPLETE SIMPLE 1 COLLECTIO 58832 COMBINED COMBINED N VENOUS 6 PHYSICIAN PHYSICIAN BLOOD S LA S LA VENIPUNCT URE HEMOGLOBI 62343 COMBINED COMBINED N 6 PHYSICIAN PHYSICIAN GLYCOSYLA [place] [address] COMBINED COMBINED THYROID 6 PHYSICIAN PHYSICIAN STIMULATI S LA S LA NG HORMONE TSH TRAVEL [address] MED 6 PHYSICIAN PHYSICIAN NEC LAB S LA S LA SPEC; PRORAT ACTL MILE TRANS R0075 SYMPHONY SYMPHONY PRTBL 6 MOBILEX MOBILEX XRAY EQP&PERS MILLICENT/NRS MILLICENT-TRIP> 1 PT SET-UP Q0092 SYMPHONY SYMPHONY PORTABLE 6 MOBILEX MOBILEX X-RAY EQUIPMENT BASIC 60686 COMBINED COMBINED METABOLIC 6 PHYSICIAN PHYSICIAN PANEL S LA S LA CALCIUM TOTAL NATRIURET 93782 COMBINED COMBINED IC 6 PHYSICIAN PHYSICIAN PEPTIDE S LA S LA BLOOD 24736 COMBINED COMBINED COUNT 6 PHYSICIAN PHYSICIAN COMPLETE S LA S LA AUTO&AUTO DIFRNTL WBC RADIOLOGI 76399 SYMPHONY SYMPHONY C EXAM 6 MOBILEX MOBILEX CHEST 2 VIEWS FRONTAL&L ATERAL DEBRIDEME 10438 [facility] NT NAIL 6 ARE KRISTAN ANY METHOD 6/> SBSQ 43481 [facility] 6 ARE KRISTAN FACILITY CARE/DAY E/M STABLE 10 MIN CULTURE 30530 BRITT[facility] ELKINS BCT [facility] ISOL&PRSM INC INC PTV ID ISOLATE EA URINE CULTURE 33681 BRITTNI BRITTNI BACTERIAL 6 [facility] INC INC QUANTTATI VE COLONY COUNT URINE URNLS DIP 00767 BRITTNI BRITTNI 6 [facility] STICK/TAB INC INC LET REAGENT AUTO MICROSCOP Y SUSCEPTIB 39677 BRITTNI ELKINS LTY STDY 6 [facility] ANTIMICRB INC INC IAL MICRO/[place] [address] COMBINED COMBINED THYROID 6 PHYSICIAN PHYSICIAN STIMULATI S LA S LA NG HORMONE TSH COLLECTIO 33636 COMBINED COMBINED N VENOUS 6 PHYSICIAN PHYSICIAN BLOOD S LA S LA VENIPUNCT URE TRAVEL [address] MED 6 PHYSICIAN PHYSICIAN NEC LAB S LA S LA SPEC; PRORAT ACTL MILE SBSQ 47783 [facility]SING [address] [facility] CARE CARE/DAY SERV MINOR COMPLJ 15 MIN DEBRIDEME 19920 [facility] NT NAIL 6 ARE KRISTAN ANY METHOD 6/> 25 26977 LAB ARIEL LAB ARIEL HYDROXY 6 [place] INCLUDES HOLDINGS HOLDINGS FRACTIONS IF PERFORMED COLLECTIO 79602 COMBINED COMBINED N VENOUS 6 PHYSICIAN PHYSICIAN BLOOD S LA S LA VENIPUNCT URE TRAVEL [address] MED 6 PHYSICIAN PHYSICIAN NEC LAB S LA S LA SPEC; PRORAT ACTL MILE BASIC 35984 COMBINED COMBINED METABOLIC 6 PHYSICIAN PHYSICIAN PANEL S LA S LA CALCIUM TOTAL CULTURE 61472 COMBINED COMBINED BACTERIAL 6 PHYSICIAN PHYSICIAN S LA S LA QUANTTATI VE COLONY COUNT URINE CULTURE 07590 COMBINED COMBINED BCT 6 PHYSICIAN PHYSICIAN ISOL&PRSM S LA S LA PTV ID ISOLATE EA URINE SUSCEPTIB 52047 COMBINED COMBINED ILITY 6 PHYSICIAN PHYSICIAN STUDY S LA S LA ANTIMICRO BIAL DISK METHOD VOLUME 37719 COMBINED COMBINED MEASUREME 6 PHYSICIAN PHYSICIAN NT TIMED S LA S LA COLLECTIO N EACH URNLS DIP 86784 COMBINED COMBINED 6 PHYSICIAN PHYSICIAN STICK/TAB S LA S LA LET REAGENT AUTO MICROSCOP Y BLOOD 17485 COMBINED COMBINED COUNT 6 PHYSICIAN PHYSICIAN COMPLETE S LA S LA AUTO&AUTO DIFRNTL WBC COMPREHEN 06397 COMBINED COMBINED SIVE 6 PHYSICIAN PHYSICIAN METABOLIC S LA S LA PANEL DRUG 15347 LAB ARIEL LAB ARIEL SCREEN 6 [place] [employer] BLAIR LEVETIRAC ETAM COLLECTIO 62542 COMBINED COMBINED N VENOUS 6 PHYSICIAN PHYSICIAN BLOOD S LA S LA VENIPUNCT URE TRAVEL [address] MED 6 PHYSICIAN PHYSICIAN NEC LAB S LA S LA SPEC; PRORAT ACTL MILE SBSQ 76959 [facility] NURSING 6 EXTENDED AJ FACIL CARE CARE/DAY SERV MINOR COMPLJ 15 MIN SBSQ 13209 [facility] NURSING 6 EXTENDED LOY FACIL CARE CARE/DAY SERV NEW PROBLEM 25 MIN DEBRIDEME 51434 [facility] NT NAIL 6 ARE KRISTAN ANY METHOD 6/> SBSQ 74632 [facility] NURSING 6 ARE KRISTAN FACILITY CARE/DAY E/M STABLE 10 MIN SET-UP Q0092 SYMPHONY SYMPHONY PORTABLE 5 MOBILEX MOBILEX X-RAY EQUIPMENT RADIOLOGI 10791 SYMPHONY SYMPHONY C 5 MOBILEX MOBILEX EXAMINATI ON CHEST SINGLE VIEW FRONTAL TRANS R0070 SYMPHONY SYMPHONY PRTBL 5 MOBILEX MOBILEX X-RAY EQP&PERS MILLICENT/NRS MILLICENT-TRIP 1 PT SBSQ 50273 [facility] NURSING 5 ARE KRISTAN FACILITY CARE/DAY E/M STABLE 10 MIN DEBRIDEME 32908 [facility] NT NAIL 5 ARE KRISTAN ANY METHOD 6/> OPHTH 10510 SUSAN SONG [facility] 5 F. BRAD OSVALDO&CAESAR SONG COMPRHNSV PSC ESTAB PT 1/> TRANS R0075 SYMPHONY SYMPHONY PRTBL 5 MOBILEX MOBILEX XRAY EQP&PERS MILLICENT/NRS MILLICENT-TRIP> 1 PT RADIOLOGI 30786 SYMPHONY SYMPHONY C 5 MOBILEX MOBILEX EXAMINATI ON CHEST SINGLE VIEW FRONTAL SET-UP Q0092 SYMPHONY SYMPHONY PORTABLE 5 MOBILEX MOBILEX X-RAY EQUIPMENT BASIC 53819 COMBINED COMBINED METABOLIC 5 PHYSICIAN PHYSICIAN PANEL S LA S LA CALCIUM TOTAL TRAVEL [address] MED 5 PHYSICIAN PHYSICIAN NEC LAB S LA S LA SPEC; PRORAT ACTL MILE COLLECTIO 61455 COMBINED COMBINED N VENOUS 5 PHYSICIAN PHYSICIAN BLOOD S LA S LA VENIPUNCT URE RADIOLOGI 82040 SYMPHONY SYMPHONY C 5 MOBILEX MOBILEX EXAMINATI ON CHEST SINGLE VIEW FRONTAL TRANS R0075 SYMPHONY SYMPHONY PRTBL 5 MOBILEX MOBILEX XRAY EQP&PERS MILLICENT/NRS MILLICENT-TRIP> 1 PT SET-UP Q0092 SYMPHONY SYMPHONY PORTABLE 5 MOBILEX MOBILEX X-RAY EQUIPMENT [facility] 66646 [facility] NT NAIL 5 ARE KRISTAN ANY METHOD 6/> COLLECTIO 37516 COMBINED COMBINED N VENOUS 5 PHYSICIAN PHYSICIAN BLOOD S LA S LA VENIPUNCT URE BASIC 42453 COMBINED COMBINED METABOLIC 5 PHYSICIAN PHYSICIAN PANEL S LA S LA CALCIUM TOTAL TRAVEL [address] MED 5 PHYSICIAN PHYSICIAN NEC LAB S LA S LA SPEC; PRORAT ACTL MILE TRAVEL [address] MED 5 PHYSICIAN PHYSICIAN NEC LAB S LA S LA SPEC; PRORAT ACTL MILE BASIC 32181 COMBINED COMBINED METABOLIC 5 PHYSICIAN PHYSICIAN PANEL S LA S LA CALCIUM TOTAL COLLECTIO 66854 COMBINED COMBINED N VENOUS 5 PHYSICIAN PHYSICIAN BLOOD S LA S LA VENIPUNCT URE COLLECTIO 72680 COMBINED COMBINED N VENOUS 5 PHYSICIAN PHYSICIAN BLOOD S LA S LA VENIPUNCT URE BASIC 34223 COMBINED COMBINED METABOLIC 5 PHYSICIAN PHYSICIAN PANEL S LA S LA CALCIUM TOTAL TRAVEL [address] MED 5 PHYSICIAN PHYSICIAN NEC LAB S LA S LA SPEC; PRORAT ACTL MILE TRAVEL [address] MED 5 PHYSICIAN PHYSICIAN NEC LAB S LA S LA SPEC; PRORAT ACTL MILE BASIC 49455 COMBINED COMBINED METABOLIC 5 PHYSICIAN PHYSICIAN PANEL S LA S LA CALCIUM TOTAL COLLECTIO 81977 COMBINED COMBINED N VENOUS 5 PHYSICIAN PHYSICIAN BLOOD S LA S LA VENIPUNCT URE COLLECTIO 81608 COMBINED COMBINED N VENOUS 5 PHYSICIAN PHYSICIAN BLOOD S LA S LA VENIPUNCT URE BASIC 00026 COMBINED COMBINED METABOLIC 5 PHYSICIAN PHYSICIAN PANEL S LA S LA CALCIUM TOTAL TRAVEL [address] MED 5 PHYSICIAN PHYSICIAN NEC LAB S LA S LA SPEC; PRORAT ACTL MILE TRAVEL [address] MED 5 PHYSICIAN PHYSICIAN NEC LAB S LA S LA SPEC; PRORAT ACTL MILE BASIC 51433 COMBINED COMBINED METABOLIC 5 PHYSICIAN PHYSICIAN PANEL S LA S LA CALCIUM TOTAL COLLECTIO 16107 COMBINED COMBINED N VENOUS 5 PHYSICIAN PHYSICIAN BLOOD S LA S LA VENIPUNCT URE COLLECTIO 66520 COMBINED COMBINED N VENOUS 5 PHYSICIAN PHYSICIAN BLOOD S LA S LA VENIPUNCT URE BASIC 96806 COMBINED COMBINED METABOLIC 5 PHYSICIAN PHYSICIAN PANEL S LA S LA CALCIUM TOTAL TRAVEL [address] MED 5 PHYSICIAN PHYSICIAN NEC LAB S LA S LA SPEC; PRORAT ACTL MILE TRAVEL [address] MED 5 PHYSICIAN PHYSICIAN NEC LAB S LA S LA SPEC; PRORAT ACTL MILE BASIC 31444 COMBINED COMBINED METABOLIC 5 PHYSICIAN PHYSICIAN PANEL S LA S LA CALCIUM TOTAL COLLECTIO 69042 COMBINED COMBINED N VENOUS 5 PHYSICIAN PHYSICIAN BLOOD S LA S LA VENIPUNCT URE COLLECTIO 56360 COMBINED COMBINED N VENOUS 5 PHYSICIAN PHYSICIAN BLOOD S LA S LA VENIPUNCT URE BASIC 26140 COMBINED COMBINED METABOLIC 5 PHYSICIAN PHYSICIAN PANEL S LA S LA CALCIUM TOTAL TRAVEL [address] MED 5 PHYSICIAN PHYSICIAN NEC LAB S LA S LA SPEC; PRORAT ACTL MILE TRAVEL [address] MED 5 PHYSICIAN PHYSICIAN NEC LAB S LA S LA SPEC; PRORAT ACTL MILE BASIC 09149 COMBINED COMBINED METABOLIC 5 PHYSICIAN PHYSICIAN PANEL S LA S LA CALCIUM TOTAL COLLECTIO 63986 COMBINED COMBINED N VENOUS 5 PHYSICIAN PHYSICIAN BLOOD S LA S LA VENIPUNCT URE DEBRIDEME 11933 [facility] NT NAIL 5 ARE KRISTAN ANY METHOD 6/> COLLECTIO 94916 COMBINED COMBINED N VENOUS 5 PHYSICIAN PHYSICIAN BLOOD S LA S LA VENIPUNCT URE BASIC 26735 COMBINED COMBINED METABOLIC 5 PHYSICIAN PHYSICIAN PANEL S LA S LA CALCIUM TOTAL TRAVEL [address] MED 5 PHYSICIAN PHYSICIAN NEC LAB S LA S LA SPEC; PRORAT ACTL MILE GROUND A0425 [facility]IRIN CARPIO [facility] [address] [place] [address] PER AMBULANCE AMBULANCE STATUTE SE SE MILE AMB A0426 SHIRIN SHIRIN SERVICE [facility] ALS AMBULANCE AMBULANCE NONEMERGE SE SE NCY TRANSPORT LEVEL 1 CULTURE 67286 BRITTNI ELKINS BCT 5 [facility] ISOL&PRSM INC INC PTV ID ISOLATE EA URINE CULTURE 90492 BR[facility] ELKINS BACTERIAL 5 [facility] INC [place] [address] BRITT[facility] ELKINS INFUSION 5 [facility] THERAPY/P INC INC ROPHYLAXI S /DX 1ST TO 1 HR THERAPEUT 50774 BR[facility]NI ELKINS IC 5 [facility] INJECTION INC INC IV PUSH EACH NEW DRUG COMPREHEN 10440 [facility] ELKINS SIVE 5 [facility] METABOLIC INC INC PANEL BLOOD 99145 BRITTNI ELKINS COUNT 5 [facility] COMPLETE INC INC AUTO&AUTO DIFRNTL WBC CULTURE 44417 BRITTNI ELKINS BACTERIAL 5 [facility] BLOOD INC INC AEROBIC W/ID ISOLATES SUSCEPTIB 00173 BRITTNI ELKINS LTY STDY 5 [facility] ANTIMICRB INC INC IAL MICRO/AGA R DILUTJ URNLS DIP 06203 [facility]ITTNI 5 [facility] STICK/TAB INC INC LET REAGENT AUTO MICROSCOP Y COMPREHEN 42081 COMBINED COMBINED SIVE 5 PHYSICIAN PHYSICIAN METABOLIC S LA S LA PANEL BLOOD 86576 COMBINED COMBINED COUNT 5 PHYSICIAN PHYSICIAN COMPLETE S LA S LA AUTO&AUTO DIFRNTL WBC COLLECTIO 47190 COMBINED COMBINED N VENOUS 5 PHYSICIAN PHYSICIAN BLOOD S LA S LA VENIPUNCT URE TRAVEL [address] MED 5 PHYSICIAN PHYSICIAN NEC LAB S LA S LA SPEC; PRORAT ACTL MILE INITIAL [id number] 30 P MINUTES OTHER 5849 BRITTNI RODRIGUEZON REPAIR OF 5 [facility] HOSP URETHRA INC INC TRAVEL [address] MED 5 PHYSICIAN PHYSICIAN NEC LAB S LA S LA SPEC; PRORAT ACTL MILE GROUND A0425 SHIRIN CARPIO MILEAGE [address] [place] [address] PER AMBULANCE AMBULANCE STATUTE SE SE MILE AMBULANCE A0429 SHIRIN CARPIO SERVICE [address] [place] [address] BLS AMBULANCE AMBULANCE EMERGENCY SE SE TRANSPORT CRITICAL [address] ED P P PATIENT INIT 30-74 MIN BASIC 22698 COMBINED COMBINED METABOLIC 5 PHYSICIAN PHYSICIAN PANEL S LA S LA CALCIUM TOTAL RADIOLOGI 16445 [facility] C 5 MEDICAL ANGEL EXAMINATI IMAGING ON CHEST ASS SINGLE VIEW FRONTAL COLLECTIO 01167 COMBINED COMBINED N VENOUS 5 PHYSICIAN PHYSICIAN BLOOD S LA S LA VENIPUNCT URE ECG 58536 BRITTNI JUAREZ ROUTINE 5 [facility] W/LEAST P 12 LDS I&[place] [address] [place] ALL ABDOMEN & 5 MEDICAL PELVIS IMAGING W/[place] [address] [facility] HEAD/BRAI 5 MEDICAL ANGEL N W/O IMAGING CONTRAST ASS MATERIAL BLOOD 90766 COMBINED COMBINED COUNT 5 PHYSICIAN PHYSICIAN COMPLETE S LA S LA AUTO&AUTO DIFRNTL WBC URNLS DIP 45556 COMBINED COMBINED 5 PHYSICIAN PHYSICIAN STICK/TAB S LA S LA LET REAGENT AUTO MICROSCOP Y VOLUME 94500 COMBINED COMBINED MEASUREME 5 PHYSICIAN PHYSICIAN NT TIMED S LA S LA COLLECTIO N EACH BLOOD 62444 COMBINED COMBINED COUNT 5 PHYSICIAN PHYSICIAN COMPLETE S LA S LA AUTO&AUTO DIFRNTL WBC COLLECTIO 34312 COMBINED COMBINED N VENOUS 5 PHYSICIAN PHYSICIAN BLOOD S LA S LA VENIPUNCT URE BASIC 19499 COMBINED COMBINED METABOLIC 5 PHYSICIAN PHYSICIAN PANEL S LA S LA CALCIUM TOTAL BASIC 17826 COMBINED COMBINED METABOLIC 5 PHYSICIAN PHYSICIAN PANEL S LA S LA CALCIUM TOTAL TRAVEL [address] MED 5 PHYSICIAN PHYSICIAN NEC LAB S LA S LA SPEC; PRORAT ACTL MILE COLLECTIO 41465 COMBINED COMBINED N VENOUS 5 PHYSICIAN PHYSICIAN BLOOD S LA S LA VENIPUNCT URE DEBRIDEME 63676 [facility] NT NAIL 5 ARE KRISTAN ANY METHOD 6/> COLLECTIO 28281 COMBINED COMBINED N VENOUS 5 PHYSICIAN PHYSICIAN BLOOD S LA S LA VENIPUNCT URE TRAVEL [address] MED 5 PHYSICIAN PHYSICIAN NEC LAB S LA S LA SPEC; PRORAT ACTL MILE INITIAL [address] INTERNAL CARE/DAY MED 25 MINUTES DUP-SCAN 74974 [place] AFUA XTR VEINS 5 MEDICAL ANN MARIE IMAGING [place] ASS L/LIMITED STUDY SBSQ [address] CARE/DAY INTERNAL 35 MED MINUTES RADIOLOGI 55140 [place] BEINEKE C 5 MEDICAL ANGEL EXAMINATI IMAGING [place] [address] [place] [facility] HEAD/BRAI 5 MEDICAL ANGEL N W/[place] [address] [place] [facility] HEAD/BRAI 5 MEDICAL ANGEL N W/O IMAGING CONTRAST ASS MATERIAL RADIOLOGI 47951 [place] [facility] C 5 MEDICAL ANGEL EXAMINATI IMAGING ON CHEST ASS SINGLE VIEW FRONTAL SBSQ [address] CARE/DAY INTERNAL 35 MED MINUTES ECG [address] W/LEAST P 12 LDS I&R ONLY AMBULANCE A0429 [facility] SERVICE 5 [facility] AMBULANCE AMBULANCE EMERGENCY SE SE TRANSPORT GROUND A0425 SHIRIN CARPIO MILEAGE [address] [place] [address] PER AMBULANCE AMBULANCE STATUTE SE SE MILE SBSQ 73229 [facility] NURSING 5 EXTENDED LOY FACIL CARE CARE/DAY SERV NEW PROBLEM 25 MIN COLLECTIO 77666 COMBINED COMBINED N VENOUS 5 PHYSICIAN PHYSICIAN BLOOD S LA S LA VENIPUNCT URE TRAVEL [address] MED 5 PHYSICIAN PHYSICIAN NEC LAB S LA S LA SPEC; PRORAT ACTL MILE BASIC 31413 COMBINED COMBINED METABOLIC 5 PHYSICIAN PHYSICIAN PANEL S LA S LA CALCIUM TOTAL OPHTH 28068 [facility] 5 F. BRAD XM&[facility]AR [facility] COMPRHNSV PSC ESTAB PT 1/> SBSQ 30747 [facility] NURSING 5 EXTENDED LOY FACIL CARE CARE/DAY SERV MINOR COMPLJ 15 MIN SBSQ 03021 [facility] NURSING 5 EXTENDED LOY FACIL CARE CARE/DAY SERV NEW PROBLEM 25 MIN COLLECTIO 23296 COMBINED COMBINED N VENOUS 5 PHYSICIAN PHYSICIAN BLOOD S LA S LA VENIPUNCT URE TRAVEL [address] MED 5 PHYSICIAN PHYSICIAN NEC LAB S LA S LA SPEC; PRORAT ACTL MILE TRAVEL [address] MED 5 PHYSICIAN PHYSICIAN NEC LAB S LA S LA SPEC; PRORAT ACTL MILE COLLECTIO 96509 COMBINED COMBINED N VENOUS 5 PHYSICIAN PHYSICIAN BLOOD S LA S LA VENIPUNCT URE ANTIBODY 27480 COMBINED COMBINED HELICOBAC [address] S LA S LA PYLORI SUSCEPTIB 34754 COMBINED COMBINED ILITY 4 PHYSICIAN PHYSICIAN STUDY S LA S LA ANTIMICRO BIAL DISK METHOD COLLECTIO 10281 COMBINED COMBINED N VENOUS 4 PHYSICIAN PHYSICIAN BLOOD S LA S LA VENIPUNCT URE RADEX 90024 SYMPHONY SYMPHONY ABDOMEN 1 4 MOBILEX MOBILEX ANTEROPOS TERIOR VIEW URNLS DIP 24697 COMBINED COMBINED 4 PHYSICIAN PHYSICIAN STICK/TAB S LA S LA [place] [address] COMBINED COMBINED MAGNESIUM 4 PHYSICIAN PHYSICIAN S LA S LA TRAVEL [address] MED 4 PHYSICIAN PHYSICIAN NEC LAB S LA S LA SPEC; PRORAT ACTL MILE TRANS R0070 SYMPHONY SYMPHONY PRTBL 4 MOBILEX MOBILEX X-RAY EQP&PERS MILLICENT/NRS MILLICENT-TRIP 1 PT RADIOLOGI 01924 SYMPHONY SYMPHONY C 4 MOBILEX MOBILEX EXAMINATI ON CHEST SINGLE VIEW FRONTAL CULTURE 49176 COMBINED COMBINED BACTERIAL 4 PHYSICIAN PHYSICIAN S LA S LA QUANTTATI VE COLONY COUNT URINE SET-UP Q0092 SYMPHONY SYMPHONY PORTABLE 4 MOBILEX MOBILEX X-RAY EQUIPMENT SBSQ 28967 [facility] NURSING 4 EXTENDED LOY FACIL CARE CARE/DAY SERV NEW PROBLEM 25 MIN DRUG 81242 LAB ARIEL LAB ARIEL SCREEN 4 [place] [employer] BLAIR LEVETIRAC ETAM COLLECTIO 88683 COMBINED COMBINED N VENOUS 4 PHYSICIAN PHYSICIAN BLOOD S LA S LA VENIPUNCT URE TRAVEL [address] MED 4 PHYSICIAN PHYSICIAN NEC LAB S LA S LA SPEC; PRORAT ACTL MILE TRAVEL [address] MED 4 PHYSICIAN PHYSICIAN NEC LAB S LA S LA SPEC; PRORAT ACTL MILE COLLECTIO 72606 COMBINED COMBINED N VENOUS 4 PHYSICIAN PHYSICIAN BLOOD S LA S LA VENIPUNCT URE BLOOD 85436 COMBINED COMBINED COUNT 4 PHYSICIAN PHYSICIAN COMPLETE S LA S LA AUTO&[place] [address] COMBINED COMBINED THYROID 4 PHYSICIAN PHYSICIAN STIMULATI S LA S LA NG HORMONE TSH COMPREHEN 38459 COMBINED COMBINED SIVE 4 PHYSICIAN PHYSICIAN METABOLIC S LA S LA PANEL SBSQ 28924 [facility] NURSING 4 EXTENDED LOY FACIL CARE CARE/DAY SERV NEW PROBLEM 25 MIN CUL BACT 22209 COMBINED COMBINED XCPT 4 PHYSICIAN PHYSICIAN URINE S LA S LA BLOOD/STO OL AEROBIC ISOL SBSQ 37060 [facility] NURSING 4 ARI AIR FACILITY CARE/DAY E/M STABLE 10 MIN RADIOLOGI 29065 SYMPHONY SYMPHONY C 4 MOBILEX MOBILEX EXAMINATI ON CHEST SINGLE VIEW FRONTAL SET-UP Q0092 SYMPHONY SYMPHONY PORTABLE 4 MOBILEX MOBILEX X-RAY EQUIPMENT TRANS R0070 SYMPHONY SYMPHONY PRTBL 4 MOBILEX MOBILEX X-RAY EQP&PERS MILLICENT/NRS MILLICENT-TRIP 1 PT SBSQ 22217 [facility] NURSING 4 ARI ARI FACIL CARE/DAY MINOR COMPLJ 15 MIN SBSQ 07830 [facility] 4 ARE KRISTAN FACILITY CARE/DAY E/M STABLE 10 MIN SET-UP Q0092 SYMPHONY SYMPHONY PORTABLE 4 MOBILEX MOBILEX X-RAY EQUIPMENT RADIOLOGI 37791 SYMPHONY SYMPHONY C 4 MOBILEX MOBILEX EXAMINATI ON CHEST SINGLE VIEW FRONTAL TRANS R0075 SYMPHONY SYMPHONY PRTBL 4 MOBILEX MOBILEX XRAY EQP&PERS MILLICENT/NRS MILLICENT-TRIP> 1 PT TRAVEL [address] MED 4 PHYSICIAN PHYSICIAN NEC LAB S LA S LA SPEC; PRORAT ACTL MILE BLOOD 27517 COMBINED COMBINED COUNT 4 PHYSICIAN PHYSICIAN COMPLETE S LA S LA AUTO&AUTO DIFRNTL WBC COLLECTIO 22777 COMBINED COMBINED N VENOUS 4 PHYSICIAN PHYSICIAN BLOOD S LA S LA VENIPUNCT URE URNLS DIP 52734 COMBINED COMBINED 4 PHYSICIAN PHYSICIAN STICK/TAB S LA S LA LET REAGENT AUTO MICROSCOP Y SBSQ 99953 [facility] NURSING 4 ARI ARI FACILITY CARE/DAY E/M STABLE 10 MIN CULTURE 30149 COMBINED COMBINED BACTERIAL 4 PHYSICIAN PHYSICIAN S LA S LA QUANTTATI VE COLONY COUNT URINE URNLS DIP 91418 COMBINED COMBINED 4 PHYSICIAN PHYSICIAN STICK/TAB S LA S LA LET REAGENT AUTO MICROSCOP Y SBSQ 92156 [facility] NURSING 4 ARI ARI FACILITY CARE/DAY E/M STABLE 10 MIN TRAVEL [address] MED 4 PHYSICIAN PHYSICIAN NEC LAB S LA S LA SPEC; PRORAT ACTL MILE BASIC 65813 COMBINED COMBINED METABOLIC 4 PHYSICIAN PHYSICIAN PANEL S LA S LA CALCIUM TOTAL COLLECTIO 15925 COMBINED COMBINED N VENOUS 4 PHYSICIAN PHYSICIAN BLOOD S LA S LA VENIPUNCT URE COLLECTIO 35960 COMBINED COMBINED N VENOUS 4 PHYSICIAN PHYSICIAN BLOOD S LA S LA VENIPUNCT URE BASIC 27238 COMBINED COMBINED METABOLIC 4 PHYSICIAN PHYSICIAN PANEL S LA S LA CALCIUM TOTAL TRAVEL [address] MED 4 PHYSICIAN PHYSICIAN NEC LAB S LA S LA SPEC; PRORAT ACTL MILE SBSQ 71485 [facility] ARMIN NURSING 4 ARI ARI FACILITY CARE/DAY E/M STABLE 10 MIN DEBRIDEME 35150 [facility] NT NAIL 4 ARE KRISTAN ANY METHOD 6/> SBSQ 49949 ARMNI ARMIN NURSING 4 ARI ARI FACILITY CARE/DAY E/M STABLE 10 MIN RADIOLOGI 80571 SYMPHONY SYMPHONY C 4 MOBILEX MOBILEX EXAMINATI ON KNEE 1/2 VIEWS SET-UP Q0092 SYMPHONY SYMPHONY PORTABLE 4 MOBILEX MOBILEX X-RAY EQUIPMENT TRANS R0070 SYMPHONY SYMPHONY PRTBL 4 MOBILEX MOBILEX X-RAY EQP&PERS MILLICENT/NRS MILLICENT-TRIP 1 PT RADEX 48837 SYMPHONY SYMPHONY ELBOW 2 4 MOBILEX MOBILEX VIEWS SBSQ 57120 ARMIN FUNEZ NURSING 4 ARI ARI FACILITY CARE/DAY E/M STABLE 10 MIN CULTURE 48031 [facility], [facility], BACTERIAL 4 SUPERVISOR WORD PROCESSING SUPERVISOR WORD PROCESSING SHIRIN CARPIO QUANTTATI CO HOS CO HOS VE COLONY COUNT URINE URNLS DIP 57409 [facility], 4 SUPERVISOR WORD PROCESSING SUPERVISOR WORD PROCESSING STICK/TAB SHIRIN CARPIO LET RGNT CO HOS CO HOS AUTO W/O MICROSCOP Y SBSQ 86060 AR[facility] FUNEZ NURSING 4 ARI ARI FACILITY CARE/DAY E/M STABLE 10 MIN SBSQ 44934 [facility] NURSING 4 ARE ANUM FACILITY CARE/DAY E/M STABLE 10 MIN DETERMINA 68949 SUSAN SHILO TION 4 F. MARVA REFRACTIV [facility] SBSQ 45802 ARMIN ARMIN NURSING 4 ARI ARI FACILITY CARE/DAY E/M STABLE 10 MIN SBSQ 17365 ARMIN ARMIN NURSING 4 ARI ARI FACILITY CARE/DAY E/M STABLE 10 MIN SBSQ 61320 ARMIN ARMIN NURSING 4 ARI ARI FACILITY CARE/DAY E/M STABLE 10 MIN SBSQ 88038 [facility] NURSING 4 ARE ANUM FACILITY CARE/DAY E/M STABLE 10 MIN SBSQ 16073 ARMIN ARMIN NURSING 3 ARI ARI FACILITY CARE/DAY E/M STABLE 10 MIN SBSQ 21548 ARMIN ARMIN NURSING 3 ARI ARI FACILITY CARE/DAY E/M STABLE 10 MIN DETERMINA 21306 SUSAN ROBERTS 3 F. TYL REFRACTIV [facility] SBSQ 95335 ARMIN ARMIN NURSING 3 ARI ARI FACILITY CARE/DAY E/M STABLE 10 MIN SBSQ 27293 [facility] FRA NURSING 3 ARE FACILITY CARE/DAY E/M STABLE 10 MIN DEBRIDEME 13305 [facility] FRA NT NAIL 3 ARE ANY METHOD 6/> PARING/CU 99595 [facility]RA TTING 3 ARE BENIGN HYPERKERA TOTIC LESION 1 SBSQ 66276 ARMIN ARMIN NURSING 3 ARI ARI FACILITY CARE/DAY E/M STABLE 10 MIN SBSQ 28516 AR[facility] ARMIN NURSING 3 ARI ARI FACILITY CARE/DAY E/M STABLE 10 MIN BASIC 92482 [facility], [facility], METABOLIC 3 SUPERVISOR WORD PROCESSING SUPERVISOR WORD PROCESSING PANEL SHIRIN CARPIO CALCIUM CO HOS CO HOS TOTAL INITIAL 14545 [facility] NURSING 3 ARE FACILITY CARE/DAY 25 MINUTES DEBRIDEME 67720 [facility] FRA NT NAIL 3 ARE ANY METHOD 6/> PARING/CU 54817 [facility] HIGHTOWER TTING 3 ARE BENIGN HYPERKERA TOTIC LESION 2-4 SBSQ 21902 [facility] NURSING 3 [facility] CARE/DAY E/M STABLE 10 MIN HOS BED E0260 [facility] AB[facility]ARE SEMI-ELEC 3 W/ANY TYPE SIDE RAIL W/MATTRSS SBSQ 93011 [facility] NURSING 3 [facility] CARE/DAY E/M STABLE 10 MIN HOS BED E0260 [facility]ARE SEMI-ELEC 3 W/ANY TYPE SIDE RAIL W/MATTRSS HOS BED E0260 [facility] SEMI-ELEC 3 W/ANY TYPE SIDE RAIL W/MATTRSS NEBULIZER E0570 RA[facility] CONROY WITH 3 HOME HOME [facility] R EQUIPME EQUIPME ECG 94004 NATALIIA LACEY LACEY NATALIIA ROUTINE 3 MD ECG CONSULTIN W/LEAST G SRV 12 LDS I&R ONLY HOME CARE S5108 [facility] TRAINING 3 AREA AREA HOME AGENCY ON AGENCY ON CARE KAREN KAREN CLIENT PER 15 MIN HOS BED E0260 [facility] SEMI-ELEC 3 W/ANY TYPE SIDE RAIL W/[place] [address] [facility], [facility], CLOSTRIDI 3 SUPERVISOR WORD PROCESSING SUPERVISOR WORD PROCESSING UM SHIRIN CARPIO DIFFICILE CO HOS CO HOS TOXIN RADIOLOGI 15015 [facility], [facility], C 3 SUPERVISOR WORD PROCESSING SUPERVISOR WORD PROCESSING EXAMINATI SHIRIN CARPIO ON CHEST CO HOS CO HOS SINGLE VIEW FRONTAL BASIC 77991 [facility], [facility], METABOLIC 3 SUPERVISOR WORD PROCESSING SUPERVISOR WORD PROCESSING PANEL SHIRIN CARPIO CALCIUM CO HOS CO HOS TOTAL BLOOD 64791 [facility], [facility], COUNT 3 SUPERVISOR WORD PROCESSING SUPERVISOR WORD PROCESSING COMPLETE SHIRIN CARPIO AUTO&AUT[place] [address] [facility], [facility] INFUSION 3 SUPERVISOR WORD PROCESSING SUPERVISOR WORD PROCESSING THERAPY/P SHIRIN CARPIO ROPHYLAXI CO HOS CO HOS S /DX 1ST TO 1 HR RADEX 67015 [facility], [facility], ABDOMEN 1 3 SUPERVISOR WORD PROCESSING SUPERVISOR WORD PROCESSING SHIRIN CARPIO ANTEROPOS CO HOS CO HOS TERIOR VIEW RADEX 68243 MARY STARKEY ABDOMEN 3 MARVA COMPL RADIOLOGY W/DCBTS&/ ASSOCIAT ERC VIEWS URNLS DIP 14086 [facility] [employer], [facility], 3 SUPERVISOR WORD PROCESSING SUPERVISOR WORD PROCESSING STICK/TAB SHIRIN CARPIO LET RGNT CO HOS CO HOS AUTO W/[place] [address] [facility] [employer], [facility], MULT STEP 3 SUPERVISOR WORD PROCESSING SUPERVISOR WORD PROCESSING METHOD SHIRIN CARPIO NOS EACH CO HOS CO HOS ORGANISM INJECTION J2405 [facility] [employer] [facility], 3 SUPERVISOR WORD PROCESSING SUPERVISOR WORD PROCESSING ONDANSETR SHIRIN CARPIO ON HCL CO HOS CO HOS PER 1 MG HOME CARE S5108 [facility] 3 AREA AREA HOME AGENCY ON AGENCY ON CARE KAREN KAREN CLIENT PER 15 MIN HOME CARE S5108 [facility] 3 AREA AREA HOME AGENCY ON AGENCY ON CARE KAREN KAREN CLIENT PER 15 MIN HOME CARE S5108 [facility] 3 AREA AREA HOME AGENCY ON AGENCY ON CARE KAREN KAREN CLIENT PER 15 MIN HOME CARE S5108 [facility] TRAINING 3 AREA AREA HOME AGENCY ON AGENCY ON CARE KAREN KAREN CLIENT PER 15 MIN HOME CARE S5108 [facility] TRA[facility]ING 3 AREA AREA HOME AGENCY ON AGENCY ON CARE KAREN KAREN CLIENT PER 15 MIN HOME CARE S5108 [facility] TRAINING 3 AREA AREA HOME AGENCY ON AGENCY ON CARE KAREN KAREN CLIENT PER 15 MIN HOME CARE S5108 [facility] 3 AREA AREA HOME AGENCY ON AGENCY ON CARE KAREN KAREN CLIENT PER 15 MIN ALBUTEROL J7620 YOUR YOUR TO 2.5 3 PHARMACY PHARMACY [facility] [employer] [facility] IPRATROPI UM BROM TO 0.5 MG PHARM G0333 YOUR YOUR DISPEN 3 PHARMACY PHARMACY [facility] RX; INITIAL 30-DAY SUPPLY ADMN SET A7003 YOUR YOUR SM VOL 3 PHARMACY PHARMACY [facility] LLC PNEUMAT NEBULIZR DISPBL NEBULIZER E0570 RA[facility] CONROY WITH 3 HOME HOME [facility] R EQUIPME EQUIPME ECG 20889 NATALIIA LACEY LACEY NATALIIA ROUTINE 3 MD ECG CONSULTIN W/LEAST G SRV 12 LDS I&R ONLY RADIOLOGI 28518 VERONA GABRIELA C EXAM 3 JUAN J CHEST 2 RADIOLOGY VIEWS ASSOCIAT FRONTAL&L ATERAL HOME CARE S5108 [facility]IN[facility] 3 AREA AREA HOME AGENCY ON AGENCY ON CARE KAREN KAREN CLIENT PER 15 MIN BASIC 74135 [employer], METABOLIC 3 SUPERVISOR WORD PROCESSING SUPERVISOR WORD PROCESSING PANEL SHIRIN SHIRIN CALCIUM CO HOS CO HOS TOTAL HOME CARE S5108 [facility] 3 AREA AREA HOME AGENCY ON AGENCY ON CARE KAREN KAREN CLIENT PER 15 MIN HOME CARE S5108 [facility] TRAINING 3 AREA AREA HOME AGENCY ON AGENCY ON CARE KAREN KAREN CLIENT PER 15 MIN HOME CARE S5108 [facility] TRAINING 3 AREA AREA HOME AGENCY ON AGENCY ON CARE KAREN KAREN CLIENT PER 15 MIN HOME CARE S5108 [facility] TRAINING 3 AREA AREA HOME AGENCY ON AGENCY ON CARE KAREN KAREN CLIENT PER 15 MIN HOME CARE S5108 [facility] TRAINING 3 AREA AREA HOME AGENCY ON AGENCY ON CARE KAREN KAREN CLIENT PER 15 MIN HOME CARE S5108 [facility] TRAINING 3 AREA AREA HOME AGENCY ON AGENCY ON CARE KAREN KAREN CLIENT PER 15 MIN HOME CARE S5108 [facility] TRAINING 3 AREA AREA HOME AGENCY ON AGENCY ON CARE KAREN KAREN CLIENT PER 15 MIN HOME CARE S5108 [facility] TRAINING 3 AREA AREA HOME AGENCY ON AGENCY ON CARE KAREN KAREN CLIENT PER 15 MIN BASIC 14743 [employer], METABOLIC 3 SUPERVISOR WORD PROCESSING SUPERVISOR WORD PROCESSING PANEL SHIRIN SHIRIN CALCIUM CO HOS CO HOS TOTAL BLOOD 79155 [employer], [employer], COUNT 3 SUPERVISOR WORD PROCESSING SUPERVISOR WORD PROCESSING COMPLETE SHIRIN SHIRIN AUTO&AUTO CO HOS CO HOS DIFRNTL WBC RADIOLOGI 72730 VERONA STARKEY C EXAM 3 MARVA CHEST 2 RADIOLOGY VIEWS ASSOCIAT FRONTAL&L ATERAL HOME CARE S5108 [facility] TRA[facility] 3 AREA AREA HOME AGENCY ON AGENCY ON CARE KAREN KAREN CLIENT PER 15 MIN HOME CARE S5108 [facility] TRAINING 3 AREA AREA HOME AGENCY ON AGENCY ON CARE KAREN KAREN CLIENT PER 15 MIN HOME CARE S5108 [facility] TRAINING 3 AREA AREA HOME AGENCY ON AGENCY ON CARE KAREN KAREN CLIENT PER 15 MIN HOS BED E0260 [facility] ABLECARE SEMI-ELEC 3 W/ANY TYPE SIDE RAIL W/MATTRSS HOME CARE S5108 [facility] TRAINING 3 AREA AREA HOME AGENCY ON AGENCY ON CARE KAREN KAREN CLIENT PER 15 MIN HOME CARE S5108 [facility] TRA[facility] 3 AREA AREA HOME AGENCY ON AGENCY ON CARE KAREN KAREN CLIENT PER 15 MIN HOME CARE S5108 [facility] TRAINING 3 AREA AREA HOME AGENCY ON AGENCY ON CARE KAREN KAREN CLIENT PER 15 MIN HOME CARE S5108 [facility] TRAINING 3 AREA AREA HOME AGENCY ON AGENCY ON CARE KAREN KAREN CLIENT PER 15 MIN HOME CARE S5108 [facility] TRAINING 3 AREA AREA HOME AGENCY ON AGENCY ON CARE KAREN KAREN CLIENT PER 15 MIN HOME CARE S5108 [facility] TRAINING 3 AREA AREA HOME AGENCY ON AGENCY ON CARE KAREN KAREN CLIENT PER 15 MIN HOME CARE S5108 [facility] TRAINING 3 AREA AREA HOME AGENCY ON AGENCY ON CARE KAREN KAREN CLIENT PER 15 MIN [facility] T1999 [facility] ITEMS & 3 AREA AREA [facility] AGENCY ON AGENCY ON RETAIL KAREN KAREN PURCHASE NOC HOME CARE S5108 [facility] TRA[facility] 3 AREA AREA HOME AGENCY ON AGENCY ON CARE KAREN KAREN CLIENT PER 15 MIN HOME CARE S5108 [facility] TRAINING 3 AREA AREA HOME AGENCY ON AGENCY ON CARE KAREN KAREN CLIENT PER 15 MIN HOME CARE S5108 [facility] TRAINING 3 AREA AREA HOME AGENCY ON AGENCY ON CARE KAREN KAREN CLIENT PER 15 MIN HOME CARE S5108 [facility] TRAINING 3 AREA AREA HOME AGENCY ON AGENCY ON CARE KAREN KAREN CLIENT PER 15 MIN HOME CARE S5108 [facility] TRAINING 3 AREA AREA HOME AGENCY ON AGENCY ON CARE KAREN KAREN CLIENT PER 15 MIN HOME CARE S5108 [facility] TRAINING 3 AREA AREA HOME AGENCY ON AGENCY ON CARE KAREN KAREN CLIENT PER 15 MIN HOME CARE S5108 [facility] TRAINING 3 AREA AREA HOME AGENCY ON AGENCY ON CARE KAREN KAREN CLIENT PER 15 MIN HOME CARE S5108 [facility] TRAINING 3 AREA AREA HOME AGENCY ON AGENCY ON CARE KAREN KAREN CLIENT PER 15 MIN HOME CARE S5108 [facility] TRAINING 3 AREA AREA HOME AGENCY ON AGENCY ON CARE KAREN KAREN CLIENT PER 15 MIN HOME CARE S5108 [facility] TRAINING 3 AREA AREA HOME AGENCY ON AGENCY ON CARE KAREN KAREN CLIENT PER 15 MIN HOME CARE S5108 [facility] TRAINING 3 AREA AREA HOME AGENCY ON AGENCY ON CARE KAREN KAREN CLIENT PER 15 MIN HOME CARE S5108 [facility] TRAINING 3 AREA AREA HOME AGENCY ON AGENCY ON CARE KAREN KAREN CLIENT PER 15 MIN HOME CARE S5108 [facility] TRAINING 3 AREA AREA HOME AGENCY ON AGENCY ON CARE KAREN KAREN CLIENT PER 15 MIN RADIOLOGI 16809 VERONA GABRIELA 3 [facility] EXAMINAT[facility] RADIOLOGY ON CHEST ASSOCIAT [facility] HOME CARE S5108 [facility] TRAINING 3 AREA AREA HOME AGENCY ON AGENCY ON CARE KAREN KAREN CLIENT PER 15 MIN HOME CARE S5108 [facility] TRAINING 3 AREA AREA HOME AGENCY ON AGENCY ON CARE KAREN KAREN CLIENT PER 15 MIN HOME CARE S5108 [facility] TRAINING 3 AREA AREA HOME AGENCY ON AGENCY ON CARE KAREN KAREN CLIENT PER 15 MIN HOME CARE S5108 [facility] TRAINING 3 AREA AREA HOME AGENCY ON AGENCY ON CARE KAREN KAREN CLIENT PER 15 MIN HOME CARE S5108 [facility] TRAINING 3 AREA AREA HOME AGENCY ON AGENCY ON CARE KAREN KAREN CLIENT PER 15 MIN HOME CARE S5108 [facility] TRAINING 3 AREA AREA HOME AGENCY ON AGENCY ON CARE KAREN KAREN CLIENT PER 15 MIN HOME CARE S5108 [facility] TRAINING 3 AREA AREA HOME AGENCY ON AGENCY ON CARE KAREN KAREN CLIENT PER 15 MIN HOS BED E0260 [facility] ABLECARE SEMI-ELEC 3 W/ANY TYPE SIDE RAIL W/MATTRSS HOME CARE S5108 [facility] TRAINING 3 AREA AREA HOME AGENCY ON AGENCY ON CARE KAREN KAREN CLIENT PER 15 MIN HOME CARE S5108 [facility] TRAINING 3 AREA AREA HOME AGENCY ON AGENCY ON CARE KAREN KAREN CLIENT PER 15 MIN HOME CARE S5108 [facility] TRAINING 3 AREA AREA HOME AGENCY ON AGENCY ON CARE KAREN KAREN CLIENT PER 15 MIN HOME CARE S5108 [facility] TRAINING 3 AREA AREA HOME AGENCY ON AGENCY ON CARE KAREN KAREN CLIENT PER 15 MIN HOME CARE S5108 [facility] TRAINING 3 AREA AREA HOME AGENCY ON AGENCY ON CARE KAREN KAREN CLIENT PER 15 MIN HOME CARE S5108 [facility] TRAINING 3 AREA AREA HOME AGENCY ON AGENCY ON CARE KAREN KAREN CLIENT PER 15 MIN HOME CARE S5108 [facility] TRAINING 3 AREA AREA HOME AGENCY ON AGENCY ON CARE KAREN KAREN CLIENT PER 15 MIN GEL/GEL-L E0185 [place] SAR[facility] PRSS 3 MEDICAL MEDICAL PAD MATTRSS STD DARREL&WDTH MISC TX T1999 [facility] ITEMS & 3 AREA AREA SPL AGENCY ON AGENCY ON RETAIL KAREN KAREN PURCHASE NOC HOME CARE S5108 [facility] TRAINING 3 AREA AREA HOME AGENCY ON AGENCY ON CARE KAREN KAREN CLIENT PER 15 MIN HOME CARE S5108 [facility] TRAINING 3 AREA AREA HOME AGENCY ON AGENCY ON CARE KAREN KAREN CLIENT PER 15 MIN HOME CARE S5108 [facility] TRAINING 3 AREA AREA HOME AGENCY ON AGENCY ON CARE KAREN KAREN CLIENT PER 15 MIN HOME CARE S5108 [facility] TRAINING 3 AREA AREA HOME AGENCY ON AGENCY ON CARE KAREN KAREN CLIENT PER 15 MIN HOME CARE S5108 [facility] 3 AREA AREA HOME AGENCY ON AGENCY ON CARE KAREN KAREN CLIENT PER 15 MIN HOME CARE S5108 [facility] TRA[facility] 2 AREA AREA HOME AGENCY ON AGENCY ON CARE KAREN KAREN CLIENT PER 15 MIN HOME CARE S5108 [facility] TRA[facility] 2 AREA AREA HOME AGENCY ON AGENCY ON CARE KAREN KAREN CLIENT PER 15 MIN HOME CARE S5108 [facility] TRA[facility] 2 AREA AREA HOME AGENCY ON AGENCY ON CARE KAREN KAREN CLIENT PER 15 MIN HOME CARE S5108 [facility] TRA[facility]ING 2 AREA AREA HOME AGENCY ON AGENCY ON CARE KAREN KAREN CLIENT PER 15 MIN HOME CARE S5108 [facility] TRA[facility] 2 AREA AREA HOME AGENCY ON AGENCY ON CARE KAREN KAREN CLIENT PER 15 MIN HOME CARE S5108 [facility] TRA[facility] 2 AREA AREA HOME AGENCY ON AGENCY ON CARE KAREN KAREN CLIENT PER 15 MIN HOME CARE S5108 [facility] TRA[facility] 2 AREA AREA HOME AGENCY ON AGENCY ON CARE KAREN KAREN CLIENT PER 15 MIN HOS BED E0260 [facility] ABLECARE SEMI-ELEC 2 W/ANY TYPE SIDE RAIL W/MATTRSS US SOFT 47483 VERONA GABRIELA TISSUE 2 JUAN J HEAD & RADIOLOGY NECK REAL ASSOCIAT TIME IMGE DOCM CT BONE 25760 VERONA GABRIELA MINERL 2 JUAN J DENSITY RADIOLOGY STUDY 1/> ASSOCIAT SITS AXIAL SKE DUPLEX 18083 VERONA GABRIELA SCAN 2 JUAN J EXTRACRAN RADIOLOGY IAL ART ASSOCIAT COMPL BI STUDY HOME CARE S5108 [facility] TRA[facility] 2 AREA AREA HOME AGENCY ON AGENCY ON CARE KAREN KAREN CLIENT PER 15 MIN HOME CARE S5108 [facility] TRA[facility] 2 AREA AREA HOME AGENCY ON AGENCY ON CARE KAREN KAREN CLIENT PER 15 MIN HOME CARE S5108 [facility] 2 AREA AREA HOME AGENCY ON AGENCY ON CARE KAREN KAREN CLIENT PER 15 MIN ECG 82705 NATALIIA LACEY LACEY NATALIIA ROUTINE 2 MD ECG CONSULTIN W/LEAST G SRV 12 LDS I&R ONLY HOME CARE S5108 [facility] TRA[facility] 2 AREA AREA HOME AGENCY ON AGENCY ON CARE KAREN KAREN CLIENT PER 15 MIN HOME CARE S5108 [facility] TRA[facility] 2 AREA AREA HOME AGENCY ON AGENCY ON CARE KAREN KAREN CLIENT PER 15 MIN RADIOLOGI 68622 MARY Gupta 2 MARVA EXAMINATI RADIOLOGY ON CHEST ASSOCIAT SINGLE VIEW FRONTAL HOME CARE S5108 [facility] 2 AREA AREA HOME AGENCY ON AGENCY ON CARE KAREN KAREN CLIENT PER 15 MIN HOME CARE S5108 [facility] TRA[facility]ING 2 AREA AREA HOME AGENCY ON AGENCY ON CARE KAREN KAREN CLIENT PER 15 MIN HOME CARE S5108 [facility] TRA[facility] 2 AREA AREA HOME AGENCY ON AGENCY ON CARE AKREN KAREN CLIENT PER 15 MIN HOME CARE S5108 [facility] TRA[facility] 2 AREA AREA HOME AGENCY ON AGENCY ON CARE KAREN KAREN CLIENT PER 15 MIN HOME CARE S5108 [facility] TRA[facility]ING 2 AREA AREA HOME AGENCY ON AGENCY ON CARE KAREN KAREN CLIENT PER 15 MIN HOME CARE S5108 [facility] TRAINING 2 AREA AREA HOME AGENCY ON AGENCY ON CARE KAREN KAREN CLIENT PER 15 MIN HOME CARE S5108 [facility] TRA[facility] 2 AREA AREA HOME AGENCY ON AGENCY ON CARE KAREN KAREN CLIENT PER 15 MIN [facility] T1999 [facility] ITEMS & 2 AREA AREA SPL AGENCY ON AGENCY ON RETAIL KAREN KAREN PURCHASE NOC HOME CARE S5108 [facility] 2 AREA AREA HOME AGENCY ON AGENCY ON CARE KAREN KAREN CLIENT PER 15 MIN HOME CARE S5108 [facility] TRA[facility] 2 AREA AREA HOME AGENCY ON AGENCY ON CARE KAREN KAREN CLIENT PER 15 MIN HOME CARE S5108 [facility] TRA[facility] 2 AREA AREA HOME AGENCY ON AGENCY ON CARE KAREN KAREN CLIENT PER 15 MIN HOME CARE S5108 [facility] TRA[facility] 2 AREA AREA HOME AGENCY ON AGENCY ON CARE KAREN KAREN CLIENT PER 15 MIN HOME CARE S5108 [facility] TRA[facility] 2 AREA AREA HOME AGENCY ON AGENCY ON CARE KAREN KAREN CLIENT PER 15 MIN HOME CARE S5108 [facility] TRAIN[facility] 2 AREA AREA HOME AGENCY ON AGENCY ON CARE KAREN KAREN CLIENT PER 15 MIN HOME CARE S5108 [facility] TRA[facility] 2 AREA AREA HOME AGENCY ON AGENCY ON CARE KAREN KAREN CLIENT PER 15 MIN HOME CARE S5108 [facility] TRA[facility] 2 AREA AREA HOME AGENCY ON AGENCY ON CARE KAREN KAREN CLIENT PER 15 MIN HOS BED [id number] [facility] SEMI-ELEC 2 W/ANY TYPE SIDE RAIL W/MATTRSS COMMODE E0163 [facility] CHAIR 2 MOBILE OR STATIONAR Y W/FIXED ARMS THROMBOPL 77241 [facility] [employer], [employer], ASTIN 2 SUPERVISOR WORD PROCESSING SUPERVISOR WORD PROCESSING TIME SHIRIN SHIRIN PARTIAL CO HOS CO HOS PLASMA/WH OLE BLOOD PROTHROMB 57829 [employer], IN TIME 2 SUPERVISOR WORD PROCESSING SUPERVISOR WORD PROCESSING SHIRIN SHIRIN CO HOS CO HOS BLOOD 35478 [facility] [employer], COUNT 2 SUPERVISOR WORD PROCESSING SUPERVISOR WORD PROCESSING COMPLETE SHIRIN SHIRIN AUTO&AUTO CO HOS CO HOS DIFRNTL WBC URNLS DIP 95473 [facility] [employer] [facility] [employer], 2 SUPERVISOR WORD PROCESSING SUPERVISOR WORD PROCESSING STICK/TAB SHIRIN SHIRIN LET CO HOS CO HOS REAGENT AUTO MICROSCOP Y SUSCEPTBI 09334 [employer], LTY STDY 2 SUPERVISOR WORD PROCESSING SUPERVISOR WORD PROCESSING ANTIMICRB SHIRIN SHIRIN IAL AGNT CO HOS CO HOS AGAR DILUTJ CULTURE 30340 [employer] INC, BACTERIAL 2 SUPERVISOR WORD PROCESSING SUPERVISOR WORD PROCESSING SHIRIN SHIRIN QUANTTATI CO HOS CO HOS VE COLONY COUNT URINE CULTURE 06018 [employer], BCT 2 SUPERVISOR WORD PROCESSING SUPERVISOR WORD PROCESSING ISOL&PRSM SHIRIN SHIRIN PTV ID CO HOS CO HOS ISOLATE EA URINE CULTURE 04842 [employer], BCT 2 SUPERVISOR WORD PROCESSING SUPERVISOR WORD PROCESSING ISOL&PRSM SHIRIN SHIRIN PTV ID CO HOS CO HOS ISOLATE EA URINE CULTURE 33745 [facility] [email or web address] INC, BACTERIAL 2 SUPERVISOR WORD PROCESSING SUPERVISOR WORD PROCESSING SHIRIN SHIRIN QUANTTATI CO HOS CO HOS VE COLONY COUNT URINE SUSCEPTBI 00714 [employer], LTY STDY 2 SUPERVISOR WORD PROCESSING SUPERVISOR WORD PROCESSING ANTIMICRB SHIRIN SHIRIN IAL AGNT CO HOS CO HOS AGAR DILUTJ URNLS DIP 65727 [facility] [employer], [employer], 2 SUPERVISOR WORD PROCESSING SUPERVISOR WORD PROCESSING STICK/TAB SHIRIN SHIRIN LET CO HOS CO HOS REAGENT AUTO MICROSCOP Y ALBUMIN 05701 [employer], [employer] INC, SERUM 2 SUPERVISOR WORD PROCESSING SUPERVISOR WORD PROCESSING PLASMA/WH SHIRINJACK KIRBYS OLE BLOOD CO HOS CO HOS DRUG 99431 [facility] [employer] [facility] INC, SCREEN 2 SUPERVISOR WORD PROCESSING SUPERVISOR WORD PROCESSING QUANTITAT SHIRIN TURNEROLAS BLAIR CO HOS CO HOS PHENYTOIN TOTAL BLOOD 79883 [facility] [employer] [facility] INC, COUNT 2 SUPERVISOR WORD PROCESSING SUPERVISOR WORD PROCESSING SMEAR SHIRIN KIRBYS MCRSCP CO HOS CO HOS W/MNL DIFRNTL WBC COUNT BASIC 85064 [facility] [employer] [facility] INC, METABOLIC 2 SUPERVISOR WORD PROCESSING SUPERVISOR WORD PROCESSING PANEL SHIRIN SHIRIN CALCIUM CO HOS CO HOS TOTAL BLOOD 69707 [facility] [email or web address] INC, COUNT 2 SUPERVISOR WORD PROCESSING SUPERVISOR WORD PROCESSING COMPLETE SHIRIN SHIRIN AUTO&AUTO CO HOS CO HOS DIFRNTL WBC URNLS DIP 22621 [facility] [employer] [facility] [employer], 2 SUPERVISOR WORD PROCESSING SUPERVISOR WORD PROCESSING STICK/TAB SHIRIN KIRBYS LET CO HOS CO HOS REAGENT AUTO MICROSCOP Y CULTURE 06931 [facility] [employer] [facility] [employer], BACTERIAL 2 SUPERVISOR WORD PROCESSING SUPERVISOR WORD PROCESSING SHIRIN SHIRIN QUANTTATI CO HOS CO HOS VE COLONY COUNT URINE SBSQ 95956 [facility] 2 [facility] FACIL INTERNAL CARE/DAY MED NEW PROBLEM 25 MIN DEBRIDEME 72612 [facility] FED LAUSE FED NT NAIL 1 ANY METHOD 6/> SBSQ 82112 [facility] FED NURSING 1 FACIL CARE/DAY MINOR COMPLJ 15 MIN AMBULANCE A0428 [facility] SERVICE 1 AMBULANCE AMBULANCE BLS SERVICE SERVICE [facility] TRANSPORT GROUND A0425 [facility] MILEAGE 1 AMBULANCE AMBULANCE PER SERVICE SERVICE STATUTE MILE ANESTHESI 32966 [facility] OPEN 1 ANESTH ROBERT PROCEDURE OF THE S UPPER BLUE 2/3 FEMUR NOS RADIOLOGI 57118 [place] [facility] 1 MEDICAL ANN MARIE EXAMINATI IMAGING ON PELVIS ASS 1/2 VIEWS RADEX HIP 14013 [facility] 1 MEDICAL ANN MARIE UNILATERA IMAGING L ASS COMPLETE MINIMUM 2 VIEWS RADIOLOGI 76405 [facility] C 1 MARVA EXAMINATI RADIOLOGY ON CHEST ASSOCIAT [place] FRONTAL RADEX 56352 [facility] HIPS 1 MARVA BILATERAL RADIOLOGY 2 VIEWS ASSOCIAT ANTEROPOS T PELVIS RADEX TOE 04056 [facility] MINIMUM 1 JUAN J 2 VIEWS RADIOLOGY ASSOCIAT DRUG 19547 SHIRIN CARPIO SCREEN 1 CO CO [facility] BLAIR PHENYTOIN TOTAL NATRIURET 76338 SHIRIN CARPIO IC 1 CO CO [facility] BLOOD 67859 SHIRIN CARPIO COUNT 1 CO CO [facility] AUTO&[place] [address] SHIRIN CARPIO THYROID 1 [facility] COM[facility] 98245 SHIRIN CARPIO SIVE 1 CO CO [facility] PANEL RADIOLOGI 01766 [facility] GABRIEL[facility] C EXAM 1 JUAN J CHEST 2 RADIOLOGY VIEWS ASSOCIAT FRONTAL&L ATERAL COLLECTIO 99258 SHIRIN CARPIO N VENOUS 1 [facility] VENIPUNCT URE WALKER E0143 [facility] 1 HOME HOME WHEELED MEDICAL MEDICAL ADJUSTABL EQUIPME EQUIPME E/FIXED HEIGHT GROUND A0425 [facility] MILEAGE 1 [facility] STATUTE EMS EMS MILE AMB A0427 [facility] SERVICE 1 [facility] EMERGENCY EMS EMS TRANSPORT LEVEL 1 ECG 61211 JESUS PERALES ROUTINE 1 EMERGENCY ECG SERVICES W/LEAST 12 LDS I&R ONLY RADIOLOGI 19682 [place] [facility] Gupta 1 MEDICAL ANN MARIE EXAMINATI IMAGING ON CHEST ASS [place] FRONTAL RADIOLOGI 00393 BR[facility]NI ELKINS C 1 [facility] EXAMINATI INC INC ON CHEST [place] FRONTAL BLOOD 94489 BRITTNI ELKINS COUNT 1 [facility] COMPLETE INC INC AUTO&AUTO DIFRNTL WBC COMPREHEN 08121 BRITTNI ELKINS SIVE 1 [facility] METABOLIC INC INC PANEL CREATINE 74258 BRITTNI ELKINS KINASE MB 1 [facility] [place] [address] BRITTNI ELKINS TROPONIN 1 [facility] QUANTITAT INC INC BLAIR NATRIURET 41982 BRITTNI ELKINS IC 1 [facility] MEM HOS[facility] PEPTIDE INC INC CULTURE 57035 BRITTNI ELKINS BACTERIAL 1 [facility] HOSP BLOOD INC INC AEROBIC W/ID ISOLATES URNLS DIP 47633 BRITTNI ELKINS 1 [facility] HOSP STICK/TAB INC INC LET REAGENT AUTO MICROSCOP Y CREATINE 43152 BRITTNI ELKINS KINASE 1 [facility] TOTAL INC INC ECG 47655 BRITTNI RDZ ROUTINE 1 [facility] W/LEAST P 12 LDS I&R ONLY THERAPEUT 15275 BRITTNI ELKINS IC 1 [facility] HOSP INJECTION [place] [address] BRITTNI ELKINS INFUSION 1 [facility] HOSP THERAPY/P INC INC ROPHYLAXI S /DX 1ST TO 1 HR ECG 97903 BRITTNI ELKINS ROUTINE 1 [facility] HOSP ECG INC INC W/LEAST 12 LDS TRCG ONLY W/O I&R DRUG 73878 BRITTNI ELKINS SCREEN 1 [facility] HOSP QUANTITAT INC INC BLAIR PHENYTOIN [facility] 54603 [facility] DISCHARGE 1 MEDICAL STACY DAY SERV MANAGEMEN FOUNDATIO T 30 MIN/< SBSQ 80854 [facility] 1 MEDICAL STACY CARE/DAY SERV 25 FOUNDATIO MINUTES LOCALIZE 01889 [place] CEREBRAL 1 MEDICAL TIM SEIZURE SERV CABLE/RAD FOUNDATIO IO EEG/VIDEO RADIOLOGI 93865 [place] IRMA C 1 MEDICAL [place] EXAMINATI SERV ON CHE[place] [address] [facility] ANGIOGRAP 1 MEDICAL [place] HY CHEST SERV W/CONTRAS FOUNDATIO T/NONCONT RAST SBSQ 49599 [facility] 1 MEDICAL SABINE CARE/DAY SERV 35 FOUNDATIO MINUTES SBSQ 74479 [facility] 1 MEDICAL SABINE CARE/DAY SERV 35 FOUNDATIO MINUTES MRA NECK 93925 TAM TEJADA W/O 1 MEDICAL SATISH CONTRST SERV MATERIAL FOUNDATIO MRI BRAIN 64222 [place] TERRELL BRAIN 1 MEDICAL SATISH STEM W/O SERV W/CONTRAS FOUNDATIO T MATERIAL RADEX 59411 [place] SAL ABDOMEN 1 1 MEDICAL ART SERV ANTEROPOS FOUNDATIO TERIOR VIEW MRA HEAD 56503 [place] TEJADA W/O 1 MEDICAL SATISH CONTRST SERV MATERIAL FOUNDATIO RADIOLOGI 53358 [place] ATTILI C 1 MEDICAL ANI EXAMINATI SERV ON CHEST FOUNDATIO [place] LOCALIZE 20362 [place] CEREBRAL 1 MEDICAL TIM SEIZURE SERV CABLE/RAD FOUNDATIO IO EEG/VIDEO RADIOLOGI 77590 [place] NICKELS C 1 MEDICAL STACY EXAMINATI SERV ON CHEST FOUNDATIO [place] INITIAL 57477 [place] [facility] 1 MEDICAL LINDSAY CARE/DAY SERV 50 FOUNDATIO MINUTES CRITICAL 69733 [place] ELE[place] CARE 1 MEDICAL YAMILETH ILL/INJUR SERV ED FOUNDATIO PATIENT INIT 30-74 MIN GROUND A0425 [facility] MILEAGE 1 [facility] STATUTE EMS EMS MILE AMB A0427 [facility] SERVICE 1 [facility] EMERGENCY EMS EMS TRANSPORT LEVEL 1 INSERTION 9604 [facility] EAL TUBE CONT 9671 [facility] INVASIVE 1 Y Y [facility] < 96 CONSECUTI VE HOURS SPINAL 0331 [facility] TAP [address] [facility]OSPITAL ECHO 78300 [place] LISE CHANEL TTHRC R-T 1 MEDICAL 2D SERV W/WOM-MOD FOUNDATIO E COMPL SPEC&COLR D CYTP 64302 [place] CAMILA CONCENTRA 1 MEDICAL BRILL YOL TION SERV SMEARS & FOUNDATIO INTERPRET ATION INTUBATIO 68301 [place] ELE[place] N 1 MEDICAL YAMILETH ENDOTRACH SERV [place] [address] [place] TERRELL HEAD/BRAI 1 MEDICAL SATISH N W/O SERV CONTRAST FOUNDATIO MATERIAL ECG 93239 NATALIIA LACEY LACEY NATALIIA ROUTINE 1 MD ECG CONSULTIN W/LEAST G SRV 12 LDS I&R ONLY RADIOLOGI 73916 [facility] C EXAM 1 EIDER KRISTAN CHEST 2 RADIOLOGY VIEWS ASSOCIAT FRONTAL&L ATERAL ELEVATING K0195 [facility] 1 PAIR HEAVY-DUT K0006 [facility] Y 1 WHEELCHAI R HEAVY-DUT K0006 [facility] Y 1 WHEELCHAI R ELEVATING K0195 [facility] LEGREST 1 PAIR ELEVATING K0195 [facility] LEGREST 1 PAIR HEAVY-DUT K0006 [facility] Y 1 WHEELCHAI R HEAVY-DUT K0006 [facility] Y 1 WHEELCHAI R ELEVATING K0195 [facility] LE[facility]ST 1 PAIR URNLS DIP 41949 SHIRIN CARPIO 1 CO CO STICK[facility] HOSPITAL LET REAGENT AUTO MICROSCOP Y ELEVATING K0195 [facility] 1 PAIR HEAVY-DUT K0006 [facility] Y 1 WHEELCHAI R ELEVATING K0195 [facility] LEGREST 0 PAIR HEAVY-DUT K0006 [facility] Y 0 WHEELCHAI R HEAVY-DUT K0006 [facility] Y 0 WHEELCHAI R ELEVATING K0195 [facility] LEGREST 0 PAIR ELEVATING K0195 [facility] LEGREST 0 PAIR HEAVY-DUT K0006 [facility] Y 0 WHEELCHAI R HEAVY-DUT K0006 [facility] Y 0 WHEELCHAI R ELEVATING K0195 [facility] LEGREST 0 PAIR RADIOLOGI 27236 [facility] C EXAM 0 MARVA CHEST 2 RADIOLOGY VIEWS ASSOCIAT FRONTAL&L ATERAL COLLECTIO 68121 SHIRIN CARPIO N VENOUS 0 CO LA BLOOD [facility] VENIPUNCT URE BLOOD 55119 SHIRIN CARPIO COUNT 0 CO CO COMPLETE [facility] AUTO&AUTO DIFRNTL WBC BLOOD 92848 SHIRIN CARPIO COUNT [address] [facility] HOSPITAL MCRSCP W/MNL DIFRNTL WBC COUNT BASIC 00013 SHIRIN CARPIO METABOLIC 0 CO [facility] CALCIUM TOTAL CYSTOURET 51070 [facility] HROSCOPY 0 LTH THO TX FEMALE UROLOGY URETHRAL PSC SYNDROME INITIAL 40466 [facility] OBSERVATI 0 LTH THO ON UROLOGY CARE/DAY PSC 30 MINUTES URNLS DIP 03937 [place] [facility] 0 [facility] STICK/TAB HOSPITAL HOSPITAL LET REAGENT AUTO MICROSCOP Y CYSTO 77664 [place] CALIBRATI 0 [facility] ON DILAT HOSPITAL HOSPITAL URTL STRIX/SATISH NOSIS IADNA 44691 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 NEISSERIA 0 Y [facility] [place] [facility] GONORRHOE H H AE AMPLIFIED PROBE TQ SCR G0145 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 CYTOPATH 0 Y [facility] CERV/VAG [place] SCR H H AUTO&MNL RSCR PHYS IADNA 47235 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 CHLAMYDIA 0 Y [facility] [facility] TRACHOMAT H H IS AMPLIFIED PROBE TQ HEAVY-DUT K0006 [facility] Y 0 WHEELCHAI R ELEVATING K0195 [facility] LEGREST 0 PAIR EXC B9 75701 SHIRIN CARPIO LESION 0 CO [facility] SK TG T/A/L 2.1-[place] [address] PATHOLOGY PATHOLOGY SURG 0 & & PATHOLOGY CYTOLOGY CYTOLOGY LAB LAB GROSS&ALBAN ROSCOPIC EXAM EXC B9 95492 ARMIN ARMIN LESION 0 ARI ARI [facility] TG T/A/L 0.6-1.0 CM ECG 46006 NATALIIA LACEY LACEY NATALIIA ROUTINE 0 MD ECG CONSULTIN W/LEAST G SRV 12 LDS I&R ONLY ELEVATING K0195 [facility]ST 0 PAIR HEAVY-DUT K0006 [facility] Y 0 WHEELCHAI R RADIOLOGI 45352 TAM , C 0 MEDICAL FAUSTO Gaspar EXAMINATI SERV ON TIBIA FOUNDATIO & FIBULA 2 VIEWS RADEX 74811 TAM MONTANO, ANKLE 0 MEDICAL [facility] Gaspar COMPLETE SERV MINIMUM 3 FOUNDATIO VIEWS RADEX 37385 TAM MONTANO, FOOT 0 MEDICAL [facility]UST[facility] Gaspar COMPLETE SERV MINIMUM 3 FOUNDATIO VIEWS RADIOLOGI 58357 TAM KING C 0 MEDICAL FAUSTO Gaspar EXAMINATI SERV ON KNEE [address] [facility] 74370 [facility] DIS[facility] 0 ARI ARI DAY MANAGEMEN T > 30 MIN INITIAL 84267 [facility] 0 ARI ARI CARE/DAY 70 MINUTES RADIOLOGI 19556 Candy MONROE EXAM 0 NAYELY S KNEE RADIOLOGY COMPLETE 4/MORE ASSOCIATE VIEWS S PSC RADIOLOGI 37720 TWIN BRIDGESCandy TERAN 0 NAYELY Ortiz EXAMINATI RADIOLOGY ON CHEST SINGLE ASSOCIATE VIEW S PSC FRONTAL BLOOD 99641 SHIRIN CARPIO COUNT [address] [facility] HOSPITAL AUTO&AUTO DIFRNTL WBC URNLS DIP 83431 SHIRIN CARPIO 0 CO CO STICK/TAB [facility] LET REAGENT AUTO MICROSCOP Y COMPREHEN 47528 SHIRIN CARPIO SIVE [address] [facility]OSPITAL PANEL COLLECTIO 26760 SHIRIN CARPIO N VENOUS [address] [facility] HOSPITAL VENIPUNCT URE RADIOLOGI 92437 SHIRIN Gupta EXAM 0 CO CO CHEST 2 [facility] HOSPITAL VIEWS FRONTAL&L ATERAL LIPID 74957 SHIRIN CARPIO PANEL 0 CO [facility] IIV3 22690 ARMIN FUNEZ, VACCINE 9 GAMAL Velazquez SPLIT VIRUS 0.5 ML DOSAGE IM USE ADMINISTR G0008 ARMIN FUNEZ, ATION OF 9 GAMAL Velazquez INFLUENZA VIRUS VACCINE SCREENING 67603 BR[facility] ELKINS 9 [facility] MAMMOGRAP INC INC HY BILATERAL BLOOD 86031 BRITTNI ELKINS COUNT 9 [facility] HOSP COMPLETE INC INC AUTO&AUTO DIFRNTL WBC RADIOLOGI 91692 BRITTNI ELKINS C EXAM 9 [facility] HOSP CHEST 2 INC INC VIEWS FRONTAL&L ATERAL COLLECTIO 01135 BRITTNI ELKINS N VENOUS 9 [facility] BLOOD INC INC VENIPUNCT URE HEPATIC 78232 BRITTNI ELKINS FUNCTION 9 [facility] PANEL INC INC COMPUTER- 23815 BRITTNI ELKINS AIDED 9 [facility] HOSP DETECTION INC INC SCREENING MAMMOGRAP HY RADIOLOGI 23224 Candy MONROE EXAM 8 NAYELY S CHEST 2 RADIOLOGY VIEWS FRONTAL&L ASSOCIATE ATERAL S PSC Encounters Encounter Start End Date Code Location Performer Type Date [facility] 7 7 [facility] 7 7 [facility] 7 7 [facility]PAT[facility] 7 7 [facility] 7 7 [facility] 7 7 [facility] INPATIENT 7 7 [facility] 7 [facility] EMERGENCY 42769 SURAJ SANTIAGO DEPT 7 7 PHYSICIAN VISIT S, PLLC HIGH SEVERITY& THREAT FUNCJ OFFICE 36132 DERMATOLO MUSIC OUTPATIEN 7 7 GY T VISIT CONSULTAN 10 TS PSC MINUTES OFFICE 98741 DERMAT[facility]O MUSIC OUTPATIEN 7 7 GY T VISIT CONSULTAN 15 TS PSC MINUTES OFFICE 98959 DERMATOLO ALEXIS OUTPATIEN 6 6 GY T NEW 10 CONSULTAN MINUTES TS [facility] HOSPITAL BRITTNI - OTHER 6 6 [facility] BRITTNI - OTHER 6 6 [facility] 5 5 [facility] - OTHER [facility] 5 5 [facility] 5 5 [facility] OTHER [facility] F[facility] 5 5 [facility] - OTHER [facility] IN[facility] 5 5 [facility] EMERGENCY 13170 BRITTNI 5 5 [facility] DEPARTMEN INC T VISIT HIGH/URGE NT SEVERITY HOSPITAL BRITTNI - 5 5 [facility] OUTPATIEN INC T [facility] 5 5 [facility]OSP[facility] BRITTNI - 5 5 [facility] INPATIENT INC [facility] 5 5 [facility] JAIL [facility] 5 5 [facility] JAIL EMERGENCY 56370 BRITTNI ARMAAN [address] [facility] T VISIT P HIGH/URGE NT SEVERITY HOSPITAL BRITTNI - 5 5 [facility] INPATIENT INC [facility]ICAL [facility] INC, ACCESS 4 4 [facility] SHIRIN CO HOS CRITICAL [facility] INC, ACCESS 3 3 [facility] SHIRIN CO HOS EMERGENCY 50828 [facility] INC, 3 3 [facility] T VISIT CO HOS HIGH/URGE NT SEVERITY CRITICAL [facility] INC, ACCESS 3 3 [facility] SHIRIN CO HOS EMERGENCY 60854 SHIRIN DOMINGUEZ 3 3 CO [facility] T VISIT MODERATE SEVERITY CRITICAL [facility] INC, ACCESS 3 3 [facility] SH[facility] CO HOS CRITICAL [facility] INC, ACCESS 3 3 [facility] SHIRIN CO HOS OFFICE 49827 ARMIN ARMIN OUTPATIEN 3 3 ARI ARI T VISIT 15 MINUTES EMERGENCY 36747 SHIRIN MORGAN 3 3 [facility] T VISIT MODERATE SEVERITY OFFICE 10162 MARY FISHER ARI OUTPATIEN 3 3 N T NEW 45 NEUROLOGY MINUTES OFFICE 83811 ARMIN ARMIN OUTPATIEN 2 2 ARI ARI T VISIT 15 MINUTES OFFICE 26389 ARMIN ARMIN OUTPATIEN 2 2 ARI ARI T VISIT 15 MINUTES CRITICAL [facility] INC, ACCESS 2 2 [facility] CRITICAL [facility] INC[facility] ACCESS 2 2 [facility] CRITICAL [facility] ACCESS 2 2 [facility] CRITICAL [facility] ACCESS 2 2 [facility] CRITICAL [facility] INC, ACCESS 2 2 [facility] CRITICAL [facility] ACCESS 2 2 [facility] CRITICAL SHIRIN ACCESS 1 1 [facility] EMERGENCY 96604 [facility] DEPT 1 1 EMERGENCY VISIT SERVICES HIGH SEVERITY& THREAT FUNCJ EMERGENCY 01838 BRITTNI 1 1 [facility] T VISIT HIGH/URGE NT SEVERITY HOSPITAL BRITTNI - 1 1 [facility] OUTPATIEN [facility]OSPITAL UNIVERSIT - 1 1 Y INPATIENT HOSPITAL OFFICE 04796 ARMIN WAREO OUTPATIEN 1 1 ARI ARI T VISIT 15 MINUTES OFFICE 81035 ARMIN ARMIN OUTPATIEN 1 1 ARI ARI T VISIT 10 MINUTES OFFICE 56402 ARMIN ARMIN OUTPATIEN 1 1 ARI ARI T VISIT 15 MINUTES CRITICAL SHIRIN ACCESS 1 1 [facility] HOSPITAL OFFICE 91552 ARMIN ARMIN OUTPATIEN 0 0 ARI ARI T VISIT 15 MINUTES OFFICE 59240 ARMIN ARMIN OUTPATIEN 0 0 ARI ARI T VISIT 10 MINUTES OFFICE 60796 ARMIN ARMIN OUTPATIEN 0 0 ARI ARI T VISIT 15 MINUTES CRITICAL SHIRIN ACCESS 0 0 [facility] BOUR[facility] - 0 0 [facility] T OFFICE 60600 [facility] OUTPATIEN 0 0 LTH THO T NEW 30 UROLOGY MINUTES PSC CRITICAL SHIRIN ACCESS 0 0 [facility] HOSPITAL OFFICE 28544 TAM COATES, OUTPATIEN 0 0 MEDICAL CASSIDY D T VISIT SERV 10 FOUNDAT[facility] MINUTES EMERGENCY 19993 [place] CELIS, 0 0 MEDICAL ABHIJEET DEPARTMEN SERV T VISIT FOUNDATIO MODERATE SEVERITY OFFICE 18547 ARMIN FUNEZ, OUTPATIEN 0 0 MODE MODE T VISIT 15 MINUTES CRITICAL SHIRIN ACCESS 0 0 [facility] HOSPITAL OFFICE 93029 ARMIN FUNEZ, OUTPATIEN 0 0 MODE MODE T VISIT 15 MINUTES OFFICE 91023 ARMIN FUNEZ OUTPATIEN 9 9 MODE MODE T VISIT 15 MINUTES OFFICE 28230 ARMIN FUNEZ OUTPATIEN 9 9 MODE MODE T VISIT 15 MINUTES OFFICE 89384 ARMIN FUNEZ OUTPATIEN 9 9 MODE MODE T VISIT 15 MINUTES OFFICE 19920 ARMIN FUNEZ OUTPATIEN 9 9 MODE MODE T VISIT 15 MINUTES HOSP[facility]ITTNI - 9 9 [facility] 11142 ARMIN FUNEZ OUTPATIEN 8 8 MODE MODE T VISIT 15 MINUTES OFFICE 08402 ARMIN FUNEZ OUTPATIEN 8 8 MODE MODE T VISIT 15 MINUTES OFFICE 99891 ARMIN FUNEZ OUTPATIEN 8 8 MODE MODE T VISIT 15 MINUTES OFFICE 80821 SCHULSTAD SCHULSTAD OUTPATIEN 8 8 , LINCOLN LINCOLN T VISIT 15 MINUTES [facility] SHIRIN ACCESS 8 8 [facility]OSP[facility] OFFICE 62300 ARMIN FUNEZ OUTPATIEN 8 8 MODE MODE T VISIT 10 MINUTES OFFICE 08587 ARMIN FUNEZ OUTPATIEN 8 8 MODE MODE T VISIT 15 MINUTES OFFICE 97463 ARMIN FUNEZ OUTPATIEN 8 8 MODE MODE T VISIT 15 MINUTES [facility]OSP[facility] SHIRIN - 8 8 [facility] T OFF[facility] 76693 SCHULSTAD SCHULSTAD OUTPATIEN 8 8 , LINCOLN LINCOLN T VISIT 15 MINUTES OFFICE 31507 ARMIN FUNEZ OUTPATIEN 8 8 MODE MODE T VISIT 10 MINUTES
--- OUTSIDE RECORDS SUMMARY | 2017-06-11 05:34 | External Medical Summary Rpt | CCD ---
Author Author , SHERLEY Organization [facility] Address Unknown Phone Care Team Providers Care Ophthalmic Surgical Assistant Name Role Phone [facility], [facility] Unavailable Unavailable [facility], [facility] Unavailable Unavailable EPPERSON STACY, EPPERSON Unavailable Unavailable STACY [facility], Unavailable Unavailable INC., [facility] LEZAMA DARÍO, LEZAMA DARÍO Unavailable Unavailable ATTILI ANI, ATTILI Unavailable Unavailable ANI BEINEKE ANGEL, BEINEKE Unavailable Unavailable ANGEL BENSADOUN SABINE, Unavailable Unavailable BENSADOUN SABINE BENSALEM TIM, Unavailable Unavailable BENSALEM TIM BESSON SATISH, BESSON Unavailable Unavailable SATISH [facility] Unavailable Unavailable ON KAREN, [facility] ON KAREN [facility] Unavailable Unavailable ON KAREN, [facility] ON KAREN [facility] Unavailable Unavailable CARE SERV, [facility] LR, LR Unavailable Unavailable LR ALL, LR ALL Unavailable Unavailable BOONSTRA TOD, Unavailable Unavailable BOONSTRA TOD [facility] Unavailable Unavailable [facility] Unavailable Unavailable SERVICE, [facility] Unavailable Unavailable SERVICE, [facility] GABRIELA ARITA, OCHOA Unavailable Unavailable JUAN J [facility] Unavailable Unavailable LA, [facility]available Unavailable [facility], [facility] Unavailable Unavailable LAB, [facility] Unavailable Unavailable LAB, [facility] LACEY NATALIIA, LACEY NATALIIA Unavailable Unavailable [facility] Unavailable Unavailable PSC, [facility] ABEL JR BRAD, ABEL Unavailable [...] Unavailable JOHNNA ANUM, Unavailable Unavailable JOHNNA ANUM [facility] Unavailable Unavailable INC, [facility] Unavailable Unavailable HOSPITAL P, [facility] AMEE FRA, AMEE FRA Unavailable Unavailable STARKEY MARVA, STARKEY Unavailable Unavailable MARVA STARKEY, NAYELY S, Unavailable Unavailable STARKEY, NAYELY S [facility], Unavailable Unavailable [facility] Unavailable Unavailable INC, [facility] GONZALEZ TYL, GONZALEZ Unavailable Unavailable TYL ELENA YAMILETH, Unavailable Unavailable ELENA YAMILETH RAGINI GARCIA Unavailable Unavailable [facility], [facility] Unavailable Unavailable IMAGING ASS, [facility] FAUSTO MONTANO KING, Unavailable Unavailable [...] DWI, LARRY Unavailable Unavailable JR DWI [facility]ICK[facility] HASSELL Unavailable Unavailable INTERNAL MED, [facility] MED SAL ART, SAL Unavailable Unavailable ART ARMINESTRADA CHAPMAN ARMIN Unavailable Unavailable ARI CHAPMAN ARMIN Unavailable Unavailable GAMAL GILMORE, Unavailable Unavailable GAMAL FUNEZ SHILO MARVA, SHILO Unavailable Unavailable MARVA ARMAAN LORI, ARMAAN Unavailable Unavailable LORI [facility] Unavailable Unavailable SERVICES, [facility] MARYCRUZ JOEL Unavailable Unavailable [facility] Unavailable Unavailable ASSOCIAT, [facility] MCRAISSA QUINN BRAD, Unavailable Unavailable CONNIE QUINN BRAD DUNCAN, DUNCAN Unavailable Unavailable DUNCAN BRAD, DUNCAN Unavailable Unavailable BRAD [facility] Unavailable Unavailable [facility]/$2000 LE, [facility]/$2000 LE [facility] Unavailable Unavailable [facility]/$2000 VIS, [facility]FP PRE-TRANSITION/$2000 VIS 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 Unavailable Unavailable CO HOS, 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 CAMILA BRILL YOL, Unavailable Unavailable CAMILA BRILL YOL MUSIC, MUSIC Unavailable Unavailable [facility] Unavailable Unavailable [facility], Unavailable Unavailable [facility] RAJ LINDSAY, RAJ Unavailable Unavailable [facility] Unavailable Unavailable [facility] Unavailable Unavailable [facility], Unavailable Unavailable [facility] Unavailable Unavailable AMBULANCE , [facility] Unavailable Unavailable AMBULANCE SE, [facility] Unavailable Unavailable HOSPITAL, [facility] NICKELS STACY, NICKELS Unavailable Unavailable STACY [facility], Unavailable Unavailable [facility] JUAREZ LOY, JUAREZ Unavailable Unavailable LOY FISHER ARI, FISHER ARI Unavailable Unavailable NATALIIA LACEY MD Unavailable Unavailable CONSULTING SRV, NATALIIA LACEY MD CONSULTING SRV [facility] Unavailable Unavailable EMS, [facility] Unavailable Unavailable EMS, [facility], Unavailable Unavailable PLLC, [facility] [...] ZARCOER Unavailable Unavailable HAROLDO PIERRE Unavailable Unavailable [facility], Unavailable Unavailable [facility] ARUN KRISTAN, ARUN Unavailable Unavailable KRISTAN SONG [...] I471 SUPRAVENTRI 05-27-2017 [facility] CULAR [facility] TACHYCARDIA [facility] J189 PNEUMONIA 05-27-2017 [facility] UNSPECIFIED JOSE ORGANISM [facility] K8590 ACUTE 05-27-2017 [facility] PANCREATITI JOSE S WO NURSING NECROSIS/IN HOME FECTION UNSPEC N390 URINARY 05-27-2017 [facility] TRACT JOSE INFECTION NURSING SITE NOT HOME SPECIFIED B9620 UNS E COLI 05-20-2017 [facility] E. COLI JOSE CAUSE DZ NURSING CLASS HOME ELSEWHERE D649 ANEMIA 05-20-2017 [facility] UNSPECIFIED JOSE [facility] N289 DISORDER OF 05-20-2017 [facility] KIDNEY AND JOSE URETER NURSING UNSPECIFIED HOME R1312 DYSPHAGIA 05-20-2017 [facility] OROPHARYNGE JOSE AL PHASE [facility] R7881 BACTEREMIA 05-20-2017 [facility] GARCIA [facility] Z1612 EXTENDED 05-20-2017 [facility] SPECTRUM JOSE BETA NURSING LACTAMASE HOME ESBL RESISTANCE R7301 IMPAIRED 05-11-2017 [facility] GLUCOSE LAB E870 HYPEROSMOLA 05-06-2017 LAB [facility] LITY AND [place] HYPERNATREM HOLDINGS [place] E875 HYPERKALEMI 05-06-2017 LAB ARIEL A [place] HOLDINGS I67058 EPILEPSY 05-06-2017 LAB ARIEL UNS NOT [place] INTRACT W/O HOLDINGS STATUS EPILEPTICUS H6060 UNSPECIFIED 04-21-2017 [facility] CHRONIC E OTITIS EXTERNA UNS EAR B351 TINEA 02-22-2017 [facility] UNGUIUM E I739 PERIPHERAL 02-22-2017 [facility] VASCULAR E DISEASE UNSPECIFIED M2040 OTHER 02-22-2017 [facility] HAMMER TOES E ACQUIRED UNSPECIFIED FOOT R410 DISORIENTAT 01-21-2017 [facility] UNSPECIFIED SERVICE Z452 ENCOUNTER 01-19-2017 [place] [facility] VASCULAR ACCESS DEVICE R05 COUGH 01-18-2017 [facility] [facility] R062 WHEEZING 01-18-2017 [place] [facility] R0602 SHORTNESS 01-17-2017 [place] [facility] B21856 PERSONAL 01-17-2017 [facility] HISTORY OF PHYSICIANS, NICOTINE PLLC DEPENDENCE O43401 UNSPECIFIED 01-13-2017 SUSAN SONG PSC BLEPHAROCON JUNCTIVITIS BILATERAL H2511 AGE-RELATED 01-13-2017 SUSAN Chance NUCLEAR [facility] P[facility] CATARACT RIGHT EYE L905 SCAR 12-30-2016 DERMATOLOGY CONDITIONS AND CONSULTANTS FIBROSIS OF PSC SKIN R69 ILLNESS 12-30-2016 [facility] UNSPECIFIED TRANSPORTAT ION SER Z08 ENCOUNTER 12-30-2016 DERMATOLOGY F/U EXAM AFTER CMPL CONSULTANTS TX KALEB PSC NEOPLASM F57201 PERSONAL 12-30-2016 DERMATOLOGY HISTORY OTHER CONSULTANTS MALIGNANT PSC NEOPLASM SKIN D0461 CARCINOMA 10-28-2016 DERMATOLOGY IN SITU SKIN RT CONSULTANTS UPPER LIMB PSC INCL SHLDR C4911 MALIG 08-25-2016 [facility] NEOPLASM EXTENDED CONN SOFT CARE SERV TISS RT UP LIMB W/SHLDR H93983 PAIN IN 08-17-2016 [facility] RIGHT TOES E J69254 PAIN IN 08-17-2016 [facility] LEFT TOES E D485 NEOPLASM OF 08-16-2016 DERMATOLOGY UNCERTAIN BEHAVIOR OF CONSULTANTS SKIN PSC G4089 OTHER 08-07-2016 [facility] SEIZURES EXTENDED CARE SERV K219 GASTRO-ESOP 08-07-2016 [facility] H REFLUX EXTENDED DISEASE CARE SERV WITHOUT ESOPHAGITIS R601 GENERALIZED 08-07-2016 [facility] EDEMA EXTENDED CARE SERV D229 MELANOCYTIC 08-06-2016 [facility] NEVI EXTENDED UNSPECIFIED CARE SERV Z75108 CELLULITIS 08-06-2016 [facility] OF RIGHT EXTENDED UPPER LIMB CARE SERV R109 UNSPECIFIED 06-21-2016 [facility] ABDOMINAL PHYSICIANS PAIN LA R509 FEVER 05-10-2016 [facility] UNSPECIFIED MEM HOS[facility] INC R5383 OTHER 05-10-2016 [facility] FATIGUE [facility] INC B88010 UNSPECIFIED 04-16-2016 SUSAN CamAra PTOSIS OF DUNCAN P[facility] RIGHT EYELID A63699 ACUTE 03-25-2016 [facility] LYMPHANGITI E S OF LEFT TOE L600 INGROWING 03-25-2016 [facility] NAIL E M51371 PAIN IN 03-25-2016 [facility] UNSPECIFIED E FOOT P11781R CONTUSION 03-25-2016 [facility] RT GREAT E TOE W/DAMAGE NAIL INITIAL ENC X05842W ABRASION 03-25-2016 [facility] RIGHT GREAT E TOE INITIAL ENCOUNTER E039 HYPOTHYROID 03-19-2016 [facility] ISM PHYSICIANS UNSPECIFIED LA E119 TYPE 2 03-19-2016 [facility] DIABETES PHYSICIANS MELLITUS LA WITHOUT COMPLICATIO NS R8299 OTHER 01-02-2016 [facility] ABNORMAL MEM HOS[facility] FINDINGS IN INC URINE G309 ALZHEIMERS 12-07-2015 [facility] DISEASE EXTENDED UNSPECIFIED CARE SERV Y99151 EPILEPSY 12-07-2015 [facility] UNS NOT EXTENDED INTRACT CARE SERV W/STATUS EPILEPTICUS E559 VITAMIN D 11-18-2015 LAB [facility] DEFICIENCY [place] UNSPECIFIED HOLDINGS N179 ACUTE 11-07-2015 LAB [facility] KIDNEY [place] FAILURE HOLDINGS UNSPECIFIED J449 CHRONIC 10-31-2015 [facility] OBSTRUCTIVE EXTENDED PULMONARY CARE SERV DISEASE UNS T96604 ACUTE EMBO 10-04-2015 [facility] THROMB UNS EXTENDED DEEP VEINS CARE SERV LT LOWER EXTREM J8410 PULMONARY 07-30-2015 [facility] FIBROSIS [facility] UNSPECIFIED 97630 OTHER 05-27-2015 [facility] DISEASES OF MOBILEX LUNG NOT ELSEWHERE CLASSIFIED 4019 UNSPECIFIED 05-07-2015 [facility] ESSENTIAL PHYSICIANS HYPERTENSIO LA N 7862 COUGH 05-05-2015 [facility] MOBILEX 2760 HYPEROSMOLA 04-29-2015 RAGINI LITY AND/OR [place] 2767 HYPERPOTASS 04-29-2015 RAG[facility]I EMIA [facility] 2859 UNSPECIFIED 04-29-2015 [facility]I ANEMIA [facility] 33911 OTHER LATE 04-29-2015 R[facility]I EFFECTS OF JOSE CEREBROVASC NURSING ULAR HOME DISEASE 5849 ACUTE 04-29-2015 R[facility]INI KIDNEY JOSE FAILURE NURSING UNSPECIFIED HOME 42269 URINARY 04-29-2015 R[facility]I OBSTRUCTION JOSE NOT NURSING ELSEWHERE HOME CLASSIFIED 35545 ABNORMAL 04-29-2015 R[facility]I POSTURE [facility] 25755 DYSPHAGIA 04-29-2015 [facility] OROPHARYNGE JOSE AL PHASE [facility] 1101 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 4439 UNSPECIFIED 04-07-2015 [facility] PERIPHERAL E VASCULAR DISEASE 7030 INGROWING 04-07-2015 [facility] NAIL E 7295 PAIN IN 04-07-2015 [facility] SOFT E TISSUES OF LIMB 9243 CONTUSION 04-07-2015 [facility] OF TOE E 486 PNEUMONIA, 02-04-2015 [facility] ORGANISM PHYSICIANS UNSPECIFIED LA 4589 UNSPECIFIED 01-22-2015 [facility] SE 496 CHRONIC 01-22-2015 [facility] AIRWAY [facility] HOS[facility] OBSTRUCTION INC NEC 68157 ESOPHAGEAL 01-22-2015 [facility] REFLUX MEM HOS[facility] INC 5856 END STAGE 01-22-2015 [facility] RENAL [facility] DISEASE AMBULANCE SE 7964 OTHER 01-22-2015 [facility] ABNORMAL [facility] CLINICAL AMBULANCE FINDING SE 591 HYDRONEPHRO 01-02-2015 [facility] P 5990 URINARY 01-02-2015 [facility] SITE NOT SPECIFIED 41412 NEUROGENIC 01-01-2015 [facility] BLADDER, MEM HOS[facility] NOS INC V1089 PERSONAL 01-01-2015 [facility] HISTORY [facility] MALIGNANT INC NEOPLASM OTHER SITE V1251 PERSONAL 01-01-2015 [facility] HISTORY, MEM [facility]OS[facility] VENOUS INC THROMBOSIS AND EMBOLISM 5935 HYDROURETER 12-31-2014 [facility] 95278 OTHER 12-31-2014 [place] SPECIFIED MEDICAL DISORDERS IMAGING ASS OF BLADDER 96379 OTHER 12-31-2014 [facility]ED [place] [address] FACIAL 12-31-2014 [facility] [place] [address] CHEST PAIN 12-31-2014 [place] UNSPECIFIED MEDICAL IMAGING ASS 30482 ABDOMINAL 12-31-2014 [place] PAIN, MEDICAL UNSPECIFIED IMAGING ASS SITE 55184 MUSCLE 11-27-2014 R[facility] WEAKNESS JOSE (GENERALIZE NURSING D) HOME 23618 DYSPHAGIA 11-27-2014 [facility] ORAL PHASE [facility] 46116 UNSPECIFIED 11-27-2014 [facility] RETENTION JOSE OF URINE [facility] 60527 UNSPEC 11-04-2014 [facility] WITHOUT INTERNAL MENTION MED INTRACT EPILEPSY 76668 SWELLING OF 11-02-2014 [place] LIMB [facility] 5180 PULMONARY 11-01-2014 [place] COLLAPSE [facility] 37905 OTHER 11-01-2014 [place] ALTERATION [place]ICAL [place] [address] TRANSIENT 10-30-2014 [facility] AMBULANCE AWARENESS SE V103 PERSONAL 10-30-2014 [facility] [place] [facility]ISTORY OF [facility] MALIGNANT INC NEOPLASM OF BREAST 7830 ANOREXIA 10-24-2014 [facility] EXTENDED CARE SERV 09904 DRUSEN OF 10-07-2014 SUSAN Chance RETINA [facility] 88900 NUCLEAR 10-07-2014 SUSAN Chance SCLEROSIS [facility] 05552 UNSPECIFIED 10-07-2014 SUSAN SONG [facility] AFTER-CATAR ACT 7822 LOCALIZED 09-27-2014 [facility] SUPERFICIAL EXTENDED SWELLING CARE SERV [place] 04552 HELICOBACTE 09-06-2014 [facility] R PYLORI EXTENDED INFECTION CARE SERV V5869 LONG-TERM 09-02-2014 [facility] (CURRENT) PHYSICIANS USE OF LA OTHER MEDICATIONS 2761 HYPOSMOLALI 08-30-2014 [facility] TY AND/OR PHYSICIANS HYPONATREMI LA A 5589 OTH&UNSPEC 08-15-2014 [facility] NONINFECTIO PHYSICIANS US LA GASTROENTER ITIS&COLITI S 98083 WHEEZING 08-15-2014 [facility] MOBILEX 47946 DIARRHEA 08-15-2014 [facility] MOBILEX 59906 LOSS OF 08-14-2014 [facility] WEIGHT EXTENDED CARE SERV 4779 ALLERGIC 07-31-2014 [facility] RHINITIS EXTENDED CAUSE CARE SERV UNSPECIFIED 85612 UNSPECIFIED 07-08-2014 [facility] PURULENT PHYSICIANS ENDOPHTHALM LA ITIS 10182 UNSPECIFIED 07-06-2014 ARMIN CHAPMAN CONJUNCTIVI TIS 87601 OBSTRUCTIVE 07-06-2014 ARMIN CHAPMAN CHRONIC BRONCHITIS WITHOUT EXACERBAT 4011 ESSENTIAL 06-28-2014 ARMIN CHAPMAN HYPERTENSIO N, BENIGN 57526 OBST 06-28-2014 ARMIN CHAPMAN CHRONIC BRONCHITIS W/ACUTE BRONCHITIS 51363 OTHER 06-21-2014 [facility] PERIPHERAL E VASCULAR DISEASE 09939 FEVER 06-10-2014 SY[facility] UNSPECIFIED MOBILEX 5368 DYSPEPSIA&O 05-28-2014 ARMIN CHAPMAN THER SPEC DISORDERS FUNCTION STOMACH 99909 OSTEOARTHRO 05-28-2014 ARMIN CHAPMAN S INVLV MX SITES BUT NOT SPEC GEN 7354 OTHER 03-28-2014 [facility] HAMMER TOE E 15080 CONTUSION 02-23-2014 SYMPHONY OF FOREARM MOBILEX 48013 CONTUSION 02-23-2014 SYMPHONY OF KNEE MOBILEX 73665 OTHER 12-31-2013 ARMINESTRADA CHAPMAN CONVULSIONS 7881 DYSURIA 12-29-2013 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 [place] [facility] 36462 URINARY 12-29-2013 [facility], 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 [place] [facility] 3899 UNSPECIFIED 12-10-2013 [facility] HEARING E LOSS 3670 HYPERMETROP 12-03-2013 SUSAN SONG [facility] 700 CORNS AND 06-07-2013 [facility] CALLOSITIES E 7050 ANHIDROSIS 06-07-2013 [facility] E 7823 EDEMA 04-11-2013 [facility] HUMANITIES 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 PROFESSOR [place] [facility] V5883 ENCOUNTER 04-11-2013 [facility], FOR HUMANITIES 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 PROFESSOR THERAPEUTIC [place] [facility]UG [facility] MONITORING 7813 LACK OF 03-18-2013 [facility] COORDINATIO N 40431 OTHER 03-18-2013 [facility] SYMBOLIC DYSFUNCTION 92204 CLOSED 03-18-2013 [facility] FRACTURE OF UNSPECIFIED PART OF TIBIA 67428 NAUSEA WITH 11-21-2012 NATALIIA LACEY VOMITING CONSULTING SRV 4293 CARDIOMEGAL 11-15-2012 [facility] 6989 UNSPECIFIED 11-14-2012 [facility] INC, PRURITIC HUMANITIES 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 PROFESSOR DISORDER [place] [facility] 7821 RASH AND 11-14-2012 [facility] OTHER HOSPITAL NONSPECIFIC SKIN ERUPTION 99617 NAUSEA 11-14-2012 [facility] V4364 HIP JOINT 11-14-2012 [facility], REPLACEMENT 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 PROFESSOR BY OTHER [place] MEANS HOS V4571 ACQUIRED 11-14-2012 [facility], ABSENCE OF HUMANITIES 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 PROFESSOR BREAST AND [place] [facility] NIPPLE HOS V8801 ACQUIRED 11-14-2012 [facility], ABSENCE OF HUMANITIES 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 PROFESSOR BOTH CERVIX [place] [facility] AND UTERUS [facility]OS 331 OTHER 11-09-2012 [facility] CEREBRAL [place] [address] DEHYDRATION 11-07-2012 NATALIIA LACEY MD CONSULTING SRV 7906 OTHER 11-01-2012 [facility] INC, ABNORMAL HUMANITIES 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 PROFESSOR BLOOD [place] CHEMISTRY [facility] 4660 ACUTE 10-24-2012 ARMIN ARI BRONCHITIS 44636 OBSTRUCTIVE 10-24-2012 ARMIN ARI CHRONIC BRONCHITIS WITH EXACERBATIO N 98059 SHORTNESS 10-24-2012 [facility], OF BREATH HUMANITIES 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 PROFESSOR [place] [facility] 490 BRONCHITIS 09-27-2012 [facility] SPE[facility]IFIED [facility] ACUTE OR CHRONIC V4589 OTHER 09-27-2012 [facility] OTHER 4389 UNSPEC LATE 09-07-2012 [facility] EFF MEDICAL CEREBRVASC DZ DUE CEREBRVASC DZ 06392 PRESSURE 09-07-2012 [place] ULCER MEDICAL BUTTOCK 59010 PRESSURE 09-07-2012 [place] [address] UNSPECIFIED 09-07-2012 [place] URINARY MEDICAL INCONTINENC E 2409 GOITER, 08-18-2012 [facility] UNSPECIFIED RADIOLOGY ASSOCIAT 66380 DISORDER OF 08-18-[facility] CARTILAGE ASSOCIAT UNSPECIFIED 7804 DIZZINESS 08-18-[facility] GIDDINESS [facility]OCIAT 7840 HEADACHE 08-18-[facility] V4981 ASYMPTOMATI 08-18-2012 [facility] POSTMENOPAU ASSOCIAT SEGUNDO STATUS 33623 INSOMNIA 08-17-2012 ARMIN CHAPMAN UNSPECIFIED 30987 UNSPECIFIED 07-25-2012 ARMIN CHAPMAN CONSTIPATIO N 999 COMPLICATIO 07-19-2012 [facility] NS OF PRE-TRANSIT MEDICAL ION/$2000 CARE NEC VIS 6238 OTHER 05-12-2012 [facility], SPECIFIED HUMANITIES 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 PROFESSOR NONINFLAMMA [place] [facility] TORY HOS DISORDER VAGINA V5862 LONG-TERM 02-21-2012 [facility], (CURRENT) HUMANITIES 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 PROFESSOR USE OF [place] [facility] ANTIBIOTICS HOS 96177 OTHER 02-08-2012 [facility] INC, ABNORMALITY HUMANITIES 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 PROFESSOR OF [place] [facility] URINATION HOS 7919 OTHER 02-08-2012 [facility] INC, NONSPECIFIC HUMANITIES 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 PROFESSOR FINDING [place] [facility] EXAMINATION HOS OF URINE 4280 CONGESTIVE 09-21-2011 [facility] FAILURE INTERNAL UNSPECIFIED MED 8208 CLOSED 09-21-2011 [facility] F[facility] UNSPECIFIED INTERNAL PART NECK MED FEMUR 92302 CLOS 05-17-2011 [facility] UNSPEC SERVICE INTRACAPSLR SECTION NCK FEM 15331 OTHER 05-12-2011 [facility] INJURY OF RADIOLOGY OTHER SITES ASSOCIAT OF TRUNK 9596 INJURY 05-12-2011 [facility] OTHER AND RADIOLOGY UNSPECIFIED ASSOCIAT HIP AND THIGH E8889 UNSPECIFIED 05-12-2011 [facility] FALL [facility] ASSOCIAT 5183 PULMONARY 05-05-2011 [facility] EOSINOPHILI RADIOLOGY A ASSOCIAT 12735 UNSPECIFIED 05-05-2011 [facility]LL[facility] AND ABSCESS OF TOE 62325 UNSPECIFIED 04-30-2011 [facility] CEREBRAL HOME ARTERY MEDICAL OCCLUSION EQUIPME W/INFARCT 53713 VOMITING 04-27-2011 [facility] EMERGENCY SERVICES 4379 UNSPECIFIED 04-25-2011 [facility] SERV CEREBROVASC F[facility] ULAR DISEASE 61238 ACUTE 04-25-2011 [facility] RESPIRATORY SERV FAILURE FOUNDAT[facility] 2410 NONTOXIC 04-23-2011 [facility] UNINODULAR SERV GOITER FOUNDAT[facility] 4400 ATHEROSCLER 04-23-2011 [facility] OSIS OF SERV AORTA FOUNDATIO V550 ATTENTION 04-23-2011 [facility] TO SERV TRACHEOSTOM FOUNDATIO Y 07243 OCCLUSION&S 04-22-2011 [facility] TENOS SERV CAROTID ART FOUNDATIO W/O MENTION INFARCT 4359 UNSPECIFIED 04-22-2011 [facility] TRANSIENT SERV CEREBRAL FOUNDATIO ISCHEMIA 4370 CEREBRAL 04-22-2011 [place] [facility] ATHEROSCLER SERV OSIS FOUNDATIO 88136 OTHER 04-22-2011 [place] [facility] DISEASES OF SERV NASAL FOUNDAT[facility] CAVITY AND SINUSES 7931 NONSPEC 04-22-2011 [place] [facility] FIND RAD SERV OTH EXAM [facility] BODY STRUCT LUNG FIELD V554 ATTN OTHER 04-22-2011 [place] [facility] ARTIFICIAL SERV OPENING [facility] DIGESTIVE TRACT 1369 UNSPECIFIED 04-21-2011 [place] [facility] INFECTIOUS SERV AND [facility] PARASITIC DISEASES 3319 UNSPECIFIED 04-21-2011 [place] [facility] CEREBRAL SERV DEGENERATIO FOUNDATIO N 21931 GEN CONVUL 04-21-2011 [place] [facility] EPILEPSY SERV W/O MENTION FOUNDATIO INTRACT EPILEPSY 34693 OTHER 04-21-2011 [place] [facility] SPECIFIED SERV DISORDER OF FOUNDATIO NERVOUS SYSTEM 3499 UNSPECIFIED 04-21-2011 [place] [facility] DISORDERS SERV OF NERVOUS FOUNDATIO SYSTEM 436 ACUTE BUT 04-21-2011 [place] [facility]LL-DEFINED [facility] EMS CEREBROVASC ULAR DISEASE 4371 OTH 04-21-2011 [place] [facility] GENERALIZED SERV ISCHEMIC FOUNDATIO CEREBROVASC ULAR DISEASE 79409 OTH 04-21-2011 [facility] ETAL SX REFERABLE LIMBS OTH 56444 PRECORDIAL 04-02-2011 NATALIIA HANSEN MD CONSULTING SRV 462 ACUTE 04-22-2010 ARMIN ARI PHARYNGITIS 04324 DYSPHONIA 04-22-2010 [facility] 70754 UNSPECIFIED 04-16-2010 [place] [facility] 5989 UNSPECIFIED 04-16-[address] [place] [address] [facility] 91662 UNS PROLAPS 04-16-2010 [facility] UROLOGY W/O MENTION PSC UTERN PROLAPS 62401 CYSTOCELE 04-16-2010 [place] WITHOUT [facility]ITY [facility] UTERINE PROLAPSE MIDLN 6256 FEMALE 04-16-2010 [place] [facility] INCONT[facility]ENC [facility]OSPITAL E 53369 URGE 04-09-2010 [place] INCONTINENC H UROLOGY E PSC V7231 ROUTINE 04-09-2010 LABORATORY GYNECOLOGIC [facility] [place] H EXAMINATION 7020 ACTINIC 03-31-2010 [facility] ARI KERATOSIS 51346 OTHER 03-31-2010 PATHOLOGY & SEBORRHEIC CYTOLOGY KERATOSIS LAB 62796 CLOSED 01-07-2010 [place] [facility] UNSPECIFIED PART OF [place] 04320 CLOSED 12-29-2009 [place] [facility] [place] SERV UPPER END FOUNDATIO OF [place] 9597 INJURY 12-29-2009 [place] [facility] OTHER&UNSPE SERV CIFIED KNEE FOUNDATIO LEG ANKLE&FOOT E9293 LATE 12-29-2009 [place] [facility] EFFECTS OF SERV ACCIDENTAL FOUNDATIO FALL 98982 OTHER 12-28-2009 [facility] RESPIRATORY PSC ABNORMALITI ES 9599 INJURY 12-28-2009 [facility]NSPECIFIED [facility] PSC UNSPECIFIED SITE E8490 PLACE OF 12-28-2009 ARMIN JOS OCCURRENCE, HOME E8859 FALL FROM 12-28-2009 ARMINESTRADA CHAPMAN OTHER SLIPPING TRIPPING OR STUMBLING V0481 NEED 05-30-2009 [facility] PROPHYLACTI GAMAL Velazquez C VACCINATION &INOCULATIO N FLU 460 ACUTE 01-08-2009 [facility] NASOPHARYNG GAMAL Velazquez ITIS 4658 ACUTE URIS 01-08-2009 [facility] OF KERVIN Velazquez MULTIPLE SITES 03262 OBESITY, 10-21-2008 NAKUL FUNEZ V7611 SCREENING 08-30-2008 [place] [facility] INC HIGH-RISK PATIENT V7612 OTHER 08-30-2008 [place] [facility] 32559 ASTHMA, 08-16-2008 AMINAH FUNEZIFIED GAMAL Velazquez , UNSPECIFIED STATUS 7099 UNSPECIFIED 08-16-2008 [facility] DISORDER GAMAL Velazquez OF SKIN&SUBCUT ANEOUS TISSUE 4611 ACUTE 07-03-2008 [facility] FRONTAL GAMAL Velazquez SINUSITIS 5950 ACUTE 07-03-2008 [facility] CYSTITIS GAMAL Velazquez 7231 CERVICALGIA 05-06-2008 GAMAL FUNEZ 8470 NECK SPRAIN 05-06-2008 [facility], AND STRAIN GAMAL Velazquez 45419 OSTEOARTHRO 04-04-2008 [place], SIS UNSPEC [place] WHETHER GEN/LOC LOWER LEG 46691 OTHER 04-03-2008 [facility] GLUCOSE [...] -2 -2 0. [place] 44 PP ti FL 63 4- 8- 00 89 ve N [...] -2 -2 0. [place] 26 PP ti FL 63 4- 3- 00 73 ve N [...] -2 -2 0. [place] 82 PP ti FL 63 4- 4- 00 08 ve N [...] -1 -1 0. [place] 61 CH ti FL 45 6- 7- 00 40 AR ve [...] IU P M 50 0 MG TB FL 11 04 04 0 85 3 NE [...] -1 -1 0. [place] 44 CH ti FL 45 6- 5- 00 31 AR ve [...] -1 -1 0. [place] 26 CH ti FL 45 6- 1- 00 93 AR ve [...] -1 -0 0. [place] 09 CH ti FL 45 6- 9- 00 07 AR ve [...] -1 -0 0. [place] 90 CH ti FL 45 6- 5- 00 83 AR ve [...] -1 -2 0. [place] 68 CH ti FL 45 6- 2- 00 26 AR ve [...] -1 -1 0. [place] 49 CH ti FL 45 6- 6- 00 74 AR ve [...] -0 -1 0. [place] 32 CH ti FL 45 8- 5- 00 44 AR ve [...] -0 -0 0. [place] 13 CH ti FL 45 8- 8- 00 23 AR ve [...] -2 -2 0. [place] 92 CH ti FL 45 4- 8- 00 45 AR ve [...] -2 -2 0. [place] 76 [place] ti FL 45 4- 7- 00 69 AR ve [...] -2 -2 0. [place] 59 CH ti FL 45 4- 4- 00 98 AR ve [...] -0 -0 0. [place] 35 CH ti FL 45 8- 8- 00 96 AR ve [...] 10 RE CO NZ MG O IN [facility] BL AUGUST ET SE PO 00 [...] 10 RE CO NZ MG O IN [facility] BL AUGUST ET SE 00 12 12 [...] ER CO NZ O 10 IN MD Gputa ME AUGUST Q SE TA BL ET [...] NZ O IN MD Candy KOCH SE FL 37 02 02 00 28 28 HO 99 AUGUST Ac [place] 00 -1 -2 .0 PK 29 SE ti OS 00 9- 6- 00 IN 22 ve EC 45 20 20 S T. [address] OT 3 UG LO C RE 20 CO NZ .6 O IN MD MG Candy KOCH TA SE BL ET FL 37 11 01 02 28 28 HO 98 AUGUST Ac IL 00 -0 -3 .0 PK 95 SE ti OS 00 5- 0- 00 IN 99 ve EC 45 20 20 S T. [address] OT 3 UG LO C RE 20 CO NZ .6 O IN MD MG Candy KOCH TA SE BL ET FL 37 11 01 01 28 28 HO [...] NZ O IN MD Candy KOCH SE FL 37 11 11 00 28 28 HO 98 AUGUST Ac IL 00 -0 -2 .0 PK 95 SE ti OS 00 5- 0- 00 IN 99 ve EC 45 20 20 S T. [address] OT 3 UG LO C RE 20 CO NZ .6 O IN MG C AUGUST TA SE BL ET 00 02 11 01 30 30 HO 98 AUGUST Ac 06 -0 -2 .0 PK 67 SE ti 76 5- 0- 00 IN 59 ve 07 20 20 S T. [address] 0 UG LO RE CO NZ O IN MD Candy KOCH SE FL 37 10 10 00 28 28 HO 98 No Ac IL 00 -0 -0 .0 PK 86 t ti OS 00 3- 9- 00 IN 02 Av ve EC 45 20 20 S ai [address] brett OT 3 UG bl C e 20 CO .6 IN MG C TA BL ET FL 37 09 09 00 28 28 HO 98 No Ac IL 00 -0 -1 .0 PK 76 t ti OS 00 3- 1- 00 IN 03 Av ve EC 45 20 20 S ai [address] brett OT 3 UG bl C e 20 CO .6 IN MG C TA BL ET FL 37 05 08 02 28 28 HO [...] 0 UG bl e CO IN C FL 37 05 07 01 28 28 HO 98 No Ac IL 00 -0 -1 .0 PK 50 t ti OS 00 1- 7- 00 IN 68 Av ve EC 45 20 20 S ai [address] la OT 3 UG bl C e 20 CO .6 IN MG C TA BL ET FL 37 02 05 02 28 28 HO [...] 0 UG bl e CO IN C FL 37 02 04 01 28 28 HO 98 No Ac IL 00 -0 -2 .0 PK 22 t ti OS 00 5- 4- 00 IN 31 Av ve EC 45 20 20 S ai [address] west OT 3 UG bl C e 20 CO .6 IN MG C TA BL ET FL 37 02 04 00 28 28 HO 98 No Ac IL 00 -0 -1 .0 PK 22 t ti OS 00 5- 7- 00 IN 31 Av ve EC 45 20 20 S ai [address] west OT 3 UG bl C e 20 CO .6 IN MG C TA BL ET FL 37 12 03 02 28 28 HO 97 No Ac IL 00 -1 -2 .0 PK 92 t ti OS 00 0- 6- 00 IN 90 Av ve EC 45 20 20 S ai [address] west OT 3 UG bl C e 20 CO .6 IN MG C TA BL ET FL 37 12 03 01 28 28 HO [...] Procedure DOS Code Location Performer Comment COLLECTIO 65525 COMBINED COMBINED N VENOUS 7 PHYSICIAN PHYSICIAN BLOOD S LAB S LAB VENIPUNCT URE HEMOGLOBI 38519 COMBINED COMBINED N 7 PHYSICIAN PHYSICIAN GLYCOSYLA S LAB S LAB TITO A1C TRAVEL [address] MED 7 PHYSICIAN PHYSICIAN NEC LAB S LAB S LAB SPEC; PRORAT ACTL MILE TRAVEL [address] MED 7 PHYSICIAN PHYSICIAN NEC LAB S LAB S LAB SPEC; PRORAT ACTL MILE COMPREHEN 73627 COMBINED COMBINED SIVE 7 PHYSICIAN PHYSICIAN METABOLIC S LAB S LAB PANEL BLOOD 46180 COMBINED COMBINED COUNT 7 PHYSICIAN PHYSICIAN COMPLETE S LAB S LAB AUTO&AUTO DIFRNTL WBC DRUG 59035 LAB ARIEL LAB ARIEL SCREEN 7 [facility] [employer] BLAIR LEVETIRAC ETAM COLLECTIO 12302 COMBINED COMBINED N VENOUS 7 PHYSICIAN PHYSICIAN BLOOD S LAB S LAB VENIPUNCT URE SBSQ 79092 [facility] JOHNNA NURSING 7 ARE FACILITY CARE/DAY E/M STABLE 10 MIN DRUG 31246 LAB ARIEL LAB ARIEL SCREEN 7 [facility] BLAIR LEVETIRAC ETAM DEBRIDEME 52514 [facility] MARYCRUZ NT NAIL 7 ARE ANY METHOD 6/> AMBULANCE A0428 [facility] SERVICE 7 AMBULANCE AMBULANCE BLS SERVICE SERVICE NONEMERGE [facility] TRANSPORT GROUND A0425 [facility] MILEAGE 7 AMBULANCE AMBULANCE PER SERVICE SERVICE STATUTE MILE RADIOLOGI 15754 [place] C 7 MEDICAL EXAMINATI IMAGING ON CHEST ASS SINGLE VIEW FRONTAL RADIOLOGI 74063 [place] LR C 7 MEDICAL EXAMINATI IMAGING ON CHEST ASS SINGLE VIEW FRONTAL RADIOLOGI 99486 [place] AFUA C 7 MEDICAL EXAMINATI IMAGING ON CHEST ASS SINGLE VIEW FRONTAL ECG 36120 SURAJ SANTIAGO ROUTINE 7 PHYSICIAN ECG S, PLLC W/LEAST 12 LDS I&R ONLY OPHTH 31091 [facility] 7 F. XM&EVAL [facility] COMPRHNSV PSC ESTAB PT 1/> NONEMERGE A0130 [facility] 7 TRANS TRANSPORT TRANSPORT SERVBLUEG ATION: ATION SER YOVANY MELODIE Nina VAN DEBRIDEME 92396 [facility] MARYCRUZ NT NAIL 7 ARE ANY METHOD 6/> COLLECTIO 24694 COMBINED COMBINED N VENOUS 7 PHYSICIAN PHYSICIAN BLOOD S LA S LA VENIPUNCT URE DRUG 61584 LAB ARIEL LAB ARIEL SCREEN 7 [place] [employer] BLAIR LEVETIRAC ETAM BLOOD 96711 COMBINED COMBINED COUNT 7 PHYSICIAN PHYSICIAN COMPLETE S LA S LA AUTO&AUTO DIFRNTL WBC COMPREHEN 85766 COMBINED COMBINED SIVE 7 PHYSICIAN PHYSICIAN METABOLIC S LA S LA PANEL TRAVEL [address] MED 7 PHYSICIAN PHYSICIAN NEC LAB S LA S LA SPEC; PRORAT ACTL MILE NONEMERGE A0130 [facility] 7 TRANS TRANSPORT TRANSPORT SERVBLUEG ATION: ATION SER YOVANY MELODIE CONDE DEBRIDEME 09778 [facility] MARYCRUZ NT NAIL 7 ARE ANY METHOD 6/> SBSQ 56862 [facility] NURSING 6 EXTENDED FACIL CARE CARE/DAY SERV MIN[place] COMPL[place] 15 [place] [address] [facility] SURG 6 PATHOLOGY [facility] GROSS&ALBAN ROSCOPIC EXAM TRIMMING G0127 [facility] MARYCRUZ OF 6 ARE DYSTROPHI C NAILS ANY NUMBER BX SKIN 32250 DERMATOLO ALEXIS SUBCUTANE 6 GY OUS&/MUCO CONSULTAN US TS PSC MEMBRANE 1 LESION NONEMERGE A0130 [facility] FEDERATED NCY 6 TRANS TRANSPORT TRANSPORT SERVBLUEG ATION: ATION SER YOVANY CONDE SBSQ 95388 [facility] 6 EXTENDED FACIL CARE CARE/DAY SERV MINOR COMPLJ 15 MIN SBSQ 42059 [facility] NURSING 6 EXTENDED AJ FACIL CARE CARE/DAY SERV NEW PROBLEM 25 MIN ANTIBODY 16086 COMBINED COMBINED HELICOBAC [address] S LA S LA PYLORI COLLECTIO 54169 COMBINED COMBINED N VENOUS 6 PHYSICIAN PHYSICIAN BLOOD S LA S LA VENIPUNCT URE SUSCEPTIB 29999 BRITTNI ELKINS LTY STDY 6 [facility] ANTIMICRB INC INC IAL MICRO/AGA R DILUTJ URNLS DIP 04561 BRITTNI ELKINS 6 [facility] STICK/TAB INC INC LET REAGENT AUTO MICROSCOP Y BLOOD 44206 COMBINED COMBINED COUNT 6 PHYSICIAN PHYSICIAN COMPLETE S LA S LA AUTO&AUTO DIFRNTL WBC RADIOLOGI 39890 SYMPHONY SYMPHONY C 6 MOBILEX MOBILEX EXAMINATI ON CHEST SINGLE VIEW FRONTAL COMPREHEN 67990 COMBINED COMBINED SIVE 6 PHYSICIAN PHYSICIAN METABOLIC S LA S LA PANEL DRUG 17104 LAB ARIEL LAB ARIEL SCREEN 6 [place] [employer] BLAIR LEVETIRAC ETAM CULTURE 21316 BRITTNI BRITTNI BACTERIAL 6 [facility] INC INC QUANTTATI VE COLONY COUNT URINE CULTURE 48932 BRITTNI ELKINS BCT 6 [facility] ISOL&PRSM INC INC PTV ID ISOLATE EA URINE SET-UP Q0092 SYMPHONY SYMPHONY PORTABLE 6 MOBILEX MOBILEX X-RAY EQUIPMENT TRANS R0070 SYMPHONY SYMPHONY PRTBL 6 MOBILEX MOBILEX X-RAY EQP&PERS MILLICENT/NRS MILLICENT-TRIP 1 PT TRAVEL [address] MED 6 PHYSICIAN PHYSICIAN NEC LAB S LA S LA SPEC; PRORAT ACTL MILE SBSQ 31174 [facility] JOHNNA NURSING 6 ARE ANUM FACILITY CARE/DAY E/M STABLE 10 MIN OPHTH 71127 [facility] 6 [facility] COMPRHNSV PSC ESTAB PT 1/> DEBRIDEME 89777 [facility] ARUN NT NAIL 6 ARE KRISTAN ANY METHOD 6/> AVULSION 17396 [facility] ARUN NAIL 6 ARE KRISTAN PLATE PARTIAL/C OMPLETE SIMPLE 1 COLLECTIO 94080 COMBINED COMBINED N VENOUS 6 PHYSICIAN PHYSICIAN BLOOD S LA S LA VENIPUNCT URE HEMOGLOBI 30762 COMBINED COMBINED N 6 PHYSICIAN PHYSICIAN GLYCOSYLA [place] [address] COMBINED COMBINED THYROID 6 PHYSICIAN PHYSICIAN STIMULATI S LA S LA NG HORMONE TSH TRAVEL [address] MED 6 PHYSICIAN PHYSICIAN NEC LAB S LA S LA SPEC; PRORAT ACTL MILE TRANS R0075 SYMPHONY SYMPHONY PRTBL 6 MOBILEX MOBILEX XRAY EQP&PERS MILLICENT/NRS MILLICENT-TRIP> 1 PT SET-UP Q0092 SYMPHONY SYMPHONY PORTABLE 6 MOBILEX MOBILEX X-RAY EQUIPMENT BASIC 20852 COMBINED COMBINED METABOLIC 6 PHYSICIAN PHYSICIAN PANEL S LA S LA CALCIUM TOTAL NATRIURET 92828 COMBINED COMBINED IC 6 PHYSICIAN PHYSICIAN PEPTIDE S LA S LA BLOOD 74794 COMBINED COMBINED COUNT 6 PHYSICIAN PHYSICIAN COMPLETE S LA S LA AUTO&AUTO DIFRNTL WBC RADIOLOGI 78634 SYMPHONY SYMPHONY C EXAM 6 MOBILEX MOBILEX CHEST 2 VIEWS FRONTAL&L ATERAL DEBRIDEME 43836 [facility] ARUN NT NAIL 6 ARE KRISTAN ANY METHOD 6/> SBSQ 31252 [facility] ARUN NURSING 6 ARE KRISTAN FACILITY CARE/DAY E/M STABLE 10 MIN CULTURE 90224 BRITTNI ELKINS BCT 6 [facility] ISOL&PRSM INC INC PTV ID ISOLATE EA URINE CULTURE 50872 BRITTNI BRITTNI BACTERIAL 6 [facility] INC INC QUANTTATI VE COLONY COUNT URINE URNLS DIP 46348 BRITTNI BRITTNI 6 [facility] STICK/TAB INC INC LET REAGENT AUTO MICROSCOP Y SUSCEPTIB 13239 BRITTNI ELKINS LTY STDY 6 [facility] ANTIMICRB INC INC IAL MICRO/[place] [address] COMBINED COMBINED THYROID 6 PHYSICIAN PHYSICIAN STIMULATI S LA S LA NG HORMONE TSH COLLECTIO 53531 COMBINED COMBINED N VENOUS 6 PHYSICIAN PHYSICIAN BLOOD S LA S LA VENIPUNCT URE TRAVEL [address] MED 6 PHYSICIAN PHYSICIAN NEC LAB S LA S LA SPEC; PRORAT ACTL MILE SBSQ 05161 [facility] NURSING 6 EXTENDED [facility] C[facility] CARE/DAY SERV MINOR COMPLJ 15 MIN DEBRIDEME 23958 [facility] ARUN NT NAIL 6 ARE KRISTAN ANY METHOD 6/> 25 79148 LAB ARIEL LAB ARIEL HYDROXY 6 [place] INCLUDES [employer] HOLDINGS FRACTIONS IF PERFORMED COLLECTIO 38472 COMBINED COMBINED N VENOUS 6 PHYSICIAN PHYSICIAN BLOOD S LA S LA VENIPUNCT URE TRAVEL [address] MED 6 PHYSICIAN PHYSICIAN NEC LAB S LA S LA SPEC; PRORAT ACTL MILE BASIC 15139 COMBINED COMBINED METABOLIC 6 PHYSICIAN PHYSICIAN PANEL S LA S LA CALCIUM TOTAL CULTURE 67034 COMBINED COMBINED BACTERIAL 6 PHYSICIAN PHYSICIAN S LA S LA QUANTTATI VE COLONY COUNT URINE CULTURE 07772 COMBINED COMBINED BCT 6 PHYSICIAN PHYSICIAN ISOL&PRSM S LA S LA PTV ID ISOLATE EA URINE SUSCEPTIB 76011 COMBINED COMBINED ILITY 6 PHYSICIAN PHYSICIAN STUDY S LA S LA ANTIMICRO BIAL DISK METHOD VOLUME 24166 COMBINED COMBINED MEASUREME 6 PHYSICIAN PHYSICIAN NT TIMED S LA S LA COLLECTIO N EACH URNLS DIP 17591 COMBINED COMBINED 6 PHYSICIAN PHYSICIAN STICK/TAB S LA S LA LET REAGENT AUTO MICROSCOP Y BLOOD 34384 COMBINED COMBINED COUNT 6 PHYSICIAN PHYSICIAN COMPLETE S LA S LA AUTO&AUTO DIFRNTL WBC COMPREHEN 02002 COMBINED COMBINED SIVE 6 PHYSICIAN PHYSICIAN METABOLIC S LA S LA PANEL DRUG 02805 LAB ARIEL LAB ARIEL SCREEN 6 [place] [employer] BLAIR LEVETIRAC ETAM COLLECTIO 35509 COMBINED COMBINED N VENOUS 6 PHYSICIAN PHYSICIAN BLOOD S LA S LA VENIPUNCT URE TRAVEL [address] MED 6 PHYSICIAN PHYSICIAN NEC LAB S LA S LA SPEC; PRORAT ACTL MILE SBSQ 35555 [facility] NURSING 6 EXTENDED AJ FACIL CARE CARE/DAY SERV MINOR COMPLJ 15 MIN SBSQ 38515 [facility] NURSING 6 EXTENDED LOY FACIL CARE CARE/DAY SERV NEW PROBLEM 25 MIN DEBRIDEME 66668 [facility] NT NAIL 6 ARE KRISTAN ANY METHOD 6/> SBSQ 36653 [facility] NURSING 6 ARE KRISTAN FACILITY CARE/DAY E/M STABLE 10 MIN SET-UP Q0092 SYMPHONY SYMPHONY PORTABLE 5 MOBILEX MOBILEX X-RAY EQUIPMENT RADIOLOGI 94537 SYMPHONY SYMPHONY C 5 MOBILEX MOBILEX EXAMINATI ON CHEST SINGLE VIEW FRONTAL TRANS R0070 SYMPHONY SYMPHONY PRTBL 5 MOBILEX MOBILEX X-RAY EQP&PERS MILLICENT/NRS MILLICENT-TRIP 1 PT SBSQ 78751 [facility] NURSING 5 ARE KRISTAN FACILITY CARE/DAY E/M STABLE 10 MIN DEBRIDEME 76997 [facility] NT NAIL 5 ARE KRISTAN ANY METHOD 6/> OPHTH [address] [facility] 5 F. BRAD OSVALDO&CAESAR SONG COMPRHNSV PSC ESTAB PT 1/> TRANS R0075 SYMPHONY SYMPHONY PRTBL 5 MOBILEX MOBILEX XRAY EQP&PERS MILLICENT/NRS MILLICENT-TRIP> 1 PT RADIOLOGI 25786 SYMPHONY SYMPHONY C 5 MOBILEX MOBILEX EXAMINATI ON CHEST SINGLE VIEW FRONTAL SET-UP Q0092 SYMPHONY SYMPHONY PORTABLE 5 MOBILEX MOBILEX X-RAY EQUIPMENT BASIC 08663 COMBINED COMBINED METABOLIC 5 PHYSICIAN PHYSICIAN PANEL S LA S LA CALCIUM TOTAL TRAVEL [address] MED 5 PHYSICIAN PHYSICIAN NEC LAB S LA S LA SPEC; PRORAT ACTL MILE COLLECTIO 91570 COMBINED COMBINED N VENOUS 5 PHYSICIAN PHYSICIAN BLOOD S LA S LA VENIPUNCT URE RADIOLOGI 89318 SYMPHONY SYMPHONY C 5 MOBILEX MOBILEX EXAMINATI ON CHEST SINGLE VIEW FRONTAL TRANS R0075 SYMPHONY SYMPHONY PRTBL 5 MOBILEX MOBILEX XRAY EQP&PERS MILLICENT/NRS MILLICENT-TRIP> 1 PT SET-UP Q0092 SYMPHONY SYMPHONY PORTABLE 5 MOBILEX MOBILEX X-RAY EQUIPMENT [facility] 13855 [facility] ARUN NT NAIL 5 ARE KRISTAN ANY METHOD 6/> COLLECTIO 65783 COMBINED COMBINED N VENOUS 5 PHYSICIAN PHYSICIAN BLOOD S LA S LA VENIPUNCT URE BASIC 33315 COMBINED COMBINED METABOLIC 5 PHYSICIAN PHYSICIAN PANEL S LA S LA CALCIUM TOTAL TRAVEL [address] MED 5 PHYSICIAN PHYSICIAN NEC LAB S LA S LA SPEC; PRORAT ACTL MILE TRAVEL [address] MED 5 PHYSICIAN PHYSICIAN NEC LAB S LA S LA SPEC; PRORAT ACTL MILE BASIC 56305 COMBINED COMBINED METABOLIC 5 PHYSICIAN PHYSICIAN PANEL S LA S LA CALCIUM TOTAL COLLECTIO 79834 COMBINED COMBINED N VENOUS 5 PHYSICIAN PHYSICIAN BLOOD S LA S LA VENIPUNCT URE COLLECTIO 63816 COMBINED COMBINED N VENOUS 5 PHYSICIAN PHYSICIAN BLOOD S LA S LA VENIPUNCT URE BASIC 90864 COMBINED COMBINED METABOLIC 5 PHYSICIAN PHYSICIAN PANEL S LA S LA CALCIUM TOTAL TRAVEL [address] MED 5 PHYSICIAN PHYSICIAN NEC LAB S LA S LA SPEC; PRORAT ACTL MILE TRAVEL [address] MED 5 PHYSICIAN PHYSICIAN NEC LAB S LA S LA SPEC; PRORAT ACTL MILE BASIC 47508 COMBINED COMBINED METABOLIC 5 PHYSICIAN PHYSICIAN PANEL S LA S LA CALCIUM TOTAL COLLECTIO 58056 COMBINED COMBINED N VENOUS 5 PHYSICIAN PHYSICIAN BLOOD S LA S LA VENIPUNCT URE COLLECTIO 97840 COMBINED COMBINED N VENOUS 5 PHYSICIAN PHYSICIAN BLOOD S LA S LA VENIPUNCT URE BASIC 17563 COMBINED COMBINED METABOLIC 5 PHYSICIAN PHYSICIAN PANEL S LA S LA CALCIUM TOTAL TRAVEL [address] MED 5 PHYSICIAN PHYSICIAN NEC LAB S LA S LA SPEC; PRORAT ACTL MILE TRAVEL [address] MED 5 PHYSICIAN PHYSICIAN NEC LAB S LA S LA SPEC; PRORAT ACTL MILE BASIC 22738 COMBINED COMBINED METABOLIC 5 PHYSICIAN PHYSICIAN PANEL S LA S LA CALCIUM TOTAL COLLECTIO 46605 COMBINED COMBINED N VENOUS 5 PHYSICIAN PHYSICIAN BLOOD S LA S LA VENIPUNCT URE COLLECTIO 90877 COMBINED COMBINED N VENOUS 5 PHYSICIAN PHYSICIAN BLOOD S LA S LA VENIPUNCT URE BASIC 85562 COMBINED COMBINED METABOLIC 5 PHYSICIAN PHYSICIAN PANEL S LA S LA CALCIUM TOTAL TRAVEL [address] MED 5 PHYSICIAN PHYSICIAN NEC LAB S LA S LA SPEC; PRORAT ACTL MILE TRAVEL [address] MED 5 PHYSICIAN PHYSICIAN NEC LAB S LA S LA SPEC; PRORAT ACTL MILE BASIC 73693 COMBINED COMBINED METABOLIC 5 PHYSICIAN PHYSICIAN PANEL S LA S LA CALCIUM TOTAL COLLECTIO 87899 COMBINED COMBINED N VENOUS 5 PHYSICIAN PHYSICIAN BLOOD S LA S LA VENIPUNCT URE COLLECTIO 06930 COMBINED COMBINED N VENOUS 5 PHYSICIAN PHYSICIAN BLOOD S LA S LA VENIPUNCT URE BASIC 31423 COMBINED COMBINED METABOLIC 5 PHYSICIAN PHYSICIAN PANEL S LA S LA CALCIUM TOTAL TRAVEL [address] MED 5 PHYSICIAN PHYSICIAN NEC LAB S LA S LA SPEC; PRORAT ACTL MILE TRAVEL [address] MED 5 PHYSICIAN PHYSICIAN NEC LAB S LA S LA SPEC; PRORAT ACTL MILE BASIC 11016 COMBINED COMBINED METABOLIC 5 PHYSICIAN PHYSICIAN PANEL S LA S LA CALCIUM TOTAL COLLECTIO 31993 COMBINED COMBINED N VENOUS 5 PHYSICIAN PHYSICIAN BLOOD S LA S LA VENIPUNCT URE DEBRIDEME 25011 [facility] ARUN NT NAIL 5 ARE KRISTAN ANY METHOD 6/> COLLECTIO 97527 COMBINED COMBINED N VENOUS 5 PHYSICIAN PHYSICIAN BLOOD S LA S LA VENIPUNCT URE BASIC 83641 COMBINED COMBINED METABOLIC 5 PHYSICIAN PHYSICIAN PANEL S LA S LA CALCIUM TOTAL TRAVEL [address] MED 5 PHYSICIAN PHYSICIAN NEC LAB S LA S LA SPEC; PRORAT ACTL MILE GROUND A0425 SHIRIN CARPIO [facility] [address] [place] [address] PER AMBULANCE AMBULANCE STATUTE SE SE MILE AMB A0426 SHIRIN SHIRIN SERVICE 5 [facility] ALS AMBULANCE AMBULANCE NONEMERGE SE SE NCY TRANSPORT LEVEL 1 CULTURE 27109 BRITTNI EKLINS BCT 5 [facility] ISOL&PRSM INC INC PTV ID ISOLATE EA URINE CULTURE 46240 BRITTNI ELKINS BACTERIAL 5 [facility] INC [place] [address] BRITTNI ELKINS INFUSION 5 [facility] THERAPY/P INC INC ROPHYLAXI S /DX 1ST TO 1 HR THERAPEUT 40768 BRITTNI ELKINS IC 5 [facility] INJECTION INC INC IV PUSH EACH NEW DRUG COMPREHEN 70511 BRITTNI ELKINS SIVE 5 [facility] METABOLIC INC INC PANEL BLOOD 95191 BRITTNI ELKINS COUNT 5 [facility] COMPLETE INC INC AUTO&AUTO DIFRNTL WBC CULTURE 67885 BRITTNI ELKINS BACTERIAL 5 [facility] BLOOD INC INC AEROBIC W/ID ISOLATES SUSCEPTIB 85425 BRITTNI ELKINS LTY STDY 5 [facility] ANTIMICRB INC INC IAL MICRO/AGA R DILUTJ URNLS DIP 43868 BRITTNI BRITTNI 5 [facility] STICK/TAB INC INC LET REAGENT AUTO MICROSCOP Y COMPREHEN 35795 COMBINED COMBINED SIVE 5 PHYSICIAN PHYSICIAN METABOLIC S LA S LA PANEL BLOOD 96263 COMBINED COMBINED COUNT 5 PHYSICIAN PHYSICIAN COMPLETE S LA S LA AUTO&AUTO DIFRNTL WBC COLLECTIO 64267 COMBINED COMBINED N VENOUS 5 PHYSICIAN PHYSICIAN BLOOD S LA S LA VENIPUNCT URE TRAVEL [address] MED 5 PHYSICIAN PHYSICIAN NEC LAB S LA S LA SPEC; PRORAT ACTL MILE INITIAL [address] 30 P MINUTES OTHER 5849 BRITTNI RODRIGUEZON REPAIR OF 5 [facility] URETHRA INC INC TRAVEL [address] MED 5 PHYSICIAN PHYSICIAN NEC LAB S LA S LA SPEC; PRORAT ACTL MILE GROUND A0425 SHIRIN CARPIO [facility] [address] [place] [address] PER AMBULANCE AMBULANCE STATUTE SE SE MILE AMBULANCE A0429 SHIRIN CARPIO SERVICE [address] [place] [address] BLS AMBULANCE AMBULANCE EMERGENCY SE SE TRANSPORT CRITICAL [address] ED P P PATIENT INIT 30-74 MIN BASIC 34103 COMBINED COMBINED METABOLIC 5 PHYSICIAN PHYSICIAN PANEL S LA S LA CALCIUM TOTAL RADIOLOGI 90834 [facility] C 5 MEDICAL ANGEL EXAMINATI IMAGING ON CHEST ASS SINGLE VIEW FRONTAL COLLECTIO 68383 COMBINED COMBINED N VENOUS 5 PHYSICIAN PHYSICIAN BLOOD S LA S LA VENIPUNCT URE ECG 67750 BRITTNI JUAREZ ROUTINE 5 [facility] W/LEAST P 12 LDS I&[place] [address] [place] LR ALL ABDOMEN & 5 MEDICAL PELVIS IMAGING W/[place] [address] [facility] HEAD/BRAI 5 MEDICAL ANGEL N W/O IMAGING CONTRAST ASS MATERIAL BLOOD 14221 COMBINED COMBINED COUNT 5 PHYSICIAN PHYSICIAN COMPLETE S LA S LA AUTO&AUTO DIFRNTL WBC URNLS DIP 44976 COMBINED COMBINED 5 PHYSICIAN PHYSICIAN STICK/TAB S LA S LA LET REAGENT AUTO MICROSCOP Y VOLUME 81011 COMBINED COMBINED MEASUREME 5 PHYSICIAN PHYSICIAN NT TIMED S LA S LA COLLECTIO N EACH BLOOD 80646 COMBINED COMBINED COUNT 5 PHYSICIAN PHYSICIAN COMPLETE S LA S LA AUTO&AUTO DIFRNTL WBC COLLECTIO 58210 COMBINED COMBINED N VENOUS 5 PHYSICIAN PHYSICIAN BLOOD S LA S LA VENIPUNCT URE BASIC 47362 COMBINED COMBINED METABOLIC 5 PHYSICIAN PHYSICIAN PANEL S LA S LA CALCIUM TOTAL BASIC 29546 COMBINED COMBINED METABOLIC 5 PHYSICIAN PHYSICIAN PANEL S LA S LA CALCIUM TOTAL TRAVEL [address] MED 5 PHYSICIAN PHYSICIAN NEC LAB S LA S LA SPEC; PRORAT ACTL MILE COLLECTIO 13086 COMBINED COMBINED N VENOUS 5 PHYSICIAN PHYSICIAN BLOOD S LA S LA VENIPUNCT URE DEBRIDEME 06933 [facility] ARUN NT NAIL 5 ARE KRISTAN ANY METHOD 6/> COLLECTIO 72318 COMBINED COMBINED N VENOUS 5 PHYSICIAN PHYSICIAN BLOOD S LA S LA VENIPUNCT URE TRAVEL [address] MED 5 PHYSICIAN PHYSICIAN NEC LAB S LA S LA SPEC; PRORAT ACTL MILE INITIAL [address] INTERNAL CARE/DAY MED 25 MINUTES DUP-SCAN 67374 [place] AFUA XTR VEINS 5 MEDICAL ANN MARIE IMAGING [place]A ASS L/LIMITED STUDY SBSQ [address] CARE/DAY INTERNAL 35 MED MINUTES RADIOLOGI 90748 [place] BEINEKE C 5 MEDICAL ANGEL EXAMINATI IMAGING [place] [address] [place] BE[place] HEAD/BRAI 5 MEDICAL ANGEL N W/[place] [address] [place] HEAD/BRAI 5 MEDICAL ANGEL N W/O IMAGING CONTRAST ASS MATERIAL RADIOLOGI 45646 [place] C 5 MEDICAL ANGEL EXAMINATI IMAGING ON CHEST ASS SINGLE VIEW FRONTAL SBSQ [address] CARE/DAY INTERNAL 35 MED MINUTES ECG [address] W/LEAST P 12 LDS I&R ONLY AMBULANCE [id number] [facility] SERVICE 5 [facility] AMBULANCE AMBULANCE EMERGENCY SE SE TRANSPORT GROUND A0425 [facility] MILEAGE [address] [place] [address] PER AMBULANCE AMBULANCE STATUTE SE SE MILE SBSQ 09413 [facility] N[facility]SING 5 EXTENDED LOY FACIL CARE CARE/DAY SERV NEW PROBLEM 25 MIN COLLECTIO 75109 COMBINED COMBINED N VENOUS 5 PHYSICIAN PHYSICIAN BLOOD S LA S LA VENIPUNCT URE TRAVEL [address] MED 5 PHYSICIAN PHYSICIAN NEC LAB S LA S LA SPEC; PRORAT ACTL MILE BASIC 39249 COMBINED COMBINED METABOLIC 5 PHYSICIAN PHYSICIAN PANEL S LA S LA CALCIUM TOTAL OPHTH 32715 [facility] 5 [facility] XM&[facility] COMPRHNSV PSC ESTAB PT 1/> SBSQ 95891 [facility] NURSING 5 EXTENDED LOY FACIL CARE CARE/DAY SERV MINOR COMPLJ 15 MIN SBSQ 52573 [facility] NURSING 5 EXTENDED LOY FACIL CARE CARE/DAY SERV NEW PROBLEM 25 MIN COLLECTIO 47574 COMBINED COMBINED N VENOUS 5 PHYSICIAN PHYSICIAN BLOOD S LA S LA VENIPUNCT URE TRAVEL [address] MED 5 PHYSICIAN PHYSICIAN NEC LAB S LA S LA SPEC; PRORAT ACTL MILE TRAVEL [address] MED 5 PHYSICIAN PHYSICIAN NEC LAB S LA S LA SPEC; PRORAT ACTL MILE COLLECTIO 59579 COMBINED COMBINED N VENOUS 5 PHYSICIAN PHYSICIAN BLOOD S LA S LA VENIPUNCT URE ANTIBODY 04155 COMBINED COMBINED HELICOBAC [address] LA S LA PYLORI SUSCEPTIB 32501 COMBINED COMBINED ILITY 4 PHYSICIAN PHYSICIAN STUDY S LA S LA ANTIMICRO BIAL DISK METHOD COLLECTIO 13223 COMBINED COMBINED N VENOUS 4 PHYSICIAN PHYSICIAN BLOOD S LA S LA VENIPUNCT URE RADEX 42223 SYMPHONY SYMPHONY ABDOMEN 1 4 MOBILEX MOBILEX ANTEROPOS TERIOR VIEW URNLS DIP 77258 COMBINED COMBINED 4 PHYSICIAN PHYSICIAN STICK/TAB S LA S [place] [address] COMBINED COMBINED MAGNESIUM 4 PHYSICIAN PHYSICIAN S LA S LA TRAVEL [address] MED 4 PHYSICIAN PHYSICIAN NEC LAB S LA S LA SPEC; PRORAT ACTL MILE TRANS R0070 SYMPHONY SYMPHONY PRTBL 4 MOBILEX MOBILEX X-RAY EQP&PERS MILLICENT/NRS MILLICENT-TRIP 1 PT RADIOLOGI 79378 SYMPHONY SYMPHONY C 4 MOBILEX MOBILEX EXAMINATI ON CHEST SINGLE VIEW FRONTAL CULTURE 08505 COMBINED COMBINED BACTERIAL 4 PHYSICIAN PHYSICIAN S LA S LA QUANTTATI VE COLONY COUNT URINE SET-UP Q0092 SYMPHONY SYMPHONY PORTABLE 4 MOBILEX MOBILEX X-RAY EQUIPMENT SBSQ 19285 [facility] NURSING 4 EXTENDED LOY FACIL CARE CARE/DAY SERV NEW PROBLEM 25 MIN DRUG 73951 LAB [facility] LAB ARIEL SCREEN 4 [place] [employer] B[employer]IR LEVETIRAC ETAM COLLECTIO 44393 COMBINED COMBINED N VENOUS 4 PHYSICIAN PHYSICIAN BLOOD S LA S LA VENIPUNCT URE TRAVEL [address] MED 4 PHYSICIAN PHYSICIAN NEC LAB S LA S LA SPEC; PRORAT ACTL MILE TRAVEL [address] MED 4 PHYSICIAN PHYSICIAN NEC LAB S LA S LA SPEC; PRORAT ACTL MILE COLLECTIO 38952 COMBINED COMBINED N VENOUS 4 PHYSICIAN PHYSICIAN BLOOD S LA S LA VENIPUNCT URE BLOOD 33037 COMBINED COMBINED COUNT 4 PHYSICIAN PHYSICIAN COMPLETE S LA S LA AUTO&[place] [address] COMBINED COMBINED THYROID 4 PHYSICIAN PHYSICIAN STIMULATI S LA S LA NG HORMONE TSH COMPREHEN 42959 COMBINED COMBINED SIVE 4 PHYSICIAN PHYSICIAN METABOLIC S LA S LA PANEL SBSQ 88429 [facility] JUAREZ NURSING 4 EXTENDED LOY FACIL CARE CARE/DAY SERV NEW PROBLEM 25 MIN CUL BACT 27472 COMBINED COMBINED XCPT 4 PHYSICIAN PHYSICIAN URINE S LA S LA BLOOD/STO OL AEROBIC ISOL SBSQ 47397 [facility]MIN NURSING 4 ARI ARI FACILITY CARE/DAY E/M STABLE 10 MIN RADIOLOGI 46066 SYMPHONY SYMPHONY C 4 MOBILEX MOBILEX EXAMINATI ON CHEST SINGLE VIEW FRONTAL SET-UP Q0092 SYMPHONY SYMPHONY PORTABLE 4 MOBILEX MOBILEX X-RAY EQUIPMENT TRANS R0070 SYMPHONY SYMPHONY PRTBL 4 MOBILEX MOBILEX X-RAY EQP&PERS MILLICENT/NRS MILLICENT-TRIP 1 PT SBSQ 46498 [facility]MIN ARMIN NURSING 4 ARI ARI FACIL CARE/DAY MINOR COMPLJ 15 MIN SBSQ 72074 [facility] ARUN NURSING 4 ARE KRISTAN FACILITY CARE/DAY E/M STABLE 10 MIN SET-UP Q0092 SYMPHONY SYMPHONY PORTABLE 4 MOBILEX MOBILEX X-RAY EQUIPMENT RADIOLOGI 92585 SYMPHONY SYMPHONY C 4 MOBILEX MOBILEX EXAMINATI ON CHEST SINGLE VIEW FRONTAL TRANS R0075 SYMPHONY SYMPHONY PRTBL 4 MOBILEX MOBILEX XRAY EQP&PERS MILLICENT/NRS MILLICENT-TRIP> 1 PT TRAVEL [address] MED 4 PHYSICIAN PHYSICIAN NEC LAB S LA S LA SPEC; PRORAT ACTL MILE BLOOD 35639 COMBINED COMBINED COUNT 4 PHYSICIAN PHYSICIAN COMPLETE S LA S LA AUTO&AUTO DIFRNTL WBC COLLECTIO 26743 COMBINED COMBINED N VENOUS 4 PHYSICIAN PHYSICIAN BLOOD S LA S LA VENIPUNCT URE URNLS DIP 68282 COMBINED COMBINED 4 PHYSICIAN PHYSICIAN STICK/TAB S LA S LA LET REAGENT AUTO MICROSCOP Y SBSQ 07000 [facility] ARMIN NURSING 4 ARI ARI FACILITY CARE/DAY E/M STABLE 10 MIN CULTURE 45456 COMBINED COMBINED BACTERIAL 4 PHYSICIAN PHYSICIAN S LA S LA QUANTTATI VE COLONY COUNT URINE URNLS DIP 98301 COMBINED COMBINED 4 PHYSICIAN PHYSICIAN STICK/TAB S LA S LA LET REAGENT AUTO MICROSCOP Y SBSQ 19957 ARMIN ARMIN NURSING 4 ARI ARI FACILITY CARE/DAY E/M STABLE 10 MIN TRAVEL [address] MED 4 PHYSICIAN PHYSICIAN NEC LAB S LA S LA SPEC; PRORAT ACTL MILE BASIC 53763 COMBINED COMBINED METABOLIC 4 PHYSICIAN PHYSICIAN PANEL S LA S LA CALCIUM TOTAL COLLECTIO 78880 COMBINED COMBINED N VENOUS 4 PHYSICIAN PHYSICIAN BLOOD S LA S LA VENIPUNCT URE COLLECTIO 30370 COMBINED COMBINED N VENOUS 4 PHYSICIAN PHYSICIAN BLOOD S LA S LA VENIPUNCT URE BASIC 50529 COMBINED COMBINED METABOLIC 4 PHYSICIAN PHYSICIAN PANEL S LA S LA CALCIUM TOTAL TRAVEL [address] MED 4 PHYSICIAN PHYSICIAN NEC LAB S LA S LA SPEC; PRORAT ACTL MILE SBSQ 39656 ARMIN ARMIN NURSING 4 ARI ARI FACILITY CARE/DAY E/M STABLE 10 MIN DEBRIDEME 17678 [facility] ARUN NT NAIL 4 ARE KRISTAN ANY METHOD 6/> SBSQ 33101 ARMIN ARMIN NURSING 4 ARI ARI FACILITY CARE/DAY E/M STABLE 10 MIN RADIOLOGI 87118 SYMPHONY SYMPHONY C 4 MOBILEX MOBILEX EXAMINATI ON KNEE 1/2 VIEWS SET-UP Q0092 SYMPHONY SYMPHONY PORTABLE 4 MOBILEX MOBILEX X-RAY EQUIPMENT TRANS R0070 SYMPHONY SYMPHONY PRTBL 4 MOBILEX MOBILEX X-RAY EQP&PERS MILLICENT/NRS MILLICENT-TRIP 1 PT RADEX 16117 SYMPHONY SYMPHONY ELBOW 2 4 MOBILEX MOBILEX VIEWS SBSQ 91161 ARMIN FUNEZ NURSING 4 ARI ARI FACILITY CARE/DAY E/M STABLE 10 MIN CULTURE 15783 [facility] INC, [facility] INC, BACTERIAL 4 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 MARVA REFRACTIV [facility] SBSQ 78936 ARMIN ARMIN NURSING 4 ARI ARI FACILITY CARE/DAY E/M STABLE 10 MIN SBSQ 00444 ARMIN ARMIN NURSING 4 ARI ARI FACILITY CARE/DAY E/M STABLE 10 MIN SBSQ 51824 ARMIN ARMIN NURSING 4 ARI ARI FACILITY CARE/DAY E/M STABLE 10 MIN SBSQ 57203 [facility] JOHNNA NURSING 4 ARE ANUM FACILITY CARE/DAY E/M STABLE 10 MIN SBSQ 70585 ARMIN ARMIN NURSING 3 ARI ARI FACILITY CARE/DAY E/M STABLE 10 MIN SBSQ 79096 ARMIN ARMIN NURSING 3 ARI ARI FACILITY CARE/DAY E/M STABLE 10 MIN DETERMINA 67603 SUSAN ROBERTS 3 F. TYL REFRACTIV [facility] SBSQ 09045 ARMIN ARMIN NURSING 3 ARI ARI FACILITY CARE/DAY E/M STABLE 10 MIN SBSQ 57751 [facility] AMEE FRA NURSING 3 ARE FACILITY CARE/DAY E/M STABLE 10 MIN DEBRIDEME 44324 [facility] AMEE FRA NT NAIL 3 ARE ANY METHOD 6/> PARING/CU 85979 [facility] AMEE FRA TTING 3 ARE BENIGN HYPERKERA TOTIC LESION 1 SBSQ 67648 ARMIN ARMIN NURSING 3 ARI ARI FACILITY CARE/DAY E/M STABLE 10 MIN SBSQ 07859 ARMIN ARMIN NURSING 3 ARI ARI FACILITY CARE/DAY E/M STABLE 10 MIN BASIC 32058 [facility], [facility], METABOLIC 3 HUMANITIES 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 PROFESSOR HUMANITIES 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 PROFESSOR PANEL SHIRIN CARPIO CALCIUM CO HOS CO HOS TOTAL INITIAL 89247 [facility] AMEE FRA NURSING 3 ARE FACILITY CARE/DAY 25 MINUTES DEBRIDEME 70844 [facility] AMEE FRA NT NAIL 3 ARE ANY METHOD 6/> PARING/CU 23734 [facility] AMEE HIGHTOWER TTING 3 ARE BENIGN HYPERKERA TOTIC LESION 2-4 SBSQ 71971 [facility] NURSING 3 [facility] CARE/DAY E/M STABLE 10 MIN HOS BED E0260 [facility] SEMI-ELEC 3 W/ANY TYPE SIDE RAIL W/MATTRSS SBSQ 16846 [facility] NURSING 3 [facility] CARE/DAY E/M STABLE 10 MIN HOS BED E0260 [facility] SEMI-ELEC 3 W/ANY TYPE SIDE RAIL W/MATTRSS HOS BED E0260 [facility] SEMI-ELEC 3 W/ANY TYPE SIDE RAIL W/MATTRSS NEBULIZER E0570 RAFIQ CONROY WITH 3 HOME HOME [facility] R EQUIPME EQUIPME ECG 38300 NATALIIA LACEY LACEY NATALIIA ROUTINE 3 MD ECG CONSULTIN W/LEAST G SRV 12 LDS I&R ONLY HOME CARE S5108 [facility] TRAINING 3 AREA AREA HOME AGENCY ON AGENCY ON CARE KAREN KAREN CLIENT PER 15 MIN HOS BED E0260 [facility] SEMI-ELEC 3 W/ANY TYPE SIDE RAIL W/[place] [address] [facility], [facility], CLOSTRIDI 3 HUMANITIES 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 PROFESSOR HUMANITIES 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 PROFESSOR UM SHIRIN CARPIO DIFFICILE CO HOS CO HOS TOXIN RADIOLOGI 55572 [facility], [facility], C 3 HUMANITIES 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 PROFESSOR HUMANITIES 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 PROFESSOR EXAMINATI SHIRIN CARPIO ON CHEST CO HOS CO HOS SINGLE VIEW FRONTAL BASIC 91620 [facility], [facility], METABOLIC 3 HUMANITIES 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 PROFESSOR HUMANITIES 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 PROFESSOR PANEL SHIRIN CARPIO CALCIUM CO HOS CO HOS TOTAL BLOOD 49121 [facility], [facility], COUNT 3 HUMANITIES 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 PROFESSOR HUMANITIES 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 PROFESSOR COMPLETE SHIRIN CARPIO AUTO&AUT[place] [address] [facility], [facility], INFUSION 3 HUMANITIES 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 PROFESSOR HUMANITIES 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 PROFESSOR THERAPY/P SHIRIN CARPIO ROPHYLAXI CO HOS CO HOS S /DX 1ST TO 1 HR RADEX 22821 [facility], [facility], ABDOMEN 1 3 HUMANITIES 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 PROFESSOR HUMANITIES 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 PROFESSOR SHIRIN CARPIO ANTEROPOS CO HOS CO HOS TERIOR VIEW RADEX 96184 MARY STARKEY ABDOMEN 3 MARVA COMPL RADIOLOGY W/DCBTS&/ ASSOCIAT ERC VIEWS URNLS DIP 01688 [facility] ZUGGI, [facility], 3 HUMANITIES 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 PROFESSOR HUMANITIES 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 PROFESSOR STICK/TAB SHIRIN CARPIO LET RGNT CO HOS CO HOS AUTO W/[place] [address] [facility] ZUGGI, [facility], MULT STEP 3 HUMANITIES 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 PROFESSOR HUMANITIES 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 PROFESSOR METHOD SHIRIN CARPIO NOS EACH CO HOS CO HOS ORGANISM INJECTION J2405 [facility] Legend of the Elf [facility] INC, 3 HUMANITIES 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 PROFESSOR HUMANITIES 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 PROFESSOR ONDANSETR SHIRIN CARPIO ON HCL CO HOS [...] [facility] R EQUIPME EQUIPME ECG 84365 NATALIIA LACEY LACEY NATALIIA ROUTINE 3 MD ECG CONSULTIN W/LEAST G SRV 12 LDS I&R ONLY RADIOLOGI 32092 [facility] GABRIELA C EXAM 3 JUAN J CHEST 2 RADIOLOGY VIEWS ASSOCIAT FRONTAL&L ATERAL HOME CARE S5108 [facility]INING 3 AREA AREA HOME AGENCY ON AGENCY ON CARE KAREN AKREN CLIENT PER 15 MIN BASIC 54658 [email or web address], [employer], METABOLIC 3 HUMANITIES 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 PROFESSOR HUMANITIES 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 PROFESSOR PANEL SHIRIN SHIRIN CALCIUM CO HOS CO [...] KAREN KAREN CLIENT PER 15 MIN BASIC 07170 [email or web address], [employer], METABOLIC 3 HUMANITIES 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 PROFESSOR HUMANITIES 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 PROFESSOR PANEL SHIRIN SHIRIN CALCIUM CO HOS CO HOS TOTAL BLOOD 51378 [employer], [employer], COUNT 3 HUMANITIES 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 PROFESSOR HUMANITIES 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 PROFESSOR COMPLETE SHIRIN SHIRIN AUTO&AUTO CO HOS CO HOS DIFRNTL WBC RADIOLOGI 36238 [facility] STARKEY C EXAM 3 MARVA CHEST 2 [...] CARE KAREN KAREN CLIENT PER 15 MIN [facility] T1999 [facility] ITEMS & 3 AREA AREA [facility] AGENCY ON AGENCY ON RETAIL KAREN [...] KAREN KAREN CLIENT PER 15 MIN RADIOLOGI 74976 [facility] GABRIELA 3 [facility] EXAMINATI RADIOLOGY ON CHEST ASSOCIAT SINGLE VIEW [facility] HOME CARE S5108 [facility] [...] W/ANY TYPE SIDE RAIL W/MATTRSS US SOFT 61146 [facility] GABRIELA TISSUE 2 JUAN J HEAD & RADIOLOGY NECK REAL ASSOCIAT TIME IMGE DOCM CT BONE 80586 [facility] GABRIELA MINERL 2 JUAN J DENSITY RADIOLOGY STUDY 1/> ASSOCIAT SITS AXIAL SKE DUPLEX 96065 [facility] GABRIELA SCAN 2 JUAN J EXTRACRAN RADIOLOGY [...] KAREN KAREN CLIENT PER 15 MIN ECG 51706 NATALIIA LACEY LACEY NATALIIA ROUTINE 2 MD ECG CONSULTIN W/LEAST G SRV 12 LDS I&R ONLY HOME CARE S5108 [facility] TRAINING 2 AREA AREA HOME AGENCY ON AGENCY ON CARE KAREN KAREN CLIENT PER 15 MIN HOME CARE S5108 [facility] TRAINING 2 AREA AREA HOME AGENCY ON AGENCY ON CARE KAREN KAREN CLIENT PER 15 MIN RADIOLOGI 17654 MARY Gupta 2 MARVA EXAMINATI RADIOLOGY ON [...] CARE KAREN KAREN CLIENT PER 15 MIN [facility] [place] T1999 [facility] [...] MOBILE OR STATIONAR Y W/FIXED ARMS THROMBOPL 40335 [facility] ZUGGI, [email or web address], ASTIN 2 HUMANITIES 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 PROFESSOR HUMANITIES 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 PROFESSOR TIME SHIRIN SHIRIN PARTIAL CO HOS CO HOS PLASMA/WH OLE BLOOD PROTHROMB 01733 [employer], IN TIME 2 HUMANITIES 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 PROFESSOR HUMANITIES 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 PROFESSOR SHIRIN SHIRIN CO HOS CO HOS BLOOD 90709 [facility] Six3, COUNT 2 HUMANITIES 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 PROFESSOR HUMANITIES 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 PROFESSOR COMPLETE SHIRIN SHIRIN AUTO&AUTO CO HOS CO HOS DIFRNTL WBC URNLS DIP 96934 [facility] Legend of the Elf [facility] ZUGGI, 2 HUMANITIES 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 PROFESSOR HUMANITIES 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 PROFESSOR STICK/TAB SHIRIN SHIRIN LET CO HOS CO HOS REAGENT AUTO MICROSCOP Y SUSCEPTBI 77326 [employer], LTY STDY 2 HUMANITIES 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 PROFESSOR HUMANITIES 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 PROFESSOR ANTIMICRB SHIRIN SHIRIN IAL AGNT CO HOS CO HOS AGAR DILUTJ CULTURE 75436 [employer] INC, BACTERIAL 2 HUMANITIES 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 PROFESSOR HUMANITIES 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 PROFESSOR SHIRIN SHIRIN QUANTTATI CO HOS CO HOS VE COLONY COUNT URINE CULTURE 94656 [employer], BCT 2 HUMANITIES 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 PROFESSOR HUMANITIES 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 PROFESSOR ISOL&PRSM SHIRIN SHIRIN PTV ID CO HOS CO HOS ISOLATE EA URINE CULTURE 10241 [employer], BCT 2 HUMANITIES 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 PROFESSOR HUMANITIES 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 PROFESSOR ISOL&PRSM SHIRIN SHIRIN PTV ID CO HOS CO HOS ISOLATE EA URINE CULTURE 22330 [facility] [employer], BACTERIAL 2 HUMANITIES 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 PROFESSOR HUMANITIES 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 PROFESSOR SHIRIN SHIRIN QUANTTATI CO HOS CO HOS VE COLONY COUNT URINE SUSCEPTBI 80373 [employer], LTY STDY 2 HUMANITIES 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 PROFESSOR HUMANITIES 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 PROFESSOR ANTIMICRB SHIRIN SHIRIN IAL AGNT CO HOS CO HOS AGAR DILUTJ URNLS DIP 32697 [facility] ZUGG[employer], [employer], 2 HUMANITIES 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 PROFESSOR HUMANITIES 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 PROFESSOR STICK/TAB SHIRIN SHIRIN LET CO HOS CO HOS REAGENT AUTO MICROSCOP Y ALBUMIN 08498 [email or web address], [employer], SERUM 2 HUMANITIES 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 PROFESSOR HUMANITIES 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 PROFESSOR PLASMA/WH SHIRINAJCK KIRBYS OLE BLOOD CO HOS CO HOS DRUG 93791 [facility] Legend of the Elf [facility] INC, SCREEN 2 HUMANITIES 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 PROFESSOR HUMANITIES 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 PROFESSOR QUANTITAT SHIRIN TURNEROLAS BLAIR CO HOS CO HOS PHENYTOIN TOTAL BLOOD 99308 [facility] Legend of the Elf [facility] INC, COUNT 2 HUMANITIES 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 PROFESSOR HUMANITIES 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 PROFESSOR SMEAR SHIRIN KIRBYS MCRSCP CO HOS CO HOS W/MNL DIFRNTL WBC COUNT BASIC 87404 [facility] Legend of the Elf [facility] INC, METABOLIC 2 HUMANITIES 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 PROFESSOR HUMANITIES 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 PROFESSOR PANEL SHIRIN SHIRIN CALCIUM CO HOS CO HOS TOTAL BLOOD 89586 [facility] [employer] INC, COUNT 2 HUMANITIES 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 PROFESSOR HUMANITIES 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 PROFESSOR COMPLETE SHIRIN SHIRIN AUTO&AUTO CO HOS CO HOS DIFRNTL WBC URNLS DIP 37974 [facility] Legend of the Elf [facility] ZUGGI, 2 HUMANITIES 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 PROFESSOR HUMANITIES 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 PROFESSOR STICK/TAB SHIRIN KIRBYS LET CO HOS CO HOS REAGENT AUTO MICROSCOP Y CULTURE 78983 [facility] Legend of the Elf [facility] ZUGGI, BACTERIAL 2 HUMANITIES 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 PROFESSOR HUMANITIES 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 PROFESSOR SHIRIN SHIRIN QUANTTATI CO HOS CO HOS VE COLONY COUNT URINE SBSQ 58594 [facility] 2 [facility] FACIL INTERNAL CARE/DAY MED NEW PROBLEM 25 MIN DEBRIDEME 01376 [facility] FED LAUSE FED NT NAIL 1 ANY METHOD 6/> SBSQ 27540 [facility] FED NURSING 1 FACIL CARE/DAY MINOR COMPLJ 15 MIN AMBULANCE A0428 [facility] SERVICE 1 AMBULANCE AMBULANCE BLS SERVICE SERVICE [facility]SP[facility] A0425 [facility] MILEAGE 1 AMBULANCE AMBULANCE PER SERVICE SERVICE STATUTE MILE ANESTHESI 87562 [facility] OPEN 1 ANESTH ROBERT PROCEDURE OF THE S UPPER BLUE 2/3 FEMUR NOS RADIOLOGI 55631 [place] [facility] 1 MEDICAL ANN MARIE EXAMINATI IMAGING ON PELVIS ASS 1/2 VIEWS RADEX HIP 67619 [facility] 1 MEDICAL ANN MARIE UNILATERA IMAGING L ASS COMPLETE MINIMUM 2 VIEWS RADIOLOGI 63273 [facility] C 1 MARVA EXAMINATI RADIOLOGY ON CHEST ASSOCIAT SING[place] FRONTAL RADEX 27874 [facility] HIPS 1 [facility]VA BILATERAL RADIOLOGY 2 VIEWS ASSOCIAT ANTEROPOS T PELVIS RADEX TOE 37396 [facility] MINIMUM 1 JUAN J 2 VIEWS RADIOLOGY ASSOCIAT DRUG 48177 SHIRIN CARPIO SCREEN 1 CO CO [facility] BLAIR PHENYTOIN TOTAL NATRIURET 49466 [facility]IR[facility] CARPIO IC 1 CO CO [facility] BLOOD 57488 SHIRIN CARPIO COUNT 1 CO CO [facility] AUTO&[place] [address] SHIRIN CARPIO THYROID 1 [facility] TSH COMPREHEN 59242 SHIRIN CARPIO SIVE 1 CO CO [facility] PANEL RADIOLOGI 10124 [facility] GABRIELA C EXAM 1 JUAN J CHEST 2 RADIOLOGY VIEWS ASSOCIAT FRONTAL&L ATERAL COLLECTIO 12532 SHIRIN CARPIO N VENOUS 1 CO [facility] VENIPUNCT URE WALKER E0143 [facility] FOLDING 1 HOME HOME WHEELED MEDICAL MEDICAL ADJUSTABL EQUIPME EQUIPME E/FIXED HEIGHT GROUND A0425 [facility] MILEAGE [address] [facility] STATUTE EMS EMS MILE AMB A0427 [facility] SERVICE 1 [facility] EMERGENCY EMS EMS TRANSPORT LEVEL 1 ECG 10924 JESUS PERALES ROUTINE 1 EMERGENCY ECG SERVICES W/LEAST 12 LDS I&R ONLY RADIOLOGI 14451 [place] AFUA Gupta 1 MEDICAL ANN MARIE EXAMINATI IMAGING ON CHEST ASS [place] FRONTAL RADIOLOGI 10163 [facility] C 1 [facility] EXAMINATI INC INC ON CHEST [place] FRONTAL BLOOD 02262 [facility] COUNT 1 [facility] COMPLETE INC INC AUTO&AUTO DIFRNTL WBC COMPREHEN 71466 [facility] SIVE 1 [facility] METABOLIC INC INC PANEL CREATINE 26982 [facility] KINASE MB 1 [facility] [place] [address] [facility] EL[facility] TROPONIN 1 [facility] QUANTITAT INC INC BLAIR NATRIURET 76100 [facility] IC 1 [facility] PEPTIDE INC INC CULTURE 01709 [facility] ELK[facility] BACTERIAL 1 [facility] BLOOD INC INC AEROBIC W/ID ISOLATES URNLS DIP 62806 [facility] ELK[facility] 1 [facility] STICK/TAB INC INC LET REAGENT AUTO MICROSCOP Y CREATINE 05014 [facility] ELK[facility] KINASE 1 [facility] TOTAL INC INC ECG [address] ROUTINE 1 [facility] W/LEAST P 12 LDS I&R ONLY THERAPEUT 53411 [facility] ELKINS IC 1 [facility] INJECTION [place] [address] [facility] ELKINS INFUSION 1 [facility] THERAPY/P INC INC ROPHYLAXI S /DX 1ST TO 1 HR ECG 25573 [facility] ELK[facility] ROUTINE 1 [facility] ECG INC INC W/LEAST 12 LDS TRCG ONLY W/O I&R DRUG 78264 [facility] ELKINS SCREEN 1 [facility] QUANTITAT INC INC [facility]LAIR PH[facility] 56633 [facility] DISCHARGE 1 MEDICAL STACY DAY SERV MANAGEMEN FOUNDATIO T 30 MIN/< SBSQ 16629 [facility] 1 MEDICAL STACY CARE/DAY SERV 25 FOUNDATIO MINUTES LOCALIZE 54196 [place] CEREBRAL 1 MEDICAL TIM SEIZURE SERV CABLE/RAD FOUNDATIO IO EEG/VIDEO RADIOLOGI 79018 [place] IRMA C 1 MEDICAL ALBAN EXAMINATI SERV ON CHE[place] [address] [facility] ANGIOGRAP 1 MEDICAL ALBAN HY CHEST SERV W/CONTRAS FOUNDATIO T/NONCONT RAST SBSQ 35696 [facility] 1 MEDICAL SABINE CARE/DAY SERV 35 FOUNDATIO MINUTES SBSQ 84765 [facility] 1 MEDICAL SABINE CARE/DAY SERV 35 FOUNDATIO MINUTES MRA NECK 25741 TAM TEJADA W/O 1 MEDICAL SATISH CONTRST SERV MATERIAL FOUNDATIO MRI BRAIN 54672 [place] TERRELL BRAIN 1 MEDICAL SATISH STEM W/O SERV W/CONTRAS FOUNDATIO T MATERIAL RADEX 31318 [place] SAL ABDOMEN 1 1 MEDICAL ART SERV ANTEROPOS FOUNDATIO TERIOR VIEW MRA HEAD 10672 [place] TEJADA W/O 1 MEDICAL SATISH CONTRST SERV MATERIAL FOUNDATIO RADIOLOGI 29839 [place] ATTILI C 1 MEDICAL ANI EXAMINATI SERV ON CHEST FOUNDATIO [place]ONT[place] LOCALIZE 27780 [place] CEREBRAL 1 MEDICAL TIM SEIZURE SERV CABLE/RAD FOUNDATIO IO EEG/VIDEO RADIOLOGI 51405 [place] NICKELS C 1 MEDICAL STACY EXAMINATI SERV ON CHEST FOUNDATIO [place] INITIAL 67204 [place] [facility] 1 MEDICAL LINDSAY CARE/DAY SERV 50 FOUNDATIO MINUTES CRITICAL 28745 [place] ELENA CARE 1 MEDICAL YAMILETH ILL/INJUR SERV ED FOUNDATIO PATIENT INIT 30-74 MIN GROUND A0425 [facility] MILEAGE [address] [facility] STATUTE EMS EMS MILE AMB A0427 [facility] SERVICE 1 [facility] EMERGENCY EMS EMS TRANSPORT LEVEL [address] [facility] Y Y [facility] EAL TUBE CONT [address] [facility] INVASIVE 1 Y Y [facility] < 96 CONSECUTI VE HOURS SPINAL [address] [facility] TAP 1 Y Y [facility] ECHO [address]446 [place] LISE CHANEL TTHRC R-T 1 MEDICAL 2D SERV W/WOM-MOD FOUNDATIO E COMPL SPEC&COLR D CYTP 19960 [place] CAMILA CONCENTRA 1 MEDICAL BRILL YOL TION SERV SMEARS & FOUNDATIO INTERPRET ATION INTUBATIO 49631 [place] ELENA N 1 MEDICAL YAMILETH ENDOTRACH SERV [place] [address] [place] TERRELL HEAD/BRAI 1 MEDICAL SATISH N W/O SERV CONTRAST FOUNDATIO MATERIAL ECG 18160 NATALIIA LACEY LACEY NATALIIA ROUTINE 1 MD ECG CONSULTIN W/LEAST G SRV 12 LDS I&R ONLY RADIOLOGI 57274 [facility] C EXAM 1 EIDER KRISTAN CHEST 2 [...] [facility] 1 PAIR URNLS DIP 18491 SHIRIN CARPIO 1 CO CO [facility] [...] [id number] [facility] 0 PAIR RADIOLOGI 30614 [facility] C EXAM 0 MARVA CHEST 2 RADIOLOGY VIEWS ASSOCIAT FRONTAL&L ATERAL COLLECTIO 05835 SHIRIN CARPIO N VENOUS 0 CO DC BLOOD [facility] VENIPUNCT URE BLOOD 63521 SHIRIN CARPIO COUNT 0 CO CO COMPLETE [facility] AUTO&AUTO DIFRNTL WBC BLOOD 31976 SHIR[facility] CARPIO COUNT 0 CO DC SMEAR [facility] MCRSCP W/MNL DIFRNTL WBC COUNT BASIC 49429 SHIRIN CARPIO METABOLIC 0 CO [facility] CALCIUM TOTAL CYSTOURET 03992 [facility] HROSCOPY 0 LTH THO TX FEMALE UROLOGY URETHRAL PSC SYNDROME INITIAL 55861 [facility] OBSERVATI 0 LTH THO ON UROLOGY CARE/DAY PSC 30 MINUTES URNLS DIP 05015 [facility] STICK/TAB HOSPITAL HOSPITAL LET REAGENT AUTO MICROSCOP Y CYSTO 37654 [facility] CALIBRATI 0 [facility] ON [facility]AT [facility]PITAL HOSPITAL URTL STRIX/SATISH NOSIS IADNA 37441 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 NEISSERIA 0 Y [facility] [place] [facility] GONORRHOE H H AE AMPLIFIED PROBE TQ SCR G0145 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 CYTOPATH 0 Y [facility] CERV/VAG [place] SCR H H AUTO&MNL RSCR PHYS IADNA 60150 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 CHLAMYDIA 0 Y [facility] TRACHOMAT H H IS AMPLIFIED PROBE TQ HEAVY-DUT K0006 [facility] Y 0 WHEELCHAI R ELEVATING K0195 [facility] 0 PAIR EXC B9 72759 SHIRIN CARPIO LESION 0 CO [facility] SK TG T/A/L 2.1-[place] [address] PATHOLOGY PATHOLOGY SURG 0 & & PATHOLOGY CYTOLOGY CYTOLOGY LAB LAB GROSS&ALBAN ROSCOPIC EXAM EXC B9 20058 ARMIN ARMIN LESION 0 ARI ARI [facility] TG T/A/L 0.6-1.0 CM ECG 57451 NATALIIA LACEY LACEY NATALIIA ROUTINE 0 MD ECG CONSULTIN W/LEAST G SRV 12 LDS I&R ONLY ELEVATING K0195 [facility] 0 PAIR HEAVY-DUT K0006 [facility] Y 0 WHEELCHAI R RADIOLOGI 46842 TAM , C 0 MEDICAL [facility] Gaspar EXAMINATI SERV ON TIBIA FOUNDATIO & FIBULA 2 VIEWS RADEX 01713 TAM MONTANO, ANKLE 0 [facility]ICAL [facility] Gaspar COMPLETE SERV MINIMUM 3 FOUNDATIO VIEWS RADEX 20543 TAM MONTANO, FOOT 0 [facility]ICAL [facility] Gaspar COMPLETE SERV MINIMUM 3 FOUNDATIO VIEWS RADIOLOGI 33005 TAM KING C 0 MEDICAL [facility] Gaspar EXAMINATI SERV ON KNEE 3 FOUNDATIO VIEWS [facility] 47230 [facility] DISCHARGE 0 ARI ARI DAY MANAGEMEN T > 30 MIN INITIAL 69390 [facility] 0 ARI ARI CARE/DAY 70 MINUTES RADIOLOGI 23925 Candy MONROE EXAM 0 NAYELY S KNEE RADIOLOGY COMPLETE 4/MORE ASSOCIATE VIEWS S PSC RADIOLOGI 01041 SCHENECTADYCandy TERAN 0 NAYELY Ortiz EXAMINATI RADIOLOGY ON CHEST SINGLE ASSOCIATE VIEW S PSC FRONTAL BLOOD 03083 SH[facility] CARPIO COUNT 0 CO CO COMPLETE [facility] AUTO&AUTO DIFRNTL WBC URNLS DIP 92250 SHIRIN CARPIO 0 CO CO STICK/TAB [facility] LET REAGENT AUTO MICROSCOP Y COMPREHEN 48020 SHIRIN CARPIO SIVE 0 CO CO METABOLIC [facility] PANEL COLLECTIO 08822 SHIRIN CARPIO N VENOUS 0 CO CO BLOOD [facility] VENIPUNCT URE RADIOLOGI 50904 SHIRIN Gupta EXAM 0 CO CO CHEST 2 [facility] VIEWS FRONTAL&L ATERAL LIPID 83695 SHIRIN CARPIO PANEL 0 CO [facility] IIV3 13460 ARMIN FUNEZ, VACCINE 9 GAMAL Velazquez SPLIT VIRUS 0.5 ML DOSAGE IM USE ADMINISTR G0008 ARMIN FUNEZ, ATION OF 9 GAMAL Velazquez INFLUENZA VIRUS VACCINE SCREENING [id number] [facility] ELKINS 9 [facility] INC HY BILATERAL BLOOD 49090 BRITTNI ELKINS COUNT 9 [facility] COMPLETE INC INC AUTO&AUTO DIFRNTL WBC RADIOLOGI 29886 BRITTNI ELKINS C EXAM 9 [facility] CHEST 2 INC INC VIEWS FRONTAL&L ATERAL COLLECTIO 11594 BRITTNI ELKINS N VENOUS 9 [facility] BLOOD INC INC VENIPUNCT URE HEPATIC 62546 BRITTNI ELKINS FUNCTION 9 [facility] PANEL INC INC COMPUTER- [id number] BRITTNI ELKINS AIDED 9 [facility] DETECTION INC INC SCREENING MAMMOGRAP HY RADIOLOGI 03863 Candy MONROE EXAM 8 NAYELY S CHEST 2 RADIOLOGY VIEWS FRONTAL&L ASSOCIATE ATERAL S PSC Encounters Encounter Start End Date Code Location Performer Type Date [facility] 7 7 [facility] 7 7 [facility] 7 7 [facility] 7 7 [facility] 7 7 [facility] 7 7 [facility]PAT[facility] 7 7 [facility] EMERGENCY [id number] SURAJ SANTIAGO DEPT 7 7 PHYSICIAN VISIT S, PLLC HIGH SEVERITY& THREAT FUNCJ OFFICE 61978 DERMATOLO MUSIC OUTPATIEN 7 7 GY T VISIT CONSULTAN 10 TS PSC MINUTES OFFICE 59560 DERMATOLO MUSIC OUTPATIEN 7 7 GY T VISIT CONSULTAN 15 TS PSC MINUTES OFFICE 94294 DERMATOLO ALEXIS OUTPATIEN 6 6 GY T NEW 10 CONSULTAN MINUTES TS [facility] BRITTNI - OTHER 6 6 [facility] BRITT[facility] - OTHER 6 6 [facility] 5 5 [facility] - OTHER [facility] 5 5 [facility] 5 5 [facility] - [facility] 5 5 [facility] - OTHER [facility] 5 [facility] EMERGENCY [id number] BRITTNI 5 5 [facility] DEPARTMEN INC T VISIT HIGH/URGE NT SEVERITY HOSPITAL BRITTNI - 5 5 [facility]PATI[facility] 5 5 [facility] BRITTNI - 5 5 [facility] INPATIENT INC [facility] 5 5 [facility] INPATIENT 5 5 [facility] EMERGENCY 46701 BRITTNI ARMAAN 5 5 [facility] T VISIT P HIGH/URGE NT SEVERITY HOSPITAL BRITTNI - 5 5 [facility] INPATIENT INC [facility], ACCESS 4 4 [facility] ACCESS 3 3 [facility] EMERGENCY 71473 [facility], 3 3 [facility] T VISIT CO HOS HIGH/URGE NT SEVERITY [facility], ACCESS 3 3 [facility] EMERGENCY 13889 [facility] DOMINGUEZ 3 3 [facility] T VISIT MODERATE SEVERITY [facility]ICAL [facility] INC, ACCESS 3 3 [facility], ACCESS 3 3 [facility] OFFICE 88244 ARMIN ARMIN OUTPATIEN 3 3 ARI ARI T VISIT 15 MINUTES EMERGENCY 29885 SHIRIN MORGAN 3 3 [facility] T VISIT MODERATE SEVERITY OFFICE 94522 MARY FISHER ARI OUTPATIEN 3 3 N T NEW 45 NEUROLOGY MINUTES OFFICE 21183 ARMIN ARMIN OUTPATIEN 2 2 ARI ARI T VISIT 15 MINUTES OFFICE 04640 ARMIN ARMIN OUTPATIEN 2 2 ARI ARI T VISIT 15 MINUTES [facility] INC, ACCESS 2 2 [facility] HOS CRITICAL [facility] ACCESS 2 2 [facility] H[facility] CRITICAL [facility], ACCESS 2 2 [facility], ACCESS 2 2 [facility]ITICAL [facility], ACCESS 2 2 [facility] HOS CRITICAL [facility] ACCESS 2 2 [facility] HOS CRITICAL SHIRIN ACCESS 1 1 [facility] EMERGENCY 88763 [facility] DEPT 1 1 EMERGENCY VISIT SERVICES HIGH SEVERITY& THREAT FUNCJ EMERGENCY 12433 BRITTNI 1 1 [facility] T VISIT HIGH/URGE NT SEVERITY HOSPITAL BRITTNI - 1 1 [facility] OUTPATIEN [facility] UNIVERSIT - 1 1 Y INPATIENT HOSPITAL OFFICE 81021 ARMIN WAREO OUTPATIEN 1 1 ARI ARI T VISIT 15 MINUTES OFFICE 31189 ARMIN ARMIN OUTPATIEN 1 1 ARI [facility] T VISIT 10 MINUTES OFFICE 11654 ARMIN ARMIN OUTPATIEN 1 1 ARI ARI T VISIT 15 MINUTES CRITICAL SHIRIN ACCESS 1 1 [facility] OFFICE 35718 ARMIN ARMIN OUTPATIEN 0 0 ARI ARI T VISIT 15 MINUTES OFFICE 43333 ARMIN ARMIN OUTPATIEN 0 0 ARI ARI T VISIT 10 MINUTES OFFICE 53463 ARMIN ARMIN OUTPATIEN 0 0 ARI ARI T VISIT 15 MINUTES CRITICAL SHIRIN ACCESS 0 0 [facility] - 0 0 [facility] 77524 [facility] OUTPAT[facility] 0 0 LTH THO T NEW 30 UROLOGY MINUTES PSC CRITICAL SHIRIN ACCESS 0 0 [facility] OFFICE 81043 TAM COATES, OUTPATIEN 0 0 MEDICAL CASSIDY D T VISIT SERV 10 FOUNDATIO MINUTES EMERGENCY 66947 [place] CELIS, 0 0 MEDICAL ABHIJEET DEPARTMEN SERV T VISIT FOUNDATIO MODERATE SEVERITY OFFICE 61284 ARMIN FUNEZ, OUTPATIEN 0 0 MODE MODE T VISIT 15 MINUTES CRITICAL SHIRIN ACCESS 0 0 [facility] OFFICE 32887 ARMIN FUNEZ, OUTPATIEN 0 0 MODE MODE T VISIT 15 MINUTES OFFICE 83308 ARMIN FUNEZ OUTPATIEN 9 9 MODE MODE T VISIT 15 MINUTES OFFICE 44558 ARMIN FUNEZ OUTPATIEN 9 9 MODE MODE T VISIT 15 MINUTES OFFICE 58727 ARMIN FUNEZ OUTPATIEN 9 9 MODE MODE T VISIT 15 MINUTES OFFICE 15173 ARMIN FUNEZ OUTPATIEN 9 9 MODE MODE T VISIT 15 MINUTES HOSPITAL BRITTNI - 9 9 [facility] 70217 ARMIN FUNEZ OUTPATIEN 8 8 MODE MODE T VISIT 15 MINUTES OFFICE 74907 ARMIN FUNEZ OUTPATIEN 8 8 MODE MODE T VISIT 15 MINUTES OFFICE 73819 ARMIN FUNEZ OUTPATIEN 8 8 MODE MODE T VISIT 15 MINUTES OFFICE 95803 SCHULSTAD SCHULSTAD OUTPATIEN 8 8 , LINCOLN LINCOLN T VISIT 15 MINUTES [facility]IR[facility] ACCESS 8 8 [facility] OFFICE 28917 ARMIN FUNEZ OUTPATIEN 8 8 MODE MODE T VISIT 10 MINUTES OFFICE 98790 ARMIN FUNEZ OUTPATIEN 8 8 MODE MODE T VISIT 15 MINUTES OFFICE 06666 ARMIN FUNEZ OUTPATIEN 8 8 MODE MODE T VISIT 15 MINUTES HOSPITAL SHIRIN - 8 8 [facility] 01488 SCHULSTAD SCHULSTAD OUTPATIEN 8 8 , LINCOLN LINCOLN T VISIT 15 MINUTES OFFICE 17007 ARMIN FUNEZ OUTPATIEN 8 8 MODE MODE T VISIT 10 MINUTES
--- OUTSIDE RECORDS SUMMARY | 2017-06-11 05:46 | External Medical Summary Rpt | CCD ---
Author Author , SHERLEY Organization [employer] Address Unknown Phone [email or web address] Care Team Providers Care De Icer Element Winder Name Role Phone [facility], [facility] Unavailable Unavailable [facility], [facility] Unavailable Unavailable EPPERSON STACY, EPPERSON Unavailable Unavailable STACY [facility], Unavailable Unavailable INC., [facility] LEZAMA DARÍO, LEZAMA DARÍO Unavailable Unavailable ATTILI ANI, ATTILI Unavailable Unavailable ANI BEINEKE ANGEL, BEINEKE Unavailable Unavailable ANGEL BENSADOUN SABINE, Unavailable Unavailable BENSADOUN SABINE BENSALEM TIM, Unavailable Unavailable BENSALEM TIM BESSON SATISH, BESSON Unavailable Unavailable SATISH [facility] Unavailable Unavailable ON KAREN, [facility] ON [facility] Unavailable Unavailable ON KAREN, [facility] ON [place]EN [facility] Unavailable Unavailable CARE SERV, [facility] LR, LR Unavailable Unavailable LR ALL, LR ALL Unavailable Unavailable BOONSTRA TOD, Unavailable Unavailable BOONSTRA TOD [facility] Unavailable Unavailable [facility]available Unavailable SERVICE, [facility]available Unavailable SERVICE, [facility] GABRIELA DREW Unavailable Unavailable JUAN J [facility] Unavailable Unavailable LA, [facility] Unavailable Unavailable [facility], [facility] Unavailable Unavailable LAB, [facility] Unavailable Unavailable LAB, [facility] LACEY NATALIIA, LACEY NATALIIA Unavailable Unavailable [facility] Unavailable Unavailable PSC, [facility] ABEL JR BRAD, ABEL Unavailable Unavailable JR BRAD AFUA, AFUA Unavailable Unavailable AFUA ANN MARIE, Unavailable Unavailable AFUA ANN MARIE AFUA, MONICA, Unavailable Unavailable FAUA, MONICA [facility] Unavailable Unavailable [facility], [facility] Unavailable Unavailable [facility], [facility] CELIS, ABHIJEET, CELIS, Unavailable Unavailable ABHIJEET [facility] Unavailable Unavailable SERVBLUEGRAS, [facility] TRANS SERVBL[facility]GRAS [facility] Unavailable Unavailable TRANSPORTATION SER, [facility] PAMELA, PAMELA Unavailable Unavailable TEJADA SATISH, Unavailable Unavailable TEJADA SATISH STEPHANIE KRISTAN, Unavailable Unavailable HAGCHNEIDER KRISTAN JOHNNA, JOHNNA Unavailable Unavailable JOHNNA ANUM, Unavailable Unavailable JOHNNA ANUM [facility] Unavailable Unavailable INC, [facility] Unavailable Unavailable HOSPITAL P, [facility] P AMEE FRA, AMEE FRA Unavailable Unavailable STARKEY MARVA, STARKEY Unavailable Unavailable MARVA STARKEY, NAYELY S, Unavailable Unavailable STARKEY, NAYELY S [facility], Unavailable Unavailable [facility] Unavailable Unavailable INC, [facility] GONZALEZ TYL, GONZALEZ Unavailable Unavailable TYL ELENA YAMILETH, Unavailable Unavailable ELENA YAMILETH RAGINI GARCIA Unavailable Unavailable [facility], [facility] Unavailable Unavailable IMAGING [facility], [facility] FAUSTO MONTANO KING, Unavailable Unavailable FAUSTO [facility] Unavailable Unavailable [place], [place] [...] DWI, LARRY Unavailable Unavailable JR DWI [facility] Unavailable Unavailable INTERNAL MED, [facility] SAL ART, SAL Unavailable Unavailable ART ARMINESTRADA CHAPMAN ARMIN Unavailable Unavailable ARI ARMINESTRADA CHAPMAN ARMIN Unavailable Unavailable GAMAL GILMORE, Unavailable Unavailable GAMAL FUNEZ SHILO MARVA, SHILO Unavailable Unavailable MARVA ARMAAN LORI, ARMAAN Unavailable Unavailable LROI [facility] Unavailable Unavailable SERVICES, [facility] MARYCRUZ MARYCRUZ Unavailable Unavailable [facility] Unavailable Unavailable ASSOCIAT, [facility] CONNIE QUINN BRAD, Unavailable Unavailable CONNIE QUINN BRAD [facility] Unavailable Unavailable DUNCANS[facility] SALINAS [facility] Unavailable Unavailable BRAD [facility] Unavailable Unavailable [facility]-TR[facility]/$2000 LE, [facility]FP PRE-TR[facility]/$2000 LE [facility] Unavailable Unavailable PRE-TRANSITION/$2000 VIS, MFP PRE-TRANSITION/$2000 VIS [facility] Un[facility] Unavailable [facility], [facility] CAMILA BRILL YOL, Unavailable Unavailable CAMILA BRILL YOL MUSIC, MUSIC Unavailable Unavailable [facility], [facility] Unavailable Unavailable MED [facility], Unavailable Unavailable [facility] RAJ LINDSAY, RAJ Unavailable Unavailable L[facility] Unavailable Un[facility] Unavailable Unavailable [facility], Unavailable Unavailable [facility] Unavailable Unavailable AMBULANCE , [facility] Unavailable Unavailable AMBULANCE SE, [facility] Unavailable Unavailable HOSPITAL, [facility] NICKELS STACY, NICKELS Unavailable Unavailable STACY [facility], Unavailable [facility] JUAREZ LOY, JUAREZ Unavailable Unavailable LOY FISHER ARI, FISHER ARI Unavailable Unavailable NATALIIA LACEY MD Unavailable Unavailable CONSULTING SRV, NATALIIA LACEY MD CONSULTING SRV [facility] Unavailable Unavailable EMS, [facility] Unavailable Unavailable EMS, [facility], Unavailable Unavailable PLL[facility], [facility] Unavailable Unavailable LAB, [facility] Unavailable Unavailable LAB, [facility] DOMINGUEZ MUH, DOMINGUEZ Unavailable Unavailable MUH NAYELY, NAYELY Unavailable Unavailable NAYELY JUAN J, NAYELY Unavailable Unavailable JUAN J SCHULSTAD, LINCOLN, Unavailable Unavailable SCHUL[facility], LINCOLN LUCY [facility], Unavailable Unavailable [facility] SOKAN BAB, SOKAN BAB Unavailable Unavailable [facility] Unavailable Unavailable EQUIPME, [facility] Unavailable Unavailable EQUIPME, [facility] ALEXIS, ALEXIS Unavailable Unavailable [facility], Unavailable Unavailable [facility], Unavailable Unavailable [facility] INGRID ROBERT, INGRID Unavailable Unavailable ROBERT HAROLDO, HAROLDO Unavailable Unavailable HAROLDO AJ, HAROLDO Unavailable Unavailable AJ NAZARIO [facility], Unavailable Unavailable [facility], Unavailable Unavailable [facility] ARUN KRISTAN, ARUN Unavailable Unavailable KRISTAN SONG Unavailable Unavailable [facility]SC[facility] IRMA ALBAN, IRMA Unavailable Unavailable ALBAN CASSIDY COATES, Unavailable Unavailable CASSIDY COATES [facility], Unavailable [facility]available [facility] Purpose Continuity of Care Document - 10-17-2007 through 2016 Problems Code Diagnosis DOS Provider Status B952 ENTEROCOCCU 05-27-2017 RAGINI S CAUSE OF JOSE DZ NURSING CLASSIFIED HOME ELSEWHERE B965 PSEUDOMONAS 05-27-2017 RAGINI CAUSE OF JOSE DZ NURSING CLASSIFIED HOME ELSEWHERE I10 ESSENTIAL 05-27-2017 RAGINI PRIMARY JOSE HYPERTENSIO NURSING N HOME I222 SUBSEQUENT 05-27-2017 RAGINI NON-ST JOSE ELEVATION NURSING MYOCARDIAL HOME INFARCT I471 SUPRAVENTRI 05-27-2017 RAGINI CULAR JOSE TACHYCARDIA FPC J189 PNEUMONIA 05-27-2017 RAGINI UNSPECIFIED JOSE ORGANISM FPC K8590 ACUTE 05-27-2017 RAGINI PANCREATITI JOSE S WO NURSING NECROSIS/IN HOME FECTION UNSPEC N390 URINARY 05-27-2017 RAGINI TRACT JOSE INFECTION NURSING SITE NOT HOME SPECIFIED B9620 UNS E COLI 05-20-2017 RAGINI E. COLI JOSE CAUSE DZ NURSING CLASS HOME ELSEWHERE D649 ANEMIA 05-20-2017 RAGINI UNSPECIFIED JOSE FPC N289 DISORDER OF 05-20-2017 RAGINI KIDNEY AND JOSE URETER NURSING UNSPECIFIED HOME R1312 DYSPHAGIA 05-20-2017 RAGINI OROPHARYNGE JOSE AL PHASE FPC R7881 BACTEREMIA 05-20-2017 RAGINI GARCIA FPC Z1612 EXTENDED 05-20-2017 RAGINI SPECTRUM JOSE BETA NURSING LACTAMASE HOME ESBL RESISTANCE R7301 IMPAIRED 05-11-2017 [facility] GLUCOSE LAB E870 HYPEROSMOLA 05-06-2017 LAB [facility]EL LITY AND [place] HYPERNATREM HOLDINGS [place] E875 HYPERKALEMI 05-06-2017 LAB ARIEL A [place] HOLDINGS B13998 EPILEPSY 05-06-2017 LAB ARIEL UNS NOT [place] INTRACT W/O HOLDINGS STATUS EPILEPTICUS H6060 UNSPECIFIED 04-21-2017 [facility] CHRONIC E OTITIS EXTERNA UNS EAR B351 TINEA 02-22-2017 [facility] UNGUIUM E I739 PERIPHERAL 02-22-2017 [facility] VASCULAR E DISEASE UNSPECIFIED M2040 OTHER 02-22-2017 [facility] HAMMER TOES E ACQUIRED UNSPECIFIED FOOT R410 DISORIENTAT 01-21-2017 [facility] UNSPECIFIED SERVICE Z452 ENCOUNTER 01-19-2017 [facility] VASCULAR ACCESS DEVICE R05 COUGH 01-18-2017 [facility] R062 WHEEZING 01-18-2017 [facility] R0602 SHORTNESS 01-17-2017 [place] [facility] K86799 PERSONAL 01-17-2017 [facility] HISTORY OF PHYSICIANS, NICOTINE PLLC DEPENDENCE O07887 UNSPECIFIED 01-13-2017 SUSAN SONG PSC BLEPHAROCON JUNCTIVITIS BILATERAL H2511 AGE-RELATED 01-13-2017 SUSAN Chance NUCLEAR [facility] P[facility] CATARACT RIGHT EYE L905 SCAR 12-30-2016 DERMATOLOGY CONDITIONS AND CONSULTANTS FIBROSIS OF PSC SKIN R69 ILLNESS 12-30-2016 FEDERATED UNSPECIFIED TRANSPORTAT ION SER Z08 ENCOUNTER 12-30-2016 DERMATOLOGY F/U EXAM AFTER CMPL CONSULTANTS REJI KALEB PSC NEOPLASM Q92733 PERSONAL 12-30-2016 DERMATOLOGY HISTORY OTHER CONSULTANTS MALIGNANT PSC NEOPLASM SKIN D0461 CARCINOMA 10-28-2016 DERMATOLOGY IN SITU SKIN RT CONSULTANTS UPPER LIMB PSC INCL SHLDR C4911 MALIG 08-25-2016 [facility] NEOPLASM EXTENDED CONN SOFT CARE SERV TISS RT UP LIMB W/SHLDR X31058 PAIN IN 08-17-2016 [facility] RIGHT TOES E C76597 PAIN IN 08-17-2016 [facility] LEFT TOES E D485 NEOPLASM OF 08-16-2016 DERMATOLOGY UNCERTAIN BEHAVIOR OF CONSULTANTS SKIN PSC G4089 OTHER 08-07-2016 [facility] SEIZURES EXTENDED CARE SERV K219 GASTRO-ESOP 08-07-2016 [facility] H REFLUX EXTENDED DISEASE CARE SERV WITHOUT ESOPHAGITIS R601 GENERALIZED 08-07-2016 [facility] EDEMA EXTENDED CARE SERV D229 MELANOCYTIC 08-06-2016 [facility] NEVI EXTENDED UNSPECIFIED CARE SERV F49134 CELLULITIS 08-06-2016 [facility] OF RIGHT EXTENDED UPPER LIMB CARE SERV R109 UNSPECIFIED 06-21-2016 [facility] ABDOMINAL PHYSICIANS PAIN LA R509 FEVER 05-10-2016 [facility] UNSPECIFIED MEM HOS[facility] INC R5383 OTHER 05-10-2016 [facility] FATIGUE [facility] INC V11010 UNSPECIFIED 04-16-2016 SUSAN Chance PTOSIS OF [facility] PSC RIGHT EYELID N44169 ACUTE 03-25-2016 [facility] LYMPHANGITI E S OF LEFT TOE L600 INGROWING 03-25-2016 [facility] NAIL E M36476 PAIN IN 03-25-2016 [facility] UNSPECIFIED E FOOT S39872V CONTUSION 03-25-2016 [facility] RT GREAT E TOE W/DAMAGE NAIL INITIAL ENC M60883A ABRASION 03-25-2016 [facility] RIGHT GREAT E TOE INITIAL ENCOUNTER E039 HYPOTHYROID 03-19-2016 [facility] ISM PHYSICIANS UNSPECIFIED LA E119 TYPE 2 03-19-2016 [facility] DIABETES PHYSICIANS MELLITUS LA WITHOUT COMPLICATIO NS R8299 OTHER 01-02-2016 [facility] ABNORMAL [facility] FINDINGS IN INC URINE G309 ALZHEIMERS 12-07-2015 [facility] DISEASE EXTENDED UNSPECIFIED CARE SERV W50135 EPILEPSY 12-07-2015 [facility] UNS NOT EXTENDED INTRACT CARE SERV W/STATUS EPILEPTICUS E559 VITAMIN D 11-18-2015 LAB [facility] DEFICIENCY [place] UNSPECIFIED HOLDINGS N179 ACUTE 11-07-2015 LAB [facility] KIDNEY [place] FAILURE HOLDINGS UNSPECIFIED J449 CHRONIC 10-31-2015 [facility] OBSTRUCTIVE EXTENDED PULMONARY CARE SERV DISEASE UNS R78850 ACUTE EMBO 10-04-2015 [facility] THROMB UNS EXTENDED DEEP VEINS CARE SERV LT LOWER EXTREM J8410 PULMONARY 07-30-2015 [facility] FIBROSIS [facility] UNSPECIFIED 55274 OTHER 05-27-2015 [facility] DISEASES OF [facility] LUNG NOT ELSEWHERE CLASSIFIED 4019 UNSPECIFIED 05-07-2015 [facility] ESSENTIAL PHYSICIANS HYPERTENSIO LA N 7862 COUGH 05-05-2015 [facility] 2760 HYPEROSMOLA 04-29-2015 RAGINI LITY AND/OR [place] 2767 HYPERPOTASS 04-29-2015 [facility]I EMIA [facility] 2859 UNSPECIFIED 04-29-2015 R[facility]I ANEMIA [facility] 47049 OTHER LATE 04-29-2015 RAGINI EFFECTS OF JOSE CEREBROVASC NURSING ULAR HOME DISEASE 5849 ACUTE 04-29-2015 R[facility]I KIDNEY JOSE FAILURE NURSING UNSPECIFIED HOME 75285 URINARY 04-29-2015 RAGINI OBSTRUCTION JOSE NOT NURSING ELSEWHERE HOME CLASSIFIED 48936 ABNORMAL 04-29-2015 [facility]I POSTURE [facility] 11877 DYSPHAGIA 04-29-2015 R[facility]I OROPHARYNGE JOSE AL PHASE FPC 1101 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 4439 UNSPECIFIED 04-07-2015 [facility] PERIPHERAL E VASCULAR DISEASE 7030 INGROWING 04-07-2015 [facility] NAIL E 7295 PAIN IN 04-07-2015 [facility] SOFT E TISSUES OF LIMB 9243 CONTUSION 04-07-2015 [facility] OF TOE E 486 PNEUMONIA, 02-04-2015 [facility] ORGANISM PHYSICIANS UNSPECIFIED LA 4589 UNSPECIFIED 01-22-2015 [facility] AMBULANCE SE 496 CHRONIC 01-22-2015 [facility] AIRWAY [facility] OBSTRUCTION INC NEC 11173 ESOPHAGEAL 01-22-2015 [facility] REFLUX [facility]OS[facility] INC 5856 END STAGE 01-22-2015 [facility] RENAL [facility] DISEASE AMBULANCE SE 7964 OTHER 01-22-2015 [facility] ABNORMAL [facility] CLINICAL AMBULANCE FINDING SE 591 HYDRONEPHRO 01-02-2015 [facility] P 5990 URINARY 01-02-2015 [facility] P SITE NOT SPECIFIED 29905 NEUROGENIC 01-01-2015 [facility] BLADDER, [facility] NOS INC V1089 PERSONAL 01-01-2015 [facility] HISTORY [facility] MALIGNANT INC NEOPLASM OTHER SITE V1251 PERSONAL 01-01-2015 [facility] HISTORY, MEM HOS[facility] VENOUS INC THROMBOSIS AND EMBOLISM 5935 HYDROURETER 12-31-2014 [facility] 35733 OTHER 12-31-2014 [facility] SPECIFIED MEDICAL DISORDERS IMAGING ASS OF BLADDER 55869 OTHER 12-31-2014 [facility] [address] FACIAL 12-31-2014 [place] [address] CHEST PAIN 12-31-2014 [facility] UNSPECIFIED [facility]ICAL [facility]ING ASS 24080 ABDOMINAL 12-31-2014 [facility] PAIN, MEDICAL UNSPECIFIED IMAGING ASS SITE 39307 MUSCLE 11-27-2014 RAGINI WEAKNESS JOSE (GENERALIZE NURSING D) HOME 62669 DYSPHAGIA 11-27-2014 [facility] ORAL PHASE JOSE FPC 36572 UNSPECIFIED 11-27-2014 [facility] RETENTION JOSE OF URINE FPC 06024 UNSPEC 11-04-2014 [facility] WITHOUT INTERNAL MENTION MED INTRACT EPILEPSY 61937 SWELLING OF 11-02-2014 [facility] 5180 PULMONARY 11-01-2014 [facility] COLLAPSE [facility] 95847 OTHER 11-01-2014 [facility] ALTERATION [place]ICAL [place] [address] TRANSIENT 10-30-2014 [facility] OF AMBULANCE AWARENESS SE V103 PERSONAL 10-30-2014 [facility] HISTORY OF MEM [facility]OS[facility] MALIGNANT INC NEOPLASM OF BREAST 7830 ANOREXIA 10-24-2014 [facility] EXTENDED CARE SERV 50164 DRUSEN OF 10-07-2014 SUSAN Chance RETINA [facility] 76027 NUCLEAR 10-07-2014 SUSAN Chance SCLEROSIS [facility] 00881 UNSPECIFIED 10-07-2014 SUSAN SONG [facility] AFTER-CATAR ACT 7822 LOCALIZED 09-27-2014 [facility] SUPERFICIAL EXTENDED SWELLING CARE SERV [place] 75777 HELICOBACTE 09-06-2014 [facility] R PYLORI EXTENDED INFECTION CARE SERV V5869 LONG-TERM 09-02-2014 [facility] (CURRENT) PHYSICIANS USE OF LA OTHER MEDICATIONS 2761 HYPOSMOLALI 08-30-2014 [facility] TY AND/OR PHYSICIANS HYPONATREMI LA A 5589 OTH&UNSPEC 08-15-2014 [facility] NONINFECTIO PHYSICIANS US LA GASTROENTER ITIS&COLITI S 06173 WHEEZING 08-15-2014 [facility] 09517 DIARRHEA 08-15-2014 [facility] 72568 LOSS OF 08-14-2014 [facility] WEIGHT EXTENDED CARE SERV 4779 ALLERGIC 07-31-2014 [facility] RHINITIS EXTENDED CAUSE CARE SERV UNSPECIFIED 68255 UNSPECIFIED 07-08-2014 [facility] PURULENT PHYSICIANS ENDOPHTHALM LA ITIS 64268 UNSPECIFIED 07-06-2014 ARMIN CHAPMAN CONJUNCTIVI TIS 88972 OBSTRUCTIVE 07-06-2014 ARMIN CHAPMAN CHRONIC BRONCHITIS WITHOUT EXACERBAT 4011 ESSENTIAL 06-28-2014 ARMIN CHAPMAN HYPERTENSIO N, BENIGN 11561 OBST 06-28-2014 ARMIN CHAPMAN CHRONIC BRONCHITIS W/ACUTE BRONCHITIS 60203 OTHER 06-21-2014 [facility] PERIPHERAL E VASCULAR DISEASE 30559 FEVER 06-10-2014 SY[facility] UNSPECIFIED MOBILEX 5368 DYSPEPSIA&O 05-28-2014 ARMIN CHAPMAN THER SPEC DISORDERS FUNCTION STOMACH 34719 OSTEOARTHRO 05-28-2014 ARMIN CHAPMAN S INVLV MX SITES BUT NOT SPEC GEN 7354 OTHER 03-28-2014 [facility] HAMMER TOE E 45978 CONTUSION 02-23-2014 [facility] OF FOREARM MOBILEX 28181 CONTUSION 02-23-2014 SY[facility] OF KNEE MOBILEX 06978 OTHER 12-31-2013 ARMIN CHAPMAN CONVULSIONS 7881 DYSURIA 12-29-2013 [facility]ULAR [facility] [place] [facility] 22004 URINARY 12-29-2013 [facility], FREQUENCY CIRCULAR STUFFER [facility] 3899 UNSPECIFIED 12-10-2013 [facility] HEARING E LOSS 3670 HYPERMETROP 12-03-2013 SUSAN SONG PSC 700 CORNS AND 06-07-2013 [facility] CALLOSITIES E 7050 ANHIDROSIS 06-07-2013 [facility] E 7823 EDEMA 04-11-2013 [facility] CIRCULAR STU[facility] [place] [facility] V5883 ENCOUNTER 04-11-2013 [facility], FOR CIRCULAR STUFFER THERAPEUTIC [facility] [facility] MONITORING 7813 LACK OF 03-18-2013 [facility] COORDINATIO N 43955 OTHER 03-18-2013 [facility] SYMBOLIC DYSFUNCTION 24662 CLOSED 03-18-2013 [facility] FRACTURE OF UNSPECIFIED PART OF TIBIA 66433 NAUSEA WITH 11-21-2012 NATALIIA BRENNAN MD CONSULTING SRV 4293 CARDIOMEGAL 11-15-2012 [facility] 6921 UNSPECIFIED 11-14-2012 [facility] INC, PRURITIC CIRCULAR STUFFER DISORDER [facility] 7821 RASH AND 11-14-2012 [facility] OTHER HOSPITAL NONSPECIFIC SKIN ERUPTION 44369 NAUSEA 11-14-2012 [facility] ALONE [facility] V4364 HIP JOINT 11-14-2012 [facility] INC, REPLACEMENT CIRCULAR STUFFER BY OTHER [place] [facility] MEANS HOS V4571 ACQUIRED 11-14-2012 [facility] INC, ABSENCE OF CIRCULAR STUFFER BREAST AND [facility] NIPPLE HOS V8801 ACQUIRED 11-14-2012 [facility] INC, ABSENCE OF CIRCULAR STUFFER BOTH CERVIX [facility] [facility] AND UTERUS HOS 331 OTHER 11-09-2012 [facility] CEREBRAL [place] [address] DEHYDRATION 11-07-2012 NATALIIA LACEY MD CONSULTING SRV 7906 OTHER 11-01-2012 [facility] INC, ABNORMAL CIRCULAR STUFFER BLOOD [place] CHEMISTRY [facility] 4660 ACUTE 10-24-2012 ARMIN ARI BRONCHITIS 07122 OBSTRUCTIVE 10-24-2012 ARMIN ARI CHRONIC BRONCHITIS WITH EXACERBATIO N 02231 SHORTNESS 10-24-2012 [facility] INC, OF BREATH CIRCULAR STUFFER [place] [facility] 490 BRONCHITIS 09-27-2012 [facility] HOSPITAL ACUTE OR CHRONIC V4589 OTHER 09-27-2012 [facility] OTHER 4389 UNSPEC LATE 09-07-2012 [place] EFF MEDICAL CEREBRVASC DZ DUE CEREBRVASC DZ 43273 PRESSURE 09-07-2012 [place] ULCER MEDICAL BUTTOCK 75964 PRESSURE 09-07-2012 [place] [address] UNSPECIFIED 09-07-2012 [place] URINARY MEDICAL INCONTINENC E 2409 GOITER, [facility]OC[facility] 96969 DISORDER OF 08-18-2012[facility] BONE AND RADIOLOGY CARTILAGE ASSOCIAT UNSPECIFIED 7804 DIZZINESS 08-18-2012[facility] GIDDINESS ASSOCIAT 7840 HEADACHE 08-18-2012[facility] V4981 ASYMPTOMATI 08-18-2012 [facility] RADIOLOGY POSTMENOPAU ASSOCIAT SEGUNDO STATUS 83314 INSOMNIA 08-17-2012 ARMIN CHAPMAN UNSPECIFIED 19855 UNSPECIFIED 07-25-2012 ARMIN CHAPMAN CONSTIPATIO N 999 COMPLICATIO 07-19-2012 [facility] NS OF PRE-TRANSIT MEDICAL ION/$2000 CARE NEC VIS 6238 OTHER 05-12-2012 [facility] INC, SPECIFIED CIRCULAR STUFFER NONINFLAMMA [facility] [facility] TORY [facility] DISORDER VAGINA V5862 LONG-TERM 02-21-2012 [facility], (CURRENT) CIRCULAR STUFFER USE OF [place] [facility] ANTIBIOTICS [facility] 24800 OTHER 02-08-2012 [facility], ABNORMALITY CIRCULAR STUFFER OF [place] [facility] URINATION [facility]OS 7919 OTHER 02-08-2012 [facility] INC, NONSPECIFIC CIRCULAR STUFFER FINDING [place] [facility] EXAMINATION [facility] OF URINE 4280 CONGESTIVE 09-21-2011 [facility] FAILURE INTERNAL UNSPECIFIED MED 8208 CLOSED 09-21-2011 [facility] UNSPECIFIED INTERNAL PART NECK MED FEMUR 20563 CLOS 05-17-2011 [facility] UNSPEC SERVICE INTRACAPSLR SECTION NCK FEM 60519 OTHER 05-12-2011 [facility] INJURY OF RADIOLOGY OTHER SITES ASSOCIAT OF TRUNK 9596 INJURY 05-12-2011 [facility] OTHER AND RADIOLOGY UNSPECIFIED ASSOCIAT HIP AND THIGH E8889 UNSPECIFIED 05-12-2011 [facility] FALL RADIOLOGY ASSOCIAT 5183 PULMONARY 05-05-2011 [facility] EOSINOPHILI RADIOLOGY A ASSOCIAT 11375 UNSPECIFIED 05-05-2011 [facility] AND ABSCESS OF TOE 51531 UNSPECIFIED 04-30-2011 [facility] CEREBRAL HOME ARTERY MEDICAL OCCLUSION EQUIPME W/INFARCT 20583 VOMITING 04-27-2011 [facility] EMERGENCY SERVICES 4379 UNSPECIFIED 04-25-2011 [place] [facility] CEREBROVASC [facility] ULAR DISEASE 16990 ACUTE 04-25-2011 [place] [facility]PIRATORY SERV FAILURE [facility] 2410 NONTOXIC 04-23-2011 [place] [facility] UNINODULAR SERV GOITER [facility] 4400 ATHEROSCLER 04-23-2011 [place] [facility] OSIS OF SERV AORTA [facility] V550 ATTENTION 04-23-2011 [place] [facility] [place] TR[place]OSTOM [place] Y 20456 OCCLUSION&S 04-22-2011 [place] [facility] TENOS SERV CAROTID ART [facility] W/O MENTION INFARCT 4359 UNSPECIFIED 04-22-2011 [place] [facility] TRANSIENT SERV CEREBRAL FOUNDATIO ISCHEMIA 4370 CEREBRAL 04-22-2011 [place] [facility] ATHEROSCLER [facility] OSIS FOUNDATIO 89711 OTHER 04-22-2011 [place] [facility] DISEASES OF SERV NASAL [facility]OUND[facility] CAVITY AND SINUSES 7931 NONSPEC 04-22-2011 [facility] F[facility] OTH EXAM [facility] BODY STRUCT LUNG FIELD V554 ATTN OTHER 04-22-2011 [facility] ARTIFICIAL [facility] OPENING [facility] DIGESTIVE TRACT 1369 UNSPECIFIED 04-21-2011 [place] [facility] INFECTIOUS [facility] AND [facility] PARASITIC DISEASES 3319 UNSPECIFIED 04-21-2011 [place] [facility] CEREBRAL [facility] DEGENERATIO FOUNDATIO N 44681 GEN CONVUL 04-21-2011 [facility] EPILEPS[facility] W/O MENTION FOUNDATIO INTRACT EPILEPSY 86563 OTHER 04-21-2011 [facility] SPECIF[facility] DISORDER OF FOUNDATIO NERVOUS SYSTEM 3499 UNSPECIFIED 04-21-2011 [place] [facility] DISORDERS [facility] OF NERVOUS [facility]OUNDATIO SYSTEM 436 ACUTE BUT 04-21-2011 [facility] CEREBROVASC ULAR DISEASE 4371 OTH 04-21-2011 [place] [facility] GENERALIZED [facility] ISCHEMIC FOUNDATIO CEREBROVASC ULAR DISEASE 16800 OTH 04-21-2011 [facility] ETAL SX REFERABLE [place] OTH 69261 PRECORDIAL 04-02-2011 [facility] DEEPTHI PAIN CONSULTING SRV 462 ACUTE 04-22-2010 [facility] PHARYNGITIS 98001 DYSPHONIA 04-22-2010 [facility] 80037 UNSPECIFIED 04-16-2010 [place] URETHRITIS [facility] 5989 UNSPECIFIED 04-16-2010 [place] [facility] 02180 UNS PROLAPS 04-16-2010 [facility] UROLOGY W/O MENTION PSC UTERN PROLAPS 06458 CYSTOCELE 04-16-2010 [place] WITHOUT [facility] UTERINE PROLAPSE MIDLN 6256 FEMALE 04-16-2010 [facility] INCONTINENC HOSPITAL E 79679 URGE 04-09-2010 [facility] INCONTINENC H UROLOGY E PSC V7231 ROUTINE 04-09-2010 [facility] G[facility]EC[facility] [place] H EXAMINATION 7020 ACTINIC 03-31-2010 [facility] KERATOSIS 73315 OTHER 03-31-2010 PATHOLOGY & SEBORRHEIC CYTOLOGY KERATOSIS LAB 67564 CLOSED 01-07-2010 [place] [facility]URE OF SERV F[facility] UNSPECIFIED PART OF [place] 54165 CLOSED 12-29-2009 [place] [facility]URE OF SERV UPPER END FOUNDATIO OF [place] 9597 INJURY 12-29-2009 [place] [facility] OTHER&UNSPE SERV CIFIED KNEE FOUNDATIO LEG ANKLE&FOOT [id number] LATE 12-29-2009 [place] [facility] EFFECTS OF SERV ACCIDENTAL FOUNDATIO FALL 82175 OTHER 12-28-2009 [facility] RESPIRATORY PSC ABNORMALITI ES 9599 INJURY 12-28-2009 [facility] OTHER AND RADIOLOGY UNSPECIFIED ASSOCIATES PSC UNSPECIFIED SITE E8490 PLACE OF 12-28-2009 ARMIN CHAPMAN OCCURRENCE, HOME E8859 FALL FROM 12-28-2009 ARMIN ARI OTHER SLIPPING TRIPPING OR STUMBLING V0481 NEED 05-30-2009 ARMIN PROPHYLACTI GAMAL Gupta VACCINATION &INOCULATIO N FLU 460 ACUTE 01-08-2009 ARMIN NASOPHARYNG GAMAL Velazquez ITIS 4658 ACUTE URIS 01-08-2009 ARMIN OF KERVIN Velazquez MULTIPLE SITES 51765 OBESITY, 10-21-2008 NAKUL FUNEZ V7611 SCREENING 08-30-2008 [place] MAMMOGRAM [facility] HIGH-RISK PATIENT V7612 OTHER 08-30-2008 [place] [facility] 89115 ASTHMA, 08-16-2008 NAKUL FUNEZ , UNSPECIFIED STATUS 7099 UNSPECIFIED 08-16-2008 ARMIN DISORDER GAMAL Velazquez OF SKIN&SUBCUT ANEOUS TISSUE 4611 ACUTE 07-03-2008 ARMIN FRONTAL GAMAL Velazquez SINUSITIS 5950 ACUTE 07-03-2008 ARMIN CYSTITIS GAMAL Velazquez 7231 CERVICALGIA 05-06-2008 GAMAL FUNEZ 8470 NECK SPRAIN 05-06-2008 ARMIN AND STRAIN GAMAL Velazquez 19776 OSTEOARTHRO 04-04-2008 [place], SIS UNSPEC [place] WHETHER GEN/LOC LOWER LEG 05021 OTHER 04-03-2008 [facility] GLU[facility]SE 1103 DERMATOPHYT 10-17-2007 ARMIN OSIS RUTHY Velazquez GROIN AND PERIANAL AREA Medications Na ND Rx Da Fi Fi [...] -2 -2 0. [place] 44 PP ti GA 63 4- 8- 00 89 ve N [...] -2 -2 0. [place] 26 PP ti GA 63 4- 3- 00 73 ve N [...] -2 -2 0. [place] 82 PP ti GA 63 4- 4- 00 08 ve N [...] -1 -1 0. [place] 61 CH ti GA 45 6- 7- 00 40 AR ve [...] IU P M 50 0 MG TB GA 11 04 04 0 85 3 NE [...] -1 -1 0. [place] 44 CH ti GA 45 6- 5- 00 31 AR ve [...] -1 -1 0. [place] 26 CH ti GA 45 6- 1- 00 93 AR ve [...] -1 -0 0. IL 09 CH ti GA 45 6- 9- 00 07 AR ve [...] -1 -0 0. IL 90 CH ti GA 45 6- 5- 00 83 AR ve [...] -1 -2 0. IL 68 CH ti GA 45 6- 2- 00 26 AR ve [...] -1 -1 0. [place] 49 CH ti GA 45 6- 6- 00 74 AR ve [...] -0 -1 0. IL 32 CH ti GA 45 8- 5- 00 44 AR ve [...] -0 -0 0. IL 13 CH ti GA 45 8- 8- 00 23 AR ve [...] -2 -2 0. IL 92 CH ti GA 45 4- 8- 00 45 AR ve [...] -2 0. IL 91 CH ti ON 25 AR ve AT 24 20 20 0 ME 0 D AT 70 16 16 DI AUGUST E 1 CA HN 10 L W 0 GR MG OU P CA PS UL E BE 68 03 05 0 30 10 NE 14 RI Ac NZ 38 -1 -0 0. [place] 80 CH ti ON 42 AR ve AT 24 20 20 0 ME 0 D AT 70 16 16 DI AUGUST E 1 CA HN 10 L W 0 GR MG OU P CA PS UL E 00 03 04 0 60 30 NE 14 RI Ac TA 90 -2 -2 0. IL 76 CH ti GA 45 4 7- 00 69 AR ve N 82 [...] -2 -2 0. IL 59 CH ti GA 45 4- 4- 00 98 AR ve N 82 20 20 0 ME 0 D D3 46 16 16 DI AUGUST 1 CA HN 1, L W 00 GR 0 OU UN P IT TA BL ET BE 68 03 03 0 30 10 NE 14 RI Ac NZ 38 -1 -1 0. IL 56 CH ti ON 20 7- 7- 00 42 AR ve AT 24 20 [...] -0 -0 0. IL 35 CH ti GA 45 8- 8- 00 96 AR ve [...] 30 30 NE 13 RI Ac RA 2 -2 0. IL 68 CH ti TA 40 8- 8- 00 27 AR ve DI 24 20 20 0 ME 7 D NE 80 15 15 DI AUGUST 1 CA HN 10 L W GR MG OU P TA BL ET OY 00 05 09 0 12 30 NE [address] -1 00 [place] 61 CH ti ER [...] -1 0. IL 87 SS ti 90 4- 7- 00 13 ON ve 02 20 20 [...] IL 18 SS ti 90 9 9 00 93 ON ve 02 20 20 0 [...] 0. IL 53 SS ti 90 9- 1- 00 99 ON ve 02 20 20 [...] 0. IL 04 SS ti TA 40 9- 9- 00 52 ON ve DI 24 [...] .0 IL 91 SS ti 90 9 9- 00 48 ON ve 02 20 20 ME [...] -1 0. IL 06 SS ti 90 9 9- 00 31 ON ve 02 20 [...] 5 O NE [address] KOCH [...] 10 RE CO NZ MG O IN MD TA C BL AUGUST ET SE PO 00 01 [...] 10 RE CO NZ MG O IN MD KATT Gupta BL AUGUST ET SE PO 00 12 12 00 30 30 HO 10 AUGUST Ac TA 78 -2 -3 .0 PK 02 SE ti SS 11 2- 1- 00 IN 89 ve IU 52 20 20 S 7 T. M [address] CL 1 UG LO RE ER CO NZ O 10 IN MD Gupta ME AUGUST Q SE TA BL ET 00 12 12 00 30 30 HO 10 AUGUST Ac 06 -2 -3 .0 PK 02 SE ti 76 2- 1- 00 IN 89 ve 07 20 20 S 2 T. [address] 0 UG LO RE CO NZ O IN MD Candy KOCH SE 00 09 12 02 30 30 HO 99 AUGUST Ac 06 -2 -0 .0 PK 95 SE ti 76 1- 3- 00 IN 07 ve 07 20 20 S T. [address] 0 UG LO RE CO NZ O IN MD Candy KOCH SE PO 00 09 12 00 30 30 HO 99 AUGUST Ac TA 78 -2 -0 .0 PK 95 SE ti SS 11 1- 3- 00 IN 10 ve IU 52 20 20 S T. M [address] CL 1 UG LO RE ER CO NZ O 10 IN MD Gupta MT AUGUST Q SE TA BL ET 00 09 11 01 30 30 HO 99 AUGUST Ac 06 -2 -0 .0 PK 95 SE ti 76 1- 5- 00 IN 07 ve 07 20 20 S T. [address] 0 UG LO RE CO NZ O IN MD Candy KOCH SE 00 09 10 00 30 30 [...] NZ O IN MD Gupta AUGUST SE 66 02 03 00 12 6 [...] NZ O IN MD Candy KOCH SE WI 37 02 02 00 28 28 HO 99 AUGUST Ac IL 00 -1 -2 .0 PK 29 SE ti OS 00 9- 6- 00 IN 22 ve EC 45 20 20 S T. [address] OT 3 UG LO C RE 20 CO NZ .6 O IN Candy KOCH TA SE BL ET WI 37 11 01 02 28 28 HO 98 AUGUST Ac IL 00 -0 -3 .0 PK 95 SE ti OS 00 5- 0- 00 IN 99 ve EC 45 20 20 S T. [address] OT 3 UG LO C RE 20 CO NZ .6 O IN Candy KOCH TA SE BL ET WI 37 11 01 01 28 28 HO 98 AUGUST Ac IL 00 -0 -0 .0 PK 95 SE ti OS 00 5- 1- 00 IN 99 ve EC 45 20 20 S T. [address] OT 3 UG LO C RE 20 CO NZ .6 O IN Candy AUGUST TA SE BL ET 00 02 01 02 30 30 HO 98 AUGUST Ac 06 -0 -0 .0 PK 67 SE ti 76 5- 1- 00 IN 59 ve 07 20 20 S T. [address] 0 UG LO RE CO NZ O IN MD Candy KOCH SE WI 37 11 11 00 28 28 HO 98 AUGUST Ac IL 00 -0 -2 .0 PK 95 SE ti OS 00 5- 0- 00 IN 99 ve EC 45 20 20 S T. [address] OT 3 UG LO C RE 20 CO NZ .6 O IN MD MG C AUGUST TA SE BL ET 00 02 11 01 30 30 HO 98 AUGUST Ac 06 -0 -2 .0 PK 67 SE ti 76 5- 0- 00 IN 59 ve 07 20 20 S T. [address] 0 UG LO RE CO NZ O IN MD C AUGUST SE WI 37 10 10 00 28 28 HO 98 No Ac IL 00 -0 -0 .0 PK 86 t ti OS 00 3- 9- 00 IN 02 Av ve EC 45 20 20 S ai [address] la OT 3 UG bl C e 20 CO .6 IN MG C TA BL ET WI 37 09 09 00 28 28 HO 98 No Ac IL 00 -0 -1 .0 PK 76 t ti OS 00 3- 1- 00 IN 03 Av ve EC 45 20 20 S ai [address] brett OT 3 UG bl C e 20 CO .6 IN MG C TA BL ET WI 37 05 08 02 28 28 HO [...] 0 UG bl e CO IN C WI 37 05 07 01 28 28 HO 98 No Ac IL 00 -0 -1 .0 PK 50 t ti OS 00 1- 7- 00 IN 68 Av ve EC 45 20 20 S ai [address] la OT 3 UG bl C e 20 CO .6 IN MG C TA BL ET WI 37 02 05 02 28 28 HO [...] 0 UG bl e CO IN C WI 37 02 04 01 28 28 HO 98 No Ac IL 00 -0 -2 .0 PK 22 t ti OS 00 5- 4- 00 IN 31 Av ve EC 45 20 20 S ai [address] west OT 3 UG bl C e 20 CO .6 IN MG C TA BL ET WI 37 02 04 00 28 28 HO 98 No Ac IL 00 -0 -1 .0 PK 22 t ti OS 00 5- 7- 00 IN 31 Av ve EC 45 20 20 S ai [address] west OT 3 UG bl C e 20 CO .6 IN MG C TA BL ET WI 37 12 03 02 28 28 HO 97 No Ac IL 00 -1 -2 .0 PK 92 t ti OS 00 0- 6- 00 IN 90 Av ve EC 45 20 20 S ai [address] west OT 3 UG bl C e 20 CO .6 IN MG C TA BL ET WI 37 12 03 01 28 28 HO [...] S 0.5 ML DOSA GE IM USE Procedures Procedure DOS Code Location Performer Comment TRAVEL [address] MED 7 PHYSICIAN PHYSICIAN NEC LAB S LAB S LAB SPEC; PRORAT ACTL MILE HEMOGLOBI 49566 COMBINED COMBINED N 7 PHYSICIAN PHYSICIAN GLYCOSYLA S LAB S LAB TITO A1C COLLECTIO 24684 COMBINED COMBINED N VENOUS 7 PHYSICIAN PHYSICIAN BLOOD S LAB S LAB VENIPUNCT URE COLLECTIO 16001 COMBINED COMBINED N VENOUS 7 PHYSICIAN PHYSICIAN BLOOD S LAB S LAB VENIPUNCT URE BLOOD 31141 COMBINED COMBINED COUNT 7 PHYSICIAN PHYSICIAN COMPLETE S LAB S LAB AUTO&AUTO DIFRNTL WBC TRAVEL [address] MED 7 PHYSICIAN PHYSICIAN NEC LAB S LAB S LAB SPEC; PRORAT ACTL MILE COMPREHEN 54861 COMBINED COMBINED SIVE 7 PHYSICIAN PHYSICIAN METABOLIC S LAB S LAB PANEL DRUG 61982 LAB ARIEL LAB ARIEL SCREEN 7 [place] [employer] HOLDINGS BLAIR LEVETIRAC ETAM SBSQ 69928 [facility] JOHNNA NURSING 7 ARE FACILITY CARE/DAY E/M STABLE 10 MIN DRUG 62929 LAB ARIEL LAB ARIEL SCREEN 7 [place] [employer] BLAIR LEVETIRAC ETAM DEBRIDEME 31678 [facility] MARYCRUZ NT NAIL 7 ARE ANY METHOD 6/> AMBULANCE A0428 [facility] SERVICE 7 AMBULANCE AMBULANCE BLS SERVICE SERVICE NONEMERGE [facility] TRANSPORT GROUND A0425 [facility] MILEAGE 7 AMBULANCE AMBULANCE PER SERVICE SERVICE STATUTE MILE RADIOLOGI 23031 [place] [facility] 7 MEDICAL EXAMINATI IMAGING ON CHEST ASS SINGLE VIEW FRONTAL RADIOLOGI 41786 [place] [facility] 7 MEDICAL EXAMINATI IMAGING ON CHEST ASS SINGLE VIEW FRONTAL RADIOLOGI 06549 [place] AFUA C 7 MEDICAL EXAMINATI IMAGING ON CHEST ASS SINGLE VIEW FRONTAL ECG 83692 SURAJ SANTIAGO ROUTINE 7 PHYSICIAN ECG S, PLLC W/LEAST 12 LDS I&R ONLY OPHTH 02322 [facility] [place] 7 F. XM&EVAL [facility] COMPRHNSV PSC ESTAB PT 1/> NONEMERGE A0130 [facility] NCY 7 TRANS TRANSPORT TRANSPORT SERVBLUEG ATION: ATION SER YOVANY Nina VAN DEBRIDEME 86812 [facility] MARYCRUZ NT NAIL 7 ARE ANY METHOD 6/> COMPREHEN 89108 COMBINED COMBINED SIVE 7 PHYSICIAN PHYSICIAN METABOLIC S LA S LA PANEL DRUG 18618 LAB ARIEL LAB ARIEL SCREEN 7 [place] [employer] BLAIR LEVETIRAC ETAM TRAVEL [address] MED 7 PHYSICIAN PHYSICIAN NEC LAB S LA S LA SPEC; PRORAT ACTL MILE BLOOD 82374 COMBINED COMBINED COUNT 7 PHYSICIAN PHYSICIAN COMPLETE S LA S LA AUTO&AUTO DIFRNTL WBC COLLECTIO 13552 COMBINED COMBINED N VENOUS 7 PHYSICIAN PHYSICIAN BLOOD S LA S LA VENIPUNCT URE NONEMERGE A0130 [facility]ERATED FEDERATED NCY 7 TRANS TRANSPORT TRANSPORT SERVBLUEG ATION: ATION SER YOVANY Nina AMAYA DEBRIDEME 82421 [facility] MARYCRUZ NT NAIL 7 ARE ANY METHOD 6/> SBSQ 95947 [facility] NURSING 6 EXTENDED FACIL CARE CARE/DAY SERV MINOR COMPLJ 15 MIN TRIMMING G0127 [facility] MARYCRUZ OF 6 [place] [address] AMERIPATH AMERIPATH SURG 6 PATHOLOGY [facility]. I, INC. GROSS&ALBAN ROSCOPIC EXAM NONEMERGE A0130 FEDERATED FEDERATED NCY 6 TRANS TRANSPORT TRANSPORT SERVBLUEG ATION: ATION SER YOVANY Nina AMAYA BX SKIN 73409 DERMATOLO ALEXIS SUBCUTANE 6 GY OUS&/MUCO CONSULTAN US TS PSC MEMBRANE 1 LESION SBSQ 03887 [facility] EXTENDED FACIL CARE CARE/DAY SERV MINOR COMPLJ 15 MIN SBSQ 85318 [facility] NURSING 6 EXTENDED AJ FACIL CARE CARE/DAY SERV NEW PROBLEM 25 MIN ANTIBODY 03910 COMBINED COMBINED HELICOBAC [address] S LA S LA PYLORI SUSCEPTIB 32758 BRITTNI ELKINS LTY STDY 6 [facility] ANTIMICRB INC INC IAL MICRO/AGA R DILUTJ BLOOD 21127 COMBINED COMBINED COUNT 6 PHYSICIAN PHYSICIAN COMPLETE S LA S LA AUTO&AUTO DIFRNTL WBC URNLS DIP 08521 BRITTNI ELKINS 6 [facility] STICK/TAB INC INC LET REAGENT AUTO MICROSCOP Y COLLECTIO 75219 COMBINED COMBINED N VENOUS 6 PHYSICIAN PHYSICIAN BLOOD S LA S LA VENIPUNCT URE CULTURE 56867 BRITTNI ELKINS BCT 6 [facility] ISOL&PRSM INC INC PTV ID ISOLATE EA URINE CULTURE 63028 BRTITNI ELKINS BACTERIAL 6 [facility] INC INC QUANTTATI VE COLONY COUNT URINE SET-UP Q0092 [employer] PORTABLE 6 MOBILEX MOBILEX X-RAY EQUIPMENT DRUG 32971 LAB ARIEL LAB ARIEL SCREEN 6 [place] [employer] BLAIR LEVETIRAC ETAM COMPREHEN 48772 COMBINED COMBINED SIVE 6 PHYSICIAN PHYSICIAN METABOLIC S LA S LA PANEL RADIOLOGI 97069 SYMPHONY SYMPHONY C 6 MOBILEX MOBILEX EXAMINATI ON CHEST SINGLE VIEW FRONTAL TRANS R0070 SYMPHONY SYMPHONY PRTBL 6 MOBILEX MOBILEX X-RAY EQP&PERS MILLICENT/NRS MILLICENT-TRIP 1 PT TRAVEL [address] MED 6 PHYSICIAN PHYSICIAN NEC LAB S LA S LA SPEC; PRORAT ACTL MILE SBSQ 17571 [facility] JOHNNA NURSING 6 ARE ANUM FACILITY CARE/DAY E/M STABLE 10 MIN OPHTH 97327 [facility] 6 F. BRAD &CAESAR [facility] COMPRHNSV PSC ESTAB PT 1/> DEBRIDEME 12179 [facility] ARUN NT NAIL 6 ARE KRISTAN ANY METHOD 6/> AVULSION 34919 [facility] ARUN NAIL 6 ARE KRISTAN PLATE PARTIAL/C OMPLETE SIMPLE 1 TRAVEL [address] MED 6 PHYSICIAN PHYSICIAN NEC LAB S LA S LA SPEC; [place] [address] COMBINED COMBINED THYROID 6 PHYSICIAN PHYSICIAN STIMULATI S LA S LA NG HORMONE TSH COLLECTIO 76980 COMBINED COMBINED N VENOUS 6 PHYSICIAN PHYSICIAN BLOOD S LA S LA VENIPUNCT URE HEMOGLOBI 27588 COMBINED COMBINED N 6 PHYSICIAN PHYSICIAN GLYCOSYLA S LA S LA TITO A1C BLOOD 07605 COMBINED COMBINED COUNT 6 PHYSICIAN PHYSICIAN COMPLETE S LA S LA AUTO&AUTO DIFRNTL WBC NATRIURET 39746 COMBINED COMBINED IC 6 PHYSICIAN PHYSICIAN PEPTIDE S LA S LA RADIOLOGI 33745 SYMPHONY SYMPHONY C EXAM 6 MOBILEX MOBILEX CHEST 2 VIEWS FRONTAL&L ATERAL TRANS R0075 SYMPHONY SYMPHONY PRTBL 6 MOBILEX MOBILEX XRAY EQP&PERS MILLICENT/NRS MILLICENT-TRIP> 1 PT SET-UP Q0092 SYMPHONY SYMPHONY PORTABLE 6 MOBILEX MOBILEX X-RAY EQUIPMENT BASIC 79656 COMBINED COMBINED METABOLIC 6 PHYSICIAN PHYSICIAN PANEL S LA S LA CALCIUM TOTAL SBSQ 41805 [facility] ARUN NURSING 6 ARE KRISTAN FACILITY CARE/DAY E/M STABLE 10 MIN DEBRIDEME 28162 [facility] ARUN NT NAIL 6 ARE KRISTAN ANY METHOD 6/> CULTURE 47669 BRITTNI ELKINS BACTERIAL 6 [facility] INC INC QUANTTATI VE COLONY COUNT URINE CULTURE 06890 BRITTNI ELKINS BCT 6 [facility] ISOL&PRSM INC INC PTV ID ISOLATE EA URINE URNLS DIP [address] [facility] STICK/TAB INC INC LET REAGENT AUTO MICROSCOP Y SUSCEPTIB 18251 BRITTNI ELKINS LTY STDY 6 [facility] HOSP ANTIMICRB INC INC IAL MICRO/AGA R DILUTJ COLLECTIO 26068 COMBINED COMBINED N VENOUS 6 PHYSICIAN PHYSICIAN BLOOD S LA S LA VENIPUNCT URE TRAVEL [address] MED 6 PHYSICIAN PHYSICIAN NEC LAB S LA S LA SPEC; [place] [address] COMBINED COMBINED THYROID 6 PHYSICIAN PHYSICIAN STIMULATI S LA S LA NG HORMONE TSH SBSQ 61656 [facility] 6 EXTENDED [facility] CARE CARE/DAY SERV MINOR COMPLJ 15 MIN DEBRIDEME 01609 [facility] ARUN NT NAIL 6 ARE KRISTAN ANY METHOD 6/> 25 39942 LAB ARIEL LAB ARIEL HYDROXY 6 [place] INCLUDES HOLDINGS HOLDINGS FRACTIONS IF PERFORMED COLLECTIO 86954 COMBINED COMBINED N VENOUS 6 PHYSICIAN PHYSICIAN BLOOD S LA S LA VENIPUNCT URE BASIC 99847 COMBINED COMBINED METABOLIC 6 PHYSICIAN PHYSICIAN PANEL S LA S LA CALCIUM TOTAL TRAVEL [address] MED 6 PHYSICIAN PHYSICIAN NEC LAB S LA S LA SPEC; PRORAT ACTL MILE URNLS DIP 13852 COMBINED COMBINED 6 PHYSICIAN PHYSICIAN STICK/TAB S LA S LA LET REAGENT AUTO MICROSCOP Y VOLUME 18469 COMBINED COMBINED MEASUREME 6 PHYSICIAN PHYSICIAN NT TIMED S LA S LA COLLECTIO N EACH CULTURE 08630 COMBINED COMBINED BCT 6 PHYSICIAN PHYSICIAN ISOL&PRSM S LA S LA PTV ID ISOLATE EA URINE CULTURE 62371 COMBINED COMBINED BACTERIAL 6 PHYSICIAN PHYSICIAN S LA S LA QUANTTATI VE COLONY COUNT URINE SUSCEPTIB 49647 COMBINED COMBINED ILITY 6 PHYSICIAN PHYSICIAN STUDY S LA S LA ANTIMICRO BIAL DISK METHOD COLLECTIO 33116 COMBINED COMBINED N VENOUS 6 PHYSICIAN PHYSICIAN BLOOD S LA S LA VENIPUNCT URE BLOOD 36691 COMBINED COMBINED COUNT 6 PHYSICIAN PHYSICIAN COMPLETE S LA S LA AUTO&AUTO DIFRNTL WBC TRAVEL [address] MED 6 PHYSICIAN PHYSICIAN NEC LAB S LA S LA SPEC; PRORAT ACTL MILE DRUG 26214 LAB ARIEL LAB ARIEL SCREEN 6 [place] [employer] BLAIR LEVETIRAC ETAM COMPREHEN 88708 COMBINED COMBINED SIVE 6 PHYSICIAN PHYSICIAN METABOLIC S LA S LA PANEL SBSQ 06666 [facility] N[facility] EXTENDED AJ FACIL CARE CARE/DAY SERV MINOR COMPLJ 15 MIN SBSQ 51486 [facility] JUAREZ NURSING 6 EXTENDED LOY FACIL CARE CARE/DAY SERV NEW PROBLEM 25 MIN DEBRIDEME 07718 [facility] 6 ARE [place] ANY METHOD 6/> SBSQ 60585 [facility] NURSING 6 ARE KRISTAN FACILITY CARE/DAY E/M STABLE 10 MIN SET-UP Q0092 SYMPHONY SYMPHONY PORTABLE 5 MOBILEX MOBILEX X-RAY EQUIPMENT TRANS R0070 SYMPHONY SYMPHONY PRTBL 5 MOBILEX MOBILEX X-RAY EQP&PERS MILLICENT/NRS MILLICENT-TRIP 1 PT RADIOLOGI 96600 SYMPHONY SYMPHONY C 5 MOBILEX MOBILEX EXAMINATI ON CHEST SINGLE VIEW FRONTAL DEBRIDEME 13304 [facility] NT NAIL 5 ARE KRISTAN ANY METHOD 6/> SBSQ 49488 [facility] NURSING 5 ARE KRISTAN FACILITY CARE/DAY E/M STABLE 10 MIN OPH [address] [facility] 5 F. BRAD XM&CAESAR STACYGER COMPRHNSV PSC ESTAB PT 1/> RADIOLOGI 91759 SYMPHONY SYMPHONY C 5 MOBILEX MOBILEX EXAMINATI ON CHEST SINGLE VIEW FRONTAL TRANS R0075 SYMPHONY SYMPHONY PRTBL 5 MOBILEX MOBILEX XRAY EQP&PERS MILLICENT/NRS MILLICENT-TRIP> 1 PT SET-UP Q0092 SYMPHONY SYMPHONY PORTABLE 5 MOBILEX MOBILEX X-RAY EQUIPMENT BASIC 92398 COMBINED COMBINED METABOLIC 5 PHYSICIAN PHYSICIAN PANEL S LA S LA CALCIUM TOTAL TRAVEL [address] MED 5 PHYSICIAN PHYSICIAN NEC LAB S LA S LA SPEC; PRORAT ACTL MILE COLLECTIO 14524 COMBINED COMBINED N VENOUS 5 PHYSICIAN PHYSICIAN BLOOD S LA S LA VENIPUNCT URE RADIOLOGI 14365 SYMPHONY SYMPHONY C 5 MOBILEX MOBILEX EXAMINATI ON CHEST SINGLE VIEW FRONTAL TRANS R0075 SYMPHONY SYMPHONY PRTBL 5 MOBILEX MOBILEX XRAY EQP&PERS MILLICENT/NRS MILLICENT-TRIP> 1 PT SET-UP Q0092 SYMPHONY SYMPHONY PORTABLE 5 MOBILEX MOBILEX X-RAY EQUIPMENT [facility] 7[address]20 [facility] ARUN NT NAIL 5 ARE KRISTAN ANY METHOD 6/> BASIC 29950 COMBINED COMBINED METABOLIC 5 PHYSICIAN PHYSICIAN PANEL S LA S LA CALCIUM TOTAL COLLECTIO 51828 COMBINED COMBINED N VENOUS 5 PHYSICIAN PHYSICIAN BLOOD S LA S LA VENIPUNCT URE TRAVEL [address] MED 5 PHYSICIAN PHYSICIAN NEC LAB S LA S LA SPEC; PRORAT ACTL MILE TRAVEL [address] MED 5 PHYSICIAN PHYSICIAN NEC LAB S LA S LA SPEC; PRORAT ACTL MILE COLLECTIO 25537 COMBINED COMBINED N VENOUS 5 PHYSICIAN PHYSICIAN BLOOD S LA S LA VENIPUNCT URE BASIC 47535 COMBINED COMBINED METABOLIC 5 PHYSICIAN PHYSICIAN PANEL S LA S LA CALCIUM TOTAL BASIC 67122 COMBINED COMBINED METABOLIC 5 PHYSICIAN PHYSICIAN PANEL S LA S LA CALCIUM TOTAL TRAVEL [address] MED 5 PHYSICIAN PHYSICIAN NEC LAB S LA S LA SPEC; PRORAT ACTL MILE COLLECTIO 91312 COMBINED COMBINED N VENOUS 5 PHYSICIAN PHYSICIAN BLOOD S LA S LA VENIPUNCT URE COLLECTIO 52524 COMBINED COMBINED N VENOUS 5 PHYSICIAN PHYSICIAN BLOOD S LA S LA VENIPUNCT URE TRAVEL [address] MED 5 PHYSICIAN PHYSICIAN NEC LAB S LA S LA SPEC; PRORAT ACTL MILE BASIC 20212 COMBINED COMBINED METABOLIC 5 PHYSICIAN PHYSICIAN PANEL S LA S LA CALCIUM TOTAL BASIC 43461 COMBINED COMBINED METABOLIC 5 PHYSICIAN PHYSICIAN PANEL S LA S LA CALCIUM TOTAL TRAVEL [address] MED 5 PHYSICIAN PHYSICIAN NEC LAB S LA S LA SPEC; PRORAT ACTL MILE COLLECTIO 30689 COMBINED COMBINED N VENOUS 5 PHYSICIAN PHYSICIAN BLOOD S LA S LA VENIPUNCT URE COLLECTIO 74512 COMBINED COMBINED N VENOUS 5 PHYSICIAN PHYSICIAN BLOOD S LA S LA VENIPUNCT URE TRAVEL [address] MED 5 PHYSICIAN PHYSICIAN NEC LAB S LA S LA SPEC; PRORAT ACTL MILE BASIC 79102 COMBINED COMBINED METABOLIC 5 PHYSICIAN PHYSICIAN PANEL S LA S LA CALCIUM TOTAL BASIC 09983 COMBINED COMBINED METABOLIC 5 PHYSICIAN PHYSICIAN PANEL S LA S LA CALCIUM TOTAL COLLECTIO 28829 COMBINED COMBINED N VENOUS 5 PHYSICIAN PHYSICIAN BLOOD S LA S LA VENIPUNCT URE TRAVEL [address] MED 5 PHYSICIAN PHYSICIAN NEC LAB S LA S LA SPEC; PRORAT ACTL MILE TRAVEL [address] MED 5 PHYSICIAN PHYSICIAN NEC LAB S LA S LA SPEC; PRORAT ACTL MILE COLLECTIO 52118 COMBINED COMBINED N VENOUS 5 PHYSICIAN PHYSICIAN BLOOD S LA S LA VENIPUNCT URE BASIC 51603 COMBINED COMBINED METABOLIC 5 PHYSICIAN PHYSICIAN PANEL S LA S LA CALCIUM TOTAL BASIC 01357 COMBINED COMBINED METABOLIC 5 PHYSICIAN PHYSICIAN PANEL S LA S LA CALCIUM TOTAL COLLECTIO 28666 COMBINED COMBINED N VENOUS 5 PHYSICIAN PHYSICIAN BLOOD S LA S LA VENIPUNCT URE TRAVEL [address] MED 5 PHYSICIAN PHYSICIAN NEC LAB S LA S LA SPEC; PRORAT ACTL MILE TRAVEL [address] MED 5 PHYSICIAN PHYSICIAN NEC LAB S LA S LA SPEC; PRORAT ACTL MILE COLLECTIO 64292 COMBINED COMBINED N VENOUS 5 PHYSICIAN PHYSICIAN BLOOD S LA S LA VENIPUNCT URE BASIC 55090 COMBINED COMBINED METABOLIC 5 PHYSICIAN PHYSICIAN PANEL S LA S LA CALCIUM TOTAL DEBRIDEME 93022 [facility] ARUN NT NAIL 5 ARE KRISTAN ANY METHOD 6/> BASIC 33912 COMBINED COMBINED METABOLIC 5 PHYSICIAN PHYSICIAN PANEL S LA S LA CALCIUM TOTAL COLLECTIO 16711 COMBINED COMBINED N VENOUS 5 PHYSICIAN PHYSICIAN BLOOD S LA S LA VENIPUNCT URE TRAVEL [address] MED 5 PHYSICIAN PHYSICIAN NEC LAB S LA S LA SPEC; PRORAT ACTL MILE BLOOD 24533 [facility] COMPLETE INC INC AUTO&AUTO DIFRNTL WBC URNLS DIP 99810 [facility] STICK/TAB INC INC LET REAGENT AUTO MICROSCOP Y CULTURE 88250 [facility] BCT 5 [facility] ISOL&PRSM INC INC PTV ID ISOLATE EA URINE CULTURE 76408 [facility] BACTERIAL 5 [facility] INC [place] [address] [facility] ELK[facility] INFUSION 5 [facility] THERAPY/P INC INC ROPHYLAXI S /DX 1ST TO 1 HR THERAPEUT 42921 [facility] IC 5 [facility] INJECTION INC INC IV PUSH EACH NEW DRUG CULTURE 60232 [facility] BACTERIAL 5 [facility] BLOOD INC INC AEROBIC W/ID ISOLATES SUSCEPTIB 80508 BR[facility] ELKINS LTY STDY 5 [facility] ANTIMICRB INC INC IAL MICRO/AGA R DILUTJ COMPREHEN 77509 [facility] SIVE 5 [facility] METABOLIC INC INC PANEL AMB A0426 [facility] [address] [place] [address] AMBULANCE AMBULANCE NONEMERGE SE SE NCY TRANSPORT LEVEL 1 GROUND A0425 [facility] MILEAGE [address] [place] [address] PER AMBULANCE AMBULANCE STATUTE SE SE MILE COMPREHEN 92627 COMBINED COMBINED SIVE 5 PHYSICIAN PHYSICIAN METABOLIC S LA S LA PANEL COLLECTIO 03663 COMBINED COMBINED N VENOUS 5 PHYSICIAN PHYSICIAN BLOOD S LA S LA VENIPUNCT URE BLOOD 29540 COMBINED COMBINED COUNT 5 PHYSICIAN PHYSICIAN COMPLETE S LA S LA AUTO&AUTO DIFRNTL WBC TRAVEL [address] MED 5 PHYSICIAN PHYSICIAN NEC LAB S LA S LA SPEC; PRORAT ACTL MILE INITIAL [address] 30 P MINUTES OTHER 5849 BRITTNI BRITTNI REPAIR OF [address] [facility] URETHRA INC INC BASIC 16880 COMBINED COMBINED METABOLIC 5 PHYSICIAN PHYSICIAN PANEL S LA S LA CALCIUM TOTAL CRITICAL [address] ED P P PATIENT INIT 30-74 MIN GROUND A0425 [facility] [address] [place] [address] PER AMBULANCE AMBULANCE STATUTE SE SE MILE AMBULANCE A0429 [facility] [address] [place] [address] BLS AMBULANCE [place] [address] [facility] HEAD/BRAI 5 MEDICAL ANGEL N W/O IMAGING CONTRAST ASS MATERIAL RADIOLOGI 22512 [facility] C 5 MEDICAL ANGEL EXAMINATI IMAGING ON CHEST ASS [place] FRONTAL TRAVEL [address] MED 5 PHYSICIAN PHYSICIAN NEC LAB S LA S LA SPEC; PRORAT ACTL MILE BLOOD 57259 COMBINED COMBINED COUNT 5 PHYSICIAN PHYSICIAN COMPLETE S LA S LA AUTO&AUTO DIFRNTL WBC COLLECTIO 62142 COMBINED COMBINED N VENOUS 5 PHYSICIAN PHYSICIAN BLOOD S LA S LA VENIPUNCT URE ECG 14124 BRITTNI JUAREZ ROUTINE [address] [place] [address] W/LEAST P 12 LDS I&[place] [address] [place] [facility] ALL ABDOMEN & 5 MEDICAL PELVIS IMAGING W/O ASS CONTRAST MATERIAL URNLS DIP 37595 COMBINED COMBINED 5 PHYSICIAN PHYSICIAN STICK/TAB S LA S LA LET REAGENT AUTO MICROSCOP Y VOLUME 73454 COMBINED COMBINED MEASUREME 5 PHYSICIAN PHYSICIAN NT TIMED S LA S LA COLLECTIO N EACH BASIC 87766 COMBINED COMBINED METABOLIC 5 PHYSICIAN PHYSICIAN PANEL S LA S LA CALCIUM TOTAL BLOOD 78832 COMBINED COMBINED COUNT 5 PHYSICIAN PHYSICIAN COMPLETE S LA S LA AUTO&AUTO DIFRNTL WBC COLLECTIO 78100 COMBINED COMBINED N VENOUS 5 PHYSICIAN PHYSICIAN BLOOD S LA S LA VENIPUNCT URE COLLECTIO 36099 COMBINED COMBINED N VENOUS 5 PHYSICIAN PHYSICIAN BLOOD S LA S LA VENIPUNCT URE TRAVEL [address] MED 5 PHYSICIAN PHYSICIAN NEC LAB S LA S LA SPEC; PRORAT ACTL MILE BASIC 50907 COMBINED COMBINED METABOLIC 5 PHYSICIAN PHYSICIAN PANEL S LA S LA CALCIUM TOTAL DEBRIDEME 33568 [facility] ARUN NT NAIL 5 ARE KRISTAN ANY METHOD 6/> TRAVEL [address] MED 5 PHYSICIAN PHYSICIAN NEC LAB S LA S LA SPEC; PRORAT ACTL MILE COLLECTIO 89324 COMBINED COMBINED N VENOUS 5 PHYSICIAN PHYSICIAN BLOOD S LA S LA VENIPUNCT URE INITIAL [address] INTERNAL CARE/DAY MED 25 MINUTES DUP-SCAN 25353 [facility] VEINS 5 MEDICAL ANN MARIE IMAGING UNILATERA ASS L/LIMITED STUDY SBSQ [address] CARE/[place] [address] [place] [address] [place] [facility] HEAD/BRAI 5 MEDICAL ANGEL N W/O IMAGING CONTRAST ASS MATERIAL RADIOLOGI 11684 [facility] C 5 MEDICAL ANGEL EXAMINATI IMAGING ON CHEST ASS SINGLE VIEW FRONTAL RADIOLOGI 05257 [facility] [facility] C 5 MEDICAL ANGEL EXAMINATI IMAGING [place] [address] [place] [facility] HEAD/BRAI 5 MEDICAL ANGEL N W/O IMAGING CONTRAST ASS MATERIAL AMBULANCE A0429 [facility] [address] [place] [address] AMBULANCE AMBULANCE EMERGENCY SE SE TRANSPORT GROUND A0425 [facility] MILEAGE 5 [facility] PER AMBULANCE AMBULANCE STATUTE SE SE MILE SBSQ 81384 [facility] 5 [facility] CARE/DAY INTERNAL 35 MED MINUTES ECG [address] [facility] W/LEAST P 12 LDS I&R ONLY SBSQ 99030 [facility] 5 EXTENDED LOY FACIL CARE CARE/DAY SERV NEW PROBLEM 25 MIN BASIC 62677 COMBINED COMBINED METABOLIC 5 PHYSICIAN PHYSICIAN PANEL S LA S LA CALCIUM TOTAL COLLECTIO 48487 COMBINED COMBINED N VENOUS 5 PHYSICIAN PHYSICIAN BLOOD S LA S LA VENIPUNCT URE TRAVEL [address] MED 5 PHYSICIAN PHYSICIAN NEC LAB S LA S LA SPEC; PRORAT ACTL MILE OPHTH 17333 [facility] [place] 5 [facility] COMPRHNSV PSC ESTAB PT 1/> SBSQ 53066 [facility] 5 EXTENDED LOY FACIL CARE CARE/DAY SERV MINOR COMPLJ 15 MIN SBSQ 75546 [facility] 5 EXTENDED LOY FACIL CARE CARE/DAY SERV NEW PROBLEM 25 MIN TRAVEL [address] MED 5 PHYSICIAN PHYSICIAN NEC LAB S LA S LA SPEC; PRORAT ACTL MILE COLLECTIO 50291 COMBINED COMBINED N VENOUS 5 PHYSICIAN PHYSICIAN BLOOD S LA S LA VENIPUNCT URE COLLECTIO 19741 COMBINED COMBINED N VENOUS 5 PHYSICIAN PHYSICIAN BLOOD S LA S LA VENIPUNCT URE TRAVEL [address] MED 5 PHYSICIAN PHYSICIAN NEC LAB S LA S LA SPEC; [place] [address] COMBINED COMBINED MAGNESIUM 4 PHYSICIAN PHYSICIAN S LA S LA URNLS DIP 21373 COMBINED COMBINED 4 PHYSICIAN PHYSICIAN STICK/TAB S LA S LA LET REAGENT AUTO MICROSCOP Y CULTURE 16344 COMBINED COMBINED BACTERIAL 4 PHYSICIAN PHYSICIAN S LA S LA QUANTTATI VE COLONY COUNT URINE COLLECTIO 38316 COMBINED COMBINED N VENOUS 4 PHYSICIAN PHYSICIAN BLOOD S LA S LA VENIPUNCT URE ANTIBODY 97384 COMBINED COMBINED HELICOBAC [address] S LA S LA PYLORI SUSCEPTIB 24995 COMBINED COMBINED ILITY 4 PHYSICIAN PHYSICIAN STUDY S LA S LA ANTIMICRO BIAL DISK METHOD RADEX 69107 SYMPHONY SYMPHONY ABDOMEN 1 4 MOBILEX MOBILEX ANTEROPOS TERIOR VIEW SET-UP Q0092 SYMPHONY SYMPHONY PORTABLE 4 MOBILEX MOBILEX X-RAY EQUIPMENT TRAVEL [address] MED 4 PHYSICIAN PHYSICIAN NEC LAB S LA S LA SPEC; PRORAT ACTL MILE TRANS R0070 SYMPHONY SYMPHONY PRTBL 4 MOBILEX MOBILEX X-RAY EQP&PERS MILLICENT/NRS MILLICENT-TRIP 1 PT RADIOLOGI 38117 SYMPHONY SYMPHONY C 4 MOBILEX MOBILEX EXAMINATI ON CHEST SINGLE VIEW FRONTAL SBSQ 39264 [facility] N[facility] 4 EXTENDED LOY FACIL CARE CARE/DAY SERV NEW PROBLEM 25 MIN DRUG 21698 LAB ARIEL LAB ARIEL SCREEN 4 [place] [facility] [employer] LEVETIRAC ETAM TRAVEL [address] MED 4 PHYSICIAN PHYSICIAN NEC LAB S LA S LA SPEC; PRORAT ACTL MILE COLLECTIO 60633 COMBINED COMBINED N VENOUS 4 PHYSICIAN PHYSICIAN BLOOD S LA S LA VENIPUNCT URE COLLECTIO 69521 COMBINED COMBINED N VENOUS 4 PHYSICIAN PHYSICIAN BLOOD S LA S LA VENIPUNCT URE BLOOD 90204 COMBINED COMBINED COUNT 4 PHYSICIAN PHYSICIAN COMPLETE S LA S LA AUTO&AUTO DIFRNTL WBC TRAVEL [address] MED 4 PHYSICIAN PHYSICIAN NEC LAB S LA S [place]; [place] [address] COMBINED COMBINED THYROID 4 PHYSICIAN PHYSICIAN STIMULATI S LA S LA NG HORMONE TSH COMPREHEN 57665 COMBINED COMBINED SIVE 4 PHYSICIAN PHYSICIAN METABOLIC S LA S LA PANEL SBSQ 05293 [facility] NURSING 4 EXTENDED LOY FACIL CARE CARE/DAY SERV NEW PROBLEM 25 MIN CUL BACT 99114 COMBINED COMBINED XCPT 4 PHYSICIAN PHYSICIAN URINE S LA S LA BLOOD/STO OL AEROBIC ISOL SBSQ 89809 [facility] NURSING 4 ARI ARI FACILITY CARE/DAY E/M STABLE 10 MIN SET-UP Q0092 SYMPHONY SYMPHONY PORTABLE 4 MOBILEX MOBILEX X-RAY EQUIPMENT RADIOLOGI 68218 SYMPHONY SYMPHONY C 4 MOBILEX MOBILEX EXAMINATI ON CHEST SINGLE VIEW FRONTAL TRANS R0070 SYMPHONY SYMPHONY PRTBL 4 MOBILEX MOBILEX X-RAY EQP&PERS MILLICENT/NRS MILLICENT-TRIP 1 PT SBSQ 56803 [facility] FUNEZ NURSING 4 ARI ARI FACIL CARE/DAY MINOR COMPLJ 15 MIN SBSQ 35841 [facility] NURSING 4 ARE KRISTAN FACILITY CARE/DAY E/M STABLE 10 MIN SET-UP Q0092 SYMPHONY SYMPHONY PORTABLE 4 MOBILEX MOBILEX X-RAY EQUIPMENT RADIOLOGI 67138 SYMPHONY SYMPHONY C 4 MOBILEX MOBILEX EXAMINATI ON CHEST SINGLE VIEW FRONTAL TRANS R0075 SYMPHONY SYMPHONY PRTBL 4 MOBILEX MOBILEX XRAY EQP&PERS MILLICENT/NRS MILLICENT-TRIP> 1 PT TRAVEL [address] MED 4 PHYSICIAN PHYSICIAN NEC LAB S LA S LA SPEC; PRORAT ACTL MILE BLOOD 18841 COMBINED COMBINED COUNT 4 PHYSICIAN PHYSICIAN COMPLETE S LA S LA AUTO&AUTO DIFRNTL WBC COLLECTIO 13347 COMBINED COMBINED N VENOUS 4 PHYSICIAN PHYSICIAN BLOOD S LA S LA VENIPUNCT URE URNLS DIP 47486 COMBINED COMBINED 4 PHYSICIAN PHYSICIAN STICK/TAB S LA S LA LET REAGENT AUTO MICROSCOP Y SBSQ 87562 [facility]O NURSING 4 ARI ARI FACILITY CARE/DAY E/M STABLE 10 MIN URNLS DIP 00874 COMBINED COMBINED 4 PHYSICIAN PHYSICIAN STICK/TAB S LA S LA LET REAGENT AUTO MICROSCOP Y CULTURE 20685 COMBINED COMBINED BACTERIAL 4 PHYSICIAN PHYSICIAN S LA S LA QUANTTATI VE COLONY COUNT URINE SBSQ 48178 ARMINWai WAREO NURSING 4 ARI ARI FACILITY CARE/DAY E/M STABLE 10 MIN BASIC 99824 COMBINED COMBINED METABOLIC 4 PHYSICIAN PHYSICIAN PANEL S LA S LA CALCIUM TOTAL TRAVEL [address] MED 4 PHYSICIAN PHYSICIAN NEC LAB S LA S LA SPEC; PRORAT ACTL MILE COLLECTIO 17000 COMBINED COMBINED N VENOUS 4 PHYSICIAN PHYSICIAN BLOOD S LA S LA VENIPUNCT URE COLLECTIO 36576 COMBINED COMBINED N VENOUS 4 PHYSICIAN PHYSICIAN BLOOD S LA S LA VENIPUNCT URE TRAVEL [address] MED 4 PHYSICIAN PHYSICIAN NEC LAB S LA S LA SPEC; PRORAT ACTL MILE BASIC 91848 COMBINED COMBINED METABOLIC 4 PHYSICIAN PHYSICIAN PANEL S LA S LA CALCIUM TOTAL DEBRIDEME 11200 [facility] ARUN NT NAIL 4 ARE KRISTAN ANY METHOD 6/> SBSQ 67034 [facility] ARUN NURSING 4 ARE KRISTAN FACILITY CARE/DAY E/M STABLE 10 MIN SBSQ 96158 [facility] [address] [facility] FACILITY CARE/DAY E/M STABLE 10 MIN SET-UP Q0092 SYMPHONY SYMPHONY PORTABLE 4 MOBILEX MOBILEX X-RAY EQUIPMENT RADIOLOGI 22806 SYMPHONY SYMPHONY C 4 MOBILEX MOBILEX EXAMINATI ON KNEE 1/2 VIEWS TRANS R0070 SYMPHONY SYMPHONY PRTBL 4 MOBILEX MOBILEX X-RAY EQP&PERS MILLICENT/NRS MILLICENT-TRIP 1 PT RADEX 85309 SYMPHONY SYMPHONY ELBOW 2 4 MOBILEX MOBILEX VIEWS SBSQ 16823 [facility] [address] [facility] FACILITY CARE/DAY E/M STABLE 10 MIN URNLS DIP 33741 [facility], [facility] [employer] [facility], 4 CIRCULAR STUFFER CIRCULAR STUFFER STICK/TAB SHIRIN CARPIO LET RGNT CO HOS CO HOS AUTO W/O MICROSCOP Y CULTURE 67000 [facility], [facility] [employer] [facility], BACTERIAL 4 CIRCULAR STUFFER CIRCULAR STUFFER SHIRIN CARPIO QUANTTATI CO HOS CO HOS VE COLONY COUNT URINE SBSQ 98016 [facility] NURSING 4 ARI ARI FACILITY CARE/DAY E/M STABLE 10 MIN SBSQ 35235 [facility] JOHNNA NURSING 4 ARE ANUM FACILITY CARE/DAY E/M STABLE 10 MIN DETERMINA 08993 SUSAN SHILO TION 4 F. [facility] SBSQ 31900 [facility] NUR[facility] 4 ARI ARI FACILITY CARE/DAY E/M STABLE 10 MIN SBSQ 24423 [facility] ARMIN NURSING 4 ARI ARI FACILITY CARE/DAY E/M STABLE 10 MIN SBSQ 78971 [facility] ARMIN NURSING 4 ARI ARI FACILITY CARE/DAY E/M STABLE 10 MIN SBSQ 87957 [facility] JOHNNA NURSING 4 ARE ANUM FACILITY CARE/DAY E/M STABLE 10 MIN SBSQ 37850 [facility] ARMIN NURSING 3 ARI ARI FACILITY CARE/DAY E/M STABLE 10 MIN SBSQ 71898 [facility] ARMIN NURSING 3 ARI ARI FACILITY CARE/DAY E/M STABLE 10 MIN DETERMINA 03317 SUSAN ROBERTS 3 F. TYL [facility] SBSQ 56322 [facility] ARMIN NURSING 3 ARI ARI FACILITY CARE/DAY E/M STABLE 10 MIN SBSQ 87460 [facility] AMEE HIGHTOWER NURSING 3 ARE FACILITY CARE/DAY E/M STABLE 10 MIN PARING/CU 30182 [facility] AMEE FRA TTING 3 ARE BENIGN HYPERKERA TOTIC LESION 1 DEBRIDEME 14552 [facility] AMEE HIGHTOWER NT NAIL 3 ARE ANY METHOD 6/> SBSQ 41107 [facility] ARMIN NURSING 3 ARI ARI FACILITY CARE/DAY E/M STABLE 10 MIN SBSQ 33812 [facility] ARMIN NURSING 3 ARI ARI FACILITY CARE/DAY E/M STABLE 10 MIN BASIC 88694 [facility], [facility], METABOLIC 3 CIRCULAR STUFFER CIRCULAR STUFFER PANEL SHIRIN CARPIO CALCIUM CO HOS CO HOS TOTAL PARING/CU 13762 [facility] AMEE FRA TTING 3 ARE BENIGN HYPERKERA TOTIC LESION 2-4 DEBRIDEME 62786 [facility] AMEE HIGHTOWER NT NAIL 3 ARE ANY METHOD 6/> INITIAL 69170 [facility] AMEE HIGHTOWER NURSING 3 ARE FACILITY CARE/DAY 25 MINUTES SBSQ 39252 ARMIN ARMIN NURSING 3 [facility] FACILITY CARE/DAY E/M STABLE 10 MIN HOS BED E0260 [facility] SEMI-ELEC 3 W/ANY TYPE SIDE RAIL W/MATTRSS SBSQ 04945 [facility] ARMIN NURSING [address] [facility] FACILITY CARE/DAY E/M STABLE 10 MIN HOS BED E0260 [facility] SEMI-ELEC 3 W/ANY TYPE SIDE RAIL W/MATTRSS HOS BED E0260 [facility] SEMI-ELEC 3 W/ANY TYPE SIDE RAIL W/MATTRSS NEBULIZER E0570 [facility] CONROY WITH 3 HOME HOME [facility] R EQUIPME EQUIPME ECG 34974 NATALIIA LACEY LACEY NATALIIA ROUTINE 3 MD ECG CONSULTIN W/LEAST G SRV 12 LDS I&R ONLY HOME CARE S5108 [facility] 3 AREA AREA HOME AGENCY ON AGENCY ON CARE KAREN KAREN CLIENT PER 15 MIN HOS BED E0260 [facility] SEMI-ELEC 3 W/ANY TYPE SIDE RAIL W/MATTRSS RADIOLOGI 07423 [facility] C 3 MARVA EXAMINATI RADIOLOGY ON CHEST ASSOCIAT SINGLE VIEW FRONTAL INJECTION J2405 [facility] 5211game, [facility] INC, 3 CIRCULAR STUFFER CIRCULAR STUFFER ONDANSETR SHIRIN CARPIO ON HCL CO HOS CO HOS PER 1 MG BASIC 55524 [facility] INC, [facility] [employer] [facility], METABOLIC 3 CIRCULAR STUFFER CIRCULAR STUFFER PANEL [facility] CALCIUM CO HOS CO HOS TOTAL URNLS DIP 67318 [facility] 5211game, [facility] INC, 3 CIRCULAR STUFFER CIRCULAR STUFFER STICK/TAB [facility]IN CARP[facility] LET RGNT CO HOS CO HOS AUTO W/O MICROSCOP Y BLOOD 39561 [facility] 5211game, [facility] INC, COUNT 3 CIRCULAR STUFFER CIRCULAR STUFFER COMPLETE [facility] AUTO&AUTO [place] [address] [facility] INC, [facility] INC, CLOSTRIDI 3 CIRCULAR STUFFER CIRCULAR STUFFER UM [facility] [place] [address] [facility] INC, [facility] INC, INFUSION 3 CIRCULAR STUFFER CIRCULAR STUFFER THERAPY/P [facility] ROPHYLAXI CO HOS CO HOS S /DX 1ST TO 1 [place] [address] [facility], [facility] INC, MULT STEP 3 CIRCULAR STUFFER CIRCULAR STUFFER METHOD [facility] NOS EACH CO HOS CO HOS ORGANISM RADEX 23972 [facility] ABDOMEN 3 MARVA COMPL RADIOLOGY W/DCBTS&/ ASSOCIAT ERC VIEWS RADEX 11764 [facility] INC, [facility] INC, ABDOMEN 1 3 CIRCULAR STUFFER CIRCULAR STUFFER SHIRIN SHIIRN ANTEROPOS CO HOS CO HOS TER[facility]IEW HOME CARE S5108 [facility] 3 [...] LLC IPRATROPI UM BROM TO 0.5 MG ADMN SET A7003 YOUR YOUR SM VOL 3 PHARMACY PHARMACY NONFILTR LLC LLC PNEUMAT NEBULIZR DISPBL NEBULIZER E0570 RAFIQJIGNESH COVARRUBIASRELL WITH 3 HOME HOME [facility] R EQUIPME EQUIPME PHARM [id number] YOUR YOUR DISPEN 3 PHARMACY PHARMACY [facility] RX; INITIAL 30-DAY SUPPLY ECG 75949 NATALIIA LACEY LACEY NATALIIA ROUTINE 3 MD ECG CONSULTIN W/LEAST G SRV 12 LDS I&R ONLY RADIOLOGI 39654 MARY OCHOA C EXAM 3 JUAN J CHEST 2 RADIOLOGY VIEWS ASSOCIAT FRONTAL&L ATERAL HOME CARE S5108 [facility] 3 AREA AREA HOME AGENCY ON AGENCY ON CARE KAREN KAREN CLIENT PER 15 MIN HOME CARE S5108 [facility] 3 AREA AREA HOME AGENCY ON AGENCY ON CARE KAREN KAREN CLIENT PER 15 MIN BASIC 21366 [facility], [facility], METABOLIC 3 CIRCULAR STUFFER CIRCULAR STUFFER PANEL SHIRIN SHIRIN CALCIUM CO HOS CO [...] HOME AGENCY ON AGENCY ON CARE KAREN KAERN CLIENT PER 15 MIN HOME CARE S5108 [...] KAREN KAREN CLIENT PER 15 MIN RADIOLOGI 14904 [employer], [facility], C EXAM 3 CIRCULAR STUFFER CIRCULAR STUFFER CHEST 2 SHIRIN SHIRIN VIEWS CO HOS CO HOS FRONTAL&L ATERAL BLOOD 61502 [facility], [facility], COUNT 3 CIRCULAR STUFFER CIRCULAR STUFFER COMPLETE SHIRIN SHIRIN AUTO&AUTO CO HOS CO HOS DIFRNTL WBC BASIC 57318 [facility], [facility], METABOLIC 3 CIRCULAR STUFFER CIRCULAR STUFFER PANEL SHIRIN SHIRIN CALCIUM CO HOS CO [...] CLIENT PER 15 MIN HOS BED E0260 [facility]ARE SEMI-ELEC 3 W/ANY TYPE SIDE RAIL [...] CARE KAREN KAREN CLIENT PER 15 MIN [facility] [place] T1999 [facility] ITEMS & [address] [facility] AGENCY ON AGENCY ON RETAIL KAREN [...] KAREN KAREN CLIENT PER 15 MIN RADIOLOGI 20786 POINT REYES STATION GABRIELA 3 JUAN J EXAMINATI RADIOLOGY ON CHEST ASSOCIAT [facility] HOME CARE S5108 [facility]ING 3 [...] CARE KAREN KAREN CLIENT PER 15 MIN US SOFT 43044 POINT REYES STATION GABRIELA TISSUE 2 [facility] HEAD & RADIOLOGY NECK REAL ASSOCIAT TIME IMGE DOCM CT BONE 33860 POINT REYES STATION GABRIELA MINERL 2 JUAN J DENSITY RADIOLOGY STUDY 1/> ASSOCIAT SITS AXIAL SKE HOS BED E0260 [facility] SEMI-ELEC 2 W/ANY TYPE SIDE RAIL W/MATTRSS DUPLEX 39997 POINT REYES STATION GABRIELA SCAN 2 [facility] EXTRACRAN RADIOLOGY IAL ART ASSOCIAT COMPL BI [...] KAREN KAREN CLIENT PER 15 MIN ECG 24370 NATALIIA LACEY LACEY NATALIIA ROUTINE 2 MD ECG CONSULTIN W/LEAST G SRV 12 LDS I&R ONLY HOME CARE S5108 [facility] 2 AREA AREA HOME AGENCY ON AGENCY ON CARE KAREN KAREN CLIENT PER 15 MIN HOME CARE S5108 [facility] 2 AREA AREA HOME AGENCY ON AGENCY ON CARE KAREN KAREN CLIENT PER 15 MIN RADIOLOGI 41743 [facility] 2 MARVA EXAMINATI RADIOLOGY ON CHEST ASSOCIAT SINGLE VIEW FRONTAL HOME CARE S5108 [facility] 2 AREA AREA HOME AGENCY ON AGENCY ON CARE KAREN KAREN CLIENT PER 15 MIN HOME CARE S5108 [facility] 2 AREA AREA HOME AGENCY ON AGENCY ON CARE KAREN KARNE CLIENT PER 15 MIN HOME CARE S5108 [...] CARE KAREN KAREN CLIENT PER 15 MIN [facility] [place] T1999 [facility] ITEMS & 2 AREA AREA SPL AGENCY ON AGENCY ON RETAIL KAREN KAREN PURCHASE NOC HOME CARE S5108 [facility] 2 AREA AREA HOME AGENCY ON AGENCY ON CARE KAREN KAREN CLIENT PER 15 MIN HOME CARE S5108 [facility] 2 AREA AREA HOME AGENCY ON AGENCY ON CARE KARNE KAREN CLIENT PER 15 MIN HOME CARE [...] MOBILE OR STATIONAR Y W/FIXED ARMS THROMBOPL 96549 [employer], ASTIN 2 CIRCULAR STUFFER CIRCULAR STUFFER TIME SHIRIN SHIRIN PARTIAL CO HOS CO HOS PLASMA/WH OLE BLOOD BLOOD 09952 [employer], COUNT 2 CIRCULAR STUFFER CIRCULAR STUFFER COMPLETE SHIRIN SHIRIN AUTO&AUTO CO HOS CO HOS DIFRNTL WBC PROTHROMB 75036 [employer], IN TIME 2 CIRCULAR STUFFER CIRCULAR STUFFER SHIRIN SHIRIN CO HOS CO HOS SUSCEPTBI 03905 [employer] [facility] 5211game, LTY STDY 2 CIRCULAR STUFFER CIRCULAR STUFFER ANTIMICRB SHIRIN SHIRIN IAL AGNT CO HOS CO HOS AGAR DILUTJ URNLS DIP 69863 [employer], 2 CIRCULAR STUFFER CIRCULAR STUFFER STICK/TAB SHIRIN SHIRIN LET CO HOS CO HOS REAGENT AUTO MICROSCOP Y CULTURE 15368 [employer], BACTERIAL 2 CIRCULAR STUFFER CIRCULAR STUFFER SHIRIN SHIRIN QUANTTATI CO HOS CO HOS VE COLONY COUNT URINE CULTURE 02848 [employer], BCT 2 CIRCULAR STUFFER CIRCULAR STUFFER ISOL&PRSM SHIRIN SHIRIN PTV ID CO HOS CO HOS ISOLATE EA URINE CULTURE 04712 [employer], BCT 2 CIRCULAR STUFFER CIRCULAR STUFFER ISOL&PRSM SHIRIN SHIRIN PTV ID CO HOS CO HOS ISOLATE EA URINE CULTURE 63432 [employer], BACTERIAL 2 CIRCULAR STUFFER CIRCULAR STUFFER SHIRIN SHIRIN QUANTTATI CO HOS CO HOS VE COLONY COUNT URINE URNLS DIP 16902 [employer], 2 CIRCULAR STUFFER CIRCULAR STUFFER STICK/TAB SHIRIN SHIRIN LET CO HOS CO HOS REAGENT AUTO MICROSCOP Y SUSCEPTBI 82575 [employer], LTY STDY 2 CIRCULAR STUFFER CIRCULAR STUFFER ANTIMICRB SHIRIN SHIRIN IAL AGNT CO HOS CO HOS AGAR DILUTJ DRUG 96018 [facility], SCREEN 2 CIRCULAR STUFFER CIRCULAR STUFFER QUANTITAT SHIRIN SHIRIN BLAIR CO HOS CO HOS PHENYTOIN TOTAL ALBUMIN 46204 [facility] 5211game, [facility] INC, SERUM 2 CIRCULAR STUFFER CIRCULAR STUFFER PLASMA/WH SHIRIN SHIRIN OLE BLOOD CO HOS CO HOS BLOOD 62605 [facility] 5211game, [facility] INC, COUNT 2 CIRCULAR STUFFER CIRCULAR STUFFER COMPLETE SHIRIN SHIRIN AUTO&AUTO CO HOS CO HOS DIFRNTL WBC BASIC 96406 [facility] Namely [facility] INC, METABOLIC 2 CIRCULAR STUFFER CIRCULAR STUFFER PANEL SHIRIN SHIRIN CALCIUM CO HOS CO HOS TOTAL BLOOD 73529 [facility] [employer], COUNT 2 CIRCULAR STUFFER CIRCULAR STUFFER SMEAR SHIRIN SHIRIN MCRSCP CO HOS CO HOS W/MNL DIFRNTL WBC COUNT URNLS DIP 79429 [facility] 5211[employer], [facility], 2 CIRCULAR STUFFER CIRCULAR STUFFER STICK/TAB SHIRIN SHIRIN LET CO HOS CO HOS REAGENT AUTO MICROSCOP Y CULTURE 13646 [facility] Namely [facility] 5211game, BACTERIAL 2 CIRCULAR STUFFER CIRCULAR STUFFER SHIRIN SHIRIN QUANTTATI CO HOS CO HOS VE COLONY COUNT [facility]INE [facility] 768[facility] FACIL INTERNAL CARE/DAY MED NEW PROBLEM 25 MIN DEBRIDEME 24917 LAUSE FED LAUSE FED NT NAIL 1 ANY METHOD 6/> SBSQ 71067 [facility] FED LAUSE FED NURSING 1 FACIL CARE/DAY MINOR COMPLJ 15 MIN AMBULANCE A0428 [facility] SERVICE 1 AMBULANCE AMBULANCE BLS SERVICE SERVICE [facility] TRANSP[facility] GROUND A0425 [facility] MILEAGE 1 AMBULANCE AMBULANCE PER SERVICE SERVICE STATUTE MILE ANESTHESI 24445 [facility] OPEN 1 ANESTH ROBERT PROCEDURE OF THE S UPPER BLUE 2/3 FEMUR NOS RADIOLOGI 65298 [facility] 1 MEDICAL ANN MARIE EXAMINATI IMAGING ON PELVIS ASS 1/2 VIEWS RADEX HIP 71505 [place] [address] MEDICAL ANN MARIE UNILATERA IMAGING L ASS COMPLETE MINIMUM 2 VIEWS RADEX 19536 [facility] HIPS 1 MARVA BILATERAL RADIOLOGY 2 VIEWS ASSOCIAT ANTEROPOS T PELVIS RADIOLOGI 47189 [place] [facility] 1 MARVA EXAMINATI RADIOLOGY ON CHEST [place] [address] SHIRIN CARPIO THYROID 1 CO CO STIMULATI [facility] NG HORMONE TSH RADEX TOE 72794 SH[facility]IN CARPIO MINIMUM 1 CO CO [facility] COLLECTIO 10444 [facility] N VENOUS 1 CO CO BLOOD [facility] VENIPUNCT URE COMPREHEN 46020 [facility] SIVE 1 CO CO METABOLIC [facility] PANEL DRUG 05252 [facility] SCREEN 1 CO CO QUANTITAT [facility] BLAIR PHENYTOIN TOTAL RADIOLOGI 35402 [facility] C EXAM 1 CO CO CHEST 2 [facility] VIEWS FRONTAL&L ATERAL BLOOD 20854 [facility] COUNT 1 CO CO COMPLETE [facility] AUTO&AUTO DIFRNTL WBC NATRIURET 99687 [facility] IC 1 CO CO PEPTIDE [facility] WALKER E0143 RAFIQ [place] FOLDING 1 HOME HOME WHEELED MEDICAL MEDICAL ADJUSTABL EQUIPME EQUIPME E/FIXED HEIGHT RADIOLOGI 00237 [place] [facility] C 1 MEDICAL [place] EXAMINATI IMAGING ON CHEST ASS [place] FRONTAL GROUND A0425 [facility] MILEAGE [address] [facility] STATUTE EMS EMS MILE AMB [id number] [facility] SERVICE 1 [facility] ALS [facility] EMERGENCY EMS EMS TRANSPORT LEVEL 1 ECG 29951 JESUS PERALES ROUTINE 1 EMERGENCY ECG SERVICES W/LEAST 12 LDS I&R ONLY ECG [address] [facility] W/LEAST P 12 LDS I&[place] [address] [facility] ELKINS INFUSION 1 [facility] THERAPY/P INC INC ROPHYLAXI S /DX 1ST TO 1 HR THERAPEUT 13783 [facility] IC 1 [facility] INJECTION INC INC IV PUSH EACH NEW DRUG ECG 81397 [facility] ELKINS ROUTINE 1 [facility] ECG INC INC W/LEAST 12 LDS TRCG ONLY W/O I&R CULTURE 38224 [facility] BACTERIAL 1 [facility] BLOOD INC INC AEROBIC W/ID ISOLATES NATRIURET 91795 [facility] ELK[facility] IC 1 [facility] PEPTIDE INC INC BLOOD 20678 [facility] ELKINS COUNT 1 [facility] COMPLETE INC INC AUTO&[place] [address] [facility] ELKINS TROPONIN 1 [facility] QUANTITAT INC INC BLAIR CREATINE 21617 [facility] ELK[facility] KINASE 1 [facility] TOTAL INC INC URNLS DIP 27665 [facility] 1 [facility] STICK/TAB INC INC LET REAGENT AUTO MICROSCOP Y CREATINE 43235 BR[facility] ELKINS KINASE MB 1 [facility] FRACTION INC INC ONLY RADIOLOGI 12173 [place] [facility] C 1 MEDICAL ANN MARIE EXAMINATI IMAGING ON CHEST ASS [place]ONT[place] DRUG 56174 BR[facility] ELKINS SCREEN 1 [facility] QUANTITAT INC INC BLAIR PHENYTOIN TOTAL COMPREHEN 07651 BRITTNI RODRIGUEZON SIVE 1 [facility] METABOLIC INC INC PANEL HOSPITAL 60695 [facility] DISCHARGE 1 MEDICAL STACY DAY SERV MANAGEMEN FOUNDATIO T 30 MIN/< SBSQ 65652 [facility] 1 MEDICAL STACY CARE/DAY SERV 25 FOUNDATIO MINUTES SBSQ 89417 [facility] 1 MEDICAL SABINE CARE/DAY SERV 35 FOUNDATIO MINUTES LOCALIZE 57582 [place] [facility] [facility] 1 MEDICAL TIM SEIZURE SERV CABLE/RAD FOUNDATIO IO EEG/VIDEO RADIOLOGI 71048 TAM IRAM C 1 MEDICAL [place] EXAMINATI SERV [place] [address] TAM IRMA ANGIOGRAP 1 MEDICAL [place] HY CHEST SERV W/CONTRAS FOUNDATIO T/NONCONT RAST RADIOLOGI 31138 TAM ATTILI C 1 MEDICAL ANI EXAMINATI SERV ON CHEST FOUNDATIO [place] MRA NECK 15510 [facility] TE[facility]ADA W/O 1 MEDICAL SATISH CONTRST SERV MATERIAL FOUNDATIO MRI BRAIN 13673 [place] [facility] BRAIN 1 MEDICAL SATISH STEM W/O SERV W/CONTRAS FOUNDATIO T MATERIAL LOCALIZE 17904 [place] CEREBRAL 1 MEDICAL TIM SEIZURE SERV CABLE/RAD FOUNDATIO IO EEG/VIDEO SBSQ 24020 [place] [facility] 1 MEDICAL SABINE CARE/DAY SERV 35 FOUNDATIO MINUTES RADEX 52506 [place] SAL ABDOMEN 1 1 MEDICAL ART SERV ANTEROPOS FOUNDAT[place] TERIOR VIEW MRA HEAD [address] [place] TEJADA W/O 1 MEDICAL SATISH CONTRST SERV MATERIAL FOUNDAT[place] ECHO 70443 [place] LEZAMA DARÍO [facility] R-T 1 MEDICAL 2D SERV W/WOM-MOD FOUNDATIO E COMPL SPEC&COLR D CRITICAL 64877 [place] NAZAR[facility] CARE 1 MEDICAL NINA ILL/INJUR SERV SATISH ED FOUNDATIO PATIENT INIT 30-74 MIN INITIAL 40442 [place] [facility] 1 MEDICAL LINDSAY CARE/DAY SERV [address] [place] [address] [place] TEJADA HEAD/BRAI 1 MEDICAL SATISH N W/O SERV CONTRAST FOUNDATIO MATERIAL RADIOLOGI 66807 [place] NICKELS C 1 MEDICAL STACY EXAMINATI SERV ON CHEST FOUNDATIO SINGLE VIEW FRONTAL GROUND A0425 [facility] MILEAGE [address] [facility] EMS EMS MILE AMB A0427 [facility] SERVICE 1 [facility] EMERGENCY EMS EMS TRANSPORT LEVEL 1 INTUBATIO 57441 [place] ELENA N 1 MEDICAL YAMILETH ENDOTRACH SERV EAL FOUNDATIO EMERGENCY PROCEDURE CYTP 25889 [place] CAMILA CONCENTRA 1 MEDICAL BRILL YOL TION SERV SMEARS & FOUNDATIO INTERPRET ATION SPINAL 0331 [facility] TAP 1 Y Y [facility] CONT 9671 [facility] IN[facility] 1 Y Y [facility] < 96 CONSECUTI VE HOURS INSERTION 9604 [facility] OF 1 Y Y [facility] EAL TUBE ECG 62110 NATALIIA LACEY LACEY NATALIIA ROUTINE 1 MD ECG CONSULTIN W/LEAST G SRV 12 LDS I&R ONLY RADIOLOGI 14787 [facility] C EXAM 1 EIDER KRISTAN CHEST 2 RADIOLOGY VIEWS ASSOCIAT FRONTAL&L ATERAL HEAVY-DUT K0006 [facility] Y 1 WHEELCHAI R ELEVATING K0195 [facility] LEGREST 1 PAIR ELEVATING K0195 [facility] LEGREST 1 PAIR HEAVY-DUT K0006 [facility] Y 1 WHEELCHAI R ELEVATING K0195 [facility] LEGREST 1 PAIR HEAVY-DUT K0006 [facility] Y 1 WHEELCHAI R HEAVY-DUT K0006 [facility] Y 1 WHEELCHAI R ELEVATING K0195 [facility] LEGREST 1 PAIR URNLS DIP 72150 SH[facility] CARPIO 1 CO CO STICK/TAB HOSPITAL HOSPITAL LET REAGENT AUTO MICROSCOP Y HEAVY-DUT K0006 [facility] Y 1 WHEELCHAI R ELEVATING K0195 [facility] LEGREST 1 PAIR ELEVATING K0195 [facility] LEGREST 0 PAIR HEAVY-DUT K0006 [facility] Y 0 WHEELCHAI R HEAVY-DUT K0006 [facility] Y 0 WHEELCHAI R ELEVATING K0195 [facility] LEGREST 0 PAIR ELEVATING K0195 [facility] LEGREST 0 PAIR HEAVY-DUT K0006 [facility] Y 0 WHEELCHAI R ELEVATING K0195 [facility] LEGREST 0 PAIR HEAVY-DUT K0006 [facility] Y 0 WHEELCHAI R RADIOLOGI 39853 SH[facility] CARPIO C EXAM 0 CO CO CHEST 2 HOSPITAL HOSPITAL VIEWS FRONTAL&L ATERAL BLOOD 52535 SH[facility] CARPIO COUNT 0 CO CO COMPLETE [facility] AUTO&AUTO DIFRNTL WBC BLOOD 09522 SH[facility] CARPIO COUNT 0 CO NE SMEAR [facility] MCRSCP W/MNL DIFRNTL WBC COUNT COLLECTIO 30145 SH[facility] CARPIO N VENOUS 0 [facility] BLOOD [facility] VENIPUNCT URE BASIC 43490 SHIRIN CARPIO METABOLIC 0 CO NE PANEL [facility] CALCIUM TOTAL INITIAL 48407 [facility] OBSERVATI 0 LTH THO ON UROLOGY CARE/DAY PSC 30 MINUTES CYSTOURET 94946 [facility] HROSCOPY 0 LTH THO TX FEMALE UROLOGY URETHRAL PSC SYNDROME URNLS DIP 23339 [facility] 0 [facility] STICK/TAB [facility] LET REAGENT AUTO MICROSCOP Y CYSTO 47008 [facility] [facility] CALIBRATI 0 [facility] ON DILAT [facility] URTL STRIX/SATISH NOSIS SCR G0145 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 CYTOPATH 0 Y ARIEL OF Y ARIEL OF CERV/VAG [place] SCR H H AUTO&MNL RSCR PHYS IADNA 93896 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 CHLAMYDIA 0 Y [facility] Y [facility] [place] TRACHOMAT H H IS AMPLIFIED PROBE TQ IADNA 21833 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 NEISSERIA 0 Y [facility]EL [facility] Y [facility] [place] GONORRHOE H H AE AMPLIFIED PROBE TQ ELEVATING K0195 [facility] LEGREST 0 PAIR HEAVY-DUT K0006 [facility] Y [place] [address] PATHOLOGY PATHOLOGY SURG 0 & & PATHOLOGY CYTOLOGY CYTOLOGY LAB LAB GROSS&ALBAN ROSCOPIC EXAM EXC B9 19574 SHIRIN CARPIO LESION 0 [facility] TG T/A/L 2.1-3.0 CM EXC B9 86763 ARMIN ARMIN LESION 0 ARI ARI [facility] TG T/A/L 0.6-1.0 CM ECG 17251 NATALIIA LACEY LACEY NATALIIA ROUTINE 0 MD ECG CONSULTIN W/LEAST G SRV 12 LDS I&R ONLY HEAVY-DUT K0006 [facility] Y 0 WHEELCHAI R ELEVATING K0195 [facility] LEGREST 0 PAIR RADIOLOGI 72365 TMA CHARMAINE, C 0 MEDICAL FAUSTO G EXAMINATI SERV ON TIBIA FOUNDATIO & FIBULA 2 VIEWS [facility] 14646 [facility] DISCHARGE 0 ARI ARI DAY MANAGEMEN T > 30 MIN RADEX 88110 [place] CHARMAINE, ANKLE 0 MEDICAL FAUSTO G COMPLETE SERV MINIMUM 3 FOUNDATIO VIEWS RADEX 16510 [place] CHARMAINE, FOOT 0 MEDICAL FAUSTO G COMPLETE SERV MINIMUM 3 FOUNDATIO VIEWS RADIOLOGI 95895 TAM MONTANO, C 0 MEDICAL FAUSTO G EXAMINATI SERV ON KNEE 3 FOUNDATIO VIEWS INITIAL 84235 [facility] 0 ARI ARI CARE/DAY 70 MINUTES RADIOLOGI 60600 Candy MONROE 0 NAYELY S EXAMINATI RADIOLOGY ON CHEST SINGLE ASSOCIATE VIEW S PSC FRONTAL RADIOLOGI 72250 POINT REYES STATION Candy STARKEY EXAM 0 NAYELY S KNEE RADIOLOGY COMPLETE 4/MORE ASSOCIATE VIEWS S PSC URNLS DIP 78623 SHIRIN CARPIO 0 CO CO STICK/TAB HOSPITAL HOSPITAL LET REAGENT AUTO MICROSCOP Y COLLECTIO 90816 SH[facility] CARPIO N VENOUS 0 CO CO BLOOD [facility] VENIPUNCT URE LIPID 23213 SH[facility] CARPIO PANEL 0 CO [facility] HOSPITAL COMPREHEN 47467 [facility] CARP[facility] SIVE 0 [facility] PANEL RADIOLOGI 73354 SHIRIN Gupta EXAM 0 CO CO CHEST 2 [facility] VIEWS FRONTAL&L ATERAL BLOOD 88529 SHIRIN CARPIO COUNT 0 CO [facility] AUTO&AUTO DIFRNTL WBC ADMINISTR G0008 ARMIN FUNEZ, ATION OF 9 MODE MODE INFLUENZA VIRUS VACCINE IIV3 38840 ARMIN FUNEZ, VACCINE 9 MODEMarcus Velazquez SPLIT VIRUS 0.5 ML DOSAGE IM USE RADIOLOGI 70513 Candy MOORE EXAM 9 MEDICAL [facility] CHEST 2 IMAGING VIEWS ASSOCIATE FRONTAL&L S ATERAL BLOOD 17516 BRITTNI ELKINS COUNT 9 [facility] COMPLETE INC INC AUTO&AUTO DIFRNTL WBC HEPATIC 16295 BRITTNI ELKINS FUNCTION 9 [facility] PANEL INC INC SCREENING 37617 KAIA CAAL, 9 MEDICAL [place] MAMMOGRAP IMAGING HY ASSOCIATE BILATERAL S COMPUTER- 29642 KAIA CAAL, AIDED 9 MEDICAL [place] DETECTION IMAGING ASSOCIATE SCREENING S MAMMOGRAP HY COLLECTIO 71301 BRITTNI ELKINS N VENOUS 9 [facility] BLOOD INC INC VENIPUNCT URE RADIOLOGI 40957 Candy MONROE EXAM 8 NAYELY S CHEST 2 RADIOLOGY VIEWS FRONTAL&L ASSOCIATE ATERAL S PSC Encounters Encounter Start End Date Code Location Performer Type Date [facility] IN[facility] 7 7 [facility] 7 7 [facility] 7 7 [facility] 7 7 [facility] 7 7 [facility] 7 7 [facility] INPAT[facility] 7 7 [facility] IN[facility] 7 7 [facility] 59938 SURAJ SANTIAGO DEPT 7 7 PHYSICIAN VISIT S, PLL[facility] HIGH SEVERITY& THREAT FUNCJ OFFICE 40638 DERMATOLO MUSIC OUTPATIEN 7 7 GY T VISIT CONSULTAN 10 TS [facility] MINUTES OFFICE 17092 DERMATOLO MUSIC OUTPATIEN 7 7 GY T VISIT CONSULTAN 15 TS [facility] MINUTES OFFICE 61909 DERMATOLO ALEXIS OUTPATIEN 6 6 GY T NEW 10 CONSULTAN MINUTES [facility] - OTHER 6 6 [facility] - OTHER 6 6 [facility] 5 5 [facility] 5 5 [facility] 5 5 [facility] 5 5 [facility] - OTHER F[facility] IN[facility] 5 5 [facility] EMERGENCY 58322 BR[facility] 5 5 [facility] T VISIT HIGH/URGE NT SEVERITY HOSPITAL BRITTNI - [address] [facility] OUTPATIEN INC T [facility] 5 5 [facility] BRITTNI - [address] [facility] INPATIENT INC [facility] 5 5 [facility] F[facility] 5 5 [facility] BRITTNI - [address] [facility] INPATIENT INC EMERGENCY 38789 BRITTNI ARMAAN 5 5 [facility] T VISIT P HIGH/URGE NT SEVERITY CRITICAL [facility], ACCESS 4 4 [facility] CRITICAL [facility] ACCESS 3 3 [facility] EMERGENCY 42536 [facility], 3 3 [facility] T VISIT CO HOS HIGH/URGE NT SEVERITY EMERGENCY 76382 SHIR[facility] DOMINGUEZ 3 3 [facility] T VISIT MODERATE SEVERITY CRITICAL [facility], ACCESS 3 3 [facility] CR[facility]ICAL [facility], ACCESS 3 3 [facility] [facility] CRITICAL [facility], ACCESS 3 3 [facility]OS OFFICE 24503 ARMIN ARMIN OUTPATIEN 3 3 ARI ARI T VISIT 15 MINUTES EMERGENCY 96202 SHIRIN MORGAN 3 3 [facility] T VISIT MODERATE SEVERITY OFFICE 12531 MARY FISHER ARI OUTPATIEN 3 3 N T NEW 45 NEUROLOGY MINUTES OFFICE 11701 ARMIN ARMIN OUTPATIEN 2 2 ARI ARI T VISIT 15 MINUTES OFFICE 39678 ARMIN ARMIN OUTPATIEN 2 2 ARI ARI T VISIT 15 MINUTES CRITICAL [facility], ACCESS 2 2 [facility] HOS CRITICAL [facility], ACCESS 2 2 [facility] [place] [facility]OS CRITICAL [facility] ACCESS 2 2 [facility] SHIRIN SANTIZO HOS CRITICAL [facility], ACCESS 2 2 [facility] HOS CRITICAL [facility], ACCESS 2 2 [facility] SHIR[facility] NE HOS CRITICAL [facility] ACCESS 2 2 [facility] SHIRIN SANTIZO HOS CRITICAL SHIRIN ACCESS 1 1 [facility]PITAL EMERGENCY 29111 [facility] DEPT 1 1 EMERGENCY VISIT SERVICES HIGH SEVERITY& THREAT FUNJ EMERGENCY [address] [facility] T VISIT HIGH/URGE NT SEVERITY HOSPITAL BRITTNI - [address] [facility] OUTPATIEN [facility] UNIVERSIT - 1 1 INPATIENT HOSPITAL OFFICE 20739 ARMIN FUNEZ OUTPATIEN 1 1 ARI ARI T VISIT 15 MINUTES OFFICE 50651 ARMIN FUNEZ OUTPATIEN 1 1 ARI ARI T VISIT 10 MINUTES OFFICE 11032 ARMIN ARMIN OUTPATIEN 1 1 ARI ARI T VISIT 15 MINUTES CRITICAL SHIRIN ACCESS 1 1 [facility]OSPITAL OFFICE 09823 ARMIN WAREO OUTPATIEN 0 0 ARI ARI T VISIT 15 MINUTES OFFICE 33243 ARMIN WAREO OUTPATIEN 0 0 ARI ARI T VISIT 10 MINUTES CRITICAL SHIRIN ACCESS 0 0 [facility] HOSPITAL OFFICE 70206 ARMIN ARMIN OUTPATIEN 0 0 ARI ARI T VISIT 15 MINUTES HOSPITAL [place] - 0 0 [facility] OFF[facility] 38409 [facility] OUTPATIEN 0 0 LTH THO T NEW 30 UROLOGY MINUTES PSC CRITICAL SHIRIN ACCESS 0 0 [facility] HOSPITAL OFFICE 18096 TAM COATES, OUTPATIEN 0 0 MEDICAL CASSIDY D T VISIT SERV 10 FOUNDATIO MINUTES EMERGENCY 82785 [place] VIMAL, 0 0 MEDICAL ABHIJEET DEPARTMEN SERV T VISIT FOUNDATIO MODERATE SEVERITY OFFICE 35681 ARMIN FUNEZ, OUTPATIEN 0 0 MODE MODE T VISIT 15 MINUTES CRITICAL SHIRIN ACCESS 0 0 [facility] HOSPITAL OFFICE 52970 ARMIN FUNEZ, OUTPATIEN 0 0 MODE MODE T VISIT 15 MINUTES OFFICE 56077 ARMIN FUNEZ OUTPATIEN 9 9 MODE MODE T VISIT 15 MINUTES OFFICE 54460 ARMIN FUNEZ, OUTPATIEN 9 9 MODE MODE T VISIT 15 MINUTES OFFICE 37907 ARMIN FUNEZ OUTPATIEN 9 9 MODE MODE T VISIT 15 MINUTES OFFICE 57801 ARMIN FUNEZ, OUTPATIEN 9 9 MODE MODE T VISIT 15 MINUTES HOSPITAL BRITTNI - 9 9 [facility] 65235 JEANIE FUNEZO, OUTPATIEN 8 8 MODE MODE T VISIT 15 MINUTES OFFICE 92773 JEANIE FUNEZO, OUTPATIEN 8 8 MODE MODE T VISIT 15 MINUTES OFFICE 05306 ARMIN ARMIN, OUTPATIEN 8 8 MODE MODE T VISIT 15 MINUTES OFFICE 50859 [facility] 8 8 , [place] , [facility] T VISIT 15 MINUTES [facility] SHIRIN ACCESS 8 8 [facility] HOSPITAL OFFICE 83734 JEANIE FUNEZO, OUTPATIEN 8 8 MODE MODE T VISIT 10 MINUTES OFFICE 09626 JEANIE FUNEZO, OUTPATIEN 8 8 MODE MODE T VISIT 15 MINUTES OFFICE 95144 JEANIE FUNEZO, OUTPATIEN 8 8 MODE MODE T VISIT 15 MINUTES [facility]OSPITAL [facility] 8 8 [facility] 84867 [facility] OUTPATIEN 8 8 , LINCOLN , LINCOLN T VISIT 15 MINUTES OFFICE 86207 ARMINTJARMIN, OUTPATIEN 8 8 MODE MODE T VISIT 10 MINUTES
--- OUTSIDE RECORDS SUMMARY | 2017-06-11 05:46 | External Medical Summary Rpt | CCD ---
Author Author , SHERLEY Organization [employer] Address Unknown Phone [email or web address] Care Team Providers Care Friend Of The Court Name Role Phone [facility], [facility] Unavailable Unavailable [facility], [facility] Unavailable Unavailable EPPERSON STACY, EPPERSON Unavailable Unavailable STACY [facility], Unavailable Unavailable INC., [facility] LEZAMA DARÍO, LEZAMA DARÍO Unavailable Unavailable ATTILI ANI, ATTILI Unavailable Unavailable ANI BEINEKE ANGEL, BEINEKE Unavailable Unavailable ANGEL BENSADOUN SABINE, Unavailable Unavailable BENSADOUN SABINE BENSALEM TIM, Unavailable Unavailable BENSALEM TIM BESSON SATISH, BESSON Unavailable Unavailable SATISH [facility] Unavailable Unavailable ON KAREN, [facility] ON KAREN [facility] Unavailable Unavailable ON KAREN, [facility] ON K[facility]EN [facility] Unavailable Unavailable CARE SERV, [facility] LR, LR Unavailable Unavailable LR ALL, LR ALL Unavailable Unavailable BOONSTRA TOD, Unavailable Unavailable BOONSTRA TOD [facility] Unavailable Unavailable [facility] Unavailable Unavailable SERVICE, [facility] Unavailable Unavailable SERVICE, [facility] GABRIELA DREW Unavailable Unavailable JUAN J [facility] Unavailable Unavailable LA, [facility] Unavailable Unavailable [facility], [facility] Unavailable Unavailable LAB, [facility] Unavailable Unavailable LAB, [facility] LACEY NATALIIA, LACEY NATALIIA Unavailable Unavailable [facility] Unavailable Unavailable [facility], [facility] ABEL JR BRAD, ABEL Unavailable [...] Unavailable JOHNNA ANUM, Unavailable Unavailable JOHNNA ANUM [facility] Unavailable Unavailable INC, [facility] Unavailable Unavailable HOSPITAL P, [facility] P AMEE FRA, AMEE FRA Unavailable Unavailable STARKEY MARAV, STARKEY Unavailable Unavailable MARVA STARKEY, NAYELY S, Unavailable Unavailable STARKEY, NAYELY S [facility], Unavailable Unavailable [facility] Unavailable Unavailable INC, [facility] GONZALEZ TYL, GONZALEZ Unavailable Unavailable TYL ELENA YAMILETH, Unavailable Unavailable ELENA YAMILETH RAGINI GARCIA Unavailable Unavailable PRISON, RAGINI JOSE PR[facility] Unavailable Unavailable IMAGING ASS, [facility] FAUSTO MONTANO KING, Unavailable [...] [facility] Unavailable Unavailable INTERNAL MED, [facility] SAL ART, SAL Unavailable Unavailable ART ARMINESTRADA CHAPMAN ARMIN Unavailable Unavailable ARI ARMINESTRADA CHAPMAN ARMIN Unavailable Unavailable GAMAL GILMORE, Unavailable Unavailable GAMAL FUNEZ SHILO MARVA, SHILO Unavailable Unavailable MARVA ARMAAN LORI, ARMAAN Unavailable Unavailable LORI [facility] Unavailable Unavailable SERVICES, [facility] MARYCRUZ MARYCRU[facility] Unavailable Unavailable [facility] Unavailable Unavailable ASSOCIAT, [facility] CONNIE QUINN BRAD, Unavailable Unavailable CONNIE QUINN BRAD [facility] Unavailable Unavailable DUNCANS[facility] SALINAS [facility] Unavailable Unavailable BRAD [facility] Unavailable Unavailable [facility]/$2000 LE, [facility]/$2000 LE [facility] Unavailable Unavailable [facility]-TRANSITION/$2000 VIS, [facility]FP PRE-TRANSITION/$2000 VIS [facility] Unavailable Unavailable CO HOS, [facility] CAMILA BRILL YOL, Unavailable Unavailable CAMILA BRILL YOL MUSIC, MUSIC Unavailable Unavailable [facility] Unavailable Unavailable [facility], Unavailable Unavailable [facility] RAJ LINDSAY, RAJ Unavailable Unavailable LINDSAY [facility] Unavailable Unavailable [facility] Unavailable Unavailable [facility], Unavailable Unavailable [facility] Unavailable Unavailable AMBULANCE , [facility] Unavailable Unavailable AMBULANCE SE, [facility] Unavailable Unavailable [facility] NICKELS STACY, NICKELS Unavailable Unavailable STACY [facility], Unavailable Unavailable [facility] JUAREZ LOY, JUAREZ Unavailable Unavailable LOY FISHER ARI, FISHER ARI Unavailable Unavailable NATALIIA LACEY MD Unavailable Unavailable CONSULTING SRV, NATALIIA LACEY MD CONSULTING SRV [facility] Unavailable Unavailable EMS, [facility] Unavailable Unavailable EMS, [facility], Unavailable Unavailable PLL[facility], [facility] Unavailable Unavailable LAB, [facility] Unavailable Unavailable LAB, [facility] DOMINGUEZ MUH, DOMINGUEZ Unavailable Unavailable MUH NAYELY, NAYELY Unavailable Unavailable NAYELY JUAN J, NAYLEY Unavailable Unavailable JUAN J [place], [place], Unavailable [...] AJ, HAROLDO Unavailable Unavailable AJ NAZARIO NINA [facility], Unavailable Unavailable [facility], Unavailable Unavailable [facility] ARUN KRISTAN, ARUN Unavailable Unavailable [...] 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 COLI JOSE CAUSE DZ NURSING CLASS HOME ELSEWHERE D649 ANEMIA 05-20-2017 RAGINI UNSPECIFIED JOSE PRISON N289 DISORDER OF 05-20-2017 RAGINI KIDNEY AND JOSE URETER NURSING UNSPECIFIED HOME R1312 DYSPHAGIA 05-20-2017 RAGINI OROPHARYNGE JOSE AL PHASE PRISON R7881 BACTEREMIA 05-20-2017 RAGINI GARCIA PRISON Z1612 EXTENDED 05-20-2017 RAGINI SPECTRUM JOSE BETA NURSING LACTAMASE HOME ESBL RESISTANCE R7301 IMPAIRED 05-11-2017 [facility]ING [facility] GLUCOSE LAB E870 HYPEROSMOLA 05-06-2017 LAB [facility] LITY AND [place] HYPERNATREM HOLDINGS [place] E875 HYPERKALEMI 05-06-2017 LAB ARIEL A [place] HOLDINGS J58883 EPILEPSY 05-06-2017 LAB ARIEL UNS NOT [place]FRICA [...] [facility] R0602 SHORTNESS 01-17-2017 [place] [facility] W91354 PERSONAL 01-17-2017 [facility] HISTORY OF PHYSICIANS, NICOTINE PLLC DEPENDENCE P81463 UNSPECIFIED 01-13-2017 SUSAN SONG PSC BLEPHAROCON JUNCTIVITIS BILATERAL H2511 AGE-RELATED 01-13-2017 SUSAN Chance NUCLEAR [facility] PSC CATARACT RIGHT EYE L905 SCAR 12-30-2016 DERMATOLOGY CONDITIONS AND CONSULTANTS FIBROSIS OF PSC SKIN R69 ILLNESS 12-30-2016 [facility] UNSPECIFIED TRANSPORTAT ION SER Z08 ENCOUNTER 12-30-2016 DERMATOLOGY F/U EXAM AFTER CMPL CONSULTANTS REJI KALEB PSC NEOPLASM L78205 PERSONAL 12-30-2016 DERMATOLOGY HISTORY OTHER CONSULTANTS MALIGNANT PSC NEOPLASM SKIN D0461 CARCINOMA 10-28-2016 DERMATOLOGY IN SITU SKIN RT CONSULTANTS UPPER LIMB PSC INCL SHLDR C4911 MALIG 08-25-2016 [facility] NEOPLASM EXTENDED CONN SOFT CARE SERV TISS RT UP LIMB W/SHLDR I42025 PAIN IN 08-17-2016 [facility] RIGHT TOES E M60085 PAIN IN 08-17-2016 [facility] LEFT TOES E D485 NEOPLASM OF 08-16-2016 DERMATOLOGY UNCERTAIN BEHAVIOR OF CONSULTANTS SKIN PSC G4089 OTHER 08-07-2016 [facility] SEIZURES EXTENDED CARE SERV K219 GASTRO-ESOP 08-07-2016 [facility] H REFLUX EXTENDED DISEASE CARE SERV WITHOUT ESOPHAGITIS R601 GENERALIZED 08-07-2016 [facility] EDEMA EXTENDED CARE SERV D229 MELANOCYTIC 08-06-2016 [facility] NEVI EXTENDED UNSPECIFIED CARE SERV W50955 CELLULITIS 08-06-2016 [facility] OF RIGHT EXTENDED UPPER LIMB CARE SERV R109 UNSPECIFIED 06-21-2016 [facility] ABDOMINAL PHYSICIANS PAIN LA R509 FEVER 05-10-2016 [facility] UNSPECIFIED MEM HOS[facility] INC R5383 OTHER 05-10-2016 [facility] FATIGUE [facility] INC Y44130 UNSPECIFIED 04-16-2016 SUSAN Chance PTOSIS OF DUNCAN PSC RIGHT EYELID S88661 ACUTE 03-25-2016 [facility] LYMPHANGITI E S OF LEFT TOE L600 INGROWING 03-25-2016 [facility] NAIL E J70331 PAIN IN 03-25-2016 [facility] UNSPECIFIED E FOOT I06844W CONTUSION 03-25-2016 [facility] RT GREAT E TOE W/DAMAGE NAIL INITIAL ENC K40068V ABRASION 03-25-2016 [facility] RIGHT GREAT E TOE INITIAL ENCOUNTER E039 HYPOTHYROID 03-19-2016 [facility] ISM PHYSICIANS UNSPECIFIED LA E119 TYPE 2 03-19-2016 [facility] DIABETES PHYSICIANS MELLITUS LA WITHOUT COMPLICATIO NS R8299 OTHER 01-02-2016 [facility] ABNORMAL MEM HOS[facility] FINDINGS IN INC URINE G309 ALZHEIMERS 12-07-2015 [facility] DISEASE EXTENDED UNSPECIFIED CARE SERV M74957 EPILEPSY 12-07-2015 [facility] UNS NOT EXTENDED INTRACT CARE SERV W/STATUS EPILEPTICUS E559 VITAMIN D 11-18-2015 LAB [facility] DEFICIENCY [place] UNSPECIFIED HOLDINGS N179 ACUTE 11-07-2015 LAB [facility] KIDNEY [place] FAILURE HOLDINGS UNSPECIFIED J449 CHRONIC 10-31-2015 [facility] OBSTRUCTIVE EXTENDED PULMONARY CARE SERV DISEASE UNS Q36210 ACUTE EMBO 10-04-2015 [facility] THROMB UNS EXTENDED DEEP VEINS CARE SERV LT LOWER EXTREM J8410 PULMONARY 07-30-2015 [facility] FIBROSIS [facility] UNSPECIFIED 34554 OTHER 05-27-2015 [facility] DISEASES OF MOBILEX LUNG NOT ELSEWHERE CLASSIFIED 4019 UNSPECIFIED 05-07-2015 [facility] ESSENTIAL PHYSICIANS HYPERTENSIO LA N 7862 COUGH 05-05-2015 [facility] MOBILEX 2760 HYPEROSMOLA 04-29-2015 RAGINI LITY AND/[place] 27[address] HYPERPOTASS 04-29-2015 RAGINI EMIA [facility] 2859 UNSPECIFIED 04-29-2015 [facility]I ANEMIA [facility] 80363 OTHER LATE 04-29-2015 RAGINI EFFECTS OF JOSE CEREBROVASC NURSING ULAR HOME DISEASE 5849 ACUTE 04-29-2015 RAGINI KIDNEY JOSE FAILURE NURSING UNSPECIFIED HOME 29906 URINARY 04-29-2015 RAGINI OBSTRUCTION JOSE NOT NURSING ELSEWHERE HOME CLASSIFIED 43479 ABNORMAL 04-29-2015 [facility]I POSTURE [facility] PRISON 71788 DYSPHAGIA 04-29-2015 RAG[facility]I OROPHARYNGE JOSE AL PHASE PRISON 1101 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 4439 UNSPECIFIED 04-07-2015 [facility] PERIPHERAL E VASCULAR DISEASE 7030 INGROWING 04-07-2015 [facility] NAIL E 7295 PAIN IN 04-07-2015 [facility] SOFT E TISSUES OF LIMB 9243 CONTUSION 04-07-2015 [facility] OF TOE E 486 PNEUMONIA, 02-04-2015 [facility] ORGANISM PHYSICIANS UNSPECIFIED LA 4589 UNSPECIFIED 01-22-2015 [facility] SE 496 CHRONIC 01-22-2015 [facility] AIRWAY MEM HOS[facility] OBSTRUCTION INC NEC 53549 ESOPHAGEAL 01-22-2015 [facility] REFLUX [facility]OS[facility] INC 5856 END STAGE 01-22-2015 [facility] RENAL [facility] DISEASE AMBULANCE SE 7964 OTHER 01-22-2015 [facility] ABNORMAL [facility] CLINICAL AMBULANCE FINDING SE 591 HYDRONEPHRO 01-02-2015 [facility] P 5990 URINARY 01-02-2015 [facility] P SITE NOT SPECIFIED 56540 NEUROGENIC 01-01-2015 [facility] BLADDER, MEM HOS[facility] NOS INC V1089 PERSONAL 01-01-2015 [facility] HISTORY [facility] MALIGNANT INC NEOPLASM OTHER SITE V1251 PERSONAL 01-01-2015 [facility] HISTORY, MEM HOS[facility] VENOUS INC THROMBOSIS AND EMBOLISM 5935 HYDROURETER 12-31-2014 [facility] 03193 OTHER 12-31-2014 [place] SPECIFIED MEDICAL DISORDERS IMAGING ASS OF BLADDER 64080 OTHER 12-31-2014 [facility]ED [place] [address] FACIAL 12-31-2014 [facility] [place] [address] CHEST PAIN 12-31-2014 [place] UNSPECIFIED [facility]ICAL IM[facility]ING ASS 32039 ABDOMINAL 12-31-2014 [place] PAIN, MEDICAL UNSPECIFIED IMAGING ASS SITE 28133 MUSCLE 11-27-2014 R[facility]I WEAKNESS JOSE (GENERALIZE NURSING D) HOME 24461 DYSPHAGIA 11-27-2014 [facility] ORAL PHASE JOSE PRISON 35869 UNSPECIFIED 11-27-2014 RAG[facility]I RETENTION JOSE OF URINE PRISON 95281 UNSPEC 11-04-2014 [facility] WITHOUT INTERNAL MENTION MED INTRACT EPILEPSY 40952 SWELLING OF 11-02-2014 [facility] [facility]B [facility] 5180 PULMONARY 11-01-2014 [facility] [facility]SE [facility] 36461 OTHER 11-01-2014 [place] ALTERATION [place] [address] TRANSIENT 10-30-2014 [facility] OF AMBULANCE AWARENESS SE V103 PERSONAL 10-30-2014 [facility] HISTORY OF MEM HOSP MALIGNANT INC NEOPLASM OF BREAST 7830 ANOREXIA 10-24-2014 [facility] EXTENDED CARE SERV 41911 DRUSEN OF 10-07-2014 SUSAN Chance RETINA [facility] 61917 NUCLEAR 10-07-2014 SUSAN Chance SCLEROSIS [facility] 06326 UNSPECIFIED 10-07-2014 SUSAN SONG [facility] AFTER-CATAR ACT 7822 LOCALIZED 09-27-2014 [facility] SUPERFICIAL EXTENDED SWELLING CARE SERV [place] 98841 HELICOBACTE 09-06-2014 [facility] R PYLORI EXTENDED INFECTION CARE SERV V5869 LONG-TERM 09-02-2014 [facility] (CURRENT) PHYSICIANS USE OF LA OTHER MEDICATIONS 2761 HYPOSMOLALI 08-30-2014 [facility] TY AND/OR PHYSICIANS HYPONATREMI LA A 5589 OTH&UNSPEC 08-15-2014 [facility] NONINFECTIO PHYSICIANS US LA GASTROENTER ITIS&COLITI S 24391 WHEEZING 08-15-2014 [facility] 06356 DIARRHEA 08-15-2014 [facility] MOBILEX 20225 LOSS OF 08-14-2014 [facility] WEIGHT EXTENDED CARE SERV 4779 ALLERGIC 07-31-2014 [facility] RHINITIS EXTENDED CAUSE CARE SERV UNSPECIFIED 72260 UNSPECIFIED 07-08-2014 [facility] PURULENT PHYSICIANS ENDOPHTHALM LA ITIS 63146 UNSPECIFIED 07-06-2014 ARMIN CHAPMAN CONJUNCTIVI TIS 63330 OBSTRUCTIVE 07-06-2014 ARMIN CHAPMAN CHRONIC BRONCHITIS WITHOUT EXACERBAT 4011 ESSENTIAL 06-28-2014 ARMIN CHAPMAN HYPERTENSIO N, BENIGN 05312 OBST 06-28-2014 ARMIN CHAPMAN CHRONIC BRONCHITIS W/ACUTE BRONCHITIS 94208 OTHER 06-21-2014 [facility] PERIPHERAL E VASCULAR DISEASE 71401 FEVER 06-10-2014 SY[facility]Y UNSPECIFIED MOBILEX 5368 DYSPEPSIA&O 05-28-2014 ARMIN CHAPMAN THER SPEC DISORDERS FUNCTION STOMACH 61239 OSTEOARTHRO 05-28-2014 ARMIN CHAPMAN S INVLV MX SITES BUT NOT SPEC GEN 7354 OTHER 03-28-2014 [facility] H[place]MER TOE E 87598 CONTUSION 02-23-2014 SY[facility]Y OF FOREARM MOBILEX 76830 CONTUSION 02-23-2014 SYMPHONY OF KNEE MOBILEX 15273 OTHER 12-31-2013 ARMIN CHAPMAN CONVULSIONS 7881 DYSURIA 12-29-2013 [facility] [place] [facility] 37435 URINARY 12-29-2013 [facility], FREQUENCY 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 MACHINE 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 [place] [facility] 3899 UNSPECIFIED 12-10-2013 [facility] HEARING E LOSS 3670 HYPERMETROP 12-03-2013 SUSAN SONG PSC 700 CORNS AND 06-07-2013 [facility] CALLOSITIES E 7050 ANHIDROSIS 06-07-2013 [facility] E 7823 EDEMA 04-11-2013 [facility] FOURDRINIER MACHINE OPERATOR [place] [facility] V5883 ENCOUNTER 04-11-2013 [facility], FOR FOURDRINIER MACHINE OPERATOR THERAPEUTIC [place] [facility]UG [facility] MONITORING 7813 LACK OF 03-18-2013 [facility] COORDINATIO N 46681 OTHER 03-18-2013 [facility] SYMBOLIC DYSFUNCTION 55729 CLOSED 03-18-2013 [facility] FRACTURE OF UNSPECIFIED PART OF TIBIA 85331 NAUSEA WITH 11-21-2012 NATALIIA BRENNAN MD CONSULTING SRV 4293 CARDIOMEGAL 11-15-2012 [facility] 6925 UNSPECIFIED 11-14-2012 [facility] PRURITIC FOURDRINIER MACHINE OPERATOR DISORDER [place] [facility] 7821 RASH AND 11-14-2012 [facility] OTHER HOSPITAL NONSPECIFIC SKIN ERUPTION 74531 NAUSEA 11-14-2012 [facility] V4364 HIP JOINT 11-14-2012 [facility] REPLACEMENT FOURDRINIER MACHINE OPERATOR BY OTHER [place] MEANS [facility]OS V4571 ACQUIRED 11-14-2012 [facility] ABSENCE OF FOURDRINIER MACHINE OPERATOR BREAST AND [place] [facility] NIPPLE [facility]OS V8801 ACQUIRED 11-14-2012 [facility] ABSENCE OF FOURDRINIER MACHINE OPERATOR BOTH CERVIX [place] [facility] AND UTERUS HOS 331 OTHER 11-09-2012 [facility] CEREBRAL [place] [address] DEHYDRATION 11-07-2012 NATALIIA LACEY MD CONSULTING SRV 7906 OTHER 11-01-2012 [facility] ABNORMAL FOURDRINIER MACHINE OPERATOR BLOOD [place] [facility] CHEMISTRY HOS 4660 ACUTE 10-24-2012 ARMIN ARI BRONCHITIS 17605 OBSTRUCTIVE 10-24-2012 ARMIN ARI CHRONIC BRONCHITIS WITH EXACERBATIO N 69139 SHORTNESS 10-24-2012 [facility] OF BREATH FOURDRINIER MACHINE OPERATOR [place] [facility] 490 BRONCHITIS 09-27-2012 [facility] HOSPITAL ACUTE OR CHRONIC V4589 OTHER 09-27-2012 [facility] OTHER 4389 UNSPEC LATE 09-07-2012 [place] [facility] EFF [facility]ICAL CEREBRVASC DZ DUE CEREBRVASC DZ 64505 PRESSURE 09-07-2012 [place] ULCER MEDICAL BUTTOCK 01318 PRESSURE 09-07-2012 [place] [address] UNSPECIFIED 09-07-2012 [place] URINARY MEDICAL INCONTINENC E 2409 GOITER, 08-18-[facility] U[facility]PEC[facility] RAD[facility]OLOGY ASSOCIAT 82762 DISORDER OF 08-18-2012[facility] BONE AND RADIOLOGY CARTILAGE ASSOCIAT UNSPECIFIED 7804 DIZZINESS 08-18-[address] AND [facility] GIDDINESS ASSOCIAT 7840 HEADACHE 08-18-2012[facility] RAD[facility]AT V4981 ASYMPTOMATI 08-18-2012 [facility] POSTMENOPAU ASSOCIAT SEGUNDO STATUS 79113 INSOMNIA 08-17-2012 ARMIN CHAPMAN UNSPECIFIED 60666 UNSPECIFIED 07-25-2012 ARMIN CHAPMAN CONSTIPATIO N 999 COMPLICATIO 07-19-2012 [facility] NS OF PRE-TRANSIT MEDICAL ION/$2000 CARE NEC VIS 6238 OTHER 05-12-2012 [facility] SPECIFIED FOURDRINIER MACHINE OPERATOR NONINFLAMMA [place] [facility] TORY [facility] DISORDER VAGINA V5862 LONG-TERM 02-21-2012 [facility], (CURRENT) FOURDRINIER MACHINE OPERATOR USE OF [place] [facility] ANTIBIOTICS HOS 54568 OTHER 02-08-2012 [facility], ABNORMALITY FOURDRINIER MACHINE OPERATOR OF [place] [facility] URINATION HOS 7919 OTHER 02-08-2012 [facility], NONSPECIFIC FOURDRINIER MACHINE OPERATOR FINDING [place] [facility] EXAMINATION HOS OF URINE 4280 CONGESTIVE 09-21-2011 [facility] FAILURE INTERNAL UNSPECIFIED MED 8208 CLOSED 09-21-2011 [facility] UNSPECIFIED INTERNAL PART NECK MED FEMUR 25599 CLOS 05-17-2011 [facility] UNSPEC SERVICE INTRACAPSLR SECTION NCK FEM 66909 OTHER 05-12-2011 [place] INJURY OF RADIOLOGY OTHER SITES ASSOCIAT OF TRUNK 9596 INJURY 05-12-2011 [place] OTHER AND RADIOLOGY UNSPECIFIED ASSOCIAT HIP AND THIGH E8889 UNSPECIFIED 05-12-2011 [facility] FALL [facility] ASSOCIAT 5183 PULMONARY 05-05-2011 [place] EOSINOPHILI RADIOLOGY A ASSOCIAT 47261 UNSPECIFIED 05-05-2011 [facility] CELL[facility] AND ABSCESS OF TOE 29800 UNSPECIFIED 04-30-2011 [facility] CEREBRAL HOME ARTERY MEDICAL OCCLUSION EQUIPME W/INFARCT 40517 VOMITING 04-27-2011 [facility] EMERGENCY SERVICES 4379 UNSPECIFIED 04-25-2011 [facility] SERV CEREBROVASC F[facility]AT[facility] ULAR DISEASE 53165 ACUTE 04-25-2011 [facility] RESPIRATORY SERV FAILURE [facility] 2410 NONTOXIC 04-23-2011 [facility] UNINODULAR SERV GOITER FOUNDATIO 4400 ATHEROSCLER 04-23-2011 [facility] OSIS OF SERV AORTA FOUNDATIO V550 ATTENTION 04-23-2011 [facility] MED[facility] TO SERV TRACHEOSTOM FOUNDATIO Y 24652 OCCLUSION&S 04-22-2011 [facility] TENOS SERV CAROTID ART FOUNDAT[facility] W/O MENTION INFARCT 4359 UNSPECIFIED 04-22-2011 [place] [facility] TRANSIENT SERV CEREBRAL FOUNDAT[facility] ISCHEMIA 4370 CEREBRAL 04-22-2011 [place] [facility] ATHEROSCLER SERV OSIS [facility]OUNDAT[facility] 35914 OTHER 04-22-2011 [place] [facility] DISEASES OF SERV NASAL F[facility]AT[facility] CAVITY AND SINUSES 7931 NONSPEC 04-22-2011 [facility] FIND RAD SERV OTH EXAM [facility] BODY STRUCT LUNG FIELD V554 ATTN OTHER 04-22-2011 [facility] ARTIFICIAL SERV OPENING [facility] DIGESTIVE TRACT 1369 UNSPECIFIED 04-21-2011 [facility] INFECTIOUS SERV AND [facility] PARASITIC DISEASES 3319 UNSPECIFIED 04-21-2011 [place] [facility] CEREBRAL SERV DEGENERATIO FOUNDATIO N 50024 GEN CONVUL 04-21-2011 [place] [facility] EPILEPSY SERV W/O MENTION FOUNDATIO INTRACT EPILEPSY 73196 OTHER 04-21-2011 [place] [facility] SPECIFIED SERV DISORDER OF FOUNDATIO NERVOUS SYSTEM 3499 UNSPECIFIED 04-21-2011 [place] [facility] DISORDERS SERV OF NERVOUS FOUNDATIO SYSTEM 436 ACUTE BUT 04-21-2011 [facility] CEREBROVASC ULAR DISEASE 4371 OTH 04-21-2011 [place] [facility] GENERALIZED SERV ISCHEMIC FOUNDATIO CEREBROVASC ULAR DISEASE 27323 OTH 04-21-2011 [facility] ETAL SX REFERABLE LIMBS OTH 31054 PRECORDIAL 04-02-2011 NATALIIA DEEPTHI PAIN CONSULTING SRV 462 ACUTE 04-22-2010 ARMIN ARI PHARYNGITIS 33949 DYSPHONIA 04-22-2010 [facility] 97338 UNSPECIFIED 04-16-2010 [facility] 5989 UNSPECIFIED 04-16-2010 [place] [facility] 06573 UNS PROLAPS 04-16-2010 [facility] UROLOGY W/O MENTION PSC UTERN PROLAPS 25708 CYSTOCELE 04-16-2010 [place] WITHOUT [facility]ITY [facility] UTERINE PROLAPSE MIDLN 6256 FEMALE 04-16-2010 [place] [facility] INCONTINENC HOSPITAL E 74254 URGE 04-09-2010 [place] INCONTINENC H UROLOGY E PSC V7231 ROUTINE 04-09-2010 LABORATORY GYNECOLOGIC [facility] OF [place] H EXAMINATION 7020 ACTINIC 03-31-2010 ARMIN ARI KERATOSIS 49688 OTHER 03-31-2010 PATHOLOGY & SEBORRHEIC CYTOLOGY KERATOSIS LAB 19570 CLOSED 01-07-2010 [place] [facility] FRACTURE OF SERV FOUNDATIO UNSPECIFIED PART OF [place] 71889 CLOSED 12-29-2009 [place] [facility] SERV UPPER END FOUNDATIO OF [place] 9597 INJURY 12-29-2009 [place] [facility] OTHER&UNSPE SERV CIFIED KNEE FOUNDATIO LEG ANKLE&FOOT E9293 LATE 12-29-2009 [place] [facility] EFFECTS OF SERV ACCIDENTAL FOUNDATIO FALL 30857 OTHER 12-28-2009 [facility] RESPIRATORY PSC ABNORMALITI ES 9599 INJURY 12-28-2009 [place] [facility] UNSPECIFIED [facility] PSC UNSPECIFIED SITE E8490 PLACE OF 12-28-2009 ARMIN CHAPMAN OCCURRENCE, HOME E8859 FALL FROM 12-28-2009 AR[facility] ARI OTHER SLIPPING TRIPPING OR STUMBLING V0481 NEED 05-30-2009 [facility] PROPHYLACTI GAMAL Gupta VACCINATION &INOCULATIO N FLU 460 ACUTE 01-08-2009 [facility] NASOPHARYNG GAMAL Velazquez ITIS 4658 ACUTE URIS 01-08-2009 [facility] OF KERVIN Velazquez MULTIPLE SITES 75449 OBESITY, 10-21-2008 NAKUL FUNEZ V7611 SCREENING 08-30-2008 [facility] MAMMOGRAM [facility] HIGH-RISK PATIENT V7612 OTHER 08-30-2008 [place] [facility] 48209 ASTHMA, 08-16-2008 NAKUL FUNEZ , UNSPECIFIED STATUS 7099 UNSPECIFIED 08-16-2008 [facility] DISORDER GAMAL Velazquez OF SKIN&SUBCUT ANEOUS TISSUE 4611 ACUTE 07-03-2008 [facility] FRONTAL GAMAL Velazquez SINUSITIS 5950 ACUTE 07-03-2008 [facility] CYSTITIS GAMAL Velazquez 7231 CERVICALGIA 05-06-2008 GAMAL FUNEZ 8470 NECK SPRAIN 05-06-2008 [facility] AND STRAIN GAMAL Velazquez 59369 OSTEOARTHRO 04-04-2008 [place], SIS UNSPEC [place] WHETHER GEN/LOC LOWER LEG 17163 OTHER 04-03-2008 [facility] GLUCOSE [...] -2 -2 0. [place] 44 PP ti [place] 63 4- 8- 00 89 ve N [...] -2 -2 0. [place] 26 PP ti OH 63 4- 3- 00 73 ve N [...] -2 -2 0. [place] 82 PP ti OH 63 4- 4- 00 08 ve N [...] -1 -1 0. [place] 61 CH ti OH 45 6- 7- 00 40 AR ve [...] IU P M 50 0 MG TB OH 11 04 04 0 85 3 NE [...] -1 -1 0. [place] 44 CH ti [place] 45 6- 5- 00 31 AR ve [...] -1 -1 0. [place] 26 CH ti [place] 45 6- 1- 00 93 AR ve [...] -1 -0 0. [place] 09 CH ti [place] 45 6- 9- 00 07 AR ve [...] -1 -0 0. [place] 90 CH ti OH 45 6- 5- 00 83 AR ve [...] -1 -2 0. [place] 68 CH ti OH 45 6- 2- 00 26 AR ve [...] -1 -1 0. [place] 49 CH ti [place] 45 6- 6- 00 74 AR ve [...] -0 -1 0. [place] 32 CH ti [place] 45 8- 5- 00 44 AR ve [...] -0 -0 0. [place] 13 CH ti [place] 45 8- 8- 00 23 AR ve [...] -2 -2 0. [place] 92 CH ti [place] 45 4- 8- 00 45 AR ve [...] -2 -2 0. [place] 76 CH ti [place] 45 4 7- 00 69 AR ve [...] -2 -2 0. [place] 59 CH ti [place] 45 4- 4- 00 98 AR ve [...] -0 -0 0. [place] 35 CH ti [place] 45 8- 8- 00 96 AR ve [...] CO [place] O 10 IN MD Gupta [place] AUGUST Q SE TA BL ET 00 [...] [place] O IN MD Candy KOCH SE WV 37 02 02 00 28 28 HO 99 AUGUST Ac [place] 00 -1 -2 .0 PK 29 SE ti OS 00 9- 6- 00 IN 22 ve EC 45 20 20 S T. [address] OT 3 UG LO C RE 20 CO NZ .6 O IN Candy KOCH TA SE BL ET WV 37 11 01 02 28 28 HO 98 AUGUST Ac IL 00 -0 -3 .0 PK 95 SE ti OS 00 5- 0- 00 IN 99 ve EC 45 20 20 S T. [address] OT 3 UG LO C RE 20 CO NZ .6 O IN Candy KOCH TA SE BL ET WV 37 11 01 01 28 28 HO [...] NZ O IN MD Candy KOCH SE WV 37 11 11 00 28 28 HO [...] NZ O IN MD C AUGUST SE WV 37 10 10 00 28 28 HO 98 No Ac IL 00 -0 -0 .0 PK 86 t ti OS 00 3- 9- 00 IN 02 Av ve EC 45 20 20 S ai [address] la OT 3 UG bl C e 20 CO .6 IN MG C TA BL ET WV 37 09 09 00 28 28 HO 98 No Ac IL 00 -0 -1 .0 PK 76 t ti OS 00 3- 1- 00 IN 03 Av ve EC 45 20 20 S ai [address] brett OT 3 UG bl C e 20 CO .6 IN MG C TA BL ET WV 37 05 08 02 28 28 HO [...] 0 UG bl e CO IN C WV 37 05 07 01 28 28 HO 98 No Ac IL 00 -0 -1 .0 PK 50 t ti OS 00 1- 7- 00 IN 68 Av ve EC 45 20 20 S ai [address] la OT 3 UG bl C e 20 CO .6 IN MG C TA BL ET WV 37 02 05 02 28 28 HO [...] 0 UG bl e CO IN C WV 37 02 04 01 28 28 HO 98 No Ac IL 00 -0 -2 .0 PK 22 t ti OS 00 5- 4- 00 IN 31 Av ve EC 45 20 20 S ai [address] west OT 3 UG bl C e 20 CO .6 IN MG C TA BL ET WV 37 02 04 00 28 28 HO 98 No Ac IL 00 -0 -1 .0 PK 22 t ti OS 00 5- 7- 00 IN 31 Av ve EC 45 20 20 S ai [address] west OT 3 UG bl C e 20 CO .6 IN MG C TA BL ET WV 37 12 03 02 28 28 HO 97 No Ac IL 00 -1 -2 .0 PK 92 t ti OS 00 0- 6- 00 IN 90 Av ve EC 45 20 20 S ai [address] west OT 3 UG bl C e 20 CO .6 IN MG C TA BL ET WV 37 12 03 01 28 28 HO [...] S LAB SPEC; PRORAT ACTL MILE HEMOGLOBI 78097 COMBINED COMBINED N 7 PHYSICIAN PHYSICIAN GLYCOSYLA S LAB S LAB TITO A1C COLLECTIO 66892 COMBINED COMBINED N VENOUS 7 PHYSICIAN PHYSICIAN BLOOD S LAB S LAB VENIPUNCT URE COLLECTIO 50619 COMBINED COMBINED N VENOUS 7 PHYSICIAN PHYSICIAN BLOOD S LAB S LAB VENIPUNCT URE BLOOD 40147 COMBINED COMBINED COUNT 7 PHYSICIAN PHYSICIAN COMPLETE S LAB S LAB AUTO&AUTO DIFRNTL WBC TRAVEL [address] MED 7 PHYSICIAN PHYSICIAN NEC LAB S LAB S LAB SPEC; PRORAT ACTL MILE COMPREHEN 73181 COMBINED COMBINED SIVE 7 PHYSICIAN PHYSICIAN METABOLIC S LAB S LAB PANEL DRUG 23828 LAB ARIEL LAB ARIEL SCREEN 7 [place] [employer] BLAIR LEVETIRAC ETAM SBSQ 30836 ON LICENSE OF [facility] NURSING 7 ARE FACILITY CARE/DAY E/M STABLE 10 MIN DRUG 30160 LAB ARIEL LAB ARIEL SCREEN 7 [place] [employer] B[employer]IR LEVETIRAC ETAM DEBRIDEME 85960 ON LICENSE OF [facility] NT NAIL 7 ARE ANY METHOD 6/> AMBULANCE A0428 [facility] SERVICE 7 AMBULANCE AMBULANCE BLS SERVICE SERVICE NONEMERGE FORMERLY [facility] TRANSPORT GROUND A0425 [facility] MILEAGE 7 AMBULANCE AMBULANCE PER SERVICE SERVICE STATUTE MILE RADIOLOGI 81928 [place] C 7 MEDICAL EXAMINATI IMAGING ON CHEST ASS SINGLE VIEW FRONTAL RADIOLOGI 26990 [place] LR C 7 MEDICAL EXAMINATI IMAGING ON CHEST ASS SINGLE VIEW FRONTAL RADIOLOGI 18472 [place] AFUA C 7 MEDICAL EXAMINATI IMAGING ON CHEST ASS SINGLE VIEW FRONTAL ECG 51541 SURAJ SANTIAGO ROUTINE 7 PHYSICIAN ECG S, PLLC W/LEAST 12 LDS I&R ONLY OPHTH 31153 [facility] 7 F. XM[facility] COMPRHNSV PSC ESTAB PT 1/> NONEMERGE A0130 [facility] FED[facility] NCY 7 TRANS TRANSPORT TRANSPORT SERVBLUEG ATION: ATION SER YOVANY Nina VAN DEBRIDEME 65913 ON LICENSE OF [facility] NT NAIL 7 ARE ANY METHOD 6/> COMPREHEN 63738 COMBINED COMBINED SIVE 7 PHYSICIAN PHYSICIAN METABOLIC S LA S LA PANEL DRUG 98150 LAB ARIEL LAB ARIEL SCREEN 7 [place] [employer] LBAIR LEVETIRAC ETAM TRAVEL [address] MED 7 PHYSICIAN PHYSICIAN NEC LAB S LA S LA SPEC; PRORAT ACTL MILE BLOOD 24054 COMBINED COMBINED COUNT 7 PHYSICIAN PHYSICIAN COMPLETE S LA S LA AUTO&AUTO DIFRNTL WBC COLLECTIO 36722 COMBINED COMBINED N VENOUS 7 PHYSICIAN PHYSICIAN BLOOD S LA S LA VENIPUNCT URE NONEMERGE A0130 [facility] NCY 7 TRANS TRANSPORT TRANSPORT SERVBLUEG ATION: ATION SER YOVANY Nina AMAYA DEBRIDEME 86059 ON LICENSE OF [facility] NT NAIL 7 ARE ANY METHOD 6/> SBSQ 17953 [facility] NURSING 6 EXTENDED FACIL CARE CARE/DAY SERV MINOR COMPLJ 15 MIN TRIMMING G0127 ON LICENSE OF [facility] OF 6 [place] L[place] [address] AMERIPATH AMERIPATH SURG 6 PATHOLOGY [facility]. I, INC. GROSS&ALBAN ROSCOPIC EXAM NONEMERGE A0130 FEDERATED FEDERATED NCY 6 TRANS TRANSPORT TRANSPORT SERVBLUEG ATION: ATION SER YOVANY Nina AMAYA BX SKIN 73141 DERMATOLO ALEXIS SUBCUTANE 6 GY OUS&/MUCO CONSULTAN US TS PSC MEMBRANE 1 LESION SBSQ 13460 [facility] NURSING 6 EXTENDED FACIL CARE CARE/DAY SERV MINOR COMPLJ 15 MIN SBSQ 39398 [facility] NURSING 6 EXTENDED AJ FACIL CARE CARE/DAY SERV NEW PROBLEM 25 MIN ANTIBODY 28500 COMBINED COMBINED HELICOBAC [address] S LA S LA PYLORI SUSCEPTIB 40394 BRITTNI ELKINS LTY STDY 6 [facility] ANTIMICRB INC INC IAL MICRO/AGA R DILUTJ BLOOD 43428 COMBINED COMBINED COUNT 6 PHYSICIAN PHYSICIAN COMPLETE S LA S LA AUTO&AUTO DIFRNTL WBC URNLS DIP 33252 BRITTNI ELKINS 6 [facility] STICK/TAB INC INC LET REAGENT AUTO MICROSCOP Y COLLECTIO 57532 COMBINED COMBINED N VENOUS 6 PHYSICIAN PHYSICIAN BLOOD S LA S LA VENIPUNCT URE CULTURE 27976 BRITTNI ELKINS BCT 6 [facility] ISOL&PRSM INC INC PTV ID ISOLATE EA URINE CULTURE 70141 BRITTNI ELKINS BACTERIAL 6 [facility] INC INC QUANTTATI VE COLONY COUNT URINE SET-UP Q0092 [employer] PORTABLE 6 MOBILEX MOBILEX X-RAY EQUIPMENT DRUG 06371 LAB ARIEL LAB ARIEL SCREEN 6 [place] [employer] BLAIR LEVETIRAC ETAM COMPREHEN 19120 COMBINED COMBINED SIVE 6 PHYSICIAN PHYSICIAN METABOLIC S LA S LA PANEL RADIOLOGI 42799 SYMPHONY SYMPHONY C 6 MOBILEX MOBILEX EXAMINATI ON CHEST SINGLE VIEW FRONTAL TRANS R0070 SYMPHONY SYMPHONY PRTBL 6 MOBILEX MOBILEX X-RAY EQP&PERS MILLICENT/NRS MILLICENT-TRIP 1 PT TRAVEL [address] MED 6 PHYSICIAN PHYSICIAN NEC LAB S LA S LA SPEC; PRORAT ACTL MILE SBSQ 83614 ON LICENSE OF [facility] NURSING 6 ARE ANUM FACILITY CARE/DAY E/M STABLE 10 MIN OPHTH 57072 [facility] 6 F. BRAD [facility] COMPRHNSV PSC ESTAB PT 1/> DEBRIDEME 87684 ON LICENSE OF [facility] ARUN NT NAIL 6 ARE KRISTAN ANY METHOD 6/> AVULSION 29354 ON LICENSE OF [facility] ARUN NAIL 6 ARE KRISTAN PLATE PARTIAL/C OMPLETE SIMPLE 1 TRAVEL [address] MED 6 PHYSICIAN PHYSICIAN NEC LAB S LA S [place] [address] COMBINED COMBINED THYROID 6 PHYSICIAN PHYSICIAN STIMULATI S LA S LA NG HORMONE TSH COLLECTIO 41193 COMBINED COMBINED N VENOUS 6 PHYSICIAN PHYSICIAN BLOOD S LA S LA VENIPUNCT URE HEMOGLOBI 23783 COMBINED COMBINED N 6 PHYSICIAN PHYSICIAN GLYCOSYLA S LA S LA TITO A1C BLOOD 52435 COMBINED COMBINED COUNT 6 PHYSICIAN PHYSICIAN COMPLETE S LA S LA AUTO&AUTO DIFRNTL WBC NATRIURET 85369 COMBINED COMBINED IC 6 PHYSICIAN PHYSICIAN PEPTIDE S LA S LA RADIOLOGI 91651 SYMPHONY SYMPHONY C EXAM 6 MOBILEX MOBILEX CHEST 2 VIEWS FRONTAL&L ATERAL TRANS R0075 SYMPHONY SYMPHONY PRTBL 6 MOBILEX MOBILEX XRAY EQP&PERS MILLICENT/NRS MILLICENT-TRIP> 1 PT SET-UP Q0092 SYMPHONY SYMPHONY PORTABLE 6 MOBILEX MOBILEX X-RAY EQUIPMENT BASIC 25649 COMBINED COMBINED METABOLIC 6 PHYSICIAN PHYSICIAN PANEL S LA S LA CALCIUM TOTAL SBSQ 77075 ON LICENSE OF [facility] ARUN NURSING 6 ARE KRISTAN FACILITY CARE/DAY E/M STABLE 10 MIN DEBRIDEME 08517 ON LICENSE OF [facility] ARUN NT NAIL 6 ARE KRISTAN ANY METHOD 6/> CULTURE 64296 BRITTNI ELKINS BACTERIAL 6 [facility] INC INC QUANTTATI VE COLONY COUNT URINE CULTURE 75316 BRITTNI ELKINS BCT 6 [facility] HOSP ISOL&PRSM INC INC PTV ID ISOLATE EA URINE URNLS DIP 36196 BRITTNI ELKINS 6 [facility]P [facility] STICK/TAB INC INC LET REAGENT AUTO MICROSCOP Y SUSCEPTIB 33948 BRITTNI ELKINS LTY STDY 6 [facility] HOSP ANTIMICRB INC INC IAL MICRO/AGA R DILUTJ COLLECTIO 97758 COMBINED COMBINED N VENOUS 6 PHYSICIAN PHYSICIAN BLOOD S LA S LA VENIPUNCT URE TRAVEL [address] MED 6 PHYSICIAN PHYSICIAN NEC LAB S LA S LA SPEC; [place] [address] COMBINED COMBINED THYROID 6 PHYSICIAN PHYSICIAN STIMULATI S LA S LA NG HORMONE TSH SBSQ 35875 [facility] 6 EXTENDED [facility] CARE CARE/DAY SERV MINOR COMPLJ 15 MIN DEBRIDEME 38225 ON LICENSE OF [facility] ARUN NT NAIL 6 ARE KRISTAN ANY METHOD 6/> 25 04501 LAB ARIEL LAB ARIEL HYDROXY 6 [place] INCLUDES [employer] HOLDINGS FRACTIONS IF PERFORMED COLLECTIO 33534 COMBINED COMBINED N VENOUS 6 PHYSICIAN PHYSICIAN BLOOD S LA S LA VENIPUNCT URE BASIC 47249 COMBINED COMBINED METABOLIC 6 PHYSICIAN PHYSICIAN PANEL S LA S LA CALCIUM TOTAL TRAVEL [address] MED 6 PHYSICIAN PHYSICIAN NEC LAB S LA S LA SPEC; PRORAT ACTL MILE URNLS DIP 08325 COMBINED COMBINED 6 PHYSICIAN PHYSICIAN STICK/TAB S LA S LA LET REAGENT AUTO MICROSCOP Y VOLUME 74689 COMBINED COMBINED MEASUREME 6 PHYSICIAN PHYSICIAN NT TIMED S LA S LA COLLECTIO N EACH CULTURE 92156 COMBINED COMBINED BCT 6 PHYSICIAN PHYSICIAN ISOL&PRSM S LA S LA PTV ID ISOLATE EA URINE CULTURE 10054 COMBINED COMBINED BACTERIAL 6 PHYSICIAN PHYSICIAN S LA S LA QUANTTATI VE COLONY COUNT URINE SUSCEPTIB 55706 COMBINED COMBINED ILITY 6 PHYSICIAN PHYSICIAN STUDY S LA S LA ANTIMICRO BIAL DISK METHOD COLLECTIO 96360 COMBINED COMBINED N VENOUS 6 PHYSICIAN PHYSICIAN BLOOD S LA S LA VENIPUNCT URE BLOOD 09102 COMBINED COMBINED COUNT 6 PHYSICIAN PHYSICIAN COMPLETE S LA S LA AUTO&AUTO DIFRNTL WBC TRAVEL [address] MED 6 PHYSICIAN PHYSICIAN NEC LAB S LA S LA SPEC; PRORAT ACTL MILE DRUG 92076 LAB ARIEL LAB ARIEL SCREEN 6 [place] [employer] BLAIR LEVETIRAC ETAM COMPREHEN 03323 COMBINED COMBINED SIVE 6 PHYSICIAN PHYSICIAN METABOLIC S LA S LA PANEL SBSQ 98838 [facility] N[facility] EXTENDED AJ FACIL CARE CARE/DAY SERV MINOR COMPLJ 15 MIN SBSQ 48208 [facility] JUAREZ NURSING 6 EXTENDED LOY FACIL CARE CARE/DAY SERV NEW PROBLEM 25 MIN DEBRIDEME 37930 [facility] ARE KRISTAN ANY METHOD 6/> SBSQ 87721 [facility] NURSING 6 ARE KRISTAN FACILITY CARE/DAY E/M STABLE 10 MIN SET-UP Q0092 SYMPHONY SYMPHONY PORTABLE 5 MOBILEX MOBILEX X-RAY EQUIPMENT TRANS R0070 SYMPHONY SYMPHONY PRTBL 5 MOBILEX MOBILEX X-RAY EQP&PERS MILLICENT/NRS MILLICENT-TRIP 1 PT RADIOLOGI 23146 SYMPHONY SYMPHONY C 5 MOBILEX MOBILEX EXAMINATI ON CHEST SINGLE VIEW FRONTAL DEBRIDEME 46938 [facility] NT NAIL 5 ARE KRISTAN ANY METHOD 6/> SBSQ 05213 [facility] NURSING 5 ARE KRISTAN FACILITY CARE/DAY E/M STABLE 10 MIN OPH 33791 [facility] 5 F. BRAD XM&CAESAR STACYGER COMPRHNSV PSC ESTAB PT 1/> RADIOLOGI 91405 SYMPHONY SYMPHONY C 5 MOBILEX MOBILEX EXAMINATI ON CHEST SINGLE VIEW FRONTAL TRANS R0075 SYMPHONY SYMPHONY PRTBL 5 MOBILEX MOBILEX XRAY EQP&PERS MILLICENT/NRS MILLICENT-TRIP> 1 PT SET-UP Q0092 SYMPHONY SYMPHONY PORTABLE 5 MOBILEX MOBILEX X-RAY EQUIPMENT BASIC 18110 COMBINED COMBINED METABOLIC 5 PHYSICIAN PHYSICIAN PANEL S LA S LA CALCIUM TOTAL TRAVEL [address] MED 5 PHYSICIAN PHYSICIAN NEC LAB S LA S LA SPEC; PRORAT ACTL MILE COLLECTIO 74536 COMBINED COMBINED N VENOUS 5 PHYSICIAN PHYSICIAN BLOOD S LA S LA VENIPUNCT URE RADIOLOGI 81581 SYMPHONY SYMPHONY C 5 MOBILEX MOBILEX EXAMINATI ON CHEST SINGLE VIEW FRONTAL TRANS R0075 SYMPHONY SYMPHONY PRTBL 5 MOBILEX MOBILEX XRAY EQP&PERS MILLICENT/NRS MILLICENT-TRIP> 1 PT SET-UP Q0092 SYMPHONY SYMPHONY PORTABLE 5 MOBILEX MOBILEX X-RAY EQUIPMENT [facility] 67613 ON LICENSE OF [facility] AR[facility] NT NAIL 5 ARE KRISTAN ANY METHOD 6/> BASIC 98490 COMBINED COMBINED METABOLIC 5 PHYSICIAN PHYSICIAN PANEL S LA S LA CALCIUM TOTAL COLLECTIO 04144 COMBINED COMBINED N VENOUS 5 PHYSICIAN PHYSICIAN BLOOD S LA S LA VENIPUNCT URE TRAVEL [address] MED 5 PHYSICIAN PHYSICIAN NEC LAB S LA S LA SPEC; PRORAT ACTL MILE TRAVEL [address] MED 5 PHYSICIAN PHYSICIAN NEC LAB S LA S LA SPEC; PRORAT ACTL MILE COLLECTIO 34355 COMBINED COMBINED N VENOUS 5 PHYSICIAN PHYSICIAN BLOOD S LA S LA VENIPUNCT URE BASIC 05184 COMBINED COMBINED METABOLIC 5 PHYSICIAN PHYSICIAN PANEL S LA S LA CALCIUM TOTAL BASIC 76642 COMBINED COMBINED METABOLIC 5 PHYSICIAN PHYSICIAN PANEL S LA S LA CALCIUM TOTAL TRAVEL [address] MED 5 PHYSICIAN PHYSICIAN NEC LAB S LA S LA SPEC; PRORAT ACTL MILE COLLECTIO 05787 COMBINED COMBINED N VENOUS 5 PHYSICIAN PHYSICIAN BLOOD S LA S LA VENIPUNCT URE COLLECTIO 47165 COMBINED COMBINED N VENOUS 5 PHYSICIAN PHYSICIAN BLOOD S LA S LA VENIPUNCT URE TRAVEL [address] MED 5 PHYSICIAN PHYSICIAN NEC LAB S LA S LA SPEC; PRORAT ACTL MILE BASIC 84502 COMBINED COMBINED METABOLIC 5 PHYSICIAN PHYSICIAN PANEL S LA S LA CALCIUM TOTAL BASIC 62078 COMBINED COMBINED METABOLIC 5 PHYSICIAN PHYSICIAN PANEL S LA S LA CALCIUM TOTAL TRAVEL [address] MED 5 PHYSICIAN PHYSICIAN NEC LAB S LA S LA SPEC; PRORAT ACTL MILE COLLECTIO 38295 COMBINED COMBINED N VENOUS 5 PHYSICIAN PHYSICIAN BLOOD S LA S LA VENIPUNCT URE COLLECTIO 82177 COMBINED COMBINED N VENOUS 5 PHYSICIAN PHYSICIAN BLOOD S LA S LA VENIPUNCT URE TRAVEL [address] MED 5 PHYSICIAN PHYSICIAN NEC LAB S LA S LA SPEC; PRORAT ACTL MILE BASIC 60214 COMBINED COMBINED METABOLIC 5 PHYSICIAN PHYSICIAN PANEL S LA S LA CALCIUM TOTAL BASIC 55211 COMBINED COMBINED METABOLIC 5 PHYSICIAN PHYSICIAN PANEL S LA S LA CALCIUM TOTAL COLLECTIO 80223 COMBINED COMBINED N VENOUS 5 PHYSICIAN PHYSICIAN BLOOD S LA S LA VENIPUNCT URE TRAVEL [address] MED 5 PHYSICIAN PHYSICIAN NEC LAB S LA S LA SPEC; PRORAT ACTL MILE TRAVEL [address] MED 5 PHYSICIAN PHYSICIAN NEC LAB S LA S LA SPEC; PRORAT ACTL MILE COLLECTIO 08464 COMBINED COMBINED N VENOUS 5 PHYSICIAN PHYSICIAN BLOOD S LA S LA VENIPUNCT URE BASIC 09210 COMBINED COMBINED METABOLIC 5 PHYSICIAN PHYSICIAN PANEL S LA S LA CALCIUM TOTAL BASIC 96082 COMBINED COMBINED METABOLIC 5 PHYSICIAN PHYSICIAN PANEL S LA S LA CALCIUM TOTAL COLLECTIO 16388 COMBINED COMBINED N VENOUS 5 PHYSICIAN PHYSICIAN BLOOD S LA S LA VENIPUNCT URE TRAVEL [address] MED 5 PHYSICIAN PHYSICIAN NEC LAB S LA S LA SPEC; PRORAT ACTL MILE TRAVEL [address] MED 5 PHYSICIAN PHYSICIAN NEC LAB S LA S LA SPEC; PRORAT ACTL MILE COLLECTIO 74862 COMBINED COMBINED N VENOUS 5 PHYSICIAN PHYSICIAN BLOOD S LA S LA VENIPUNCT URE BASIC 18362 COMBINED COMBINED METABOLIC 5 PHYSICIAN PHYSICIAN PANEL S LA S LA CALCIUM TOTAL DEBRIDEME 53458 ON LICENSE OF [facility] NT NAIL 5 ARE KRISTAN ANY METHOD 6/> BASIC 57153 COMBINED COMBINED METABOLIC 5 PHYSICIAN PHYSICIAN PANEL S LA S LA CALCIUM TOTAL COLLECTIO 47192 COMBINED COMBINED N VENOUS 5 PHYSICIAN PHYSICIAN BLOOD S LA S LA VENIPUNCT URE TRAVEL [address] MED 5 PHYSICIAN PHYSICIAN NEC LAB S LA S LA SPEC; PRORAT ACTL MILE BLOOD 05762 BRITTNI ELKINS COUNT 5 [facility] COMPLETE INC INC AUTO&AUTO DIFRNTL WBC URNLS DIP 75908 BRITTNI ELKINS 5 [facility] STICK/TAB INC INC LET REAGENT AUTO MICROSCOP Y CULTURE 51554 BRITTNI ELKINS BCT 5 [facility] ISOL&PRSM INC INC PTV ID ISOLATE EA URINE CULTURE 15318 BRITTNI ELKINS BACTERIAL 5 [facility] INC [place] [address] BRITTNI ELKINS INFUSION 5 [facility] THERAPY/P INC INC ROPHYLAXI S /DX 1ST TO 1 HR THERAPEUT 66135 BRITTNI ELKINS IC 5 [facility] INJECTION INC INC IV PUSH EACH NEW DRUG CULTURE 77628 BRITTNI ELKINS BACTERIAL 5 [facility] BLOOD INC INC AEROBIC W/ID ISOLATES SUSCEPTIB 22593 BRITTNI ELKINS LTY STDY 5 [facility] ANTIMICRB INC INC IAL MICRO/AGA R DILUTJ COMPREHEN 62262 BRITTNI ELKINS SIVE 5 [facility] METABOLIC INC INC PANEL AMB A0426 [facility] [address] [place] [address] AMBULANCE AMBULANCE NONEMERGE SE SE NCY TRANSPORT LEVEL 1 GROUND A0425 [facility] MILEAGE [address] [place] [address] PER AMBULANCE AMBULANCE STATUTE SE SE MILE COMPREHEN 87714 COMBINED COMBINED SIVE 5 PHYSICIAN PHYSICIAN METABOLIC S LA S LA PANEL COLLECTIO 86007 COMBINED COMBINED N VENOUS 5 PHYSICIAN PHYSICIAN BLOOD S LA S LA VENIPUNCT URE BLOOD 33919 COMBINED COMBINED COUNT 5 PHYSICIAN PHYSICIAN COMPLETE S LA S LA AUTO&AUTO DIFRNTL WBC TRAVEL [address] MED 5 PHYSICIAN PHYSICIAN NEC LAB S LA S LA SPEC; PRORAT ACTL MILE INITIAL [address] 30 P MINUTES OTHER 5849 BRITTNI BRITTNI REPAIR OF 5 [facility] URETHRA INC INC BASIC 46620 COMBINED COMBINED METABOLIC 5 PHYSICIAN PHYSICIAN PANEL S LA S LA CALCIUM TOTAL CRITICAL [address] ED P P PATIENT INIT 30-74 MIN GROUND A0425 [facility] [address] [place] [address] PER AMBULANCE AMBULANCE STATUTE SE SE MILE AMBULANCE A0429 [facility] [address] [place] [address] BLS AMBULANCE AM[place]UL[place] [address] [facility] HEAD/BRAI 5 MEDICAL ANGEL N W/O IMAGING CONTRAST ASS MATERIAL RADIOLOGI 31941 [facility] C 5 MEDICAL ANGEL EXAMINATI IMAGING ON CHEST ASS SINGLE VIEW FRONTAL TRAVEL [address] MED 5 PHYSICIAN PHYSICIAN NEC LAB S LA S LA SPEC; PRORAT ACTL MILE BLOOD 82434 COMBINED COMBINED COUNT 5 PHYSICIAN PHYSICIAN COMPLETE S LA S LA AUTO&AUTO DIFRNTL WBC COLLECTIO 80678 COMBINED COMBINED N VENOUS 5 PHYSICIAN PHYSICIAN BLOOD S LA S LA VENIPUNCT URE ECG 78579 BRITTNI JUAREZ ROUTINE [address] [place] [address] W/LEAST P 12 LDS I&[place] [address] [place] LR ALL ABDOMEN & 5 MEDICAL PELVIS IMAGING W/O ASS CONTRAST MATERIAL URNLS DIP 83306 COMBINED COMBINED 5 PHYSICIAN PHYSICIAN STICK/TAB S LA S LA LET REAGENT AUTO MICROSCOP Y VOLUME 89349 COMBINED COMBINED MEASUREME 5 PHYSICIAN PHYSICIAN NT TIMED S LA S LA COLLECTIO N EACH BASIC 09680 COMBINED COMBINED METABOLIC 5 PHYSICIAN PHYSICIAN PANEL S LA S LA CALCIUM TOTAL BLOOD 27505 COMBINED COMBINED COUNT 5 PHYSICIAN PHYSICIAN COMPLETE S LA S LA AUTO&AUTO DIFRNTL WBC COLLECTIO 06984 COMBINED COMBINED N VENOUS 5 PHYSICIAN PHYSICIAN BLOOD S LA S LA VENIPUNCT URE COLLECTIO 00560 COMBINED COMBINED N VENOUS 5 PHYSICIAN PHYSICIAN BLOOD S LA S LA VENIPUNCT URE TRAVEL [address] MED 5 PHYSICIAN PHYSICIAN NEC LAB S LA S LA SPEC; PRORAT ACTL MILE BASIC 75837 COMBINED COMBINED METABOLIC 5 PHYSICIAN PHYSICIAN PANEL S LA S LA CALCIUM TOTAL DEBRIDEME 94114 ON LICENSE OF [facility] ARUN NT NAIL 5 ARE KRISTAN ANY METHOD 6/> TRAVEL [address] MED 5 PHYSICIAN PHYSICIAN NEC LAB S LA S LA SPEC; PRORAT ACTL MILE COLLECTIO 47796 COMBINED COMBINED N VENOUS 5 PHYSICIAN PHYSICIAN BLOOD S LA S LA VENIPUNCT URE INITIAL [address] INTERNAL CARE/DAY MED 25 MINUTES DUP-SCAN 47529 [place] AFUA XTR VEINS 5 MEDICAL ANN MARIE IMAGING UNILATERA ASS L/LIMITED STUDY SBSQ [address] CARE/DAY INTER[place] [address] [place] [address] [place] [facility] HEAD/BRAI 5 MEDICAL ANGEL N W/O IMAGING CONTRAST ASS MATERIAL RADIOLOGI 41013 [place] [facility] C 5 MEDICAL ANGEL EXAMINATI IMAGING ON CHEST ASS SINGLE VIEW FRONTAL RADIOLOGI 12474 [place] [facility] C 5 MEDICAL ANGEL EXAMINATI IMAGING [place] [address] [place] [facility] HEAD/BRAI 5 MEDICAL ANGEL N W/O IMAGING CONTRAST ASS MATERIAL AMBULANCE A0429 [facility] [address] [place] [address] AMBULANCE AMBULANCE EMERGENCY SE SE TRANSPORT GROUND A0425 [facility] MILEAGE 5 [facility] PER AMBULANCE AMBULANCE STATUTE SE SE MILE SBSQ 21399 [facility] 5 [employer] [facility] [facility] CARE/DAY INTERNAL 35 MED MINUTES ECG 89389 [facility] 5 [facility] W/LEAST P 12 LDS I&R ONLY SBSQ 21437 [facility] NURSING 5 EXTENDED LOY FACIL CARE CARE/DAY SERV NEW PROBLEM 25 MIN BASIC 63606 COMBINED COMBINED METABOLIC 5 PHYSICIAN PHYSICIAN PANEL S LA S LA CALCIUM TOTAL COLLECTIO 55668 COMBINED COMBINED N VENOUS 5 PHYSICIAN PHYSICIAN BLOOD S LA S LA VENIPUNCT URE TRAVEL [address] MED 5 PHYSICIAN PHYSICIAN NEC LAB S LA S LA SPEC; PRORAT ACTL MILE OPHTH 72923 [facility] 5 [facility] COMPRHNSV PSC ESTAB PT 1/> SBSQ [id number] [facility] 5 EXTENDED LOY FACIL CARE CARE/DAY SERV MINOR COMPLJ 15 MIN SBSQ 21705 [facility] 5 EXTENDED LOY FACIL CARE CARE/DAY SERV NEW PROBLEM 25 MIN TRAVEL [address] MED 5 PHYSICIAN PHYSICIAN NEC LAB S LA S LA SPEC; PRORAT ACTL MILE COLLECTIO 71841 COMBINED COMBINED N VENOUS 5 PHYSICIAN PHYSICIAN BLOOD S LA S LA VENIPUNCT URE COLLECTIO 07839 COMBINED COMBINED N VENOUS 5 PHYSICIAN PHYSICIAN BLOOD S LA S LA VENIPUNCT URE TRAVEL [address] MED 5 PHYSICIAN PHYSICIAN NEC LAB S LA S LA SPEC; [place] [address] COMBINED COMBINED MAGNESIUM 4 PHYSICIAN PHYSICIAN S LA S LA URNLS DIP 07171 COMBINED COMBINED 4 PHYSICIAN PHYSICIAN STICK/TAB S LA S LA LET REAGENT AUTO MICROSCOP Y CULTURE 18071 COMBINED COMBINED BACTERIAL 4 PHYSICIAN PHYSICIAN S LA S LA QUANTTATI VE COLONY COUNT URINE COLLECTIO 84117 COMBINED COMBINED N VENOUS 4 PHYSICIAN PHYSICIAN BLOOD S LA S LA VENIPUNCT URE ANTIBODY 08247 COMBINED COMBINED HELICOBAC [address] S LA S LA PYLORI SUSCEPTIB 02241 COMBINED COMBINED ILITY 4 PHYSICIAN PHYSICIAN STUDY S LA S LA ANTIMICRO BIAL DISK METHOD RADEX 14557 SYMPHONY SYMPHONY ABDOMEN 1 4 MOBILEX MOBILEX ANTEROPOS TERIOR VIEW SET-UP Q0092 SYMPHONY SYMPHONY PORTABLE 4 MOBILEX MOBILEX X-RAY EQUIPMENT TRAVEL [address] MED 4 PHYSICIAN PHYSICIAN NEC LAB S LA S LA SPEC; PRORAT ACTL MILE TRANS R0070 SYMPHONY SYMPHONY PRTBL 4 MOBILEX MOBILEX X-RAY EQP&PERS MILLICENT/NRS MILLICENT-TRIP 1 PT RADIOLOGI 21511 SYMPHONY SYMPHONY C 4 MOBILEX MOBILEX EXAMINATI ON CHEST SINGLE VIEW FRONTAL SBSQ 20793 [facility] 4 EXTENDED LOY FACIL CARE CARE/DAY SERV NEW PROBLEM 25 MIN DRUG 21026 [facility] SCREEN 4 [place] [employer] LEVETIRAC ETAM TRAVEL [address] MED 4 PHYSICIAN PHYSICIAN NEC LAB S LA S LA SPEC; PRORAT ACTL MILE COLLECTIO 69763 COMBINED COMBINED N VENOUS 4 PHYSICIAN PHYSICIAN BLOOD S LA S LA VENIPUNCT URE COLLECTIO 31228 COMBINED COMBINED N VENOUS 4 PHYSICIAN PHYSICIAN BLOOD S LA S LA VENIPUNCT URE BLOOD 35231 COMBINED COMBINED COUNT 4 PHYSICIAN PHYSICIAN COMPLETE S LA S LA AUTO&AUTO DIFRNTL WBC TRAVEL [address] MED 4 PHYSICIAN PHYSICIAN NEC LAB S LA S LA SPEC; [place] [address] COMBINED COMBINED THYROID 4 PHYSICIAN PHYSICIAN STIMULATI S LA S LA NG HORMONE TSH COMPREHEN 44001 COMBINED COMBINED SIVE 4 PHYSICIAN PHYSICIAN METABOLIC S LA S LA PANEL SBSQ 39167 [facility] 4 EXTENDED LOY FACIL CARE CARE/DAY SERV NEW PROBLEM 25 MIN CUL BACT 54635 COMBINED COMBINED XCPT 4 PHYSICIAN PHYSICIAN URINE S LA S LA BLOOD/STO OL AEROBIC ISOL SBSQ 49777 [facility] 4 ARI ARI FACILITY CARE/DAY E/M STABLE 10 MIN SET-UP Q0092 SYMPHONY SYMPHONY PORTABLE 4 MOBILEX MOBILEX X-RAY EQUIPMENT RADIOLOGI 70080 SYMPHONY SYMPHONY C 4 MOBILEX MOBILEX EXAMINATI ON CHEST SINGLE VIEW FRONTAL TRANS R0070 SYMPHONY SYMPHONY PRTBL 4 MOBILEX MOBILEX X-RAY EQP&PERS MILLICENT/NRS MILLICENT-TRIP 1 PT SBSQ 20580 [facility] 4 ARI ARI FACIL CARE/DAY MINOR COMPLJ 15 MIN SBSQ 28478 [facility] NURSING 4 ARE KRISTAN FACILITY CARE/DAY E/M STABLE 10 MIN SET-UP Q0092 SYMPHONY SYMPHONY PORTABLE 4 MOBILEX MOBILEX X-RAY EQUIPMENT RADIOLOGI 93791 SYMPHONY SYMPHONY C 4 MOBILEX MOBILEX EXAMINATI ON CHEST SINGLE VIEW FRONTAL TRANS R0075 SYMPHONY SYMPHONY PRTBL 4 MOBILEX MOBILEX XRAY EQP&PERS MILLICENT/NRS MILLICENT-TRIP> 1 PT TRAVEL [address] MED 4 PHYSICIAN PHYSICIAN NEC LAB S LA S LA SPEC; PRORAT ACTL MILE BLOOD 53003 COMBINED COMBINED COUNT 4 PHYSICIAN PHYSICIAN COMPLETE S LA S LA AUTO&AUTO DIFRNTL WBC COLLECTIO 82095 COMBINED COMBINED N VENOUS 4 PHYSICIAN PHYSICIAN BLOOD S LA S LA VENIPUNCT URE URNLS DIP 83943 COMBINED COMBINED 4 PHYSICIAN PHYSICIAN STICK/TAB S LA S LA LET REAGENT AUTO MICROSCOP Y SBSQ 11448 [facility] 4 ARI ARI FACILITY CARE/DAY E/M STABLE 10 MIN URNLS DIP 61943 COMBINED COMBINED 4 PHYSICIAN PHYSICIAN STICK/TAB S LA S LA LET REAGENT AUTO MICROSCOP Y CULTURE 44904 COMBINED COMBINED BACTERIAL 4 PHYSICIAN PHYSICIAN S LA S LA QUANTTATI VE COLONY COUNT URINE SBSQ 75344 [facility]Wai [facility] NURSING 4 ARI ARI FACILITY CARE/DAY E/M STABLE 10 MIN BASIC 23815 COMBINED COMBINED METABOLIC 4 PHYSICIAN PHYSICIAN PANEL S LA S LA CALCIUM TOTAL TRAVEL [address] MED 4 PHYSICIAN PHYSICIAN NEC LAB S LA S LA SPEC; PRORAT ACTL MILE COLLECTIO 06419 COMBINED COMBINED N VENOUS 4 PHYSICIAN PHYSICIAN BLOOD S LA S LA VENIPUNCT URE COLLECTIO 83560 COMBINED COMBINED N VENOUS 4 PHYSICIAN PHYSICIAN BLOOD S LA S LA VENIPUNCT URE TRAVEL [address] MED 4 PHYSICIAN PHYSICIAN NEC LAB S LA S LA SPEC; PRORAT ACTL MILE BASIC 41867 COMBINED COMBINED METABOLIC 4 PHYSICIAN PHYSICIAN PANEL S LA S LA CALCIUM TOTAL DEBRIDEME 01329 ON LICENSE OF [facility] ARUN NT NAIL 4 ARE KRISTAN ANY METHOD 6/> SBSQ 21284 ON LICENSE OF [facility] ARUN NURSING 4 ARE KRISTAN FACILITY CARE/DAY E/M STABLE 10 MIN SBSQ 91466 [facility]MIN NUR[facility] 4 ARI [facility] FACILITY CARE/DAY E/M STABLE 10 MIN SET-UP Q0092 SYMPHONY SYMPHONY PORTABLE 4 MOBILEX MOBILEX X-RAY EQUIPMENT RADIOLOGI 23988 SYMPHONY SYMPHONY C 4 MOBILEX MOBILEX EXAMINATI ON KNEE 1/2 VIEWS TRANS R0070 SYMPHONY SYMPHONY PRTBL 4 MOBILEX MOBILEX X-RAY EQP&PERS MILLICENT/NRS MILLICENT-TRIP 1 PT RADEX 33842 SYMPHONY SYMPHONY ELBOW 2 4 MOBILEX MOBILEX VIEWS SBSQ 51431 [facility] ARMIN NUR[facility] 4 ARI [facility] FACILITY CARE/DAY E/M STABLE 10 MIN URNLS DIP 51537 [employer], 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 MARVA RE[facility]CT[facility] SBSQ 18880 ARMIN ARMIN NURSING 4 ARI ARI FACILITY CARE/DAY E/M STABLE 10 MIN SBSQ 74634 [facility] ARMIN NURSING 4 ARI ARI FACILITY CARE/DAY E/M STABLE 10 MIN SBSQ 35888 AR[facility] ARMIN NURSING 4 ARI ARI FACILITY CARE/DAY E/M STABLE 10 MIN SBSQ 97720 ON LICENSE OF [facility] JOHNNA NURSING 4 ARE ANUM FACILITY CARE/DAY E/M STABLE 10 MIN SBSQ 04977 [facility] ARMIN NURSING 3 ARI ARI FACILITY CARE/DAY E/M STABLE 10 MIN SBSQ 60220 [facility] ARMIN NURSING 3 ARI ARI FACILITY CARE/DAY E/M STABLE 10 MIN DETERMINA 24259 SUSAN ROBERTS 3 F. TYL RE[facility] SBSQ 60732 AR[facility] ARMIN NURSING 3 ARI ARI FACILITY CARE/DAY E/M STABLE 10 MIN SBSQ 85650 ON LICENSE OF [facility] AMEE HIGHTOWER NURSING 3 ARE FACILITY CARE/DAY E/M STABLE 10 MIN PARING/CU 73549 ON LICENSE OF [facility] AMEE FRA TTING 3 ARE BENIGN HYPERKERA TOTIC LESION 1 DEBRIDEME 30219 ON LICENSE OF [facility] AMEE HIGHTOWER NT NAIL 3 ARE ANY METHOD 6/> SBSQ 44219 [facility] ARMIN NUR[facility] 3 ARI ARI FACILITY CARE/DAY E/M STABLE 10 MIN SBSQ 88432 [facility]MIN [facility] 3 ARI ARI FACILITY CARE/DAY E/M STABLE 10 MIN BASIC 80886 [employer] 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 FACILITY CARE/DAY E/M STABLE 10 MIN HOS BED E0260 [facility] SEMI-ELEC 3 W/ANY TYPE SIDE RAIL W/MATTRSS SBSQ 64053 ARMIN RAMIN NURSING 3 ARI [facility] FACILITY CARE/DAY E/M STABLE 10 MIN HOS BED E0260 [facility] SEMI-ELEC 3 W/ANY TYPE SIDE RAIL W/MATTRSS HOS BED E0260 [facility] SEMI-ELEC 3 W/ANY TYPE SIDE RAIL W/MATTRSS NEBULIZER E0570 [facility] CON[facility] WITH 3 HOME HOME [facility] MEDICAL R EQUIPME EQUIPME ECG 33213 NATALIIA LACEY LACEY NATALIIA ROUTINE 3 MD ECG CONSULTIN W/LEAST G SRV 12 LDS I&R ONLY HOME CARE S5108 [facility] TRAINING 3 AREA AREA HOME AGENCY ON AGENCY ON CARE KAREN KAREN CLIENT PER 15 MIN HOS BED E0260 [facility] SEMI-ELEC 3 W/ANY TYPE SIDE RAIL W/MATTRSS RADIOLOGI 32885 [facility] C 3 MARVA EXAMINATI RADIOLOGY ON CHEST ASSOCIAT SINGLE VIEW FRONTAL INJECTION J2405 [facility] All[facility]s, [facility], 3 FOURDRINIER MACHINE OPERATOR FOURDRINIER MACHINE OPERATOR ONDANSETR SHIRIN CARPIO ON HCL CO HOS CO HOS PER 1 MG BASIC 27344 [facility], [employer], METABOLIC 3 FOURDRINIER MACHINE OPERATOR FOURDRINIER MACHINE OPERATOR PANEL SHIRIN CARPIO CALCIUM CO HOS CO HOS TOTAL URNLS DIP 23567 [facility] Allografts, [facility], 3 FOURDRINIER MACHINE OPERATOR FOURDRINIER MACHINE OPERATOR STICK/TAB SHIRIN CARPIO LET RGNT CO HOS CO HOS AUTO W/O MICROSCOP Y BLOOD 28991 [facility] Allografts, [facility], COUNT 3 FOURDRINIER MACHINE OPERATOR FOURDRINIER MACHINE OPERATOR COMPLETE SHIRIN CARPIO AUTO&AUTO [place] [address] [facility], [facility], CLOSTRIDI 3 FOURDRINIER MACHINE OPERATOR FOURDRINIER MACHINE OPERATOR UM SHIRIN CARPIO [place] [address] [facility], [facility], INFUSION 3 FOURDRINIER MACHINE OPERATOR FOURDRINIER MACHINE OPERATOR THERAPY/P SHIRIN CARPIO ROPHYLAXI CO HOS CO HOS S /DX 1ST TO 1 [place] [address] [facility], [facility], MULT STEP 3 FOURDRINIER MACHINE OPERATOR FOURDRINIER MACHINE OPERATOR METHOD SHIRIN CARPIO NOS EACH CO HOS CO HOS ORGANISM RADEX 96855 [facility] ABDOMEN 3 MARVA COMPL RADIOLOGY W/DCBTS&/ ASSOCIAT ERC VIEWS RADEX 00951 [facility], [facility], ABDOMEN 1 3 FOURDRINIER MACHINE OPERATOR FOURDRINIER MACHINE OPERATOR SHIRIN SHIRIN ANTEROPOS CO HOS CO HOS TERIOR VIEW [...] LLC LLC RX; INITIAL 30-DAY SUPPLY ECG 26242 NATALIIA LACEY LACEY NATALIIA ROUTINE 3 MD ECG CONSULTIN W/LEAST G SRV 12 LDS I&R ONLY RADIOLOGI 02775 MARY OCHOA C EXAM 3 JUAN J CHEST 2 RADIOLOGY VIEWS ASSOCIAT FRONTAL&L ATERAL HOME CARE S5108 [facility] TRAINING 3 AREA AREA HOME AGENCY ON AGENCY ON CARE KAREN KAREN CLIENT PER 15 MIN HOME CARE S5108 [facility] TRAINING 3 AREA AREA HOME AGENCY ON AGENCY ON CARE KAREN KAREN CLIENT PER 15 MIN BASIC 51128 [employer], [employer], METABOLIC 3 FOURDRINIER MACHINE OPERATOR FOURDRINIER MACHINE OPERATOR PANEL SHIRIN SHIRIN CALCIUM CO HOS CO [...] KAREN KAREN CLIENT PER 15 MIN RADIOLOGI 55471 [employer], [employer], C EXAM 3 FOURDRINIER MACHINE OPERATOR FOURDRINIER MACHINE OPERATOR CHEST 2 SHIRIN SHIRIN VIEWS CO HOS CO HOS FRONTAL&L ATERAL BLOOD 73597 [employer], [employer], COUNT 3 FOURDRINIER MACHINE OPERATOR FOURDRINIER MACHINE OPERATOR COMPLETE SHIRIN SHIRIN AUTO&AUTO CO HOS CO HOS DIFRNTL WBC BASIC 94733 [employer], [employer], METABOLIC 3 FOURDRINIER MACHINE OPERATOR FOURDRINIER MACHINE OPERATOR PANEL SHIRIN SHIRIN CALCIUM CO HOS CO [...] CLIENT PER 15 MIN HOS BED E0260 [facility] ABLECARE SEMI-ELEC 3 W/ANY TYPE SIDE RAIL [...] CARE KAREN KAREN CLIENT PER 15 MIN [facility] [place] T1999 [facility] ITEMS & 3 AREA AREA [facility] AGENCY ON AGENCY ON RETAIL KAREN [...] KAREN KAREN CLIENT PER 15 MIN RADIOLOGI 61240 [place] 3 JUAN J EXAMINATI RADIOLOGY ON CHEST ASSOCIAT [facility] HOME CARE S5108 [facility] TRAINING [...] KAREN CLIENT PER 15 MIN US SOFT 73367 [place] TISSUE 2 [facility] & RADIOLOGY NECK REAL ASSOCIAT TIME IMGE DOCM CT BONE 89511 [place] MINERL 2 JUAN J DENSITY RADIOLOGY STUDY 1/> ASSOCIAT SITS AXIAL SKE HOS BED E0260 [facility] SEMI-ELEC 2 W/ANY TYPE SIDE RAIL W/MATTRSS DUPLEX 75527 [place] SCAN 2 [facility] EXTRACRAN RADIOLOGY IAL ART ASSOCIAT COMPL BI [...] KAREN KAREN CLIENT PER 15 MIN ECG 50447 NATALIIA LACEY LACEY NATALIIA ROUTINE 2 MD ECG CONSULTIN W/LEAST G SRV 12 LDS I&R ONLY HOME CARE S5108 [facility] TRAINING 2 AREA AREA HOME AGENCY ON AGENCY ON CARE KAREN KAREN CLIENT PER 15 MIN HOME CARE S5108 [facility] TRAINING 2 AREA AREA HOME AGENCY ON AGENCY ON CARE KAREN KAREN CLIENT PER 15 MIN RADIOLOGI 79388 [facility] 2 MARVA EXAMINATI RADIOLOGY ON [...] CARE KAREN KAREN CLIENT PER 15 MIN [facility] [place] T1999 [facility] ITEMS & 2 [...] MOBILE OR STATIONAR Y W/FIXED ARMS THROMBOPL 35765 [employer], ASTIN 2 FOURDRINIER MACHINE OPERATOR FOURDRINIER MACHINE OPERATOR TIME SHIRIN SHIRIN PARTIAL CO HOS CO HOS PLASMA/WH OLE BLOOD BLOOD 49675 [employer], COUNT 2 FOURDRINIER MACHINE OPERATOR FOURDRINIER MACHINE OPERATOR COMPLETE SHIRIN SHIRIN AUTO&AUTO CO HOS CO HOS DIFRNTL WBC PROTHROMB 24024 [employer], IN TIME 2 FOURDRINIER MACHINE OPERATOR FOURDRINIER MACHINE OPERATOR SHIRIN SHIRIN CO HOS CO HOS SUSCEPTBI 61936 [employer] [facility] Allografts, LTY STDY 2 FOURDRINIER MACHINE OPERATOR FOURDRINIER MACHINE OPERATOR ANTIMICRB SHIRIN SHIRIN IAL AGNT CO HOS CO HOS AGAR DILUTJ URNLS DIP 31368 [employer], 2 FOURDRINIER MACHINE OPERATOR FOURDRINIER MACHINE OPERATOR STICK/TAB SHIRIN SHIRIN LET CO HOS CO HOS REAGENT AUTO MICROSCOP Y CULTURE 44609 [employer], BACTERIAL 2 FOURDRINIER MACHINE OPERATOR FOURDRINIER MACHINE OPERATOR SHIRIN SHIRIN QUANTTATI CO HOS CO HOS VE COLONY COUNT URINE CULTURE 82750 [employer], BCT 2 FOURDRINIER MACHINE OPERATOR FOURDRINIER MACHINE OPERATOR ISOL&PRSM SHIRIN SHIRIN PTV ID CO HOS CO HOS ISOLATE EA URINE CULTURE 29738 [employer], BCT 2 FOURDRINIER MACHINE OPERATOR FOURDRINIER MACHINE OPERATOR ISOL&PRSM SHIRIN SHIRIN PTV ID CO HOS CO HOS ISOLATE EA URINE CULTURE 30385 [employer], BACTERIAL 2 FOURDRINIER MACHINE OPERATOR FOURDRINIER MACHINE OPERATOR SHIRIN SHIRIN QUANTTATI CO HOS CO HOS VE COLONY COUNT URINE URNLS DIP 53436 [employer], 2 FOURDRINIER MACHINE OPERATOR FOURDRINIER MACHINE OPERATOR STICK/TAB SHIRIN SHIRIN LET CO HOS CO HOS REAGENT AUTO MICROSCOP Y SUSCEPTBI 69033 [employer], LTY STDY 2 FOURDRINIER MACHINE OPERATOR FOURDRINIER MACHINE OPERATOR ANTIMICRB SHIRIN SHIRIN IAL AGNT CO HOS CO HOS AGAR DILUTJ DRUG 67851 [employer], [employer], SCREEN 2 FOURDRINIER MACHINE OPERATOR FOURDRINIER MACHINE OPERATOR QUANTITAT SHIRIN SHIRIN BLAIR CO HOS CO HOS PHENYTOIN TOTAL ALBUMIN 06992 [facility] Allografts, [facility], SERUM 2 FOURDRINIER MACHINE OPERATOR FOURDRINIER MACHINE OPERATOR PLASMA/WH SHIRIN SHIRIN OLE BLOOD CO HOS CO HOS BLOOD 46541 [facility] Allografts, [facility], COUNT 2 FOURDRINIER MACHINE OPERATOR FOURDRINIER MACHINE OPERATOR COMPLETE SHIRIN SHIRIN AUTO&AUTO CO HOS CO HOS DIFRNTL WBC BASIC 02116 [facility] [employer] [facility], METABOLIC 2 FOURDRINIER MACHINE OPERATOR FOURDRINIER MACHINE OPERATOR PANEL SHIRIN SHIRIN CALCIUM CO HOS CO HOS TOTAL BLOOD 26061 [facility] [employer], COUNT 2 FOURDRINIER MACHINE OPERATOR FOURDRINIER MACHINE OPERATOR SMEAR SHIRIN SHIRIN MCRSCP CO HOS CO HOS W/MNL DIFRNTL WBC COUNT URNLS DIP 31889 [facility] [employer], [employer], 2 FOURDRINIER MACHINE OPERATOR FOURDRINIER MACHINE OPERATOR STICK/TAB SHIRIN SHIRIN LET CO HOS CO HOS REAGENT AUTO MICROSCOP Y CULTURE 38195 [facility] [employer] [facility] [employer] Allografts, BACTERIAL 2 FOURDRINIER MACHINE OPERATOR FOURDRINIER MACHINE OPERATOR SHIRIN SHIRIN QUANTTATI CO HOS CO HOS VE COLONY COUNT [facility] 6[facility] 2 [facility]ANNER FACIL INTERNAL CARE/DAY MED NEW PROBLEM 25 MIN DEBRIDEME 70557 LAUSE FED LAUSE FED NT NAIL 1 ANY METHOD 6/> SBSQ 96490 [facility] FED LAUSE FED NURSING 1 FACIL CARE/DAY MINOR COMPLJ 15 MIN AMBULANCE A0428 [facility] SERVICE 1 AMBULANCE AMBULANCE BLS SERVICE SERVICE NONEMERGE [facility] TRANSPORT GROUND A0425 [facility] MILEAGE 1 AMBULANCE AMBULANCE PER SERVICE SERVICE STATUTE MILE ANESTHESI 67488 [facility] OPEN 1 ANESTH ROBERT PROCEDURE OF THE S UPPER BLUE 2/3 FEMUR NOS RADIOLOGI 61405 [place] AF[facility] 1 MEDICAL ANN MARIE EXAMINATI IMAGING ON PELVIS ASS 1/2 VIEWS RADEX HIP 08488 [place] [address] MEDICAL ANN MARIE UNILATERA IMAGING L ASS COMPLETE MINIMUM [address] [facility] HIPS 1 MARVA BILATERAL RADIOLOGY 2 VIEWS ASSOCIAT ANTEROPOS T PELVIS RADIOLOGI 79939 [place] [facility] C 1 MARVA EXAMINATI RADIOLOGY ON CHEST [place] [address] SHIRIN CARPIO THYROID 1 CO CO STIMULATI [facility] NG HORMONE TSH RADEX TOE 77254 SHIRIN CARPIO MINIMUM 1 CO CO 2 [facility] COLLECTIO 62685 SHIRIN CARPIO N VENOUS 1 CO CO BLOOD [facility] VENIPUNCT URE COMPREHEN 08564 SHIRIN CARPIO SIVE 1 CO CO METABOLIC [facility] PANEL DRUG 15280 SHIRIN CARPIO SCREEN 1 CO CO QUANTITAT [facility] BLAIR PHENYTOIN TOTAL RADIOLOGI 69174 SHIRIN CARPIO C EXAM 1 CO CO CHEST 2 [facility] VIEWS FRONTAL&L ATERAL BLOOD 02146 SHIRIN CARPIO COUNT 1 CO CO COMPLETE [facility] AUTO&AUTO DIFRNTL WBC NATRIURET 52807 SHIRIN CARPIO IC 1 CO CO PEPTIDE [facility] WALKER E0143 [employer] [facility] FOLDING 1 HOME HOME WHEELED MEDICAL MEDICAL ADJUSTABL EQUIPME EQUIPME E/FIXED HEIGHT RADIOLOGI 49030 [place] [facility] C 1 MEDICAL ANN MARIE EXAMINATI IMAGING ON CHEST ASS [place] FRONTAL GROUND A0425 [facility] MILEAGE 1 [facility] STATUTE EMS EMS MILE AMB A0427 [facility] SERVICE 1 [facility] ALS [facility] EMERGENCY EMS EMS TRANSPORT LEVEL 1 ECG 29560 JESUS PERALES ROUTINE 1 EMERGENCY ECG SERVICES W/LEAST 12 LDS I&R ONLY ECG [address]Z ROUTINE 1 [facility] W/LEAST P 12 LDS I&[place] [address] BRITTNI ELKINS INFUSION 1 [facility] THERAPY/P INC INC ROPHYLAXI S /DX 1ST TO 1 HR THERAPEUT 19611 BRITTNI ELKINS IC 1 [facility] INJECTION INC INC IV PUSH EACH NEW DRUG ECG 52839 BRITTNI ELKINS ROUTINE 1 [facility] ECG INC INC W/LEAST 12 LDS TRCG ONLY W/O I&R CULTURE 60304 BRITTNI ELKINS BACTERIAL 1 [facility] BLOOD INC INC AEROBIC W/ID ISOLATES NATRIURET 65335 BRITTNI ELKINS IC 1 [facility] PEPTIDE INC INC BLOOD 80462 BRITTNI ELKINS COUNT 1 [facility] COMPLETE INC INC AUTO&[place] [address] BRITTNI ELKINS TROPONIN 1 [facility] QUANTITAT INC INC BLAIR CREATINE 82897 BRITTNI ELKINS KINASE 1 [facility] TOTAL INC INC URNLS DIP 95240 BRITTNI ELKINS 1 [facility] STICK/TAB INC INC LET REAGENT AUTO MICROSCOP Y CREATINE 39152 BRITTNI ELKINS KINASE MB 1 [facility] FRACTION INC INC ONLY RADIOLOGI 17764 [place] [facility]UA C 1 MEDICAL ANN MARIE EXAMINATI IMAGING ON CHEST ASS S[place] FRONTAL DRUG 47749 BRITTNI ELKINS SCREEN 1 [facility] QUANTITAT INC INC BLAIR PHENYTOIN TOTAL COMPREHEN 34867 BRITTNI RODRIGUEZON SIVE 1 [facility] METABOLIC INC INC PANEL HOSPITAL 59952 [facility] DISCHARGE 1 MEDICAL STACY DAY SERV MANAGEMEN FOUNDATIO T 30 MIN/< SBSQ 59365 [facility] 1 MEDICAL STACY CARE/DAY SERV 25 FOUNDATIO MINUTES SBSQ 82857 [facility] 1 MEDICAL SABINE CARE/DAY SERV 35 FOUNDATIO MINUTES LOCALIZE 19398 [place] CEREBRAL 1 MEDICAL TIM SEIZURE SERV CABLE/RAD FOUNDATIO IO EEG/VIDEO RADIOLOGI 37302 TAM IRMA C 1 MEDICAL [place] EXAMINATI SERV ON [place] [address] TAM IRMA ANGIOGRAP 1 MEDICAL [place] HY CHEST SERV W/CONTRAS FOUNDATIO T/NONCONT RAST RADIOLOGI 37841 TAM ATTILI C 1 MEDICAL ANI EXAMINATI SERV ON CHEST FOUNDATIO [place]ONTAL MRA NECK 94721 TAM TEJADA W/O 1 MEDICAL SATISH CONTRST SERV MATERIAL FOUNDATIO MRI BRAIN 35831 [place] TEJADA BRAIN 1 MEDICAL SATISH STEM W/O SERV W/CONTRAS FOUNDATIO T MATERIAL LOCALIZE 35615 [place] CEREBRAL 1 MEDICAL TIM SEIZURE SERV CABLE/RAD FOUNDATIO IO EEG/VIDEO SBSQ 70092 [place] [facility] 1 MEDICAL SABINE CARE/DAY SERV 35 FOUNDATIO MINUTES RADEX 80235 [place] SAL ABDOMEN 1 1 MEDICAL ART SERV ANTEROPOS FOUNDATIO TERIOR VIEW MRA HEAD 50138 [place] TEJADA W/O 1 MEDICAL SATISH CONTRST SERV MATERIAL FOUNDATIO ECHO 62906 [place] LEZAMA DARÍO TTHRC R-T 1 MEDICAL 2D SERV W/WOM-MOD FOUNDATIO E COMPL SPEC&COLR D CRITICAL 88669 [place] NAZARIO CARE 1 MEDICAL NINA ILL/INJUR SERV SATISH ED FOUNDATIO PATIENT INIT 30-74 MIN INITIAL 42817 [place] [facility] 1 MEDICAL LINDSAY CARE/DAY [place] [address] [place] [address] [place] TEJADA HEAD/BRAI 1 MEDICAL SATISH N W/O SERV CONTRAST FOUNDATIO MATERIAL RADIOLOGI 99888 [place] NICKELS C 1 MEDICAL STACY EXAMINATI SERV ON CHEST FOUNDATIO [place] FRONT[place] GROUND A0425 [facility] MILEAGE 1 [facility] STATUTE EMS EMS MILE AMB A0427 [facility] SERVICE 1 [facility] EMERGENCY EMS EMS TRANSPORT LEVEL 1 INTUBATIO 42932 [place] ELENA N 1 MEDICAL YAMILETH ENDOTRACH SERV EAL FOUNDATIO EMERGENCY PROCEDURE CYTP 42684 [place] CONCENTRA 1 MEDICAL BRILL YOL TION SERV SMEARS & FOUNDATIO INTERPRET ATION SPINAL 0331 [facility] TAP 1 Y Y [facility] CONT 9671 [facility] INVASIVE 1 Y Y [facility] < 96 CONSECUTI VE HOURS INSERTION 9604 [facility] OF 1 Y Y [facility] EAL TUBE ECG 80881 NATALIIA LACEY LACEY NATALIIA ROUTINE 1 MD ECG CONSULTIN W/LEAST G SRV 12 LDS I&R ONLY RADIOLOGI 28845 [facility] C EXAM 1 EIDER KRISTAN CHEST 2 [...] [facility] 1 PAIR URNLS DIP 12891 SHIRIN CARPIO 1 CO CO STICK/TAB HOSPITAL [...] ABLECARE ABLECARE Y 0 WHEELCHAI R RADIOLOGI 18780 SHIRIN CARPIO C EXAM 0 CO CO CHEST 2 HOSPITAL HOSPITAL VIEWS FRONTAL&L ATERAL BLOOD 01460 SHIR[facility] CARP[facility] COUNT 0 CO CO COMPLETE [facility] AUTO&AUTO DIFRNTL WBC BLOOD 02142 SHIRIN CARPIO COUNT 0 CO IN SMEAR [facility] MCRSCP W/MNL DIFRNTL WBC COUNT COLLECTIO 48147 SHIRIN CARPIO N VENOUS 0 [facility] BLOOD [facility] VENIPUNCT URE BASIC 74691 SHIRIN CARPIO METABOLIC 0 CO IN PANEL [facility] CALCIUM TOTAL INITIAL 82603 [facility] OBSERVATI 0 LTH THO ON UROLOGY CARE/DAY PSC 30 MINUTES CYSTOURET 86125 [facility] HROSCOPY 0 LTH THO TX FEMALE UROLOGY URETHRAL PSC SYNDROME URNLS DIP 42214 [facility] 0 [facility] STICK/TAB [facility] LET REAGENT AUTO MICROSCOP Y CYSTO 25839 [facility] [facility] CALIBRATI 0 [facility] ON DILAT [facility] URTL STRIX/SATISH NOSIS SCR G0145 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 CYTOPATH 0 Y ARIEL OF Y [facility] CERV/VAG [place] SCR H H AUTO&MNL RSCR PHYS IADNA 66969 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 CHLAMYDIA 0 Y [facility] Y [facility] [place] TRACHOMAT H H IS AMPLIFIED PROBE TQ IADNA 37529 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 NEISSERIA 0 Y [facility] Y [facility] [place] GONORRHOE H H AE AMPLIFIED PROBE TQ ELEVATING K0195 [facility] LEGREST 0 PAIR HEAVY-DUT K0006 [facility] [place] [address] PATHOLOGY PATHOLOGY SURG 0 & & PATHOLOGY CYTOLOGY CYTOLOGY LAB LAB GROSS&ALBAN ROSCOPIC EXAM EXC B9 03671 SHIRIN CARPIO LESION 0 CO CO [facility] TG T/A/L 2.1-3.0 CM EXC B9 21139 ARMIN ARMIN LESION 0 ARI ARI [facility] TG T/A/L 0.6-1.0 CM ECG 90751 NATALIIA LACEY LACEY NATALIIA ROUTINE 0 MD ECG CONSULTIN W/LEAST G SRV 12 LDS I&R ONLY HEAVY-DUT K0006 [facility] Y 0 WHEELCHAI R ELEVATING K0195 [facility] LEGREST 0 PAIR RADIOLOGI 78281 TAM CHARMAINE, C 0 MEDICAL FAUSTO G EXAMINATI SERV ON TIBIA FOUNDATIO & FIBULA 2 VIEWS [facility] 43707 [facility] DISCHARGE 0 ARI ARI DAY MANAGEMEN T > 30 MIN RADEX 60838 [place] CHARMAINE, ANKLE 0 MEDICAL FAUSTO G COMPLETE SERV MINIMUM 3 FOUNDATIO VIEWS RADEX 58495 [place] CHARMAINE, FOOT 0 MEDICAL FAUSTO G COMPLETE SERV MINIMUM 3 FOUNDATIO VIEWS RADIOLOGI 72343 TAM MONTANO, C 0 MEDICAL FAUSTO G EXAMINATI SERV ON KNEE 3 FOUNDATIO VIEWS INITIAL 39734 [facility] 0 ARI ARI CARE/DAY 70 MINUTES RADIOLOGI 69054 Candy MONROE 0 NAYELY S EXAMINATI RADIOLOGY ON CHEST SINGLE ASSOCIATE VIEW S PSC FRONTAL RADIOLOGI 14625 [place] Candy STARKEY EXAM 0 NAYELY S KNEE RADIOLOGY COMPLETE 4/MORE ASSOCIATE VIEWS S PSC URNLS DIP 02945 SHIRIN CARPIO 0 CO CO [facility] LET REAGENT AUTO MICROSCOP Y COLLECTIO 92560 SHIRIN CARPIO N VENOUS 0 CO CO BLOOD [facility] VENIPUNCT URE LIPID 04780 SHIRIN CARPIO PANEL 0 CO [facility] COMPREHEN 78557 SHIRIN CARPIO SIVE 0 CO [facility] PANEL RADIOLOGI 92252 SHIRIN Gupta EXAM 0 CO CO CHEST 2 [facility]OSPITAL VIEWS FRONTAL&L ATERAL BLOOD 90721 SHIRIN CARPIO COUNT 0 CO [facility] AUTO&AUTO DIFRNTL WBC ADMINISTR G0008 ARMIN FUNEZ, ATION OF 9 MODE MODE INFLUENZA VIRUS VACCINE IIV3 55769 ARMIN FUNEZ, VACCINE 9 MODEMarcus Velazquez SPLIT VIRUS 0.5 ML DOSAGE IM USE RADIOLOGI 85230 Candy MOORE EXAM 9 [facility] [place] CHEST 2 IMAGING VIEWS ASSOCIATE FRONTAL&L S ATERAL BLOOD 25550 BRITTNI ELKINS COUNT 9 [facility] COMPLETE INC INC AUTO&AUTO DIFRNTL WBC HEPATIC 41772 BRITTNI ELKINS FUNCTION 9 [facility] PANEL INC INC SCREENING 31989 KAIA CAAL, 9 [facility] [place] MAMMOGRAP IMAGING HY ASSOCIATE BILATERAL S COMPUTER- 01904 KAIA CAAL, AIDED 9 [facility] [place] DETECTION IMAGING ASSOCIATE SCREENING S MAMMOGRAP HY COLLECTIO 21347 BRITTNI ELKINS N VENOUS 9 [facility] BLOOD INC INC VENIPUNCT URE RADIOLOGI 18261 Candy MONROE EXAM 8 NAYELY S CHEST 2 RADIOLOGY VIEWS FRONTAL&L ASSOCIATE ATERAL S PSC Encounters Encounter Start End Date Code Location Performer Type Date [facility] INPATIENT 7 7 [facility] INPAT[facility] 7 7 [facility] 7 [facility] INPATIENT 7 7 [facility] IN[facility] 7 7 [facility] INPATIENT 7 7 [facility] [place] INPAT[facility] 7 7 [facility] EM[facility]GENC[facility] [id number] SURAJ SANTIAGO DEPT 7 7 PHYSICIAN VISIT S, PLLC HIGH SEVERITY& THREAT FUNCJ OFFICE 44070 DERMATOLO MUSIC OUTPATIEN 7 7 GY T VISIT CONSULTAN 10 TS [facility] MINUTES OFFICE 25065 DERMATOLO MUSIC OUTPATIEN 7 7 GY T VISIT CONSULTAN 15 TS [facility] MINUTES OFFICE 15358 DERMATOLO ALEXIS OUTPATIEN 6 6 GY T NEW 10 CONSULTAN MINUTES [facility] - OTHER 6 6 [facility] OTHER 6 6 [facility] 5 5 [facility] 5 5 [facility] 5 5 [facility] OTHER [facility] 5 5 JO[facility] - OTHER PRISON [facility] IN[facility] 5 5 [facility] EM[facility] [id number] [facility] 5 5 [facility] T VISIT [facility]IGH/URGE NT SEVERITY [facility]OSPITAL [facility] - 5 5 [facility] OUTPATIEN INC T [facility] 5 5 [facility] 5 5 [facility] INPATIENT INC [facility] 5 5 [facility] 5 5 [facility] - 5 5 [facility] INPATIENT INC EMERGENCY 83460 BR[facility] ARMAAN 5 5 [facility] T VISIT P HIGH/URGE NT SEVERITY CR[facility]ICAL [facility] ACCESS 4 4 [facility] CRITICAL [facility] ACCESS 3 3 [facility] EMERGENCY 38458 [facility], 3 3 [facility] T VISIT CO HOS HIGH/URGE NT SEVERITY EMERGENCY 03357 SH[facility] DOMINGUEZ 3 3 CO [facility] T VISIT MODERATE SEVERITY [facility], ACCESS 3 3 [facility] ACCESS 3 3 [facility] ACCESS 3 3 [facility] OFFICE 80527 ARMIN ARMIN OUTPATIEN 3 3 [facility] T VISIT 15 MINUTES EMERGENCY 88947 SHIRIN MORGAN 3 3 [facility] T VISIT MODERATE SEVERITY OFFICE 73998 MARY FISHER ARI OUTPATIEN 3 3 N T NEW 45 NEUROLOGY MINUTES OFFICE 60776 ARMIN ARMIN OUTPATIEN 2 2 [facility] T VISIT 15 MINUTES OFFICE 47841 ARMIN ARMIN OUTPATIEN 2 2 ARI ARI T VISIT 15 MINUTES CRITICAL [facility] ACCESS 2 2 [facility] ACCESS 2 2 [facility] ACCESS 2 2 [facility] HOS CRIT[facility] ACCESS 2 2 [facility] CRITICAL [facility] ACCESS 2 2 [facility] IN HOS CRITICAL [facility] ACCESS 2 2 [facility] SANTIZO HOS CRITICAL SHIRIN ACCESS 1 1 [facility] EMERGENCY 65403 [facility] DEPT 1 1 EMERGENCY VISIT SERVICES HIGH SEVERITY& THREAT FUNJ EMERGENCY 24476 [facility] 1 1 [facility] T VISIT HIGH/URGE NT SEVERITY [facility] - 1 1 [facility] OUTPATIEN [facility] UNIVERSIT - 1 1 INPATIENT HOSPITAL OFFICE 89160 ARMIN FUNEZ OUTPATIEN 1 1 [facility] T VISIT 15 MINUTES OFFICE 54546 ARMIN FUNEZ OUTPATIEN 1 1 [facility] T VISIT 10 MINUTES OFFICE 77537 ARMIN ARMIN OUTPATIEN 1 1 [facility] T VISIT 15 MINUTES CRITICAL SHIRIN ACCESS 1 1 [facility] OFFICE 02929 ARMIN WAREO OUTPATIEN 0 0 [facility] T VISIT 15 MINUTES OFFICE 47628 ARMNI WAREO OUTPATIEN 0 0 [facility] T VISIT 10 MINUTES CRITICAL SHIRIN ACCESS 0 0 [facility] OFFICE 78640 ARMIN ARMIN OUTPATIEN 0 0 ARI [facility] T VISIT 15 MINUTES HOSPITAL [facility] - 0 0 [facility] 57868 [facility] OUTPAT[facility] 0 0 LTH THO T NEW 30 UROLOGY MINUTES PSC CRITICAL SHIRIN ACCESS 0 0 [facility] OFFICE 78793 TAM COATES, OUTPATIEN 0 0 MEDICAL CASSIDY D T VISIT SERV 10 FOUNDATIO MINUTES EMERGENCY 54591 [place] VIMAL, 0 0 MEDICAL ABHIJEET DEPARTMEN SERV T VISIT FOUNDATIO MODERATE SEVERITY OFFICE 60194 ARMIN FUNEZ, OUTPATIEN 0 0 MODE MODE T VISIT 15 MINUTES CRITICAL SHIRIN ACCESS 0 0 [facility] OFFICE 35781 ARMIN FUNEZ, OUTPATIEN 0 0 MODE MODE T VISIT 15 MINUTES OFFICE 00506 ARMIN FUNEZ OUTPATIEN 9 9 MODE MODE T VISIT 15 MINUTES OFFICE 83616 ARMIN FUNEZ, OUTPATIEN 9 9 MODE MODE T VISIT 15 MINUTES OFFICE 02485 ARMIN FUNEZ OUTPATIEN 9 9 MODE MODE T VISIT 15 MINUTES OFFICE 55884 ARMIN FUNEZ, OUTPATIEN 9 9 MODE MODE T VISIT 15 MINUTES HOSPITAL [facility] - 9 9 [facility] 34303 JEANIE FUNEZO, OUTPATIEN 8 8 MODE MODE T VISIT 15 MINUTES OFFICE 89926 JEANIE FUNEZO, OUTPATIEN 8 8 MODE MODE T VISIT 15 MINUTES OFFICE 79190 ARMIN ARMIN, OUTPATIEN 8 8 MODE MODE T VISIT 15 MINUTES OFFICE 03252 [facility] 8 8 , [place] , [place] T VISIT 15 MINUTES [facility] ACCESS 8 8 [facility] OFFICE 55519 JEANIE FUNEZO, OUTPATIEN 8 8 MODE MODE T VISIT 10 MINUTES OFFICE 76600 JEANIE FUNEZO, OUTPATIEN 8 8 MODE MODE T VISIT 15 MINUTES OFFICE 15123 JEANIE FUNEZO, OUTPATIEN 8 8 MODE MODE T VISIT 15 MINUTES [facility] 54040 [facility] OUTPATIEN 8 8 , [place] , [place] T VISIT 15 MINUTES OFFICE 25276 ARMINTJARMIN, OUTPATIEN 8 8 MODE MODE T VISIT 10 MINUTES
--- OUTSIDE RECORDS SUMMARY | 2017-06-11 05:49 | External Medical Summary Rpt | CCD ---
Demographics Preferred Language Luxembourger Marital Status Unknown Voodoo Affiliation Unknown Race Unknown Ethnic Group Unknown Author Author , SHERLEY LEPE Address Unknown Phone Immunization No patient found.
--- OUTSIDE RECORDS SUMMARY | 2017-06-11 05:49 | External Medical Summary Rpt | CCD ---
Demographics Preferred Language Beninese Marital Status Unknown Anabaptism Affiliation Unknown Race Unknown Ethnic Group Unknown Author Author , SHERLEY LEPE Address Unknown Phone Immunization No patient found.
--- OUTSIDE RECORDS SUMMARY | 2017-06-11 05:52 | External Medical Summary Rpt ---
Author Author [facility] [employer], [employer] Address Unknown Phone Unavailable Results Basic metabolic panel in Blood Observa Value Referen Units Interpr Notes Date tion ce etation Range Urea 7 - 18 mg/dL High No Sep 30 nitrogen informati 2017 [Mass/vol on in ume] in source Serum or data Plasma Calcium 8.5 - mg/dL Low No Sep 30 [Mass/vol 10.1 informati 2017 ume] in on in Serum or source Plasma data Chloride 98 - 107 mmoL/L Normal No Sep 30 [Moles/vo informati 2017 lume] in on in Serum or source Plasma data Carbon 21.0 - mmoL/L High Sep 30 dioxide, 32.0 NOTIFICAT 2017 total ION [Moles/vo RESULT lume] in G[place]r Serum or ie,Curtis Plasma Nela Creatinin 0.55 - mg/dL Normal No Sep 30 e 1.02 informati 2017 [Mass/vol on in ume] in source Serum or data Plasma Estimated 59- ML/MIN No REFERENCE Sep 30 informati RANGE: 2017 glomerula on in >60 r source ML/MIN/1. filtratio data 73 SQUARE n rate METERSIf (GF this patient is -A merican, then multiply theresult by 1.210. Glucose 74 - 106 mg/dL Low No Sep 30 [Mass/vol informati 2017 ume] in on in Serum or source Plasma data Potassium 3.5 - 5.1 mmoL/L Normal No Sep 30 informati 2017 [Moles/vo on in lume] in source Serum or data Plasma Sodium 136 - 145 mmoL/L High No Sep 30 [Moles/vo informati 2017 lume] in on in Serum or source Plasma data Glucose [Mass/volume] in Capillary blood by Glucometer Observa Value Referen Units Interpr Notes Date tion ce etation Range Glucose 70 - 110 mg/dl High No Sep 29 [Mass/vol informati 2017 6:23 ume] in on in AM Capillary source blood by data Glucomete r Glucose [Mass/volume] in Capillary blood by Glucometer Observa Value Referen Units Interpr Notes Date tion ce etation Range Glucose 70 - 110 mg/dl High No Sep 28 [Mass/vol informati 2017 7:52 ume] in on in PM Capillary source blood by data Glucomete r Glucose [Mass/volume] in Capillary blood by Glucometer Observa Value Referen Units Interpr Notes Date tion ce etation Range Glucose 70 - 110 mg/dl High No Sep 28 [Mass/vol informati 2017 4:49 ume] in on in PM Capillary source blood by data Glucomete r Glucose [Mass/volume] in Capillary blood by Glucometer Observa Value Referen Units Interpr Notes Date tion ce etation Range Glucose 70 - 110 mg/dl High No Sep 28 [Mass/vol informati 2017 ume] in on in 11:37 AM Capillary source blood by data Glucomete r CBC W Auto Differential panel in Blood Observa Value Referen Units Interpr Notes Date tion ce etation Range Granulocy 1.8 - 7.8 K/mm3 High No Sep 28 joellen informati 2017 6:00 [#/volume on in AM ] in source Blood by data Automated count Granulocy 37.0 - % High No Sep 28 joellen/100 80.0 informati 2017 6:00 leukocyte on in AM s in source Blood by data Automated count Hematocri 37.0 - % Low No Sep 28 t [Volume 47.0 informati 2017 6:00 on in AM Fraction] source of Blood data Hemoglobi 12.2 - g/dL Low No Sep 28 n 16.2 informati 2017 6:00 [Mass/vol on in AM ume] in source Blood data Lymphocyt 0.7 - 4.5 K/mm3 Normal No Sep 28 es informati 2017 6:00 [#/volume on in AM ] in source Unspecifi data ed specimen by Automated count Lymphocyt 10 - 50.0 % Low No Sep 28 es informati 2017 6:00 [#/volume on in AM ] in source Unspecifi data ed specimen by Automated count Erythrocy 27 - 31.2 pg Low No Sep 28 te mean informati 2017 6:00 corpuscul on in AM ar source hemoglobi data n [Entitic mass] Erythrocy 31.8 - g/dl Low No Sep 28 te mean 35.4 informati 2016 6:00 corpuscul on in AM ar source hemoglobi data n concentra tion [Mass/vol ume] by Automated count Erythrocy 82.2 - fL Normal No Sep 28 te mean 97.8 informati 2016 6:00 corpuscul on in AM ar volume source [Entitic data volume] by Automated count Monocytes 0.1 - 1.0 K/mm3 Normal No Sep 28 informati 2016 6:00 [#/volume on in AM ] in source Blood by data Automated count Monocytes 1.7 - 9.3 % Low No Sep 28 /100 informati 2016 6:00 leukocyte on in AM s in source Blood by data Automated count Platelets 142 - 424 K/mm3 Normal No Sep 28 informati 2016 6:00 [#/volume on in AM ] in source Blood data Erythrocy 4.2 - 5.4 M/mm3 Normal No Sep 28 joellen informati 2016 6:00 [#/volume on in AM ] in source Amniotic data fluid Erythrocy 11.5 - % High No Sep 28 te 17.5 informati 2016 6:00 distribut on in AM ion width source [Entitic data volume] by Automated count Leukocyte 4.8 - K/mm3 Normal No Sep 28 s 10.8 informati 2016 6:00 [#/volume on in AM ] in source Blood data Differential panel, method unspecified - Observa Value Referen Units Interpr Notes Date tion ce etation Range LYMPH 4 10 - 50 % Low No Sep 28 informa 2017 tion in 6:00 AM source data Monocytes 2 - 9 % Normal No Sep 28 /100 informati 2016 6:00 leukocyte on in AM s in source Blood by data Automated count Platele NORMAL No No No No Sep 28 ts informa informa informa informa 2016 [Presen tion in tion in tion in tion in 6:00 AM ce] in source source source source Blood data data data data by Light microsc opy Neutrophi 42 - 76 % High No Sep 28 ls informati 2016 6:00 [#/volume on in AM ] in source Blood by data Automated count Cells No #CELLS No No Sep 28 Counted informati informati informati 2016 6:00 Total [#] on in on in on in AM in Blood source source source data data data Comprehensive metabolic 2000 panel in Serum or Plasma Observa Value Referen Units Interpr Notes Date tion ce etation Range Albumin/G 1.1 - 1.8 No Low No Sep 28 lobulin informati informati 2017 6:00 [Mass on in on in AM ratio] in source source Serum or data data Plasma Albumin 3.4 - 5.0 gm/dL Low No Sep 28 [Mass/vol informati 2017 6:00 ume] in on in AM Serum or source Plasma data Alkaline 46 - 116 U/L High No Sep 28 phosphata informati 2017 6:00 se on in AM [Enzymati source c data activity/ volume] in Serum or Plasma Bilirubin 0.2 - 1.0 mg/dL Normal No Sep 28 .total informati 2017 6:00 [Mass/vol on in AM ume] in source Serum or data Plasma Urea 7 - 18 mg/dL High No Sep 28 nitrogen informati 2017 6:00 [Mass/vol on in AM ume] in source Serum or data Plasma Calcium 8.5 - mg/dL Normal No Sep 28 [Mass/vol 10.1 informati 2017 6:00 ume] in on in AM Serum or source Plasma data Chloride 98 - 107 mmoL/L High No Sep 28 [Moles/vo informati 2017 6:00 lume] in on in AM Serum or source Plasma data Carbon 21.0 - mmoL/L High No Sep 28 dioxide, 32.0 informati 2017 6:00 total on in AM [Moles/vo source lume] in data Serum or Plasma Creatinin 0.55 - mg/dL Normal No Sep 28 e 1.02 informati 2017 6:00 [Mass/vol on in AM ume] in source Serum or data Plasma Creatinin 50 - 200 ML/MIN Normal No Sep 28 e renal informati 2017 6:00 clearance on in AM source predicted data by Cockcroft -Gault formula Estimated 59- ML/MIN Low REFERENCE Sep 28 RANGE: 2017 6:00 glomerula >60 AM r ML/MIN/1. filtratio 73 SQUARE n rate METERSIf (GF this patient is -A merican, then multiply theresult by 1.210. Globulin 1.3 - 3.2 gm/dL High No Sep 28 [Mass/vol informati 2017 6:00 ume] in on in AM Serum source data Glucose 74 - 106 mg/dL High No Sep 28 [Mass/vol informati 2017 6:00 ume] in on in AM Serum or source Plasma data Potassium 3.5 - 5.1 mmoL/L Normal No May 26 informati 2016 6:00 [Moles/vo on in AM lume] in source Serum or data Plasma Sodium 136 - 145 mmoL/L Normal No May 26 [Moles/vo informati 2016 6:00 lume] in on in AM Serum or source Plasma data Aspartate 15 - 37 U/L No No May 26 informati informati 2016 6:00 aminotran on in on in AM sferase source source [Enzymati data data c activity/ volume] in Serum or Plasma Alanine 12 - 78 U/L No No May 26 aminotran informati informati 2016 6:00 sferase on in on in AM [Enzymati source source c data data activity/ volume] in Serum or Plasma Protein 6.4 - 8.2 gm/dL Normal No May 26 [Mass/vol informati 2016 6:00 ume] in on in AM Serum or source Plasma data Glucose [Mass/volume] in Capillary blood by Glucometer Observa Value Referen Units Interpr Notes Date ti ce etation Range Glucose 70 - 110 mg/dl High No May 26 [Mass/vol informati 2016 5:59 ume] in on in AM Capillary source blood by data Glucomete r Glucose [Mass/volume] in Capillary blood by Glucometer Observa Value Referen Units Interpr Notes Date ti etation Range Glucose 70 - 110 mg/dl High No May 25 [Mass/vol informati 2016 8:01 ume] in on in PM Capillary source blood by data Glucomete r Glucose [Mass/volume] in Capillary blood by Glucometer Observa Value Referen Units Interpr Notes Date ti ce etation Range Glucose 70 - 110 mg/dl High No Sep [Mass/vol informati 2016 4:50 ume] in on in PM Capillary source blood by data Glucomete r Glucose [Mass/volume] in Capillary blood by Glucometer Observa Value Referen Units Interpr Notes Date ti ce etation Range Glucose 70 - 110 mg/dl High No May 25 [Mass/vol informati 2017 ume] in on in 11:42 AM Capillary source blood by data Glucomete r Glucose [Mass/volume] in Capillary blood by Glucometer Observa Value Referen Units Interpr Notes Date tion ce etation Range Glucose 70 - 110 mg/dl Normal No Sep 27 [Mass/vol informati 2017 6:20 ume] in on in AM Capillary source blood by data Glucomete r CBC W Auto Differential panel in Blood Observa Value Referen Units Interpr Notes Date tion ce etation Range Granulocy 1.8 - 7.8 K/mm3 High No Sep 27 joellen informati 2017 6:05 [#/volume on in AM ] in source Blood by data Automated count Granulocy 37.0 - % High No Sep 27 joellen/100 80.0 informati 2017 6:05 leukocyte on in AM s in source Blood by data Automated count Hematocri 37.0 - % Low No Sep 27 t [Volume 47.0 informati 2017 6:05 on in AM Fraction] source of Blood data Hemoglobi 12.2 - g/dL Low No Sep 27 n 16.2 informati 2017 6:05 [Mass/vol on in AM ume] in source Blood data Lymphocyt 0.7 - 4.5 K/mm3 Normal No Sep 27 es informati 2017 6:05 [#/volume on in AM ] in source Unspecifi data ed specimen by Automated count Lymphocyt 10 - 50.0 % Low No Sep 27 es informati 2017 6:05 [#/volume on in AM ] in source Unspecifi data ed specimen by Automated count Erythrocy 27 - 31.2 pg Low No Sep 27 te mean informati 2017 6:05 corpuscul on in AM ar source hemoglobi data n [Entitic mass] Erythrocy 31.8 - g/dl Low No Sep 27 te mean 35.4 informati 2017 6:05 corpuscul on in AM ar source hemoglobi data n concentra tion [Mass/vol ume] by Automated count Erythrocy 82.2 - fL Normal No Sep 27 te mean 97.8 informati 2017 6:05 corpuscul on in AM ar volume source [Entitic data volume] by Automated count Monocytes 0.1 - 1.0 K/mm3 Normal No Sep 27 informati 2017 6:05 [#/volume on in AM ] in source Blood by data Automated count Monocytes 1.7 - 9.3 % Normal No Sep 27 /100 informati 2017 6:05 leukocyte on in AM s in source Blood by data Automated count Platelets 142 - 424 K/mm3 Normal No Sep 27 informati 2017 6:05 [#/volume on in AM ] in source Blood data Erythrocy 4.2 - 5.4 M/mm3 Normal No Sep 27 joellen informati 2017 6:05 [#/volume on in AM ] in source Amniotic data fluid Erythrocy 11.5 - % Normal No Sep 27 te 17.5 informati 2017 6:05 distribut on in AM ion width source [Entitic data volume] by Automated count Leukocyte 4.8 - K/mm3 High No Sep 27 s 10.8 informati 2016 6:05 [#/volume on in AM ] in source Blood data Glucose [Mass/volume] in Capillary blood by Glucometer Observa Value Referen Units Interpr Notes Date tion ce etation Range Glucose 70 - 110 mg/dl No No Sep 26 [Mass/vol informati informati 2017 9:06 ume] in on in on in PM Capillary source source blood by data data Glucomete r Glucose [Mass/volume] in Capillary blood by Glucometer Observa Value Referen Units Interpr Notes Date tion ce etation Range Glucose 70 - 110 mg/dl High No Sep 26 [Mass/vol informati 2016 5:02 ume] in on in PM Capillary source blood by data Glucomete r Gas panel in Arterial blood Observa Value Referen Units Interpr Notes Date tion ce etation Range Base -2.4-+2.3 MMOL/L Normal No Sep 26 excess in informati 2017 4:46 Arterial on in PM blood source data Arteria Y No No No No Sep 26 l informa informa informa informa 2017 patency tion in tion in tion in tion in 4:46 PM Wrist source source source source artery data data data data --pre arteria l punctur e Bicarbona 22.0 - MMOL/L Normal No Sep 26 te 26.0 informati 2017 4:46 [Moles/vo on in PM lume] in source Arterial data blood Oxygen No No No No Sep 26 content informati informati informati informati 2017 4:46 in on in on in on in on in PM Arterial source source source source blood data data data data Carbon 35.0 - MMHG High Sep 26 dioxide 45.0 2016 4:46 [Partial CRITICAL PM pressure] RESULTS in Arterial RESU blood LTS CALLED TO: [email or web address] 05/24/17 1648 Kenny Hutchinson pH of 7.35 - MMOL/L Low No Sep 26 Arterial 7.45 informati 2017 4:46 blood on in PM source data Oxygen 80 - 100 MMHG Low No Sep 26 [Partial informati 2017 4:46 pressure] on in PM in source Arterial data blood Oxygen 90 - 100 % Normal No Sep 26 saturatio informati 2017 4:46 n.calcula on in PM magdaleno from source oxygen data partial pressure in Arterial blood SOURCE L/R No No No No Sep 26 informa informa informa informa 2017 tion in tion in tion in tion in 4:46 PM source source source source data data data data Carbon 23 - 27 MMOL/L High No Sep 26 dioxide, informati 2017 4:46 total on in PM [Moles/vo source lume] in data Arterial blood Glucose [Mass/volume] in Capillary blood by Glucometer Observa Value Referen Units Interpr Notes Date tion ce etation Range Glucose 70 - 110 mg/dl Normal No Sep 26 [Mass/vol informati 2017 ume] in on in 11:35 AM Capillary source blood by data Glucomete r CBC W Auto Differential panel in Blood Observa Value Referen Units Interpr Notes Date tion ce etation Range Granulocy 1.8 - 7.8 K/mm3 High No Sep 26 joellen informati 2017 6:30 [#/volume on in AM ] in source Blood by data Automated count Granulocy 37.0 - % High No Sep 26 joellen/100 80.0 informati 2017 6:30 leukocyte on in AM s in source Blood by data Automated count Hematocri 37.0 - % Low No Sep 26 t [Volume 47.0 informati 2017 6:30 on in AM Fraction] source of Blood data Hemoglobi 12.2 - g/dL Low No Sep 26 n 16.2 informati 2017 6:30 [Mass/vol on in AM ume] in source Blood data Lymphocyt 0.7 - 4.5 K/mm3 Normal No Sep 26 es informati 2017 6:30 [#/volume on in AM ] in source Unspecifi data ed specimen by Automated count Lymphocyt 10 - 50.0 % Low No Sep 26 es informati 2016 6:30 [#/volume on in AM ] in source Unspecifi data ed specimen by Automated count Erythrocy 27 - 31.2 pg Low No Sep 26 te mean informati 2017 6:30 corpuscul on in AM ar source hemoglobi data n [Entitic mass] Erythrocy 31.8 - g/dl Normal No Sep 26 te mean 35.4 informati 2017 6:30 corpuscul on in AM ar source hemoglobi data n concentra tion [Mass/vol ume] by Automated count Erythrocy 82.2 - fL Normal No Sep 26 te mean 97.8 informati 2017 6:30 corpuscul on in AM ar volume source [Entitic data volume] by Automated count Monocytes 0.1 - 1.0 K/mm3 Normal No Sep 26 informati 2017 6:30 [#/volume on in AM ] in source Blood by data Automated count Monocytes 1.7 - 9.3 % Normal No Sep 26 /100 informati 2017 6:30 leukocyte on in AM s in source Blood by data Automated count Platelets 142 - 424 K/mm3 Normal No Sep 26 informati 2017 6:30 [#/volume on in AM ] in source Blood data Erythrocy 4.2 - 5.4 M/mm3 Normal No Sep 26 joellen informati 2017 6:30 [#/volume on in AM ] in source Amniotic data fluid Erythrocy 11.5 - % Normal No Sep 26 te 17.5 informati 2017 6:30 distribut on in AM ion width source [Entitic data volume] by Automated count Leukocyte 4.8 - K/mm3 High No Sep 26 s 10.8 informati 2017 6:30 [#/volume on in AM ] in source Blood data Differential panel, method unspecified - Observa Value Referen Units Interpr Notes Date tion ce etation Range LYMPH 10 10 - 50 % Normal No Sep 26 informa 2017 tion in 6:30 AM source data Monocytes 2 - 9 % Normal No Sep 26 /100 informati 2017 6:30 leukocyte on in AM s in source Blood by data Automated count Platele NORMAL No No No No Sep 26 ts informa informa informa informa 2016 [Presen tion in tion in tion in tion in 6:30 AM ce] in source source source source Blood data data data data by Light microsc opy Neutrophi 42 - 76 % High No Sep 26 ls informati 2016 6:30 [#/volume on in AM ] in source Blood by data Automated count Cells No #CELLS No No Sep 26 Counted informati informati informati 2017 6:30 Total [#] on in on in on in AM in Blood source source source data data data Comprehensive metabolic 2000 panel in Serum or Plasma Observa Value Referen Units Interpr Notes Date tion ce etation Range Albumin/G 1.1 - 1.8 No Low No Sep 26 lobulin informati informati 2017 6:30 [Mass on in on in AM ratio] in source source Serum or data data Plasma Albumin 3.4 - 5.0 gm/dL Low No Sep 26 [Mass/vol informati 2017 6:30 ume] in on in AM Serum or source Plasma data Alkaline 46 - 116 U/L High No Sep 26 phosphata informati 2017 6:30 se on in AM [Enzymati source c data activity/ volume] in Serum or Plasma Bilirubin 0.2 - 1.0 mg/dL Normal No Sep 26 .total informati 2017 6:30 [Mass/vol on in AM ume] in source Serum or data Plasma Urea 7 - 18 mg/dL High No Sep 26 nitrogen informati 2017 6:30 [Mass/vol on in AM ume] in source Serum or data Plasma Calcium 8.5 - mg/dL Normal No Sep 26 [Mass/vol 10.1 informati 2017 6:30 ume] in on in AM Serum or source Plasma data Chloride 98 - 107 mmoL/L High No Sep 26 [Moles/vo informati 2017 6:30 lume] in on in AM Serum or source Plasma data Carbon 21.0 - mmoL/L Normal No Sep 26 dioxide, 32.0 informati 2017 6:30 total on in AM [Moles/vo source lume] in data Serum or Plasma Creatinin 0.55 - mg/dL Normal No Sep 26 e 1.02 informati 2017 6:30 [Mass/vol on in AM ume] in source Serum or data Plasma Creatinin 50 - 200 ML/MIN Normal No Sep 26 e renal informati 2017 6:30 clearance on in AM source predicted data by Cockcroft -Gault formula Estimated 59- ML/MIN No REFERENCE Sep 26 informati RANGE: 2017 6:30 glomerula on in >60 AM r source ML/MIN/1. filtratio data 73 SQUARE n rate METERSIf (GF this patient is -A merican, then multiply theresult by 1.210. Globulin 1.3 - 3.2 gm/dL High No May 24 [Mass/vol informati 2016 6:30 ume] in on in AM Serum source data Glucose 74 - 106 mg/dL High No Sep [Mass/vol informati 2016 6:30 ume] in on in AM Serum or source Plasma data Potassium 3.5 - 5.1 mmoL/L Normal No May 24 informati 2016 6:30 [Moles/vo on in AM lume] in source Serum or data Plasma Sodium 136 - 145 mmoL/L Normal No Sep [Moles/vo informati 2017 6:30 lume] in on in AM Serum or source Plasma data Aspartate 15 - 37 U/L High No Sep informati 2017 6:30 aminotran on in AM sferase source [Enzymati data c activity/ volume] in Serum or Plasma Alanine 12 - 78 U/L Normal No May 24 aminotran informati 2017 6:30 sferase on in AM [Enzymati source c data activity/ volume] in Serum or Plasma Protein 6.4 - 8.2 gm/dL Low No May 24 [Mass/vol informati 2016 6:30 ume] in on in AM Serum or source Plasma data Glucose [Mass/volume] in Capillary blood by Glucometer Observa Value Referen Units Interpr Notes Date ti etation Range Glucose 70 - 110 mg/dl High No May 24 [Mass/vol informati 2016 6:29 ume] in on in AM Capillary source blood by data Glucomete r Glucose [Mass/volume] in Capillary blood by Glucometer Observa Value Referen Units Interpr Notes Date ti etation Range Glucose 70 - 110 mg/dl High No Sep [Mass/vol informati 2016 8:19 ume] in on in PM Capillary source blood by data Glucomete r Glucose [Mass/volume] in Capillary blood by Glucometer Observa Value Referen Units Interpr Notes Date ti ce etation Range Glucose 70 - 110 mg/dl No No Sep [Mass/vol informati informati 2016 5:28 ume] in on in on in PM Capillary source source blood by data data Glucomete r Glucose [Mass/volume] in Capillary blood by Glucometer Observa Value Referen Units Interpr Notes Date ti ce etation Range Glucose 70 - 110 mg/dl Normal No Sep 25 [Mass/vol informati 2017 ume] in on in 11:37 AM Capillary source blood by data Glucomete r Glucose [Mass/volume] in Capillary blood by Glucometer Observa Value Referen Units Interpr Notes Date tion ce etation Range Glucose 70 - 110 mg/dl Normal No Sep 25 [Mass/vol informati 2017 6:25 ume] in on in AM Capillary source blood by data Glucomete r CBC W Auto Differential panel in Blood Observa Value Referen Units Interpr Notes Date tion ce etation Range Basophils 0 - 0.2 K/MM3 Normal No Sep 25 informati 2017 6:05 [#/volume on in AM ] in source Blood by data Automated count Basophils 0.1 - 2.0 % Normal No Sep 25 /100 informati 2017 6:05 leukocyte on in AM s in source Blood by data Automated count Eosinophi 0.0 - 0.4 K/mm3 Normal No Sep 25 ls informati 2017 6:05 [#/volume on in AM ] in source Blood by data Automated count Eosinophi 0.1 - % Normal No Sep 25 ls/100 12.0 informati 2017 6:05 leukocyte on in AM s in source Blood by data Automated count Granulocy 1.8 - 7.8 K/mm3 High No Sep 25 joellen informati 2017 6:05 [#/volume on in AM ] in source Blood by data Automated count Granulocy 37.0 - % High No Sep 25 joellen/100 80.0 informati 2017 6:05 leukocyte on in AM s in source Blood by data Automated count Hematocri 37.0 - % Normal No Sep 25 t [Volume 47.0 informati 2017 6:05 on in AM Fraction] source of Blood data Hemoglobi 12.2 - g/dL Low No Sep 25 n 16.2 informati 2017 6:05 [Mass/vol on in AM ume] in source Blood data Lymphocyt 0.7 - 4.5 K/mm3 Normal No Sep 25 es informati 2017 6:05 [#/volume on in AM ] in source Unspecifi data ed specimen by Automated count Lymphocyt 10 - 50.0 % Low No Sep 25 es informati 2017 6:05 [#/volume on in AM ] in source Unspecifi data ed specimen by Automated count Erythrocy 27 - 31.2 pg Low No Sep 25 te mean informati 2017 6:05 corpuscul on in AM ar source hemoglobi data n [Entitic mass] Erythrocy 31.8 - g/dl Low No Sep 25 te mean 35.4 informati 2017 6:05 corpuscul on in AM ar source hemoglobi data n concentra tion [Mass/vol ume] by Automated count Erythrocy 82.2 - fl Normal No Sep 25 te mean 97.8 informati 2017 6:05 corpuscul on in AM ar volume source [Entitic data volume] by Automated count Monocytes 0.1 - 1.0 K/mm3 Normal No Sep 25 informati 2017 6:05 [#/volume on in AM ] in source Blood by data Automated count Monocytes 1.7 - 9.3 % Normal No Sep 25 /100 informati 2017 6:05 leukocyte on in AM s in source Blood by data Automated count Platelet 7.4 - fl Low No Sep 25 mean 10.4 informati 2017 6:05 volume on in AM [Entitic source volume] data in Blood by Automated count Platelets 142 - 424 K/mm3 Normal No Sep 25 informati 2017 6:05 [#/volume on in AM ] in source Blood data Erythrocy 4.2 - 5.4 M/mm3 Normal No Sep 25 joellen informati 2017 6:05 [#/volume on in AM ] in source Amniotic data fluid Erythrocy 11.5 - % Normal No Sep 25 te 17.5 informati 2017 6:05 distribut on in AM ion width source [Entitic data volume] by Automated count Leukocyte 4.8 - K/MM3 High No Sep 25 s 10.8 informati 2017 6:05 [#/volume on in AM ] in source Blood data Differential panel, method unspecified - Observa Value Referen Units Interpr Notes Date tion ce etation Range Neutrophi 0 - 8 % Normal No Sep 25 ls.band informati 2017 6:05 form/100 on in AM leukocyte source s in data Blood by Automated count Hypochr 1+ No No No No Sep 25 omia informa informa informa informa 2016 [Presen tion in tion in tion in tion in 6:05 AM ce] in source source source source Blood data data data data LYMPH 6 10 - 50 % Low No Sep 25 informa 2017 tion in 6:05 AM source data Monocytes 2 - 9 % Normal No Sep 25 /100 informati 2017 6:05 leukocyte on in AM s in source Blood by data Automated count Platele NORMAL No No No No Sep 25 ts informa informa informa informa 2016 [Presen tion in tion in tion in tion in 6:05 AM ce] in source source source source Blood data data data data by Light microsc opy Neutrophi 42 - 76 % High No Sep 25 ls informati 2017 6:05 [#/volume on in AM ] in source Blood by data Automated count Cells No #CELLS No No Sep 25 Counted informati informati informati 2017 6:05 Total [#] on in on in on in AM in Blood source source source data data data Amylase [Enzymatic activity/volume] in Serum or Plasma Observa Value Referen Units Interpr Notes Date tion ce etation Range Amylase 25 - 115 U/L Normal No Sep 25 [Enzymati informati 2017 6:05 c on in AM activity/ source volume] data in Serum or Plasma Comprehensive metabolic 2000 panel in Serum or Plasma Observa Value Referen Units Interpr Notes Date tion ce etation Range Albumin/G 1.1 - 1.8 No Low No Sep 25 lobulin informati informati 2017 6:05 [Mass on in on in AM ratio] in source source Serum or data data Plasma Albumin 3.4 - 5.0 gm/dL Low No Sep 25 [Mass/vol informati 2017 6:05 ume] in on in AM Serum or source Plasma data Alkaline 46 - 116 U/L High No Sep 25 phosphata informati 2017 6:05 se on in AM [Enzymati source c data activity/ volume] in Serum or Plasma Bilirubin 0.2 - 1.0 mg/dL High No Sep 25 .total informati 2017 6:05 [Mass/vol on in AM ume] in source Serum or data Plasma Urea 7 - 18 mg/dL High No Sep 25 nitrogen informati 2017 6:05 [Mass/vol on in AM ume] in source Serum or data Plasma Calcium 8.5 - mg/dL Low No Sep 25 [Mass/vol 10.1 informati 2017 6:05 ume] in on in AM Serum or source Plasma data Chloride 98 - 107 mmoL/L High No Sep 25 [Moles/vo informati 2017 6:05 lume] in on in AM Serum or source Plasma data Carbon 21.0 - mmoL/L Normal No Sep 25 dioxide, 32.0 informati 2017 6:05 total on in AM [Moles/vo source lume] in data Serum or Plasma Creatinin 0.55 - mg/dL Normal No Sep 25 e 1.02 informati 2017 6:05 [Mass/vol on in AM ume] in source Serum or data Plasma Creatinin 50 - 200 ML/MIN Normal No Sep 25 e renal informati 2017 6:05 clearance on in AM source predicted data by Cockcroft -Gault formula Estimated 59- ML/MIN No REFERENCE Sep 25 informati RANGE: 2017 6:05 glomerula on in >60 AM r source ML/MIN/1. filtratio data 73 SQUARE n rate METERSIf (GF this patient is -A merican, then multiply theresult by 1.210. Globulin 1.3 - 3.2 gm/dL High No Sep 25 [Mass/vol informati 2016 6:05 ume] in on in AM Serum source data Glucose 74 - 106 mg/dL Normal No Sep 25 [Mass/vol informati 2016 6:05 ume] in on in AM Serum or source Plasma data Potassium 3.5 - 5.1 mmoL/L Normal No Sep 25 informati 2016 6:05 [Moles/vo on in AM lume] in source Serum or data Plasma Sodium 136 - 145 mmoL/L Normal No Sep 25 [Moles/vo informati 2017 6:05 lume] in on in AM Serum or source Plasma data Aspartate 15 - 37 U/L High No Sep 25 informati 2016 6:05 aminotran on in AM sferase source [Enzymati data c activity/ volume] in Serum or Plasma Alanine 12 - 78 U/L High No Sep 25 aminotran informati 2017 6:05 sferase on in AM [Enzymati source c data activity/ volume] in Serum or Plasma Protein 6.4 - 8.2 gm/dL Normal No Sep 25 [Mass/vol informati 2017 6:05 ume] in on in AM Serum or source Plasma data Lipase [Enzymatic activity/volume] in Serum or Plasma Observa Value Referen Units Interpr Notes Date tion ce etation Range Lipase 73 - 393 U/L Normal No Sep 25 [Enzymati informati 2017 6:05 c on in AM activity/ source volume] data in Serum or Plasma Glucose [Mass/volume] in Capillary blood by Glucometer Observa Value Referen Units Interpr Notes Date tion ce etation Range Glucose 70 - 110 mg/dl Normal No Sep 24 [Mass/vol informati 2017 8:55 ume] in on in PM Capillary source blood by data Glucomete r Glucose [Mass/volume] in Capillary blood by Glucometer Observa Value Referen Units Interpr Notes Date tion ce etation Range Glucose 70 - 110 mg/dl Normal No Sep 24 [Mass/vol informati 2016 4:58 ume] in on in PM Capillary source blood by data Glucomete r Glucose [Mass/volume] in Capillary blood by Glucometer Observa Value Referen Units Interpr Notes Date tion ce etation Range Glucose 70 - 110 mg/dl Normal No Sep 24 [Mass/vol informati 2017 ume] in on in 11:25 AM Capillary source blood by data Glucomete r Glucose [Mass/volume] in Capillary blood by Glucometer Observa Value Referen Units Interpr Notes Date ti ce etation Range Glucose 70 - 110 mg/dl Normal No Sep 24 [Mass/vol informati 2016 6:19 ume] in on in AM Capillary source blood by data Glucomete r Amylase [Enzymatic activity/volume] in Serum or Plasma Observa Value Referen Units Interpr Notes Date ti ce etation Range Amylase 25 - 115 U/L High No Sep 24 [Enzymati informati 2017 6:05 c on in AM activity/ source volume] data in Serum or Plasma Comprehensive metabolic 2000 panel in Serum or Plasma Observa Value Referen Units Interpr Notes Date ti ce etation Range Albumin/G 1.1 - 1.8 No Low No Sep 24 lobulin informati informati 2017 6:05 [Mass on in on in AM ratio] in source source Serum or data data Plasma Albumin 3.4 - 5.0 gm/dL Low No Sep 24 [Mass/vol informati 2017 6:05 ume] in on in AM Serum or source Plasma data Alkaline 46 - 116 U/L High No Sep 24 phosphata informati 2017 6:05 se on in AM [Enzymati source c data activity/ volume] in Serum or Plasma Bilirubin 0.2 - 1.0 mg/dL High No Sep 24 .total informati 2017 6:05 [Mass/vol on in AM ume] in source Serum or data Plasma Urea 7 - 18 mg/dL High No Sep 24 nitrogen informati 2017 6:05 [Mass/vol on in AM ume] in source Serum or data Plasma Calcium 8.5 - mg/dL Low No Sep 24 [Mass/vol 10.1 informati 2017 6:05 ume] in on in AM Serum or source Plasma data Chloride 98 - 107 mmoL/L High No Sep 24 [Moles/vo informati 2017 6:05 lume] in on in AM Serum or source Plasma data Carbon 21.0 - mmoL/L Normal No Sep 24 dioxide, 32.0 informati 2017 6:05 total on in AM [Moles/vo source lume] in data Serum or Plasma Creatinin 0.55 - mg/dL Normal No Sep 24 e 1.02 informati 2017 6:05 [Mass/vol on in AM ume] in source Serum or data Plasma Creatinin 50 - 200 ML/MIN Normal No Sep 24 e renal informati 2017 6:05 clearance on in AM source predicted data by Cockcroft -Gault formula Estimated 59- ML/MIN Low REFERENCE Sep 24 RANGE: 2017 6:05 glomerula >60 AM r ML/MIN/1. filtratio 73 SQUARE n rate METERSIf (GF this patient is -A merican, then multiply theresult by 1.210. Globulin 1.3 - 3.2 gm/dL High No Sep 24 [Mass/vol informati 2017 6:05 ume] in on in AM Serum source data Glucose 74 - 106 mg/dL Normal No Sep 24 [Mass/vol informati 2017 6:05 ume] in on in AM Serum or source Plasma data Potassium 3.5 - 5.1 mmoL/L Normal No Sep 24 informati 2017 6:05 [Moles/vo on in AM lume] in source Serum or data Plasma Sodium 136 - 145 mmoL/L Normal No Sep 24 [Moles/vo informati 2017 6:05 lume] in on in AM Serum or source Plasma data Aspartate 15 - 37 U/L High No Sep 24 informati 2017 6:05 aminotran on in AM sferase source [Enzymati data c activity/ volume] in Serum or Plasma Alanine 12 - 78 U/L High No Sep 24 aminotran informati 2017 6:05 sferase on in AM [Enzymati source c data activity/ volume] in Serum or Plasma Protein 6.4 - 8.2 gm/dL Normal No Sep 24 [Mass/vol informati 2017 6:05 ume] in on in AM Serum or source Plasma data Lipase [Enzymatic activity/volume] in Serum or Plasma Observa Value Referen Units Interpr Notes Date tion ce etation Range Lipase 73 - 393 U/L Normal No Sep 24 [Enzymati informati 2017 6:05 c on in AM activity/ source volume] data in Serum or Plasma CBC W Auto Differential panel in Blood Observa Value Referen Units Interpr Notes Date tion ce etation Range Basophils 0 - 0.2 K/MM3 Normal No Sep 24 informati 2017 6:05 [#/volume on in AM ] in source Blood by data Automated count Basophils 0.1 - 2.0 % Normal No Sep 24 /100 informati 2017 6:05 leukocyte on in AM s in source Blood by data Automated count Eosinophi 0.0 - 0.4 K/mm3 Normal No Sep 24 ls informati 2017 6:05 [#/volume on in AM ] in source Blood by data Automated count Eosinophi 0.1 - % Normal No Sep 24 ls/100 12.0 informati 2017 6:05 leukocyte on in AM s in source Blood by data Automated count Granulocy 1.8 - 7.8 K/mm3 High No Sep 24 joellen informati 2017 6:05 [#/volume on in AM ] in source Blood by data Automated count Granulocy 37.0 - % High No Sep 24 joellen/100 80.0 informati 2017 6:05 leukocyte on in AM s in source Blood by data Automated count Hematocri 37.0 - % Normal No Sep 24 t [Volume 47.0 informati 2017 6:05 on in AM Fraction] source of Blood data Hemoglobi 12.2 - g/dL Normal No Sep 24 n 16.2 informati 2017 6:05 [Mass/vol on in AM ume] in source Blood data Lymphocyt 0.7 - 4.5 K/mm3 Normal No Sep 24 es informati 2017 6:05 [#/volume on in AM ] in source Unspecifi data ed specimen by Automated count Lymphocyt 10 - 50.0 % Low No Sep 24 es informati 2017 6:05 [#/volume on in AM ] in source Unspecifi data ed specimen by Automated count Erythrocy 27 - 31.2 pg Normal No Sep 24 te mean informati 2017 6:05 corpuscul on in AM ar source hemoglobi data n [Entitic mass] Erythrocy 31.8 - g/dl Normal No Sep 24 te mean 35.4 informati 2017 6:05 corpuscul on in AM ar source hemoglobi data n concentra tion [Mass/vol ume] by Automated count Erythrocy 82.2 - fl Normal No Sep 24 te mean 97.8 informati 2017 6:05 corpuscul on in AM ar volume source [Entitic data volume] by Automated count Monocytes 0.1 - 1.0 K/mm3 Normal No Sep 24 informati 2017 6:05 [#/volume on in AM ] in source Blood by data Automated count Monocytes 1.7 - 9.3 % Normal No Sep 24 /100 informati 2017 6:05 leukocyte on in AM s in source Blood by data Automated count Platelet 7.4 - fl Low No Sep 24 mean 10.4 informati 2017 6:05 volume on in AM [Entitic source volume] data in Blood by Automated count Platelets 142 - 424 K/mm3 Normal No Sep 24 informati 2017 6:05 [#/volume on in AM ] in source Blood data Erythrocy 4.2 - 5.4 M/mm3 Normal No Sep 24 joellen informati 2017 6:05 [#/volume on in AM ] in source Amniotic data fluid Erythrocy 11.5 - % Normal No Sep 24 te 17.5 informati 2017 6:05 distribut on in AM ion width source [Entitic data volume] by Automated count Leukocyte 4.8 - K/MM3 High No Sep 24 s 10.8 informati 2017 6:05 [#/volume on in AM ] in source Blood data Glucose [Mass/volume] in Capillary blood by Glucometer Observa Value Referen Units Interpr Notes Date tion ce etation Range Glucose 70 - 110 mg/dl Normal No Sep 23 [Mass/vol informati 2017 8:24 ume] in on in PM Capillary source blood by data Glucomete r Glucose [Mass/volume] in Capillary blood by Glucometer Observa Value Referen Units Interpr Notes Date ti ce etation Range Glucose 70 - 110 mg/dl Normal No Sep 23 [Mass/vol informati 2017 4:45 ume] in on in PM Capillary source blood by data Glucomete r Glucose [Mass/volume] in Capillary blood by Glucometer Observa Value Referen Units Interpr Notes Date tion ce etation Range Glucose 70 - 110 mg/dl High No Sep 23 [Mass/vol informati 2017 ume] in on in 12:02 PM Capillary source blood by data Glucomete r CBC W Auto Differential panel in Blood Observa Value Referen Units Interpr Notes Date tion ce etation Range Basophils 0 - 0.2 K/MM3 Normal No Sep 23 informati 2017 6:15 [#/volume on in AM ] in source Blood by data Automated count Basophils 0.1 - 2.0 % Normal No Sep 23 /100 informati 2017 6:15 leukocyte on in AM s in source Blood by data Automated count Eosinophi 0.0 - 0.4 K/mm3 Normal No Sep 23 ls informati 2017 6:15 [#/volume on in AM ] in source Blood by data Automated count Eosinophi 0.1 - % Normal No Sep 23 ls/100 12.0 informati 2017 6:15 leukocyte on in AM s in source Blood by data Automated count Granulocy 1.8 - 7.8 K/mm3 High No Sep 23 joellen informati 2017 6:15 [#/volume on in AM ] in source Blood by data Automated count Granulocy 37.0 - % High No Sep 23 joellen/100 80.0 informati 2017 6:15 leukocyte on in AM s in source Blood by data Automated count Hematocri 37.0 - % Normal No Sep 23 t [Volume 47.0 informati 2017 6:15 on in AM Fraction] source of Blood data Hemoglobi 12.2 - g/dL Normal No Sep 23 n 16.2 informati 2017 6:15 [Mass/vol on in AM ume] in source Blood data Lymphocyt 0.7 - 4.5 K/mm3 Low No Sep 23 es informati 2017 6:15 [#/volume on in AM ] in source Unspecifi data ed specimen by Automated count Lymphocyt 10 - 50.0 % Low No Sep 23 es informati 2017 6:15 [#/volume on in AM ] in source Unspecifi data ed specimen by Automated count Erythrocy 27 - 31.2 pg Low No Sep 23 te mean informati 2017 6:15 corpuscul on in AM ar source hemoglobi data n [Entitic mass] Erythrocy 31.8 - g/dl Normal No Sep 23 te mean 35.4 informati 2016 6:15 corpuscul on in AM ar source hemoglobi data n concentra tion [Mass/vol ume] by Automated count Erythrocy 82.2 - fl Normal No Sep 23 te mean 97.8 informati 2017 6:15 corpuscul on in AM ar volume source [Entitic data volume] by Automated count Monocytes 0.1 - 1.0 K/mm3 Normal No Sep 23 informati 2017 6:15 [#/volume on in AM ] in source Blood by data Automated count Monocytes 1.7 - 9.3 % Normal No Sep 23 /100 informati 2016 6:15 leukocyte on in AM s in source Blood by data Automated count Platelet 7.4 - fl Low No Sep 23 mean 10.4 informati 2017 6:15 volume on in AM [Entitic source volume] data in Blood by Automated count Platelets 142 - 424 K/mm3 Normal No Sep 23 informati 2017 6:15 [#/volume on in AM ] in source Blood data Erythrocy 4.2 - 5.4 M/mm3 Normal No Sep 23 joellen informati 2017 6:15 [#/volume on in AM ] in source Amniotic data fluid Erythrocy 11.5 - % Normal No Sep 23 te 17.5 informati 2016 6:15 distribut on in AM ion width source [Entitic data volume] by Automated count Leukocyte 4.8 - K/MM3 High No Sep 23 s 10.8 informati 2016 6:15 [#/volume on in AM ] in source Blood data Differential panel, method unspecified - Observa Value Referen Units Interpr Notes Date tion ce etation Range Lymphocyt 0 - 5 % Normal No Sep 23 es informati 2017 6:15 Variant/1 on in AM 00 source leukocyte data s in Blood by Manual count Neutrophi 0 - 8 % Normal No Sep 23 ls.band informati 2017 6:15 form/100 on in AM leukocyte source s in data Blood by Automated count LYMPH 6 10 - 50 % Low No Sep 23 informa 2017 tion in 6:15 AM source data Monocytes 2 - 9 % Low No Sep 23 /100 informati 2016 6:15 leukocyte on in AM s in source Blood by data Automated count Platele NORMAL No No No No Sep 23 ts informa informa informa informa 2016 [Presen tion in tion in tion in tion in 6:15 AM ce] in source source source source Blood data data data data by Light microsc opy Neutrophi 42 - 76 % High No Sep 23 ls informati 2017 6:15 [#/volume on in AM ] in source Blood by data Automated count Erythro NORMAL No No No No Sep 23 cyte informa informa informa informa 2017 morphol tion in tion in tion in tion in 6:15 AM ogy source source source source finding data data data data [Identi fier] in Blood Cells No #CELLS No No Sep 23 Counted informati informati informati 2017 6:15 Total [#] on in on in on in AM in Blood source source source data data data Amylase [Enzymatic activity/volume] in Serum or Plasma Observa Value Referen Units Interpr Notes Date tion ce etation Range Amylase 25 - 115 U/L High Sep 23 [Enzymati alert NOTIFICAT 2017 6:15 c ION AM activity/ RESULT volume] in Serum or Plasma Comprehensive metabolic 2000 panel in Serum or Plasma Observa Value Referen Units Interpr Notes Date ti ce etation Range Albumin/G 1.1 - 1.8 No Low No Sep 23 lobulin informati informati 2017 6:15 [Mass on in on in AM ratio] in source source Serum or data data Plasma Albumin 3.4 - 5.0 gm/dL Low No Sep 23 [Mass/vol informati 2017 6:15 ume] in on in AM Serum or source Plasma data Alkaline 46 - 116 U/L High No Sep 23 phosphata informati 2017 6:15 se on in AM [Enzymati source c data activity/ volume] in Serum or Plasma Bilirubin 0.2 - 1.0 mg/dL High No Sep 23 .total informati 2017 6:15 [Mass/vol on in AM ume] in source Serum or data Plasma Urea 7 - 18 mg/dL High No Sep 23 nitrogen informati 2017 6:15 [Mass/vol on in AM ume] in source Serum or data Plasma Calcium 8.5 - mg/dL Low No Sep 23 [Mass/vol 10.1 informati 2017 6:15 ume] in on in AM Serum or source Plasma data Chloride 98 - 107 mmoL/L Normal No Sep 23 [Moles/vo informati 2017 6:15 lume] in on in AM Serum or source Plasma data Carbon 21.0 - mmoL/L Normal No Sep 23 dioxide, 32.0 informati 2017 6:15 total on in AM [Moles/vo source lume] in data Serum or Plasma Creatinin 0.55 - mg/dL High No Apr 23 e 1.02 informati 2016 6:15 [Mass/vol on in AM ume] in source Serum or data Plasma Creatinin 50 - 200 ML/MIN Normal No Sep 23 e renal informati 2016 6:15 clearance on in AM source predicted data by Cockcroft -Gault formula Estimated 59- ML/MIN Low REFERENCE May 21 RANGE: 2016 6:15 glomerula >60 AM r ML/MIN/1. filtratio 73 SQUARE n rate METERSIf (GF this patient is -A merican, then multiply theresult by 1.210. Globulin 1.3 - 3.2 gm/dL High No May 21 [Mass/vol informati 2016 6:15 ume] in on in AM Serum source data Glucose 74 - 106 mg/dL High No May 21 [Mass/vol informati 2016 6:15 ume] in on in AM Serum or source Plasma data Potassium 3.5 - 5.1 mmoL/L Low No May 21 informati 2016 6:15 [Moles/vo on in AM lume] in source Serum or data Plasma Sodium 136 - 145 mmoL/L Normal No May 21 [Moles/vo informati 2016 6:15 lume] in on in AM Serum or source Plasma data Aspartate 15 - 37 U/L High No May 21 informati 2017 6:15 aminotran on in AM sferase source [Enzymati data c activity/ volume] in Serum or Plasma Alanine 12 - 78 U/L High No May 21 aminotran informati 2016 6:15 sferase on in AM [Enzymati source c data activity/ volume] in Serum or Plasma Protein 6.4 - 8.2 gm/dL Normal No May 21 [Mass/vol informati 2016 6:15 ume] in on in AM Serum or source Plasma data Lipase [Enzymatic activity/volume] in Serum or Plasma Observa Value Referen Units Interpr Notes Date tion ce etation Range Lipase 73 - 393 U/L High May 21 [Enzymati NOTIFICAT 2017 6:15 c ION AM activity/ RESULT volume] in Serum or Plasma Glucose [Mass/volume] in Capillary blood by Glucometer Observa Value Referen Units Interpr Notes Date tion ce etation Range Glucose 70 - 110 mg/dl High No Sep 23 [Mass/vol informati 2017 6:14 ume] in on in AM Capillary source blood by data Glucomete r Glucose [Mass/volume] in Capillary blood by Glucometer Observa Value Referen Units Interpr Notes Date tion ce etation Range Glucose 70 - 110 mg/dl High No Sep 22 [Mass/vol informati 2017 9:48 ume] in on in PM Capillary source blood by data Glucomete r Lactate [Moles/volume] in Serum or Plasma Observa Value Referen Units Interpr Notes Date tion ce etation Range Lactate 0.4 - 2.0 MMOL/L High An Sep 22 [Moles/vo elevated 2016 8:55 lume] in Lactic PM Serum or Acid is Plasma suggestiv e of sepsis and shouldbe repeated within 6 hours of initial testing. Urinalysis dipstick W Reflex Microscopic panel in Urine Observa Value Referen Units Interpr Notes Date tion ce etation Range Appeara CLOUDY CLEAR No No No Sep 22 nce of informa informa informa 2017 Urine tion in tion in tion in 7:25 PM source source source data data data Bacteri 2+ O No No No Sep a informa informa informa 2016 [Presen tion in tion in tion in 7:25 PM ce] in source source source Urine data data data sedimen t by Light microsc opy Bilirub NEGATIV NEG No No No Sep 22 in E informa informa informa 2016 [Presen tion in tion in tion in 7:25 PM ce] in source source source Urine data data data by Test strip Erythro 2+ NEG No Abnorma No Sep 22 cytes informa l informa 2016 [Presen tion in tion in 7:25 PM ce] in source source Urine data data Color YELLOW YELLOW No No No Sep 22 of informa informa informa 2017 Urine tion in tion in tion in 7:25 PM source source source data data data Glucose NEG No No No Sep 22 [Mass/vol informati informati informati 2017 7:25 ume] in on in on in on in PM Urine by source source source Test data data data strip Ketones NEGATIV NEG mg/dL No No Sep 22 E informa informa 2016 [Presen tion in tion in 7:25 PM ce] in source source Urine data data by Automat ed test strip Mucus 3+ NEG No Abnorma No Sep 22 [Presen informa l informa 2016 ce] in tion in tion in 7:25 PM Urine source source sedimen data data t by Light microsc opy Nitrite NEGATIV NEG No No No Sep 22 E informa informa informa 2017 [Presen tion in tion in tion in 7:25 PM ce] in source source source Urine data data data by Test strip pH of 5.0 - 8.5 No Normal No Sep 22 Urine informati informati 2017 7:25 on in on in PM source source data data Protein NEG mg/dL High No Sep 22 [Mass/vol informati 2017 7:25 ume] in on in PM Urine by source Automated data test strip Erythro 3-5 0 rbc/hpf No No Sep 22 cytes informa informa 2017 [Presen tion in tion in 7:25 PM ce] in source source Urine data data sedimen t by Light microsc opy Specific 1.005 - No Normal No Sep 22 gravity 1.030 informati informati 2017 7:25 of Urine on in on in PM source source data data Epithel NONE 0 - 5 #/hpf No No Sep 22 ial informa informa 2017 cells.s tion in tion in 7:25 PM quamous source source data data [Presen ce] in Urine sedimen t by Microsc opy high power field Urobili 2.0 NEG E.U./dL No No Sep 22 nogen informa informa 2017 [Presen tion in tion in 7:25 PM ce] in source source Urine data data by Test strip Leukocyte O wbc/hpf No No Sep 22 s informati informati 2017 7:25 [#/volume on in on in PM ] in source source Urine data data Urinalysis dipstick W Reflex Microscopic panel in Urine Observa Value Referen Units Interpr Notes Date tion ce etation Range Appeara CLOUDY CLEAR No No No Sep 22 nce of informa informa informa 2017 Urine tion in tion in tion in 7:25 PM source source source data data data Bilirub NEGATIV NEG No No No Sep 22 in E informa informa informa 2017 [Presen tion in tion in tion in 7:25 PM ce] in source source source Urine data data data by Test strip Erythro 2+ NEG No Abnorma No Sep 22 cytes informa l informa 2017 [Presen tion in tion in 7:25 PM ce] in source source Urine data data Color YELLOW YELLOW No No No Sep 22 of informa informa informa 2017 Urine tion in tion in tion in 7:25 PM source source source data data data Glucose NEG No No No Sep 22 [Mass/vol informati informati informati 2017 7:25 ume] in on in on in on in PM Urine by source source source Test data data data strip Ketones NEGATIV NEG mg/dL No No Sep 22 E informa informa 2017 [Presen tion in tion in 7:25 PM ce] in source source Urine data data by Automat ed test strip Mucus 3+ NEG No Abnorma No Sep 22 [Presen informa l informa 2016 ce] in tion in tion in 7:25 PM Urine source source sedimen data data t by Light microsc opy Nitrite NEGATIV NEG No No No Sep 22 E informa informa informa 2016 [Presen tion in tion in tion in 7:25 PM ce] in source source source Urine data data data by Test strip pH of 5.0 - 8.5 No Normal No Sep 22 Urine informati informati 2017 7:25 on in on in PM source source data data Protein NEG mg/dL High No Sep 22 [Mass/vol informati 2017 7:25 ume] in on in PM Urine by source Automated data test strip Specific 1.005 - No Normal No Sep 22 gravity 1.030 informati informati 2017 7:25 of Urine on in on in PM source source data data Urobili 2.0 NEG E.U./dL No No Sep 22 nogen informa informa 2017 [Presen tion in tion in 7:25 PM ce] in source source Urine data data by Test strip Influenza virus A+B Ag [Presence] in Unspecified specimen Observa Value Referen Units Interpr Notes Date tion ce etation Range Influen NOT NOT No No No Sep 22 za DETECTE DETECTD informa informa informa 2017 virus A D tion in tion in tion in 5:10 PM Ag source source source [Presen data data data ce] in Unspeci fied specime n Influen NOT NOT No No No Sep 22 za DETECTE DETECTD informa informa informa 2017 virus B D tion in tion in tion in 5:10 PM Ag source source source [Presen data data data ce] in Unspeci fied specime n Lactate [Moles/volume] in Blood Observa Value Referen Units Interpr Notes Date tion ce etation Range Lactate 0.4 - 2.0 mmol/L High An Sep 22 [Moles/vo elevated 2017 4:55 lume] in Lactic PM Blood Acid is suggestiv e of sepsis and shouldbe repeated within 6 hours of initial testing. CBC W Auto Differential panel in Blood Observa Value Referen Units Interpr Notes Date tion ce etation Range Basophils 0 - 0.2 K/MM3 Normal No Sep 22 informati 2016 3:50 [#/volume on in PM ] in source Blood by data Automated count Basophils 0.1 - 2.0 % Normal No Sep 22 /100 informati 2016 3:50 leukocyte on in PM s in source Blood by data Automated count Eosinophi 0.0 - 0.4 K/mm3 Normal No Sep 22 ls informati 2016 3:50 [#/volume on in PM ] in source Blood by data Automated count Eosinophi 0.1 - % Normal No Sep 22 ls/100 12.0 informati 2016 3:50 leukocyte on in PM s in source Blood by data Automated count Granulocy 1.8 - 7.8 K/mm3 High No Sep 22 joellen informati 2016 3:50 [#/volume on in PM ] in source Blood by data Automated count Granulocy 37.0 - % High No Sep 22 joellen/100 80.0 informati 2016 3:50 leukocyte on in PM s in source Blood by data Automated count Hematocri 37.0 - % Normal No Sep 22 t [Volume 47.0 informati 2016 3:50 on in PM Fraction] source of Blood data Hemoglobi 12.2 - g/dL No No Sep 22 n 16.2 informati informati 2016 3:50 [Mass/vol on in on in PM ume] in source source Blood data data Lymphocyt 0.7 - 4.5 K/mm3 Normal No Sep 22 es informati 2016 3:50 [#/volume on in PM ] in source Unspecifi data ed specimen by Automated count Lymphocyt 10 - 50.0 % Normal No Sep 22 es informati 2016 3:50 [#/volume on in PM ] in source Unspecifi data ed specimen by Automated count Erythrocy 27 - 31.2 pg Low No Apr 22 te mean inform2016 3:50 corpuscul on in PM ar source hemoglobi data n [Entitic mass] Erythrocy 31.8 - g/dl Normal No May 20 te mean 35.4 inform2016 3:50 corpuscul on in PM ar source hemoglobi data n concentra tion [Mass/vol ume] by Automated count Erythrocy 82.2 - fl Normal No May 20 te mean 97.8 inform2016 3:50 corpuscul on in PM ar volume source [Entitic data volume] by Automated count Monocytes 0.1 - 1.0 K/mm3 Normal No Apr 22 inform2016 3:50 [#/volume on in PM ] in source Blood by data Automated count Monocytes 1.7 - 9.3 % Normal No Sep 22 /100 informati 2016 3:50 leukocyte on in PM s in source Blood by data Automated count Platelet 7.4 - fl Low No May 20 mean 10.4 informati 2016 3:50 volume on in PM [Entitic source volume] data in Blood by Automated count Platelets 142 - 424 K/mm3 No No Sep 22 informati informati 2016 3:50 [#/volume on in on in PM ] in source source Blood data data Erythrocy 4.2 - 5.4 M/mm3 Normal No Apr 22 joellen informati 2016 3:50 [#/volume on in PM ] in source Amniotic data fluid Erythrocy 11.5 - % Normal No May 20 te 17.5 informati 2016 3:50 distribut on in PM ion width source [Entitic data volume] by Automated count Leukocyte 4.8 - K/MM3 High No Apr 22 s 10.8 informati 2016 3:50 [#/volume on in PM ] in source Blood data Basic metabolic panel in Blood Observa Value Referen Units Interpr Notes Date tion ce etation Range Urea 7 - 18 mg/dL Normal No January 21 nitrogen informati 2016 5:30 [Mass/vol on in AM ume] in source Serum or data Plasma Calcium 8.5 - mg/dL Normal No January 21 [Mass/vol 10.1 informati 2016 5:30 ume] in on in AM Serum or source Plasma data Chloride 98 - 107 mmoL/L Normal No January 21 [Moles/vo informati 2016 5:30 lume] in on in AM Serum or source Plasma data Carbon 21.0 - mmoL/L Normal No January 21 dioxide, 32.0 informati 2016 5:30 total on in AM [Moles/vo source lume] in data Serum or Plasma Creatinin 0.55 - mg/dL Normal No January 21 e 1.02 informati 2016 5:30 [Mass/vol on in AM ume] in source Serum or data Plasma Creatinin 50 - 200 ML/MIN Normal No January 21 e renal informati 2016 5:30 clearance on in AM source predicted data by Cockcroft -Gault formula Estimated 59- ML/MIN No REFERENCE January 21 informati RANGE: 2017 5:30 glomerula on in >60 AM r source ML/MIN/1. filtratio data 73 SQUARE n rate METERSIf (GF this patient is -A merican, then multiply theresult by 1.210. Glucose 74 - 106 mg/dL Normal No January 21 [Mass/vol informati 2016 5:30 ume] in on in AM Serum or source Plasma data Potassium 3.5 - 5.1 mmoL/L Normal No January 21 inform2016 5:30 [Moles/vo on in AM lume] in source Serum or data Plasma Sodium 136 - 145 mmoL/L Normal No January 21 [Moles/vo informati 2016 5:30 lume] in on in AM Serum or source Plasma data CBC W Auto Differential panel in Blood Observa Value Referen Units Interpr Notes Date tion ce etation Range Basophils 0 - 0.2 K/MM3 Normal No January 21 informati 2016 5:30 [#/volume on in AM ] in source Blood by data Automated count Basophils 0.1 - 2.0 % Normal No January 21 / informati 2016 5:30 leukocyte on in AM s in source Blood by data Automated count Eosinophi 0.0 - 0.4 K/mm3 High No January 21 ls informati 2016 5:30 [#/volume on in AM ] in source Blood by data Automated count Eosinophi 0.1 - % Normal No January 21 ls/100 12.0 informati 2016 5:30 leukocyte on in AM s in source Blood by data Automated count Granulocy 1.8 - 7.8 K/mm3 Normal No January 21 joellen informati 2016 5:30 [#/volume on in AM ] in source Blood by data Automated count Granulocy 37.0 - % Normal No January 21 joellen/100 80.0 informati 2016 5:30 leukocyte on in AM s in source Blood by data Automated count Hematocri 37.0 - % Normal No January 21 t [Volume 47.0 informati 2016 5:30 on in AM Fraction] source of Blood data Hemoglobi 12.2 - g/dL Low No January 21 n 16.2 informati 2016 5:30 [Mass/vol on in AM ume] in source Blood data Lymphocyt 0.7 - 4.5 K/mm3 Normal No January 21 es informati 2016 5:30 [#/volume on in AM ] in source Unspecifi data ed specimen by Automated count Lymphocyt 10 - 50.0 % Normal No January 21 es informati 2016 5:30 [#/volume on in AM ] in source Unspecifi data ed specimen by Automated count Erythrocy 27 - 31.2 pg Normal No January 21 te mean informati 2016 5:30 corpuscul on in AM ar source hemoglobi data n [Entitic mass] Erythrocy 31.8 - g/dl Low No January 21 te mean 35.4 informati 2016 5:30 corpuscul on in AM ar source hemoglobi data n concentra tion [Mass/vol ume] by Automated count Erythrocy 82.2 - fl Normal No January 21 te mean 97.8 informati 2016 5:30 corpuscul on in AM ar volume source [Entitic data volume] by Automated count Monocytes 0.1 - 1.0 K/mm3 Normal No January 21 informati 2016 5:30 [#/volume on in AM ] in source Blood by data Automated count Monocytes 1.7 - 9.3 % Normal No January 21 informati 2016 5:30 leukocyte on in AM s in source Blood by data Automated count Platelet 7.4 - fl Low No January 21 mean 10.4 informati 2016 5:30 volume on in AM [Entitic source volume] data in Blood by Automated count Platelets 142 - 424 K/mm3 Normal No January 21 informati 2016 5:30 [#/volume on in AM ] in source Blood data Erythrocy 4.2 - 5.4 M/mm3 Normal No January 21 joellen informati 2016 5:30 [#/volume on in AM ] in source Amniotic data fluid Erythrocy 11.5 - % Normal No January 21 te 17.5 informati 2016 5:30 distribut on in AM ion width source [Entitic data volume] by Automated count Leukocyte 4.8 - K/MM3 Normal No January 21 s 10.8 informati 2016 5:30 [#/volume on in AM ] in source Blood data CBC W Auto Differential panel in Blood Observa Value Referen Units Interpr Notes Date tion ce etation Range Basophils 0 - 0.2 K/MM3 Normal No January 19 informati 2016 6:23 [#/volume on in AM ] in source Blood by data Automated count Basophils 0.1 - 2.0 % Normal No January 19 informati 2016 6:23 leukocyte on in AM s in source Blood by data Automated count Eosinophi 0.0 - 0.4 K/mm3 Normal No January 19 ls informati 2016 6:23 [#/volume on in AM ] in source Blood by data Automated count Eosinophi 0.1 - % Normal No January 19 ls/100 12.0 informati 2016 6:23 leukocyte on in AM s in source Blood by data Automated count Granulocy 1.8 - 7.8 K/mm3 Normal No January 19 joellen informati 2016 6:23 [#/volume on in AM ] in source Blood by data Automated count Granulocy 37.0 - % Normal No January 19 joellen/100 80.0 informati 2016 6:23 leukocyte on in AM s in source Blood by data Automated count Hematocri 37.0 - % Normal January 19 t [Volume 47.0 2016 6:23 CRITICAL AM Fraction] RESULTS of Blood RESU LTS CALLED TO: MATT.COL 01/19/17 [facility] [place] Hemoglobi 12.2 - g/dL Low January 19 n 16.2 2016 6:23 [Mass/vol CRITICAL AM ume] in RESULTS Blood RESU LTS CALLED TO: MATT.COL 01/19/17 0711[facility] Lymphocyt 0.7 - 4.5 K/mm3 Normal No January 19 es informati 2017 6:23 [#/volume on in AM ] in source Unspecifi data ed specimen by Automated count Lymphocyt 10 - 50.0 % Normal No January 19 es informati 2016 6:23 [#/volume on in AM ] in source Unspecifi data ed specimen by Automated count Erythrocy 27 - 31.2 pg Low No January 19 te mean informati 2016 6:23 corpuscul on in AM ar source hemoglobi data n [Entitic mass] Erythrocy 31.8 - g/dl Low No January 19 te mean 35.4 informati 2016 6:23 corpuscul on in AM ar source hemoglobi data n concentra tion [Mass/vol ume] by Automated count Erythrocy 82.2 - fl Normal No January 19 te mean 97.8 informati 2016 6:23 corpuscul on in AM ar volume source [Entitic data volume] by Automated count Monocytes 0.1 - 1.0 K/mm3 Normal No January 19 informati 2016 6:23 [#/volume on in AM ] in source Blood by data Automated count Monocytes 1.7 - 9.3 % Normal No January 19 /100 informati 2017 6:23 leukocyte on in AM s in source Blood by data Automated count Platelet 7.4 - fl Low January 19 mean 10.4 informati 2016 6:23 volume on in AM [Entitic source volume] data in Blood by Automated count Platelets 142 - 424 K/mm3 Normal No January 19 informati 2016 6:23 [#/volume on in AM ] in source Blood data Erythrocy 4.2 - 5.4 M/mm3 Normal No January 19 joellen informati 2016 6:23 [#/volume on in AM ] in source Amniotic data fluid Erythrocy 11.5 - % Normal No January 19 te 17.5 informati 2016 6:23 distribut on in AM ion width source [Entitic data volume] by Automated count Leukocyte 4.8 - K/MM3 Normal No January 19 s 10.8 informati 2016 6:23 [#/volume on in AM ] in source Blood data Comprehensive metabolic 2000 panel in Serum or Plasma Observa Value Referen Units Interpr Notes Date tion ce etation Range Albumin/G 1.1 - 1.8 No Low No January 19 lobulin informati informati 2016 6:23 [Mass on in on in AM ratio] in source source Serum or data data Plasma Albumin 3.4 - 5.0 gm/dL Low No January 19 [Mass/vol informati 2016 6:23 ume] in on in AM Serum or source Plasma data Alkaline 46 - 116 U/L High No January 19 phosphata informati 2017 6:23 se on in AM [Enzymati source c data activity/ volume] in Serum or Plasma Bilirubin 0.2 - 1.0 mg/dL High No January 19 .total informati 2016 6:23 [Mass/vol on in AM ume] in source Serum or data Plasma Urea 7 - 18 mg/dL Normal No January 19 nitrogen informati 2016 6:23 [Mass/vol on in AM ume] in source Serum or data Plasma Calcium 8.5 - mg/dL Low No January 19 [Mass/vol 10.1 informati 2016 6:23 ume] in on in AM Serum or source Plasma data Chloride 98 - 107 mmoL/L High No January 19 [Moles/vo informati 2016 6:23 lume] in on in AM Serum or source Plasma data Carbon 21.0 - mmoL/L Normal No January 19 dioxide, 32.0 informati 2017 6:23 total on in AM [Moles/vo source lume] in data Serum or Plasma Creatinin 0.55 - mg/dL Normal No January 19 e 1.02 informati 2016 6:23 [Mass/vol on in AM ume] in source Serum or data Plasma Creatinin 50 - 200 ML/MIN Normal No January 19 e renal informati 2016 6:23 clearance on in AM source predicted data by Cockcroft -Gault formula Estimated 59- ML/MIN No REFERENCE January 19 informati RANGE: 2017 6:23 glomerula on in >60 AM r source ML/MIN/1. filtratio data 73 SQUARE n rate METERSIf (GF this patient is -A merican, then multiply theresult by 1.210. Globulin 1.3 - 3.2 gm/dL High No January 19 [Mass/vol informati 2016 6:23 ume] in on in AM Serum source data Glucose 74 - 106 mg/dL Normal No January 19 [Mass/vol informati 2016 6:23 ume] in on in AM Serum or source Plasma data Potassium 3.5 - 5.1 mmoL/L Normal No January 19 informati 2016 6:23 [Moles/vo on in AM lume] in source Serum or data Plasma Sodium 136 - 145 mmoL/L Normal No January 19 [Moles/vo informati 2016 6:23 lume] in on in AM Serum or source Plasma data Aspartate 15 - 37 U/L High No January 19 informati 2016 6:23 aminotran on in AM sferase source [Enzymati data c activity/ volume] in Serum or Plasma Alanine 12 - 78 U/L High No January 19 aminotran informati 2016 6:23 sferase on in AM [Enzymati source c data activity/ volume] in Serum or Plasma Protein 6.4 - 8.2 gm/dL Low No January 19 [Mass/vol informati 2016 6:23 ume] in on in AM Serum or source Plasma data Glucose [Mass/volume] in Capillary blood by Glucometer Observa Value Referen Units Interpr Notes Date tion ce etation Range Glucose 70 - 110 mg/dl Normal No January 18 [Mass/vol informati 2016 9:52 ume] in on in AM Capillary source blood by data Glucomete r Cobalamin (Vitamin B12) [Mass/volume] in Serum Observa Value Referen Units Interpr Notes Date tion ce etation Range Cobalamin 211 - 946 pg/mL No January 18 (Vitamin informati at: CB 2017 8:30 B12) on in - [facility] AM [Mass/vol source ume] in data [place] [id number] Serum 0 [place], [place] [id number] [employer]: Terry Hammond PhD, Phone: [phone] Folate [Mass/volume] in Serum or Plasma Observa Value Referen Units Interpr Notes Date ti ce etation Range Folate >3.0 ng/mL No A serum January 18 [Mass/vol informati folate 2017 8:30 ume] in on in concentra AM Serum or source tion of Plasma data less than 3.1 ng/mL isconside red to represent clinical deficienc y. Glucose [Mass/volume] in Serum or Plasma Observa Value Referen Units Interpr Notes Date tion ce etation Range Glucose 74 - 106 mg/dL Normal No January 18 [Mass/vol informati 2017 8:30 ume] in on in AM Serum or source Plasma data Hemoglobin A1c in Blood Observa Value Referen Units Interpr Notes Date tion ce etation Range Hemoglo 6.1 0.0 - % Normal < 6% January 18 bin A1c 7.0 NON-NGOC 2017 in BETIC 8:30 AM Blood LEVEL< 7% CONTROL LED DIABETI C LEVEL> 8% POORLY CONTROL LED DIABETI C LEVEL Iron [Mass/mass] in Unspecified specimen Observa Value Referen Units Interpr Notes Date tion ce etation Range Iron 50 - 170 ug/dL Low No January 18 [Mass/mas informati 2016 6:20 s] in on in AM Unspecifi source ed data specimen Basic metabolic panel in Blood Observa Value Referen Units Interpr Notes Date tion ce etation Range Urea 7 - 18 mg/dL Normal No January 18 nitrogen informati 2016 6:20 [Mass/vol on in AM ume] in source Serum or data Plasma Calcium 8.5 - mg/dL Low No January 18 [Mass/vol 10.1 informati 2016 6:20 ume] in on in AM Serum or source Plasma data Chloride 98 - 107 mmoL/L Normal No January 18 [Moles/vo informati 2016 6:20 lume] in on in AM Serum or source Plasma data Carbon 21.0 - mmoL/L Normal No January 18 dioxide, 32.0 informati 2017 6:20 total on in AM [Moles/vo source lume] in data Serum or Plasma Creatinin 0.55 - mg/dL High No January 18 e 1.02 informati 2017 6:20 [Mass/vol on in AM ume] in source Serum or data Plasma Creatinin 50 - 200 ML/MIN Normal No January 18 e renal informati 2016 6:20 clearance on in AM source predicted data by Cockcroft -Gault formula Estimated 59- ML/MIN Low REFERENCE January 18 RANGE: 2017 6:20 glomerula >60 AM r ML/MIN/1. filtratio 73 SQUARE n rate METERSIf (GF this patient is -A merican, then multiply theresult by 1.210. Glucose 74 - 106 mg/dL High January 18 [Mass/vol alert 2016 6:20 ume] in CRITICAL AM Serum or RESULTS Plasma RESU LTS CALLED TO: CORIN 01/18/17 0740 Ankur Rolle e Potassium 3.5 - 5.1 mmoL/L Low No January 18 informati 2016 6:20 [Moles/vo on in AM lume] in source Serum or data Plasma Sodium 136 - 145 mmoL/L Low No January 18 [Moles/vo informati 2016 6:20 lume] in on in AM Serum or source Plasma data CBC W Auto Differential panel in Blood Observa Value Referen Units Interpr Notes Date tion ce etation Range Basophils 0 - 0.2 K/MM3 Normal No January 18 informati 2016 6:20 [#/volume on in AM ] in source Blood by data Automated count Basophils 0.1 - 2.0 % Normal No January 18 / informati 2016 6:20 leukocyte on in AM s in source Blood by data Automated count Eosinophi 0.0 - 0.4 K/mm3 Normal No January 18 ls informati 2016 6:20 [#/volume on in AM ] in source Blood by data Automated count Eosinophi 0.1 - % Normal No January 18 ls/100 12.0 informati 2016 6:20 leukocyte on in AM s in source Blood by data Automated count Granulocy 1.8 - 7.8 K/mm3 Normal No January 18 joellen informati 2016 6:20 [#/volume on in AM ] in source Blood by data Automated count Granulocy 37.0 - % Normal No January 18 joellen/100 80.0 informati 2016 6:20 leukocyte on in AM s in source Blood by data Automated count Hematocri 37.0 - % Low No January 18 t [Volume 47.0 informati 2016 6:20 on in AM Fraction] source of Blood data Hemoglobi 12.2 - g/dL Low January 18 n 16.2 informati 2016 6:20 [Mass/vol on in AM ume] in source Blood data Lymphocyt 0.7 - 4.5 K/mm3 Normal No January 18 es informati 2016 6:20 [#/volume on in AM ] in source Unspecifi data ed specimen by Automated count Lymphocyt 10 - 50.0 % Normal No January 18 es informati 2016 6:20 [#/volume on in AM ] in source Unspecifi data ed specimen by Automated count Erythrocy 27 - 31.2 pg Normal No January 18 te mean informati 2016 6:20 corpuscul on in AM ar source hemoglobi data n [Entitic mass] Erythrocy 31.8 - g/dl Low No January 18 te mean 35.4 informati 2016 6:20 corpuscul on in AM ar source hemoglobi data n concentra tion [Mass/vol ume] by Automated count Erythrocy 82.2 - fl Normal No January 18 te mean 97.8 informati 2016 6:20 corpuscul on in AM ar volume source [Entitic data volume] by Automated count Monocytes 0.1 - 1.0 K/mm3 Normal No January 18 informati 2016 6:20 [#/volume on in AM ] in source Blood by data Automated count Monocytes 1.7 - 9.3 % Normal No January 18 / informati 2016 6:20 leukocyte on in AM s in source Blood by data Automated count Platelet 7.4 - fl Low No January 18 mean 10.4 informati 2016 6:20 volume on in AM [Entitic source volume] data in Blood by Automated count Platelets 142 - 424 K/mm3 Normal No January 18 informati 2016 6:20 [#/volume on in AM ] in source Blood data Erythrocy 4.2 - 5.4 M/mm3 Low No January 18 joellen informati 2016 6:20 [#/volume on in AM ] in source Amniotic data fluid Erythrocy 11.5 - % Normal No January 18 te 17.5 informati 2016 6:20 distribut on in AM ion width source [Entitic data volume] by Automated count Leukocyte 4.8 - K/MM3 No January 18 s 10.8 informati informati 2016 6:20 [#/volume on in on in AM ] in source source Blood data data Lactate [Moles/volume] in Serum or Plasma Observa Value Referen Units Interpr Notes Date ti ce etation Range Lactate 0.4 - 2.0 MMOL/L Normal No January 17 [Moles/vo informati 2016 5:30 lume] in on in AM Serum or source Plasma data Urinalysis dipstick W Reflex Microscopic panel in Urine Observa Value Referen Units Interpr Notes Date tion ce etation Range Appeara CLOUDY CLEAR No No No January 17 nce of informa informa informa 2016 Urine tion in tion in tion in 12:10 source source source AM data data data Bacteri 4+ O No No No January 17 a informa informa informa 2016 [Presen tion in tion in tion in 12:10 ce] in source source source AM Urine data data data sedimen t by Light microsc opy Bilirub 1+ NEG No Abnorma BILIRUB January 17 in informa l IN 2016 [Presen tion in CONFIRM 12:10 ce] in source ED WITH AM Urine data by Test ICTOTES strip T Erythro TRACE-I NEG No No No January 17 cytes NTACT informa informa informa 2016 [Presen tion in tion in tion in 12:10 ce] in source source source AM Urine data data data Color DK YELLOW No No No January 17 of YELLOW informa informa informa 2017 Urine tion in tion in tion in 12:10 source source source AM data data data Glucose NEG No No No January 17 [Mass/vol informati informati informati 2016 ume] in on in on in on in 12:10 AM Urine by source source source Test data data data strip Ketones NEGATIV NEG mg/dL No No January 17 E informa informa 2016 [Presen tion in tion in 12:10 ce] in source source AM Urine data data by Automat ed test strip Mucus 3+ NEG No Abnorma No January 17 [Presen informa l informa 2016 ce] in tion in tion in 12:10 Urine source source AM sedimen data data t by Light microsc opy Nitrite POSITIV NEG No Abnorma No January 17 E informa l informa 2016 [Presen tion in tion in 12:10 ce] in source source AM Urine data data by Test strip pH of 5.0 - 8.5 No Normal No January 17 Urine informati informati 2016 on in on in 12:10 AM source source data data Protein NEG mg/dL High No January 17 [Mass/vol informati 2016 ume] in on in 12:10 AM Urine by source Automated data test strip Erythro 3-5 0 rbc/hpf No No January 17 cytes informa informa 2016 [Presen tion in tion in 12:10 ce] in source source AM Urine data data sedimen t by Light microsc opy Specific 1.005 - No Normal No January 17 gravity 1.030 informati informati 2016 of Urine on in on in 12:10 AM source source data data Urobili 2.0 NEG E.U./dL No No January 17 nogen informa informa 2016 [Presen tion in tion in 12:10 ce] in source source AM Urine data data by Test strip Leukocy [50 O wbc/hpf No No January 17 joellen wbc/hpf informa informa 2016 [#/volu ; 100 tion in tion in 12:10 me] in wbc/hpf source source AM Urine ] data data Urinalysis dipstick W Reflex Microscopic panel in Urine Observa Value Referen Units Interpr Notes Date tion ce etation Range Appeara CLOUDY CLEAR No No No January 17 nce of informa informa informa 2016 Urine tion in tion in tion in 12:10 source source source AM data data data Bilirub 1+ NEG No Abnorma BILIRUB January 17 in informa l IN 2016 [Presen tion in CONFIRM 12:10 ce] in source ED WITH AM Urine data by Test ICTOTES strip T Erythro TRACE-I NEG No No No January 17 cytes NTACT informa informa informa 2016 [Presen tion in tion in tion in 12:10 ce] in source source source AM Urine data data data Color DK YELLOW No No No January 17 of YELLOW informa informa informa 2016 Urine tion in tion in tion in 12:10 source source source AM data data data Glucose NEG No No No January 17 [Mass/vol informati informati informati 2016 ume] in on in on in on in 12:10 AM Urine by source source source Test data data data strip Ketones NEGATIV NEG mg/dL No No January 17 E informa informa 2016 [Presen tion in tion in 12:10 ce] in source source AM Urine data data by Automat ed test strip Mucus 3+ NEG No Abnorma No January 17 [Presen informa l informa 2016 ce] in tion in tion in 12:10 Urine source source AM sedimen data data t by Light microsc opy Nitrite POSITIV NEG No Abnorma No January 17 E informa l informa 2016 [Presen tion in tion in 12:10 ce] in source source AM Urine data data by Test strip pH of 5.0 - 8.5 No Normal No January 17 Urine informati informati 2017 on in on in 12:10 AM source source data data Protein NEG mg/dL High No January 17 [Mass/vol informati 2016 ume] in on in 12:10 AM Urine by source Automated data test strip Specific 1.005 - No Normal No January 17 gravity 1.030 informati inform2016 of Urine on in on in 12:10 AM source source data data Urobili 2.0 NEG E.U./dL No No January 17 nogen informa informa 2016 [Presen tion in tion in 12:10 ce] in source source AM Urine data data by Test strip CBC W Auto Differential panel in Blood Observa Value Referen Units Interpr Notes Date tion ce etation Range Basophils 0 - 0.2 K/MM3 Normal No January 17 inform2016 [#/volume on in 12:10 AM ] in source Blood by data Automated count Basophils 0.1 - 2.0 % Normal No January 17 /2016 leukocyte on in 12:10 AM s in source Blood by data Automated count Eosinophi 0.0 - 0.4 K/mm3 Normal No January 17 ls 2016 [#/volume on in 12:10 AM ] in source Blood by data Automated count Eosinophi 0.1 - % Normal No January 17 ls/100 12.0 2016 leukocyte on in 12:10 AM s in source Blood by data Automated count Granulocy 1.8 - 7.8 K/mm3 High No January 17 joellen 2016 [#/volume on in 12:10 AM ] in source Blood by data Automated count Granulocy 37.0 - % High No January 17 joellen/100 80.0 2016 leukocyte on in 12:10 AM s in source Blood by data Automated count Hematocri 37.0 - % Normal No January 17 t [Volume 47.0 2016 on in 12:10 AM Fraction] source of Blood data Hemoglobi 12.2 - g/dL No No January 17 n 16.2 informati informati 2016 [Mass/vol on in on in 12:10 AM ume] in source source Blood data data Lymphocyt 0.7 - 4.5 K/mm3 Low No January 17 es 2016 [#/volume on in 12:10 AM ] in source Unspecifi data ed specimen by Automated count Lymphocyt 10 - 50.0 % Low No January 17 es 2016 [#/volume on in 12:10 AM ] in source Unspecifi data ed specimen by Automated count Erythrocy 27 - 31.2 pg Normal No January 17 te mean 2016 corpuscul on in 12:10 AM ar source hemoglobi data n [Entitic mass] Erythrocy 31.8 - g/dl Normal No January 17 te mean 35.4 2016 corpuscul on in 12:10 AM ar source hemoglobi data n concentra tion [Mass/vol ume] by Automated count Erythrocy 82.2 - fl Normal No January 17 te mean 97.8 2016 corpuscul on in 12:10 AM ar volume source [Entitic data volume] by Automated count Monocytes 0.1 - 1.0 K/mm3 Normal No January 17 inform2016 [#/volume on in 12:10 AM ] in source Blood by data Automated count Monocytes 1.7 - 9.3 % Normal No January 172016 leukocyte on in 12:10 AM s in source Blood by data Automated count Platelet 7.4 - fl Low No January 17 mean 10.4 2016 volume on in 12:10 AM [Entitic source volume] data in Blood by Automated count Platelets 142 - 424 K/mm3 Normal No January 172016 [#/volume on in 12:10 AM ] in source Blood data Erythrocy 4.2 - 5.4 M/mm3 Normal No January 17 joellen 2016 [#/volume on in 12:10 AM ] in source Amniotic data fluid Erythrocy 11.5 - % Normal No January 17 te 17.5 2016 distribut on in 12:10 AM ion width source [Entitic data volume] by Automated count Leukocyte 4.8 - K/MM3 Normal No January 17 s 10.8 2016 [#/volume on in 12:10 AM ] in source Blood data Differential panel, method unspecified - Observa Value Referen Units Interpr Notes Date tion ce etation Range Neutrophi 0 - 8 % Normal No January 17 ls.band 2016 form/100 on in 12:10 AM leukocyte source s in data Blood by Automated count Eosinophi 0 - 3 % Normal No January 17 ls/100 2016 leukocyte on in 12:10 AM s in source Blood by data Manual count LYMPH 5 10 - 50 % Low No January 172016 tion in 12:10 source AM data Monocytes 2 - 9 % Low No January 17 inform2016 leukocyte on in 12:10 AM s in source Blood by data Automated count Platele NORMAL No No No No January 17 ts informa informa informa informa 2016 [Presen tion in tion in tion in tion in 12:10 ce] in source source source source AM Blood data data data data by Light microsc opy Neutrophi 42 - 76 % High No January 17 ls informati 2017 [#/volume on in 12:10 AM ] in source Blood by data Automated count Rouleau SL. No No No No January 17 x informa informa informa informa 2016 [Presen tion in tion in tion in tion in 12:10 ce] in source source source source AM Blood data data data data by Light microsc opy Cells No #CELLS No No January 17 Counted informati informati informati 2016 Total [#] on in on in on in 12:10 AM in Blood source source source data data data Lactate [Moles/volume] in Blood Observa Value Referen Units Interpr Notes Date tion ce etation Range Lactate 0.4 - 2.0 mmol/L High An January 17 [Moles/vo elevated 2017 lume] in Lactic 12:10 AM Blood Acid is suggestiv e of sepsis and shouldbe repeated within 6 hours of initial testing.
--- OUTSIDE RECORDS SUMMARY | 2017-06-11 05:52 | External Medical Summary Rpt ---
[...] [facility] AM [Mass/vol source ume] in data [place] [address] [address] [place], [place] [id number] Mother Tester: Terry Hammond PhD, Phone: [phone] Folate [Mass/volume] in Serum or Plasma [...]
== END 2017-06-07 17:08 | disposition home or self-care (01) ==
LOC: ER 12:56
PROVIDERS: Emergency Medicine
DX: J18.1 Lobar pneumonia, unspecified organism (principal); Z87.891 Personal history of nicotine dependence; G30.9 Alzheimer's disease, unspecified; R56.9 Unspecified convulsions; J44.9 Chronic obstructive pulmonary disease, unspecified; I10 Essential (primary) hypertension; Z88.0 Allergy status to penicillin; Z79.899 Other long term (current) drug therapy